=== PATIENT | female | born 1945 | race Caucasian/White ===

== ENCOUNTER → 2022-10-30 08:01 | Outpatient (BNVA) | payer MEDICARE, OTHER, SELFPAY | PROVIDERS: Visit Provider Thoracic Surgery (Cardiothoracic Vascular Surgery) | DX: Z90.2 Acquired absence of lung [part of] (principal) | CPT/HCPCS: 99202 ==

== ENCOUNTER 2022-10-31 05:41 | Day surgery (SDC) | payer MEDICARE, SELFPAY ==
--- NOTE | 2022-10-31 05:54 | XRR_ITS ---
PROCEDURE INFORMATION: Exam: XR Chest Exam date and time: 10/31/2022 6:03 AM Age: 76 years old Clinical indication: Device placement; Chest tube; Additional info: Chest tube removal TECHNIQUE: Imaging protocol: Radiologic exam of the chest. Views: 2 views. COMPARISON: No relevant prior studies available. FINDINGS: Lungs: Emphysematous change and interstitial prominence. Pleural spaces: Right thoracostomy tube with small right apical pneumothorax. Heart/Mediastinum: No cardiomegaly. Bones/joints: Osteopenia and degenerative change. XR/XR chest 2V insp/exp [id number] IMPRESSION: Right thoracostomy tube with small right apical pneumothorax.
[2022-10-31 06:15] VITALS: BP 152/60; PULSE 84; RESP 18; TEMP 36.3; O2SAT 98
--- NOTE | 2022-10-31 06:30 | XRR_ITS ---
PROCEDURE INFORMATION: Exam: XR Chest Exam date and time: 10/31/2022 6:36 AM Age: 76 years old Clinical indication: Device placement; Other: RT. Chest tube removal TECHNIQUE: Imaging protocol: Radiologic exam of the chest. Views: 1 view. COMPARISON: CR XR chest 2V insp/exp [id number] 10/31/2022 6:03 AM FINDINGS: Lungs: Emphysematous change and interstitial prominence. Pleural spaces: Interval removal of right thoracostomy tube without significant pneumothorax. Heart/Mediastinum: No cardiomegaly. Diaphragm: Asymmetric elevation of the right hemidiaphragm. Bones/joints: Osteopenia and degenerative change. XR/XR chest 1V portable [id number] IMPRESSION: Interval removal of right thoracostomy tube without significant pneumothorax.
--- NOTE | 2022-10-31 06:32 | SUR.PREOP ---
dr oglesby removed right chest tube in prep room 2. patient sitting up in [facility] awake and alert on room air. chest tube removed by dr oglesby with removal of sutures and tube pulled, Vaseline gauze and 4x4 applied then gauze bandage applied. patient tolerated well, she is comfortable. portable cxr ordered and xray called. plan to xray and monitor for need for thoracic vent per dr oglesby.
[2022-10-31 06:35] VITALS: PULSE 80; RESP 18; O2SAT 96
--- NOTE | 2022-10-31 06:52 | SUR.PREOP ---
second cxr done, read by dr oglesby. dr oglesby informs family of results and says they can go home. requests for his office phone number to be given to patient. patient and family in agreement. patient awake and alert on room air with sat at 98%.
[2022-10-31 07:00] VITALS: BP 150/64; PULSE 83; RESP 18; O2SAT 96
== END 2022-10-31 07:00 | disposition home or self-care (01) ==
PROVIDERS: Visit Provider Thoracic Surgery (Cardiothoracic Vascular Surgery)
PROC: (CPT 32552; principal; 2022-10-31 07:00)
PROC: 0B9P30Z Drainage of Left Pleura with Drainage Device, Percutaneous Approach (ICD-10-PCS; CPT 32551; 2022-10-31 07:00)
DX: Z90.2 Acquired absence of lung [part of] (principal)
CPT/HCPCS: 71045; 71046

== ENCOUNTER → 2022-11-06 08:55 | Outpatient (BNVA) | payer MEDICARE, SELFPAY | PROVIDERS: Visit Provider Thoracic Surgery (Cardiothoracic Vascular Surgery) | DX: Z90.2 Acquired absence of lung [part of] (principal) | CPT/HCPCS: G0463 ==

== ENCOUNTER 2023-01-12 12:11 | Oncology outpatient (recurring) (ONCR) | payer MEDICARE, SELFPAY | END 2023-01-23 23:59 | disposition home or self-care (01) | LOC: ONCMED 12:12 | PROVIDERS: PCP Electrodiagnostic Medicine; Visit Provider Internal Medicine Hematology & Oncology | DX: C34.11 Malignant neoplasm of upper lobe, right bronchus or lung (principal); Z87.891 Personal history of nicotine dependence | CPT/HCPCS: 99204 ==

== ENCOUNTER 2023-02-27 08:57 | Oncology outpatient (recurring) (ONCR) | payer MEDICARE, SELFPAY ==
[2023-02-27 09:27] LABS: Basophils # 0.1 10^3/uL (0.0-0.1); Eosinophils # 0.2 10^3/uL (0.0-0.8); Eosinophils % 3.2 %; Hematocrit 42.4 % (37.0-47.0); Hemoglobin 13.6 g/dL (11.5-15.3); Lymphocytes # 1.6 10^3/uL (0.8-4.8); Lymphocytes % 25.6 %; Mean Corpuscular HGB Conc 32.1 g/dL (30.0-36.0); Mean Corpuscular Hemoglobin 31.9 pg (28.0-34.0); Mean Corpuscular Volume 99.5 fl (81-99); Monocytes # 0.6 10^3/uL (0.2-0.9); Neutrophils # 3.82 10^3/uL (1.8-7.7); Neutrophils % 60.6 %; Nucleated Red Blood Cells % 0 %; Platelet Count 292 10^3/cmm (130-400); Red Blood Count 4.26 10^6/uL (4.1-5.3); White Blood Count 6.3 10^3/uL (4.0-10.0)
[2023-02-27 09:36] LABS: Alanine Aminotransferase 13 U/L (0-33); Alkaline Phosphatase 82 U/L (35-105); Anion Gap 15.4 (5-19); Aspartate Amino Transferase 13 U/L (0-32); Blood Urea Nitrogen 15 mg/dL (8-23); Calcium 9.2 mg/dL (8.5-10.5); Carbon Dioxide 26 mmol/L (22-29); Chloride 105 mmol/L (98-107); Globulin 2.7 g/dL (1.3-4.6); Glucose 97 mg/dL (65-115); Osmolality Calculated 295 mOsm/kg (285-295); Potassium 4.4 mmol/L (3.5-5.1); Sodium 142 mmol/L (136-145); Total Bilirubin 0.4 mg/dL (0.15-1.2); Total Protein 6.7 g/dL (6.6-8.7)
== END 2023-03-25 23:59 | disposition home or self-care (01) ==
LOC: ONCMED 08:57
PROVIDERS: PCP Electrodiagnostic Medicine; Visit Provider Internal Medicine Hematology & Oncology
DX: C34.11 Malignant neoplasm of upper lobe, right bronchus or lung (principal); Z87.891 Personal history of nicotine dependence; Z90.2 Acquired absence of lung [part of]; J43.9 Emphysema, unspecified; E04.2 Nontoxic multinodular goiter
CPT/HCPCS: 36415; 80053; 85025; 99214

== ENCOUNTER → 2023-02-27 08:57 | Outpatient (BNVA) | payer MEDICARE, SELFPAY | PROVIDERS: PCP Electrodiagnostic Medicine; Visit Provider Internal Medicine Hematology & Oncology | DX: Z53.9 Procedure and treatment not carried out, unspecified reason (principal) | CPT/HCPCS: 99214 ==

== ENCOUNTER 2023-03-26 14:49 | Outpatient (CLI) | payer MEDICARE, SELFPAY ==
[2023-03-26] MEDS: iohexol 350 mg/mL 500 mL Btl (per mL) IV (15:20)
--- NOTE | 2023-03-26 15:30 | CT_ITS ---
WS: [id number] CT CHEST AND ABDOMEN TECHNIQUE: Contrast-enhanced CT of the chest and abdomen with coronal and sagittal reformatted images . CLINICAL INFORMATION: follow up COMPARISON: None. DLP: 339.[address] scans at [facility] use at least one of these dose optimization techniques: automated e xposure control; mA and/or kV adjustment per patient size (includes targeted exams where dose is matc hed to clinical indication); or iterative reconstruction. CT CHEST AND ABDOMEN: Lungs are well aerated. Moderate chronic emphysematous changes. No acute pulmonary infiltrates. Subse gmental atelectasis LEFT lower lobe. No suspicious pulmonary parenchymal abnormalities to indicate re current or progressive disease. Small nodules in the thyroid gland. Normal caliber thoracic aorta. Aortic calcification. No mediastin al or hilar lymphadenopathy. No axillary lymphadenopathy. Tiny LEFT hepatic cyst. Normal portal vein and splenic vein. Normal pancreatic parenchymal enhancemen t. Tiny esophageal hiatal hernia. Normal renal parenchymal enhancement. RIGHT kidney parenchymal scar ring. Small renal cysts largest in the LEFT measuring 1.8 cm. Mild aortic calcification. Normal calib er abdominal aorta. No adenopathy in the upper abdomen. Normal visualized gallbladder. Adrenal glands are normal. Mild thoracic kyphosis. Mild thoracic curve. CT/CT chest abdomen w con* IMPRESSION: 1. No evidence of recurrent or progressive disease. 2. No suspicious pulmonary parenchymal abnormalities. 3. No mediastinal or hilar lymphadenopathy. 4. Multinodular thyroid evaluated on the recent ultrasound. 5. RIGHT renal parenchymal scarring. Incidental LEFT renal cyst measuring 1.8 cm. 6. No adenopathy in the abdomen.
== END 2023-03-26 14:50 | disposition home or self-care (01) ==
PROVIDERS: PCP Electrodiagnostic Medicine; Visit Provider Internal Medicine Hematology & Oncology
DX: C34.90 Malignant neoplasm of unspecified part of unspecified bronchus or lung (principal); E04.2 Nontoxic multinodular goiter
CPT/HCPCS: 71260; 74160; 99214; Q9967

== ENCOUNTER → 2023-03-27 09:45 | Outpatient (BNVA) | payer MEDICARE, SELFPAY | PROVIDERS: PCP Electrodiagnostic Medicine; Visit Provider Internal Medicine Hematology & Oncology | DX: Z53.9 Procedure and treatment not carried out, unspecified reason (principal) | CPT/HCPCS: 99213 ==

== ENCOUNTER 2023-07-02 07:42 | Outpatient (CLI) | payer OTHER, SELFPAY ==
--- NOTE | 2023-07-02 07:50 | MR_ITS ---
WS: [id number] MRI BRAIN WITH AND WITHOUT CONTRAST HISTORY: PRIMARY MALGINANT NEOPLASM OF LUNG, memory changes. COMPARISON: None available. TECHNIQUE: Multiplanar imaging performed through the brain with MultiHance 13 ml's IV. No acute infarcts are seen. Dejesus-white matter differentiation is well preserved. There is mild asymme try of the hippocampal formations. Mild increased amount of CSF surrounding the hippocampal formation s. There is mild bilateral cerebral atrophy. No significant small vessel ischemic disease. No prior i nfarct. No susceptibility artifacts or prior lacunar infarcts. Ventricles and extra-axial spaces are normal. Clivus and pituitary gland are normal. Visualized posterior fossa and brainstem are also normal. Postcontrast images are negative for masses or vascular malformations. Dural venous sinuses are normal. Paranasal sinuses: Well aerated with no significant disease. Mastoid air cells: Normal. Calvarium and scalp: Normal. IMPRESSION: 1. No evidence for metastatic disease to the brain. 2. Very mild symmetric cerebral and cerebellar atrophy. 3. Mild atrophy of the hippocampal formations, symmetric. 4. No significant small vessel ischemic disease.
[2023-07-02] MEDS: gadobenate dimeglumine 20 mL vial IV (09:02)
== END 2023-07-02 07:43 | disposition home or self-care (01) ==
PROVIDERS: PCP Electrodiagnostic Medicine; Visit Provider Electrodiagnostic Medicine
DX: C34.90 Malignant neoplasm of unspecified part of unspecified bronchus or lung (principal); R41.3 Other amnesia
CPT/HCPCS: 70553; A9577

== ENCOUNTER 2023-07-29 13:15 | Outpatient (CLI) | payer MEDICARE, SELFPAY ==
--- NOTE | 2023-07-29 13:30 | CT_ITS ---
WS: [id number] CT CHEST AND ABDOMEN TECHNIQUE: Contrast-enhanced CT of the chest and abdomen with coronal and sagittal reformatted images . CLINICAL INFORMATION: Follow up COMPARISON: CT 03/26/2023 DLP: 392.[address] scans at [facility] use at least one of these dose optimization techniques: automated e xposure control; mA and/or kV adjustment per patient size (includes targeted exams where dose is matc hed to clinical indication); or iterative reconstruction. CT CHEST: Moderate chronic emphysematous changes. Prior postoperative changes RIGHT lung. No acute pulmonary i nfiltrates. Subsegmental atelectasis LEFT lower lobe. No evidence of recurrent or progressive disease . No suspicious pulmonary parenchymal abnormalities. Small nodules in the thyroid gland unchanged. Norm al caliber thoracic aorta. Aortic calcification. No mediastinal or hilar lymphadenopathy. No axillary lymphadenopathy. CT ABDOMEN: Mild diffuse fatty filtration of the liver. Tiny LEFT hepatic cysts. Normal portal vein and splenic v ein. Normal GE junction. Adrenal glands are normal. Normal renal parenchymal enhancement. Cortical scarring RIGHT kidney. Small bilateral renal cysts. No hydronephrosis. Normal caliber abdomi nal aorta. Aortic calcification. No abdominal lymphadenopathy IMPRESSION: 1. No evidence of recurrent or progressive disease. 2. Postoperative changes RIGHT lung. 3. No suspicious pulmonary parenchymal abnormalities. 4. No mediastinal or hilar lymphadenopathy. 5. No adenopathy in the abdomen.
[2023-07-29] MEDS: iohexol 350 mg/mL 500 mL Btl (per mL) PO (14:17)
[2023-07-29] MEDS: iohexol 350 mg/mL 500 mL Btl (per mL) IV (14:17)
== END 2023-07-29 13:16 | disposition home or self-care (01) ==
PROVIDERS: PCP Electrodiagnostic Medicine; Visit Provider Internal Medicine Medical Oncology
DX: C34.90 Malignant neoplasm of unspecified part of unspecified bronchus or lung (principal); Z98.890 Other specified postprocedural states
CPT/HCPCS: 71260; 74160; Q9967

== ENCOUNTER 2023-08-03 13:16 | Oncology outpatient (recurring) (ONCR) | payer MEDICARE, SELFPAY ==
[2023-08-03 13:50] VITALS: BP 134/78; PULSE 87; RESP 16; TEMP 36.9; O2SAT 98
[2023-08-03 14:08] LABS: Basophils % 0.4 %; Eosinophils # 0.1 10^3/uL (0.0-0.8); Eosinophils % 0.4 %; Hematocrit 39.4 % (36-47); Lymphocytes # 1.6 10^3/uL (0.8-4.8); Lymphocytes % 14.3 %; Mean Corpuscular HGB Conc 32.7 g/dL (30-55); Mean Corpuscular Hemoglobin 32.4 pg (27-33); Mean Platelet Volume 8.8 fL (7.4-10.4); Monocytes # 0.7 10^3/uL (0.2-0.9); Monocytes % 6.3 %; Neutrophils # 8.93 10^3/uL (1.8-7.7); Neutrophils % 78.2 %; Nucleated Red Blood Cells % 0 %; Platelet Count 300 10^3/cmm (157-399); Red Blood Count 3.98 10^6/uL (3.85-5.65); Red Cell Distribution Width 13.1 % (12.1-15.1); White Blood Count 11.41 10^3/uL (3.29-11.43)
[2023-08-03 14:30] LABS: Alanine Aminotransferase 9 U/L (0-33); Albumin Level 4.1 g/dL (3.5-5.2); Alkaline Phosphatase 96 U/L (35-105); Anion Gap 11.5 (5-19); Aspartate Amino Transferase 10 U/L (0-32); Blood Urea Nitrogen 19 mg/dL (8-23); Calcium 8.7 mg/dL (8.5-10.5); Carbon Dioxide 25 mmol/L (22-29); Chloride 100 mmol/L (98-107); Globulin 2.5 g/dL (1.3-4.6); Glucose 96 mg/dL (65-115); Osmolality Calculated 276 mOsm/kg (285-295); Potassium 4.5 mmol/L (3.5-5.1); Sodium 132 mmol/L (136-145); Total Bilirubin 0.6 mg/dL (0.15-1.2); Total Protein 6.6 g/dL (6.6-8.7)
[2023-08-03 16:29] LABS: Add Urine Microscopic? YES; Bilirubin Urine Neg (Negative); Blood Urine 3+ (Negative); Glucose Urine UA Norm (Normal); Ketones Urine Negative (Negative); Leukocyte Esterase Urine 2+ (Negative); Nitrate Urine Negative (Negative); Protein Urine 1+ (Negative); Specific Gravity, Urine 1.015 (1.005-1.030); Urine Appearance Turbid (CLEAR); Urine Color Yellow (Yellow); Urobilinogen Urine Norm (Negative); pH Urine 5 (5-7)
[2023-08-03 16:30] LABS: Add Urine Culture? Yes; Bacteria Urine TRACE /hpf; RBC Urine 0-4 /hpf (0-2); Squamous Epithelial Cell Urine 0-4 /hpf (0-5); WBC Urine TOO NUMEROUS TO CNT /hpf (0-5)
== END 2023-08-25 23:59 | disposition home or self-care (01) ==
PROVIDERS: Internal Medicine Hematology & Oncology; Nurse Practitioner Family; PCP Electrodiagnostic Medicine; Visit Provider Internal Medicine Medical Oncology
DX: C34.11 Malignant neoplasm of upper lobe, right bronchus or lung (principal); Z87.891 Personal history of nicotine dependence; Z90.2 Acquired absence of lung [part of]; R30.0 Dysuria; Z79.899 Other long term (current) drug therapy
CPT/HCPCS: 36415; 80053; 81001; 85025; 87077; 87086; 87186; 99214

== ENCOUNTER 2023-08-07 10:26 | Emergency (ER) | payer MEDICARE, SELFPAY ==
[2023-08-07 10:35] VITALS: BP 123/66; PULSE 92; RESP 18; TEMP 36.5; O2SAT 96; BMI 20.9
--- NOTE | 2023-08-07 13:55 | ED_ITS ---
HPI - Female Genitourinary General: Chief complaint: Urogenital-Female Stated complaint: UTI Time Seen by Provider: 08/07/23 11:01 History of Present Illness: 77-year-old female with complex medical history including history of lung cancer with lung resection last year September. Patient presented emergency room with her daughter today with dysuria, mild confusion, nausea and vomiting that started yesterday. Patient still complains of dysuria but denies any hematuria, no flank pain, no fever, chills, back pain or chest pain. Denies any shortness of breath, cough, coughing up blood or vomiting blood. Associated symptoms: Reports nausea; Deny headache(s) Review of Systems General: Reports: 10 or more systems reviewed and unremarkable except in HPI and below Const: Reports: fatigue and malaise; Denies: fever(s), chills, body aches, change in appetite, diaphoresis, change in sleep pattern or daytime sleepiness Eyes: Denies: change in vision or blurry vision GI: Reports: nausea and vomiting; Denies: coffee ground emesis, dysphagia, heartburn, early satiety, diarrhea, constipation, bloating or belching : Reports: dysuria; Denies: flank pain, difficulty voiding, dribbling, oliguria, urinary incontinence, hematuria, genital lesions or genital pruritis Musc: Denies: neck pain, back pain or extremity pain Skin/Breast: Denies: rash, pruritus or erythema Neuro: Denies: headache(s), numbness in extremities, lack of coordination, difficulty walking, frequent falls, dizziness, vertigo, confusion or behavioral changes Psych: Denies: anxiety, depression, mood swings, panic attacks, sleeping less, sleeping more or hopelessness Sohail/Lymph: Denies: easy bruising, easy bleeding, petechiae, enlarged lymph nodes or tender lymph nodes PFSH ED PFSH: Medical History Non-small cell lung cancer Surgical History History of lobectomy of lung Family History Mother Stroke Other Cancer Social History Smoking and tobacco/nicotine status: former use of tobacco/nicotine Quit status (tobacco/nicotine): has quit using Year quit tobacco: 09/08/22 Former quit date comment: 0.5 pack per day x 20 years Alcohol intake: current Alcohol intake frequency: holidays/special occasions only Substance/Drug Use: never Household members: other Details: daughter Housing: House Marital status: / Number of children: 2 Pets and animals: Yes Pets & animals: dog(s) Special dakotah needs: No Agree to transfusion: Yes Physical Exam Const: COMMON NORMALS: no acute distress, average body habitus, patient o riented x3, no limitations, healthy appearing, alert and well nourished HENMT: COMMON NORMALS: normocephalic, atraumatic, hearing grossly normal b ilaterally, external ears normal, EAC's normal, TM's normal bilaterally, Normal external nose present, Normal nasal mucous membranes and turbinates present, moist oral mucous membranes, oropharynx normal, dentition normal and gingiva normal HEAD & SCALP: normocephalic and atraumatic NOSE: Normal external nose present and Normal nasal mucous membranes and turbinates present EXTERNAL EAR: Yes external ears normal EXTERNAL AUDITORY CANAL: EAC's normal TYMPANIC MEMBRANE: TM's normal bilaterally Neck/C-Spine: COMMON NORMALS: full ROM, no lymphadenopathy, supple, no meningeal signs, no JVD, Thyroid normal and No carotid bruits THYROID: Thyroid normal Chest: COMMONS NORMALS: normal inspection of the chest, normal palpation of e ntire chest wall, normal inspection of the breasts and normal palpation of the breasts Breast/axilla inspection: Yes normal inspection of the breasts BREAST/AXILLA PALPATION: Yes normal palpation of the breasts Resp: COMMON NORMALS: normal respiratory effort, No retractions, No use of accessory muscles, clear to auscultation bilaterally and percussion normal AUSCULTATION: clear to auscultation bilaterally PERCUSSION: percussion normal Cardio: COMMON NORMALS: no JVD GI: COMMON NORMALS: Normal to inspection, nondistended, normoactive bowel sounds present, Soft to palpation, non-tender, No hepatosplenomegaly present, no masses and no bruits PALPATION: Yes Soft to palpation and Yes No hepatosplenomegaly present Extremity: COMMON NORMALS: normal to inspection, full ROM, capillary refill normal, no joint enlargement, no clubbing, cyanosis or edema, no calf tenderness and no pedal edema Neuro: COMMON NORMALS: patient oriented x3 SENSORIUM/ORIENTATION: Yes alert MENINGEAL SIGNS: Yes no meningeal signs Skin: COMMON NORMALS: no rashes or lesions noted, no wounds, turgor normal, no jaundice, no petechiae and no mottling GENERAL SKIN EXAM: no rashes or l esions noted and turgor normal Course Vital Signs: Vital signs: Vital Signs Temperature 97.7 F 08/07/23 16:51 Pulse Rate 99 08/07/23 16:51 Respiratory Rate 18 08/07/23 16:51 Blood Pressure 133/92 08/07/23 16:51 Pulse Oximetry 94 08/07/23 16:51 Oxygen Delivery Me thod Room Air 08/07/23 10:35 MDM - Female Medical Decision Making Patient made comfortable emergency room. Patient had extensive work-up with CBC, CMP patient was given IV Rocephin. Differential Diagnosis Likely abdominal pain, acute appendicitis, calculus of kidney, constipation, diverticulitis, endometriosis, gastroenteritis and small bowel obstruction Lab Data 08/07/23 14:01 08/07/23 14:01 Laboratory Results WBC 11.55 10^3/uL (3.29-11.43) H 08/07/23 14:01 RBC 4.32 10^6/uL (3.85-5.65) 08/07/23 14:01 Hgb 13.80 g/dL (11.27-16.99) 08/07/23 14:01 Hct 44.4 % (36-47) 08/07/23 14:01 MCV 102.8 fl (85-98) H 08/07/23 14:01 MCH 31.9 pg (27-33) 08/07/23 14:01 MCHC 31.1 g/dL (30-55) 08/07/23 14:01 RDW 13.2 % (12.1-15.1) 08/07/23 14:01 Plt Count 267 10^3/cmm (157-399) 08/07/23 14:01 MPV 9.4 fL (7.4-10.4) 08/07/23 14:01 Neut % (Auto) 85.3 % 08/07/23 14:01 Lymph % (Auto) 6.5 % 08/07/23 14:01 Eddy % (Auto) 4.7 % 08/07/23 14:01 Eos % (Auto) 2.9 % 08/07/23 14:01 Baso % (Auto) 0.2 % 08/07/23 14:01 Neut # (Auto) 9.85 10^3/uL (1.8-7.7) H 08/07/23 14:01 Lymph # (Auto) 0.8 10^3/uL (0.8-4.8) 08/07/23 14:01 Eddy # (Auto) 0.5 10^3/uL (0.2-0.9) 08/07/23 14:01 Eos # (Auto) 0.3 10^3/uL (0.0-0.8) 08/07/23 14:01 Baso # (Auto) 0.0 10^3/uL (0.0-0.1) 08/07/23 14:01 Nucleated RBC % (auto) 0 % 08/07/23 14:01 Nucleated RBCs # 0.0 /100WBC 08/07/23 14:01 Sodium 136 mmol/L (136-145) 08/07/23 14:01 Potassium 3.9 mmol/L (3.5-5.1) 08/07/23 14:01 Chloride 102 mmol/L (98-107) 08/07/23 14:01 Carbon Dioxide 22 mmol/L (22-29) 08/07/23 14:01 Anion Gap 15.9 (5-19) 08/07/23 14:01 BUN 26 mg/dL (8-23) H 08/07/23 14:01 Creatinine 1.2 mg/dL (0.5-0.9) H 08/07/23 14:01 GFR Calculation Not Reportable 08/07/23 14:01 Glucose 114 mg/dL (65-115) 08/07/23 14:01 Calculated Osmolality 288 mOsm/kg (285-295) 08/07/23 14:01 Calcium 8.4 mg/dL (8.5-10.5) L 08/07/23 14:01 Total Bilirubin 0.4 mg/dL (0.15-1.2) 08/07/23 14:01 AST 9 U/L (0-32) 08/07/23 14:01 ALT 8 U/L (0-33) 08/07/23 14:01 Alkaline Phosphatase 88 U/L (35-105) 08/07/23 14:01 Total Protein 6.7 g/dL (6.6-8.7) 08/07/23 14:01 Albumin 3.7 g/dL (3.5-5.2) 08/07/23 14: Globulin 3.0 g/dL (1.3-4.6) 08/07/23 14:01 Urine Color Yellow (Yellow) 08/07/23 14:26 Urine Appearance Cloudy (CLEAR) A 08/07/23 14:26 Urine pH 5 (5-7) 08/07/23 14:26 Ur Specific [place] 1.020 (1.005-1.030) 08/07/23 14:26 Urine Protein 2+ (Negative) H 08/07/23 14:26 Urine Glucose (UA) Norm (Normal) 08/07/23 14:26 Urine Ketones 1+ (Negative) H 08/07/23 14:26 Urine Blood 2+ (Negative) H 08/07/23 14:26 Urine Nitrate Positive (Negative) H 08/07/23 14:26 Urine Bilirubin Neg (Negative) 08/07/23 14:26 Urine Urobilinogen Norm mg/dL (Negative) 08/07/23 14:26 Ur Leukocyte Esterase 2+ (Negative) H 08/07/23 14:26 Urine RBC 0-4 /hpf (0-2) H 08/07/23 14:26 Urine WBC Too numerous to cnt /hpf (0-5) H 08/07/23 14:26 Ur Squamous Epith Cells 5-10 /hpf (0-5) H 08/07/23 14:26 Amorphous Sediment Not Reportable 08/07/23 14:26 Urine Bacteria 2+ /hpf (NONE) H 08/07/23 14:26 No radiology studies performed this visit Discharge Plan Discharge Patient Disposition: Home Clinical Impression: Urinary tract infection Condition: Stable Prescriptions: New cephalexin 500 mg capsule 500 mg PO TID 10 Days Qty: 30 0RF No Action bupropion HCl [Wellbutrin XL] 300 mg tablet extended release 24 hr 300 mg PO QAM vitamin B complex [B-Complex] Tablet 1 tab PO QAM alendronate [Fosamax] 70 mg tablet 70 mg PO Q7D Rx Instructions: on sat Tylenol 325 mg Tablet 325 mg PO Q6H PRN (Reason: Pain) Vitamin C 500 mg Tablet 500 mg PO QAM ibuprofen 200 mg Tablet 400 mg PO Q6H PRN (Reason: Pain) Vicks NyQuil Severe Cold-Flu 6.25-5-10-325 mg/15 mL Liquid 20 ml PO .ONE TIME DOSE Discharge Orders: Discharge ED (Routine); Ordered 08/07/23 Ordered By: George Jones Referrals: Jcarlos Washington DO [Primary Care Provider] - Discharge Diet: Advance as tolerated Discharge Activity: Resume usual activity Patient Instructions: Opioid Safety, Pain Management Coding Level of Care Code ED 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
[2023-08-07] MEDS: ondansetron 2 mg/ML SDV 2 mL 4 MG IVP (14:13)
[2023-08-07] MEDS: cefTRIAXone 1,000 MG in sodium chloride 0.9% (plus) 50 ML 100 MG IV (14:13)
[2023-08-07 14:15] LABS: Basophils % 0.2 %; Eosinophils # 0.3 10^3/uL (0.0-0.8); Eosinophils % 2.9 %; Hematocrit 44.4 % (36-47); Lymphocytes # 0.8 10^3/uL (0.8-4.8); Lymphocytes % 6.5 %; Mean Corpuscular HGB Conc 31.1 g/dL (30-55); Mean Corpuscular Hemoglobin 31.9 pg (27-33); Mean Corpuscular Volume 102.8 fl (85-98); Mean Platelet Volume 9.4 fL (7.4-10.4); Monocytes # 0.5 10^3/uL (0.2-0.9); Monocytes % 4.7 %; Neutrophils # 9.85 10^3/uL (1.8-7.7); Neutrophils % 85.3 %; Nucleated Red Blood Cells % 0 %; Platelet Count 267 10^3/cmm (157-399); Red Blood Count 4.32 10^6/uL (3.85-5.65); Red Cell Distribution Width 13.2 % (12.1-15.1); White Blood Count 11.55 10^3/uL (3.29-11.43)
[2023-08-07 14:27] VITALS: BP 133/92; PULSE 99; RESP 18; O2SAT 94
[2023-08-07 14:39] LABS: Alanine Aminotransferase 8 U/L (0-33); Albumin Level 3.7 g/dL (3.5-5.2); Alkaline Phosphatase 88 U/L (35-105); Aspartate Amino Transferase 9 U/L (0-32); Blood Urea Nitrogen 26 mg/dL (8-23); Calcium 8.4 mg/dL (8.5-10.5); Carbon Dioxide 22 mmol/L (22-29); Chloride 102 mmol/L (98-107); Glucose 114 mg/dL (65-115); Osmolality Calculated 288 mOsm/kg (285-295); Sodium 136 mmol/L (136-145); Total Bilirubin 0.4 mg/dL (0.15-1.2); Total Protein 6.7 g/dL (6.6-8.7)
[2023-08-07 14:41] LABS: Anion Gap 15.9 (5-19); Potassium 3.9 mmol/L (3.5-5.1)
[2023-08-07 14:57] LABS: Add Urine Culture? Yes; Add Urine Microscopic? YES; Bacteria Urine 2+ /hpf; Bilirubin Urine Neg (Negative); Blood Urine 2+ (Negative); Glucose Urine UA Norm (Normal); Ketones Urine 1+ (Negative); Leukocyte Esterase Urine 2+ (Negative); Nitrate Urine Positive (Negative); Protein Urine 2+ (Negative); RBC Urine 0-4 /hpf (0-2); Urine Appearance Cloudy (CLEAR); Urine Color Yellow (Yellow); Urobilinogen Urine Norm (Negative); WBC Urine TOO NUMEROUS TO CNT /hpf (0-5); pH Urine 5 (5-7)
[2023-08-07 16:51] VITALS: BP 133/92; PULSE 99; RESP 18; TEMP 36.5; O2SAT 94
== END 2023-08-07 16:51 | disposition home or self-care (01) ==
PROVIDERS: Emergency Provider Family Medicine; PCP Electrodiagnostic Medicine
DX: N39.0 Urinary tract infection, site not specified (principal); Z85.118 Personal history of other malignant neoplasm of bronchus and lung; Z90.2 Acquired absence of lung [part of]
CPT/HCPCS: 36415; 80053; 81001; 85025; 87077; 87086; 87186; 96365; 96366; 96375; 99284; J0696; J2405

== ENCOUNTER 2023-12-07 09:19 | Outpatient (CLI) | payer MEDICARE, SELFPAY ==
--- NOTE | 2023-12-07 10:30 | CT_ITS ---
WS: [id number] CT CHEST, ABDOMEN, AND PELVIS TECHNIQUE: Contrast-enhanced CT of the chest, abdomen, and pelvis with coronal and sagittal reformatt ed images. CLINICAL INFORMATION: surveillance COMPARISON: CT 07/29/23 DLP: 562.[address] scans at [facility] use at least one of these dose optimization techniques: automated e xposure control; mA and/or kV adjustment per patient size (includes targeted exams where dose is matc hed to clinical indication); or iterative reconstruction. CT CHEST: Moderate chronic emphysematous changes. Prior postoperative changes RIGHT lung. No acute pulmonary infiltrates. Subsegmental atelectasis in the lung bases. No new suspicious pulmonary parenchymal abn ormalities. No evidence of recurrent or progressive disease. Small nodules in the thyroid gland unchanged. Normal caliber thoracic aorta. Aortic calcification. No mediastinal or hilar lymphadenopathy. No axillary lymphadenopathy. CT ABDOMEN AND PELVIS: Mild diffuse fatty filtration of the liver. Tiny LEFT hepatic cysts. Normal portal vein and splenic vein. Normal GE junction. Adrenal glands are normal. Normal renal parenchymal enhancement. Cortical scarring RIGHT kidney. Normal gallbladder. Stable small bilateral renal cysts. No hydronephrosis in either kidney. Normal caliber abdominal aort a. Aortic calcification. No abdominal lymphadenopathy. No pelvic lymphadenopathy. Mild rectosigmoid f ecal retention. Extensive sigmoid diverticulosis. No evidence of high-grade small or large bowel obst ruction. Transverse colon constipation. Normal appendix in the RIGHT lower quadrant. Urine distended bladder. Tiny fat-containing umbilical hernia. Calcified uterine fibroid. Mild disc bulging L3-L5. IMPRESSION: 1. Overall no significant changes compared to previous. 2. No evidence of recurrent or progressive disease. 3. Stable postoperative changes RIGHT lung. 4. No mediastinal or hilar lymphadenopathy. No adenopathy in the abdomen or pelvis. 5. No new suspicious pulmonary parenchymal abnormalities.
[2023-12-07 11:12] LABS: Blood Urea Nitrogen 12 mg/dL (8-23)
[2023-12-07] MEDS: iohexol 350 mg/mL 500 mL Btl (per mL) PO (11:17)
[2023-12-07] MEDS: iohexol 350 mg/mL 500 mL Btl (per mL) IV (11:19)
== END 2023-12-07 09:20 | disposition home or self-care (01) ==
LOC: RAD 09:20
PROVIDERS: PCP Electrodiagnostic Medicine; Visit Provider Nurse Practitioner Family
DX: C34.90 Malignant neoplasm of unspecified part of unspecified bronchus or lung (principal)
CPT/HCPCS: 71260; 74177; 82565; 84520; Q9967

== ENCOUNTER 2023-12-08 14:03 | Oncology outpatient (recurring) (ONCR) | payer MEDICARE, SELFPAY ==
[2023-12-08 14:26] LABS: Basophils # 0.1 10^3/uL (0.0-0.1); Basophils % 1.2 %; Eosinophils # 0.2 10^3/uL (0.0-0.8); Eosinophils % 2.1 %; Hematocrit 43.7 % (36-47); Lymphocytes # 1.7 10^3/uL (0.8-4.8); Lymphocytes % 24.1 %; Mean Corpuscular HGB Conc 32.5 g/dL (30-55); Mean Corpuscular Hemoglobin 32.4 pg (27-33); Mean Corpuscular Volume 99.8 fl (85-98); Mean Platelet Volume 8.8 fL (7.4-10.4); Monocytes # 0.7 10^3/uL (0.2-0.9); Monocytes % 9.2 %; Neutrophils # 4.55 10^3/uL (1.8-7.7); Neutrophils % 63.1 %; Nucleated Red Blood Cells % 0 %; Platelet Count 340 10^3/cmm (157-399); Red Blood Count 4.38 10^6/uL (3.85-5.65); Red Cell Distribution Width 13.1 % (12.1-15.1); White Blood Count 7.21 10^3/uL (3.29-11.43)
[2023-12-08 14:41] LABS: Alanine Aminotransferase 11 U/L (0-33); Albumin Level 4.5 g/dL (3.5-5.2); Alkaline Phosphatase 97 U/L (35-105); Anion Gap 15.5 (5-19); Aspartate Amino Transferase 10 U/L (0-32); Blood Urea Nitrogen 26 mg/dL (8-23); Calcium 9.4 mg/dL (8.5-10.5); Carbon Dioxide 27 mmol/L (22-29); Chloride 100 mmol/L (98-107); Globulin 2.8 g/dL (1.3-4.6); Glucose 104 mg/dL (65-115); Osmolality Calculated 291 mOsm/kg (285-295); Potassium 4.5 mmol/L (3.5-5.1); Sodium 138 mmol/L (136-145); Total Bilirubin 0.2 mg/dL (0.15-1.2); Total Protein 7.3 g/dL (6.6-8.7)
== END 2023-12-24 23:59 | disposition home or self-care (01) ==
PROVIDERS: Nurse Practitioner Family; PCP Electrodiagnostic Medicine; Visit Provider Internal Medicine Medical Oncology
DX: Z87.891 Personal history of nicotine dependence; Z90.2 Acquired absence of lung [part of]; R30.0 Dysuria; Z79.899 Other long term (current) drug therapy; Z08 Encounter for follow-up examination after completed treatment for malignant neoplasm; Z85.118 Personal history of other malignant neoplasm of bronchus and lung
CPT/HCPCS: 36415; 80053; 85025; 99214

== ENCOUNTER → 2024-01-18 15:17 | Outpatient (BNVA) | payer MEDICARE, SELFPAY | PROVIDERS: PCP Electrodiagnostic Medicine; Visit Provider Nurse Practitioner Family | DX: D48.5 Neoplasm of uncertain behavior of skin (principal); L57.0 Actinic keratosis; L57.8 Other skin changes due to chronic exposure to nonionizing radiation; L81.4 Other melanin hyperpigmentation; D22.39 Melanocytic nevi of other parts of face | CPT/HCPCS: 11102; 17000; 99203 ==

== ENCOUNTER → 2024-02-15 09:46 | Outpatient (BNVA) | payer MEDICARE, SELFPAY | PROVIDERS: PCP Electrodiagnostic Medicine; Visit Provider Dermatology | DX: C44.622 Squamous cell carcinoma of skin of right upper limb, including shoulder (principal) | CPT/HCPCS: 13132; 17311 ==

== ENCOUNTER → 2024-02-29 15:35 | Outpatient (BNVA) | payer MEDICARE, SELFPAY | PROVIDERS: PCP Electrodiagnostic Medicine; Visit Provider Dermatology | DX: Z85.828 Personal history of other malignant neoplasm of skin (principal); Z48.02 Encounter for removal of sutures | CPT/HCPCS: 99212 ==

== ENCOUNTER 2024-05-20 10:00 | Oncology outpatient (recurring) (ONCR) | payer MEDICARE, SELFPAY ==
[2024-05-11 14:33] LABS: Basophils # 0.1 10^3/uL (0.0-0.1); Basophils % 1.2 %; Eosinophils # 0.2 10^3/uL (0.0-0.8); Eosinophils % 2.2 %; Hematocrit 40.9 % (36-47); Lymphocytes # 1.9 10^3/uL (0.8-4.8); Lymphocytes % 28.4 %; Mean Corpuscular HGB Conc 32.5 g/dL (30-55); Mean Corpuscular Hemoglobin 32.5 pg (27-33); Mean Platelet Volume 9.1 fL (7.4-10.4); Monocytes # 0.6 10^3/uL (0.2-0.9); Monocytes % 8.4 %; Neutrophils # 4.01 10^3/uL (1.8-7.7); Neutrophils % 59.5 %; Nucleated Red Blood Cells % 0 %; Platelet Count 295 10^3/cmm (157-399); Red Blood Count 4.09 10^6/uL (3.85-5.65); Red Cell Distribution Width 13.6 % (12.1-15.1); White Blood Count 6.75 10^3/uL (3.29-11.43)
[2024-05-11 15:01] LABS: Alanine Aminotransferase 13 U/L (0-33); Albumin Level 4.2 g/dL (3.5-5.2); Alkaline Phosphatase 117 U/L (35-105); Anion Gap 18.6 (5-19); Aspartate Amino Transferase 12 U/L (0-32); Blood Urea Nitrogen 24 mg/dL (8-23); Calcium 8.9 mg/dL (8.5-10.5); Carbon Dioxide 23 mmol/L (22-29); Chloride 105 mmol/L (98-107); Creatinine Clr Calc Pharmacy 55.8144; Globulin 2.6 g/dL (1.3-4.6); Glucose 101 mg/dL (65-115); Osmolality Calculated 298 mOsm/kg (285-295); Potassium 4.6 mmol/L (3.5-5.1); Sodium 142 mmol/L (136-145); Total Bilirubin 0.2 mg/dL (0.15-1.2); Total Protein 6.8 g/dL (6.6-8.7)
--- NOTE | 2024-05-20 10:00 | CT_ITS ---
WS: [id number] CT CHEST TECHNIQUE: Contrast enhanced CT of the chest with coronal and sagittal reformatted images. CLINICAL INFORMATION: lung cancer COMPARISON: CT 1224 DLP: 236.[address] scans at [facility] use at least one of these dose optimization techniques: automated e xposure control; mA and/or kV adjustment per patient size (includes targeted exams where dose is matc hed to clinical indication); or iterative reconstruction. FINDINGS: Moderate chronic emphysematous changes. Prior postoperative changes RIGHT lung. No acute pulmonary in filtrates. Subsegmental atelectasis in the lung bases. Slight hazy groundglass opacities in the lingu la and LEFT lower lobe likely inflammatory. Small nodules in the thyroid gland unchanged. Normal caliber thoracic aorta. Aortic calcification. No mediastinal or hilar lymphadenopathy. No axillary lymphadenopathy. 2.1 cm LEFT renal cyst. Adrenal glands are normal. 7 mm enhancing vascular anomaly RIGHT hepatic lobe unchanged since 03/26/2023. Few incidental hepatic cysts. CT/CT chest w con* [id number] IMPRESSION: 1. No evidence of recurrent or progressive disease. 2. Postoperative changes RIGHT lung. 3. Slight hazy groundglass opacities in the lingula and LEFT lower lobe likely inflammatory. 4. Subsegmental atelectasis in the lung bases.
[2024-05-20] MEDS: iohexol 350 mg/mL 500 mL Btl (per mL) IV (10:24)
== END 2024-05-25 23:59 | disposition home or self-care (01) ==
LOC: ONCMED 05-23 11:28
PROVIDERS: Internal Medicine Medical Oncology; PCP Electrodiagnostic Medicine; Visit Provider Internal Medicine Medical Oncology
DX: Z53.9 Procedure and treatment not carried out, unspecified reason; D48.5 Neoplasm of uncertain behavior of skin; L57.0 Actinic keratosis; S80.922A Unspecified superficial injury of left lower leg, initial encounter; L82.1 Other seborrheic keratosis; L73.8 Other specified follicular disorders; D18.01 Hemangioma of skin and subcutaneous tissue; R22.0 Localized swelling, mass and lump, head; Z85.828 Personal history of other malignant neoplasm of skin; X58.XXXA Exposure to other specified factors, initial encounter; C34.11 Malignant neoplasm of upper lobe, right bronchus or lung; Z90.2 Acquired absence of lung [part of]; R91.8 Other nonspecific abnormal finding of lung field
CPT/HCPCS: 11102; 17000; 36415; 71260; 80053; 85025; 99213; 99214; Q9967

== ENCOUNTER 2024-06-17 07:20 | Outpatient (CLI) | payer MEDICARE, SELFPAY ==
--- NOTE | 2024-06-17 07:26 | US_ITS ---
WS: [id number] ULTRASOUND SOFT TISSUES RIGHT wrist HISTORY: R FOREARM SUBCUTANEOUS MASS COMPARISON: None available. TECHNIQUE: 2-D and color Doppler imaging is submitted. Ultrasound was performed over the dorsal surface of the wrist at the area of the palpable mass. There is a hypoechoic mass which is nonvascular and noncystic measuring 1.4 x 0.9 x 0.7 cm. This is along the dorsal surface of the wrist and closely associated with the osseous structures. Due to the positi on and location this is probably a complex ganglion. US/US soft tissue/extremity [id number] IMPRESSION: Complex solid-appearing nonvascular mass along the dorsal wrist. Due to the loc ation and appearance this is probably a ganglion. This can be further evaluated by MRI RIGHT wrist if clinically thought relevant.
--- NOTE | 2024-06-17 12:29 | XR_ITS ---
WS: [id number] DEXA (DUAL ENERGY X-RAY ABSORPTIOMETRY) Bone mineral density was performed using a [employer] machine. HISTORY: OSTEOPOROSIS COMPARISON: None available. Lumbar spine BMD (L1-L4): 1.056 g/cm2 T score: -1.0 Z score: 0.8 Total hip BMD: Left: 0.660 g/cm2. T score: -2.8 Z score: -0.8 Right: 0.704 g/cm2. T score: -2.4 Z score: -0.5 10 year probability of a major osteoporotic fracture is 34.8%. XR/XR DEXA axial skeleton* [id number] IMPRESSION: OSTEOPOROSIS based upon the WHO classification for females.
== END 2024-06-17 07:21 | disposition home or self-care (01) ==
PROVIDERS: PCP Electrodiagnostic Medicine; Visit Provider Nurse Practitioner Family
DX: M81.0 Age-related osteoporosis without current pathological fracture (principal); R22.0 Localized swelling, mass and lump, head; R22.31 Localized swelling, mass and lump, right upper limb
CPT/HCPCS: 76882; 77080

== ENCOUNTER → 2024-07-05 07:53 | Outpatient (BNVA) | payer MEDICARE, SELFPAY | PROVIDERS: PCP Electrodiagnostic Medicine; Visit Provider Dermatology | DX: C44.622 Squamous cell carcinoma of skin of right upper limb, including shoulder (principal); D48.5 Neoplasm of uncertain behavior of skin | CPT/HCPCS: 13132; 17000; 17311 ==

== ENCOUNTER 2024-10-09 16:40 | Emergency (ER) | payer MEDICARE, SELFPAY ==
[2024-10-09 16:51] VITALS: BP 128/80; PULSE 76; RESP 18; TEMP 36.3; O2SAT 96
[2024-10-09 17:38] LABS: Basophils % 0.3 %; Eosinophils % 0.6 %; Hematocrit 46.5 % (36-47); Lymphocytes # 0.2 10^3/uL (0.8-4.8); Lymphocytes % 3.2 %; Mean Corpuscular HGB Conc 31.4 g/dL (30-55); Mean Corpuscular Hemoglobin 30.9 pg (27-33); Mean Corpuscular Volume 98.5 fl (85-98); Mean Platelet Volume 8.9 fL (7.4-10.4); Monocytes # 0.4 10^3/uL (0.2-0.9); Monocytes % 5.9 %; Neutrophils % 89.7 %; Nucleated Red Blood Cells % 0 %; Platelet Count 279 10^3/cmm (157-399); Red Blood Count 4.72 10^6/uL (3.85-5.65); Red Cell Distribution Width 13.2 % (12.1-15.1); White Blood Count 6.91 10^3/uL (3.29-11.43)
[2024-10-09 17:55] LABS: Alanine Aminotransferase 7 U/L (0-33); Albumin Level 4.1 g/dL (3.5-5.2); Alkaline Phosphatase 86 U/L (35-105); Anion Gap 19.4 (5-19); Aspartate Amino Transferase 9 U/L (0-32); Blood Urea Nitrogen 22 mg/dL (8-23); Calcium 8.7 mg/dL (8.5-10.5); Carbon Dioxide 22 mmol/L (22-29); Chloride 107 mmol/L (98-107); Creatinine Clr Calc Pharmacy 43.9708; Globulin 2.6 g/dL (1.3-4.6); Glucose 157 mg/dL (65-115); Lipase 17 U/L (13-60); Osmolality Calculated 305 mOsm/kg (285-295); Potassium 4.4 mmol/L (3.5-5.1); Sodium 144 mmol/L (136-145); Total Bilirubin 0.4 mg/dL (0.15-1.2); Total Protein 6.7 g/dL (6.6-8.7)
--- NOTE | 2024-10-09 18:31 | XRR_ITS ---
PROCEDURE INFORMATION: Exam: XR Chest Exam date and time: 10/09/2024 6:43 PM Age: 78 years old Clinical indication: Shortness of breath; Prior surgery; Surgery date: 6+ months; Surgery type: RT partial lobectomy; Lung CA; Patient HX: Increased weakness; SOB; Lung CA; HX RT partial lobectomy TECHNIQUE: Imaging protocol: Radiologic exam of the chest. Views: 1 view. COMPARISON: CT chest w con* [id number] 05/20/2024 10:20 AM FINDINGS: Lungs: Surgical changes in the right mediastinum consistent with provided history of partial lobectomy. No pulmonary consolidation. Pleural spaces: No pneumothorax or pleural effusion. Heart/Mediastinum: Normal size of the cardiac silhouette. Bones/joints: Regional osseous structures appear unremarkable. XR/XR chest 1V portable [id number] IMPRESSION: No radiographically apparent acute cardiopulmonary disease.
[2024-10-09] MEDS: ondansetron 2 mg/ML SDV 2 mL 4 MG IVP ×2 (19:04→22:02)
[2024-10-09 19:32] VITALS: BP 139/94; PULSE 80; O2SAT 97
[2024-10-09 19:39] LABS: Covid PCR NEGATIVE (Negative); Influenza A NEGATIVE (Negative); Influenza B NEGATIVE (Negative); Respiratory Syncytial Virus Ce NEGATIVE (Negative)
[2024-10-09 20:58] LABS: Bilirubin Urine Negative (Negative); Blood Urine 2+ (Negative); Glucose Urine UA Negative (Normal); Ketones Urine Trace (Negative); Leukocyte Esterase Urine 1+ (Negative); Nitrate Urine Positive (Negative); Protein Urine 1+ (Negative); Urine Appearance Clear (CLEAR); Urine Color Dark Yellow (Yellow)
[2024-10-09 20:59] VITALS: BP 151/68; PULSE 83; O2SAT 97
[2024-10-09 21:03] LABS: Add Urine Microscopic? YES; Bacteria Urine 3+ /hpf; Hyaline Casts Urine 12.41 /lpf; RBC Urine 0-2 /hpf (0-2); Universal Test for UA Present (0); WBC Urine 21-50 /hpf (0-5)
[2024-10-09 21:16] LABS: Specific Gravity, Urine 1.032 (1.005-1.030)
[2024-10-09 21:17] LABS: Add Urine Culture? Yes
[2024-10-09 21:29] VITALS: BP 143/66; PULSE 85; O2SAT 96
--- NOTE | 2024-10-09 21:43 | ED_ITS ---
HPI - Nausea/Vomiting/Diarrhea 2 General: Chief complaint: Nausea/Vomiting/Diarrhea Stated complaint: ams, n/v/d Time Seen by Provider: 10/09/24 18:22 History of Present Illness: Patient presents with 3-day history of nausea vomiting diarrhea and mild abdominal discomfort. Denies fever, chills, chest pain,. Patient does report shortness of breath but this is unchanged from her baseline. Patient does have altered mentation but this is unchanged from her baseline. She has dementia. Patient's been taking her medications and has been eating and drinking but today lost her appetite. Associated nausea: Yes Associated symtoms: Reports dysuria, fatigue, malaise and nausea; Denies anxiety, bloating, change in vision, diaphoresis, dizziness or headache(s) Related Data Home Medications Medication Instructions Recorded Confirmed bupropion HCl 300 mg 24 hr tablet, 300 mg PO QAM 10/30/22 05/11/24 extended release (Wellbutrin XL) vitamin B complex (B-Complex 1 tab PO QAM 10/30/22 05/11/24 tablet) alendronate 70 mg tablet (Fosamax) 70 mg PO Q7D 01/12/23 05/11/24 acetaminophen 325 mg tablet 325 mg PO Q6H PRN Pain 08/07/23 05/11/24 (Tylenol) ascorbic acid (vitamin C) 500 mg 500 mg PO QAM 08/07/23 05/11/24 tablet (Vitamin C) doxylamine 6.25 mg-PE 5 mg-DM 10 20 ml PO .ONE TIME DOSE 08/07/23 05/11/24 mg-acetaminophen 325mg/15mL oral liqd (Vicks NyQuil Severe Cold-Flu) ibuprofen 200 mg tablet 400 mg PO Q6H PRN Pain 08/07/23 05/11/24 galantamine 16 mg 24 hr mg PO 12/08/23 05/11/24 capsule,extended release Previous Rx's Medication Instructions Recorded cephalexin 500 mg capsule 500 mg PO BID 7 days #14 caps 10/09/24 ondansetron 4 mg disintegrating 4 mg PO Q8H 5 days #15 tabs 10/09/24 tablet Allergies Allergy/AdvReac Type Severity Reaction Status Date / Time azithromycin [From Zithromax] Allergy Intermediate ADR-Itching Verified 10/09/24 16:55 levofloxacin [From Levaquin] Allergy Intermediate ADR-Itching Verified 10/09/24 16:55 methylprednisolone Allergy Mild ADR-Itching Verified 10/09/24 16:55 ciprofloxacin [From Cipro] Allergy Unknown Verified 10/09/24 16:55 nitrofurantoin Allergy Unknown Verified 10/09/24 16:55 [From Macrobid] methyprednosolone Allergy Mild ADR-Itching Uncoded 10/09/24 16:55 Review of Systems 2 General: Reports: 10 or more systems reviewed and unremarkable except in HPI and below Const: Reports: fatigue and malaise; Denies: fever(s), chills, body aches, change in appetite, diaphoresis, change in sleep pattern or daytime sleepiness Eyes: Denies: change in vision or blurry vision GI: Reports: nausea, vomiting and diarrhea; Denies: coffee ground emesis, dysphagia, heartburn, early satiety, constipation, bloating or belching : Reports: dysuria; Denies: flank pain, difficulty voiding, dribbling, oliguria, urinary incontinence, hematuria, genital lesions or genital pruritis Musc: Denies: neck pain, back pain or extremity pain Skin/Breast: Denies: rash, pruritus or erythema Neuro: Denies: headache(s), numbness in extremities, lack of coordination, difficulty walking, frequent falls, dizziness, vertigo, confusion or behavioral changes Psych: Denies: anxiety, depression, mood swings, panic attacks, sleeping less, sleeping more or hopelessness Sohail/Lymph: Denies: easy bruising, easy bleeding, petechiae, enlarged lymph nodes or tender lymph nodes PFSH ED 2 PFSH: Medical History (Updated 10/09/24 @ 21:49 by RADHA Weaver) COPD (chronic obstructive pulmonary disease) Non-small cell lung cancer Surgical History (Updated 05/15/24 @ 09:07 by Daryn Peterson MD) History of tubal ligation History of lobectomy of lung (10/13/22) Right upper lobectomy by [facility]ATS Family History Mother Stroke Other Cancer Social History Smoking and tobacco/nicotine status: former use of tobacco/nicotine Quit status (tobacco/nicotine): has quit using Year quit tobacco: 09/08/22 Former quit date comment: 0.5 pack per day x 20 years Alcohol intake: current Alcohol intake frequency: holidays/special occasions only Substance/Drug Use: never Household members: other Details: daughter Housing: House Marital status: / Number of children: 2 Pets and animals: Yes Pets & animals: dog(s) Special dakotah needs: No Agree to transfusion: Yes Physical Exam 2 Const: COMMON NORMALS: no acute distress and alert GENERAL APPEARANCE: c ooperative ORIENTATION/CONSCIOUSNESS: Yes awake and Yes oriented to person HENMT: COMMON NORMALS: normocephalic and atraumatic HEAD & SCALP: n ormocephalic and atraumatic FACE & SINUS: normal facial exam MOUTH: Normal oral and palatal mucosa present THROAT: posterior oropharynx normal Eye: COMMON NORMALS: Equal, round and reactive pupils present, EOMs intact bilaterally, conjunctivae normal and no scleral icterus GENERAL EYE: a ppearance normal, both eyes and all related structures ALIGNMENT: Yes alignment normal PERIORBITAL: periorbital findings normal CONJUNCTIVA: Yes conjunctivae normal PUPIL: Yes Equal, round and reactive pupils present Neck/C-Spine: COMMON NORMALS: full ROM GENERAL: Yes normal visual inspection Lymph: LYMPHATIC: no lymphadenopathy noted Chest: COMMONS NORMALS: normal inspection of the chest Breast/axilla inspection: Yes no chest deformity, asymmetry, normal contours, no nodules, masses, tenderness Resp: COMMON NORMALS: normal respiratory effort, No retractions, No use of accessory muscles and clear to auscultation bilaterally EFFORT & INSPECTION: Yes able to speak in complete sentences and Yes symmetric chest movement A USCULTATION: clear to auscultation bilaterally Cardio: COMMON NORMALS: regular rate, regular rhythm and Peripheral pulses 2+ throughout RATE: regular rate RHYTHM: regular rhythm PERIPHERAL PULSES: Peripheral pulses 2+ throughout GI: COMMON NORMALS: Normal to inspection, nondistended, normoactive bowel sounds present, Soft to palpation, non-tender and No hepatosplenomegaly present INSPECTION: Yes normal to inspection AUSCULTATION: Yes normoactive bowel sounds PALPATION: Yes Soft to palpation and Yes No hepatosplenomegaly present RECTAL EXAM: deferred Extremity: COMMON NORMALS: normal to inspection GENERAL: Yes normal exam except as noted Neuro: SENSORIUM/ORIENTATION: Yes alert and Yes oriented to person CRANIAL NERVES: Yes CN normal except as noted Psych: COMMON NORMALS: mental status grossly normal, Normal thought process present, cooperative, activity/motor behavior normal, denies homicidal ideation and denies suicidal ideation THOUGHT PROCESS: Normal thought process present Skin: COMMON NORMALS: no rashes or lesions noted, no wounds and turgor normal GENERAL SKIN EXAM: no rashes or lesions noted and turgor normal Course 2 Vital Signs: Vital signs: Vital Signs Temperature 97.3 F L 10/09/24 16:51 Pulse Rate 85 10/09/24 21:29 Respiratory Rate 18 10/09/24 16:51 Blood Pressure 143/66 10/09/24 21:29 Pulse Oximetry 96 10/09/24 21:29 Oxygen Delivery Me thod Room Air 10/09/24 21:29 MDM - Nausea/Vomiting/Diarrhea Medical Decision Making Patient evaluated in the emergency department today for complaints of abdominal discomfort nausea vomiting and diarrhea. Onset of symptoms 3 days ago. Here in the emergency department she underwent evaluation for gastroenteritis, urinary tract infection, pneumonia, viral illness. Laboratory studies revealed no leukocytosis, anemias, thrombocytopenia. Electrolyte abnormalities. Urinalysis completed reveals 4+ bacteria 2+ leukoesterase, nitrate and white blood cells. I treated her here in the emergency department with cephalexin and discharge her home with Zofran and cephalexin. Patient needs to follow-up with primary care and return to the emergency department as needed for new, concerning, worsening Lab Data 10/09/24 17:27 10/09/24 17:27 Radiology Impressions Chest X-Ray 10/09/24 18:31 IMPRESSION: No radiographically apparent acute cardiopulmonary disease. Laboratory Results WBC 6.91 10^3/uL (3.29-11.43) 10/09/24 17: RBC 4.72 10^6/uL (3.85-5.65) 10/09/24 17: Hgb 14.60 g/dL (11.27-16.99) 10/09/24 17: Hct 46.5 % (36-47) 10/09/24 17: MCV 98.5 fl (85-98) H 10/09/24 17: MCH 30.9 pg (27-33) 10/09/24 17: MCHC 31.4 g/dL (30-55) 10/09/24 17: RDW 13.2 % (12.1-15.1) 10/09/24 17: Plt Count 279 10^3/cmm (157-399) 10/09/24 17: MPV 8.9 fL (7.4-10.4) 10/09/24 17: Neut % (Auto) 89.7 % 10/09/24 17: Lymph % (Auto) 3.2 % 10/09/24 17:27 Laurel % (Auto) 5.9 % 10/09/24 17: Eos % (Auto) 0.6 % 10/09/24 17: Baso % (Auto) 0.3 % 10/09/24: Neut # (Auto) 6.20 10^3/uL (1.8-7.7) 10/09/24 17: Lymph # (Auto) 0.2 10^3/uL (0.8-4.8) L 10/09/24 17: Laurel # (Auto) 0.4 10^3/uL (0.2-0.9) 10/09/24 17: Eos # (Auto) 0.0 10^3/uL (0.0-0.8) 10/09/24 17: Baso # (Auto) 0.0 10^3/uL (0.0-0.1) 10/09/24 17: Nucleated RBC % (auto) 0 % 10/09/24 17: Nucleated RBCs # 0.0 /100WBC 10/09/24 17: Sodium 144 mmol/L (136-145) 10/09/24 17: Potassium 4.4 mmol/L (3.5-5.1) 10/09/24 17: Chloride 107 mmol/L (98-107) 10/09/24 17: Carbon Dioxide 22 mmol/L (22-29) 10/09/24 17:27 Anion Gap 19.4 (5-19) H 10/09/24 17:27 BUN 22 mg/dL (8-23) 10/09/24 17: Creatinine 1.0 mg/dL (0.5-0.9) H 10/09/24 17:27 GFR Calculation Not Reportable 10/09/24 17: Glucose 157 mg/dL (65-115) H 10/09/24 17: Calculated Osmolality 305 mOsm/kg (285-295) H 10/09/24 17: Calcium 8.7 mg/dL (8.5-10.5) 10/09/24 17: Total Bilirubin 0.4 mg/dL (0.15-1.2) 10/09/24 17: AST 9 U/L (0-32) 10/09/24 17: ALT 7 U/L (0-33) 10/09/24 17: Alkaline Phosphatase 86 U/L (35-105) 10/09/24 17: Total Protein 6.7 g/dL (6.6-8.7) 10/09/24: Albumin 4.1 g/dL (3.5-5.2) 10/09/24: Globulin 2.6 g/dL (1.3-4.6) 10/09/24 17: Lipase 17 U/L (13-60) 10/09/24 17: Urine Color Dark yellow (Yellow) A 10/09/24 20: Urine Appearance Clear (CLEAR) 10/09/24 20: Urine pH 5.0 (5-7) 10/09/24: Ur Specific Ethel 1.032 (1.005-1.030) H 10/09/24 20: Urine Protein 1+ (Negative) A 10/09/24: Urine Glucose (UA) Negative (Normal) 10/09/24: Urine Ketones Trace (Negative) 10/09/24 20: Urine Blood 2+ (Negative) A 10/09/24 20: Urine Nitrate Positive (Negative) A 10/09/24 20: Urine Bilirubin Negative (Negative) 10/09/24: Urine Urobilinogen 1.0 mg/dL (Negative) 10/09/24 20: Ur Leukocyte Esterase 1+ (Negative) A 10/09/24 20: Urine RBC 0-2 /hpf (0-2) 10/09/24 20: Urine WBC 21-50 /hpf (0-5) H 10/09/24 20: Ur Squamous Epith Cells 6-10 /hpf (0-5) 10/09/24 20:23 Amorphous Sediment Not Reportable 10/09/24 20:23 Urine Bacteria 3+ /hpf (NONE) H 10/09/24 20:23 Hyaline Casts 12.41 /lpf 10/09/24 20:23 Coronavirus (PCR) Negative (Negative) 10/09/24 18:54 Influenza A (PCR) Negative (Negative) 10/09/24 18:54 Influenza Type B (PCR) Negative (Negative) 10/09/24 18:54 RSV (PCR) Negative (Negative) 10/09/24 18:54 No radiology studies performed this visit Discharge Plan Discharge Patient Disposition: Home Clinical Impression: Acute UTI Condition: Stable Prescriptions: New ondansetron 4 mg tablet,disintegrating 4 mg PO Q8H 5 Days Qty: 15 0RF cephalexin 500 mg capsule 500 mg PO BID 7 Days Qty: 14 0RF No Action bupropion HCl [Wellbutrin XL] 300 mg tablet extended release 24 hr 300 mg PO QAM vitamin B complex [B-Complex] Tablet 1 tab PO QAM alendronate [Fosamax] 70 mg tablet 70 mg PO Q7D Rx Instructions: on sat galantamine 16 mg capsule,ext rel. pellets 24 hr PO Tylenol 325 mg Tablet 325 mg PO Q6H PRN (Reason: Pain) Vitamin C 500 mg Tablet 500 mg PO QAM ibuprofen 200 mg Tablet 400 mg PO Q6H PRN (Reason: Pain) Vicks NyQuil Severe Cold-Flu 6.25-5-10-325 mg/15 mL Liquid 20 ml PO .ONE TIME DOSE Discharge Orders: Discharge ED (Routine); Ordered 10/09/24 Ordered By: Eugenia Goodson Referrals: Jcarlos Washington DO [Primary Care Provider] - Discharge Diet: Advance as tolerated Discharge Activity: Resume usual activity Patient Instructions: Urinary Tract Infection in Older Adults (ED), Pain Management Coding Level of Care Code ED Targeting Acquisition Officer for Janie Davalos
[2024-10-09] MEDS: cephALEXin 500 mg Capsule PO (22:02)
[2024-10-09 22:03] VITALS: BP 129/59; PULSE 93; O2SAT 97
== END 2024-10-09 22:08 | disposition home or self-care (01) ==
PROVIDERS: Emergency Medicine; Emergency Provider Nurse Practitioner; PCP Electrodiagnostic Medicine
DX: N39.0 Urinary tract infection, site not specified (principal); Z11.52 Encounter for screening for COVID-19; Z87.891 Personal history of nicotine dependence; J44.9 Chronic obstructive pulmonary disease, unspecified
CPT/HCPCS: 0241U; 71045; 80053; 81001; 83690; 85025; 87077; 87086; 87186; 96374; 96376; 99284; J2405

== ENCOUNTER → 2024-11-22 15:35 | Outpatient (BNVA) | payer MEDICARE, SELFPAY | PROVIDERS: PCP Electrodiagnostic Medicine; Visit Provider Nurse Practitioner Family | DX: L82.1 Other seborrheic keratosis (principal); L85.3 Xerosis cutis; M67.431 Ganglion, right wrist; Z08 Encounter for follow-up examination after completed treatment for malignant neoplasm; Z85.828 Personal history of other malignant neoplasm of skin; L57.0 Actinic keratosis | CPT/HCPCS: 17000; 99213 ==

== ENCOUNTER 2024-12-12 13:30 | Oncology outpatient (recurring) (ONCR) | payer MEDICARE, SELFPAY ==
--- NOTE | 2024-11-29 08:00 | CTR_ITS ---
PROCEDURE INFORMATION: Exam: CT Chest With Contrast; Diagnostic Exam date and time: 11/29/2024 9:37 AM Age: 79 years old Clinical indication: Condition or disease; Lung condition and disease; Cancer of the lung; Bilateral; Unspecified; Primary cancer: Lung cancer TECHNIQUE: Imaging protocol: Diagnostic computed tomography of the chest with contrast. Radiation optimization: All CT scans at this facility use at least one of these dose optimization techniques: automated exposure control; mA and/or kV adjustment per patient size (includes targeted exams where dose is matched to clinical indication); or iterative reconstruction. Contrast material: OMNI 350; Contrast volume: 100 ml; Contrast route: INTRAVENOUS (IV); COMPARISON: CT chest w con* [id number] 05/20/2024 10:20 AM RADIATION DOSE METRICS: Total DLP (mGy-cm): 545.28 FINDINGS: Thyroid: Small stable nodules in the thyroid gland. Trachea: Unremarkable. Lungs: There are moderate emphysematous changes throughout the lungs. There are postoperative changes involving the right lung, stable in appearance. No focal consolidation is seen. Previously seen ground-glass opacities in the lingula are no longer appreciated. No suspicious pulmonary nodules seen. Pleural spaces: No significant pleural effusion. No pneumothorax. Heart: Normal in size. No significant pericardial effusion. Mediastinal space: No pathologically enlarged lymph nodes. Lymph nodes: Unremarkable. No enlarged lymph nodes. Vasculature: Unremarkable. No aortic aneurysm. Bones/joints: Intact. No acute fracture. Soft tissues: Unremarkable. Other findings: Visualized upper abdominal structures are unremarkable. PROCEDURE INFORMATION: Exam: CT Abdomen And Pelvis With Contrast Exam date and time: 11/29/2024 9:37 AM Age: 79 years old Clinical indication: Condition or disease; Lung condition and disease; Cancer of the lung; Bilateral; Unspecified; Primary cancer: Lung cancer TECHNIQUE: Imaging protocol: Computed tomography of the abdomen and pelvis with contrast. Radiation optimization: All CT scans at this facility use at least one of these dose optimization techniques: automated exposure control; mA and/or kV adjustment per patient size (includes targeted exams where dose is matched to clinical indication); or iterative reconstruction. Contrast material: OMNI 350; Contrast volume: 100 ml; Contrast route: INTRAVENOUS (IV); COMPARISON: CT chest abdpel w/*[id number] 12/07/2023 11:15 AM RADIATION DOSE METRICS: Total DLP (mGy-cm): 545.28 FINDINGS: Lungs: Visualized lung bases are clear. Liver: Tiny stable hepatic cysts. Gallbladder and biliary ducts: No radiopaque stones. No significant ductal dilation. Pancreas: Unremarkable. Spleen: Unremarkable. Adrenal glands: Unremarkable. Kidneys and ureters: Stable parenchymal scarring of the right kidney. Tiny 2 mm nonobstructing stone in the lower pole. Small stable bilateral renal cysts. No significant hydronephrosis. Stomach and bowel: Multiple diverticula involving the sigmoid and descending colon. No significant surrounding inflammation to suggest acute diverticulitis. There is a moderate amount of fecal material throughout the colon.There is no significant bowel dilatation or evidence for obstruction. Moderate amount of fecal material throughout the colon. No significant bowel dilatation or evidence for obstruction. Appendix: Normal in caliber without evidence of appendicitis. Intraperitoneal space: Unremarkable. No free air. No significant fluid collection. Vasculature: The abdominal aorta is normal in caliber. No abdominal aortic aneurysm. Lymph nodes: Unremarkable. No enlarged lymph nodes. Urinary bladder: Unremarkable as visualized. Reproductive: Stable calcified uterine fibroid. Bones/joints: Degenerative changes involving the lumbar spine with posterior disc bulges at L4-L5 and to a lesser extent L3-L4 and L5-S1. There appears to be mild central canal stenosis at L3-L4 and moderate central canal stenosis at L4-L5. There is neural foraminal stenosis from L3-L4 through L5-S1. Soft tissues: Tiny fat containing umbilical hernia. CT/CT chest abdpel w/*[id number] IMPRESSION: 1. Moderate emphysema. 2. Postoperative changes involving the right lung. 3. No evidence for acute pathology. IMPRESSION: 1. Extensive diverticulosis involving the sigmoid and descending colon without compelling evidence for acute diverticulitis. 2. Stable right renal cortical scarring with tiny nonobstructing calcification and small bilateral renal cysts. 3. No evidence for metastatic disease. COMMENTS: Consistent with the [employer]'s Incidental Findings Committee white paper (J Am Roc Radiol 2018): Any incidental renal lesion less than 1 cm or classified as too small to characterize, or any incidental cystic renal lesion characterized as simple-appearing, is likely benign. No follow-up imaging is recommended for these lesions per consensus recommendations based on imaging criteria.
[2024-11-29] MEDS: iohexol 350 mg/mL 500 mL Btl (per mL) PO (08:52)
[2024-11-29] MEDS: iohexol 350 mg/mL 500 mL Btl (per mL) IV (09:46)
== END 2024-12-23 23:59 | disposition home or self-care (01) ==
PROVIDERS: PCP Electrodiagnostic Medicine; Visit Provider Internal Medicine Medical Oncology
DX: Z53.9 Procedure and treatment not carried out, unspecified reason (principal)
CPT/HCPCS: 71260; 74177

== ENCOUNTER 2025-01-16 04:32 | Inpatient (IN) | payer MEDICARE, SELFPAY ==
[2025-01-16] VITALS (13 sets, daily range): BP systolic 111–159; BP diastolic 55–86; PULSE 60–103; RESP 17–24; TEMP 36.6–37.8; O2SAT 91–98; BMI 20.9
[2025-01-16] MEDS: sodium chloride 0.9% 1,000 ML 999 ML IV ×2 (05:12→06:19)
--- NOTE | 2025-01-16 05:12 | CTR_ITS ---
PROCEDURE INFORMATION: Exam: CT Abdomen And Pelvis With Contrast Exam date and time: 01/16/2025 5:31 AM Age: 79 years old Clinical indication: Injury or trauma; Fall; Vomiting and other: Diarrhea; Blunt; Generalized; Prior surgery; Surgery date: 6+ months; Surgery type: Tubal ligation; Patient found on the floor by daughter. Patient endorses low back and bilateral hip pain. Daughter states patient has been having vomiting and diarrhea over the last 24 hours. History of lung cancer. ; Additional info: Abd pain, bilat hip pain after fall TECHNIQUE: Imaging protocol: Computed tomography of the abdomen and pelvis with contrast. Radiation optimization: All CT scans at this facility use at least one of these dose optimization techniques: automated exposure control; mA and/or kV adjustment per patient size (includes targeted exams where dose is matched to clinical indication); or iterative reconstruction. Contrast material: OMNI 350; Contrast volume: 80 ml; Contrast route: INTRAVENOUS (IV); COMPARISON: CT chest abdpel w/*[id number] 11/29/2024 9:37 AM RADIATION DOSE METRICS: Total DLP (mGy-cm): 1803.3 FINDINGS: Limitations: Examination is motion limited. Liver: Nonspecific low-density foci of the liver statistically favor benign processes, no further follow-up needed, measuring as large as 7 mm. Gallbladder and biliary ducts: Normal. No calcified stones. No ductal dilation. Pancreas: Normal. No ductal dilation. Spleen: Normal. No splenomegaly. Adrenal glands: Normal. No mass. Kidneys and ureters: Nonspecific low-density foci of the left kidney statistically favor benign cysts, no follow-up imaging is recommended, as large as 6 mm. 2.3 cm left renal cyst. Multifocal chronic right renal cortical scarring. Stomach and bowel: Colonic diverticulosis is present without diverticulitis. Several prominent loops of proximal and mid small bowel are noted without discrete transition point. Appendix: No evidence of appendicitis. Intraperitoneal space: Unremarkable. No free air. No significant fluid collection. Vasculature: Aortoiliac atherosclerotic disease is seen without evidence of aneurysm. 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 Lymph nodes: Unremarkable. No enlarged lymph nodes. Urinary bladder: Unremarkable as visualized. Reproductive: Calcified uterine fibroid. Bones/joints: Unremarkable. No acute fracture. Soft tissues: Unremarkable. CT/CT abdomen pelvis w con* [id number] IMPRESSION: 1. 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 2. Possible ileus versus early or partial small bowel obstruction. No significant gastric distension. Correlate clinically. COMMENTS: Consistent with the [employer]'s Incidental Findings Committee white paper (J Am Roc Radiol 2018): Any incidental renal lesion less than 1 cm or classified as too small to characterize, or any incidental cystic renal lesion characterized as simple-appearing, is likely benign. No follow-up imaging is recommended for these lesions per consensus recommendations based on imaging criteria.
--- NOTE | 2025-01-16 05:12 | CTR_ITS ---
PROCEDURE INFORMATION: Exam: CT Head Without Contrast Exam date and time: 01/16/2025 5:26 AM Age: 79 years old Clinical indication: Injury or trauma; Blunt trauma (contusions or hematomas); Unwitnessed fall. Patient found on the floor by daughter. ; Additional info: Fall unknown if head inj TECHNIQUE: Imaging protocol: Computed tomography of the head without contrast. Radiation optimization: All CT scans at this facility use at least one of these dose optimization techniques: automated exposure control; mA and/or kV adjustment per patient size (includes targeted exams where dose is matched to clinical indication); or iterative reconstruction. COMPARISON: MR head wo/w con [id number] 07/02/2023 8:20 AM RADIATION DOSE METRICS: Total DLP (mGy-cm): 1803.3 FINDINGS: Brain: There is generalized brain atrophy. Dejesus-white differentiation is preserved. Amorphous lucency is present in the supratentorial white matter bilaterally. No evidence of intracranial hemorrhage or mass effect. Cerebral ventricles: No ventriculomegaly. Paranasal sinuses: Visualized sinuses are unremarkable. No fluid levels. Mastoid air cells: Visualized mastoid air cells are well aerated. Bones: Unremarkable. No acute fracture. Soft tissues: Unremarkable. CT/CT head wo con* [id number] IMPRESSION: 1. Cerebral atrophy and chronic cerebral microvascular disease. 2. No evidence of acute intracranial process.
--- NOTE | 2025-01-16 05:13 | W.ED.FALL ---
Documented by User: Tyler Arreola, DO 01/21/25 18:06 HPI - Fall General: Chief Complaint: Fall Stated Complaint: Fell Time Seen by Provider: 01/16/25 04:54 History of Present Illness: 79-year-old female who lives at home, with her daughter. She presents after a fall at home this morning. She was found around 330 by her daughter in the doorway of a closet. For the last 24 hours, she has had vomiting and diarrhea with chills. Minimal belly pain. She presented to the ER last night with those symptoms, but left without being seen after an hour waiting. Daughter states she checked on her through the night, but found her on the floor early this morning. She has a headache. She does not know if she hit her head. She complains mainly of bilateral hip pain at this point. Related Data Home Medications ?Medication ?Instructions ?Recorded ?Confirmed vitamin B complex (B-Complex 1 tab PO QAM 10/30/22 01/16/25 tablet) alendronate 70 mg tablet (Fosamax) 70 mg PO Q7D 01/12/23 01/16/25 acetaminophen 325 mg tablet 325 mg PO Q6H PRN Pain 08/07/23 01/16/25 (Tylenol) ascorbic acid (vitamin C) 500 mg 500 mg PO QAM 08/07/23 01/16/25 tablet (Vitamin C) cholecalciferol (vitamin D3) 50 50 mcg PO DAILY 01/16/25 01/16/25 mcg (2,000 unit) tablet (Vitamin D3) pantoprazole 40 mg tablet,delayed 40 mg PO DAILY 01/16/25 01/16/25 release vitamin A 2,400 mcg capsule 2,400 mcg PO DAILY 01/16/25 01/16/25 Previous Rx's ?Medication ?Instructions ?Recorded galantamine 8 mg 24 hr 16 mg (2 x 8 mg) PO QAM #10 caps 01/19/25 capsule,extended release bupropion HCl 150 mg 24 hr tablet, 150 mg PO DAILY #30 tabs 01/20/25 extended release cefdinir 300 mg capsule 300 mg PO BID 5 days #10 caps 01/20/25 ondansetron 4 mg disintegrating 4 mg PO Q8H 5 days #15 tabs 01/20/25 tablet Allergies Allergy/AdvReac Type Severity Reaction Status Date / Time azithromycin (From Zithromax) Allergy Intermediate ADR-Itching Verified 10/09/24 16:55 levofloxacin (From Levaquin) Allergy Intermediate ADR-Itching Verified 10/09/24 16:55 methylprednisolone Allergy Mild ADR-Itching Verified 10/09/24 16:55 ciprofloxacin (From Cipro) Allergy Unknown Verified 10/09/24 16:55 nitrofurantoin (From Allergy Unknown Verified 10/09/24 16:55 Macrobid) methyprednosolone Allergy Mild ADR-Itching Uncoded 10/09/24 16:55 PFSH ED PFSH: Medical History COPD (chronic obstructive pulmonary disease) Non-small cell lung cancer Surgical History History of tubal ligation History of lobectomy of lung (10/13/22) Right upper lobectomy by VATS Family History Mother Stroke Other Cancer Social History Smoking and tobacco/nicotine status: former use of tobacco/nicotine Quit status (tobacco/nicotine): has quit using Year quit tobacco: 09/08/22 Former quit date comment: 0.5 pack per day x 20 years Alcohol intake: current Alcohol intake frequency: holidays/special occasions only Substance/Drug Use: never Household members: other Details: daughter Housing: House Marital status: / Number of children: 2 Pets and animals: Yes Pets & animals: dog(s) Special dakotah needs: No Agree to transfusion: Yes Physical Exam Const: GENERAL APPEARANCE: cooperative, ill appearing (Mildly) and frail appearing NUTRITIONAL APPEARANCE: thin ORIENTATION/CONSCIOUSNESS: Yes awake, Yes oriented to person, Yes oriented to place and Yes confused (Mildly) HENMT: COMMON NORMALS: normocephalic and Normal external nose present HEAD & SCALP: normocephalic FACE & SINUS: normal facial exam and face symmetric NOSE: Normal external nose present MOUTH: moist mucous membranes abnormal Details: parched Eye: COMMON NORMALS: Equal, round and reactive pupils present and EOMs intact bilaterally PUPIL: Yes Equal, round and reactive pupils present Neck/C-Spine: GENERAL: Yes trachea midline Resp: COMMON NORMALS: normal respiratory effort, No use of accessory muscles and clear to auscultation bilaterally AUSCULTATION: clear to auscultation bilaterally Cardio: COMMON NORMALS: regular rhythm RATE: tachycardic RHYTHM: regular rhythm GI: COMMON NORMALS: Soft to palpation PALPATION: Yes Soft to palpation, Yes Tenderness to palpation present (GI) (Diffuse) and No Guarding due to palpation present (GI) Back/Pelvis: OTHER: Pain on pelvic compression. Bilateral anterior hip and lateral hip pain on palpation. No deformities. Pulses are intact. Extremity: NARRATIVE EXTREMITY EXAM: See above Neuro: SENSORIUM/ORIENTATION: Yes oriented to person and Yes oriented to place Course Vital Signs: Vital signs: Vital Signs Temperature 98.2 F 01/20/25 15:25 Pulse Rate 81 01/20/25 15:25 Respiratory Rate 16 01/20/25 15:25 Blood Pressure 165/88 01/20/25 15:25 Pulse Oximetry 93 01/20/25 15:25 Oxygen Delivery Me thod Room Air 01/20/25 15:25 MDM - Fall Medical Decision Making Clinically the patient is dry. She does have a slightly hypertensive blood pressure. Other vitals seem stable. CT of the abdomen pelvis will be completed. Laboratories pending. BUN and creatinine are elevated. Other laboratory findings not remarkable, save a CRP of 95. Urinalysis is pending. CT of the head and CT of the abdomen pelvis are pending as well. She will be checked out at shift change. Lab Data 01/20/25 05:52 01/20/25 05:52 Radiology Impressions Abdomen/Pelvis CT 01/16/25 05:12 IMPRESSION: 1. 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 2. Possible ileus versus early or partial small bowel obstruction. No significant gastric distension. Correlate clinically. COMMENTS: Consistent with the [employer]'s Incidental Findings Committee white paper (J Am Roc Radiol 2018): Any incidental renal lesion less than 1 cm or classified as too small to characterize, or any incidental cystic renal lesion characterized as simple-appearing, is likely benign. No follow-up imaging is recommended for these lesions per consensus recommendations based on imaging criteria. Head CT 01/16/25 05:12 IMPRESSION: 1. Cerebral atrophy and chronic cerebral microvascular disease. 2. No evidence of acute intracranial process. Chest/Abdomen X-ray 01/18/25 15:21 IMPRESSION: 1. No acute cardiopulmonary finding. Flat and erect abdomen. Scattered gas throughout both large and small bowel loops suggesting mild ileus. No sign of acute bowel obstruction or pneumoperitoneum. No sign of organ enlargement. Probable calcified uterine fibroid in the central pelvis. Bony structures are intact. IMPRESSION: 1. Mild ileus. No acute process noted at this time. Laboratory Results WBC 8.83 10^3/uL (3.29-11.43) 01/18/25 04:48 RBC 3.53 10^6/uL (3.85-5.65) L 01/18/25 04:48 Hgb 11.10 g/dL (11.27-16.99) L 01/18/25 04:48 Hct 35.1 % (36-47) L 01/18/25 04:48 MCV 99.4 fl (85-98) H 01/18/25 04:48 MCH 31.4 pg (27-33) 01/18/25 04:48 MCHC 31.6 g/dL (30-55) 01/18/25 04:48 RDW 13.0 % (12.1-15.1) 01/18/25 04:48 Plt Count 243 10^3/cmm (157-399) 01/18/25 04:48 MPV 9.6 fL (7.4-10.4) 01/18/25 04:48 Neut % (Auto) 76.5 % 01/18/25 04:48 Lymph % (Auto) 12.5 % 01/18/25 04:48 [place] % (Auto) 10.1 % 01/18/25 04:48 Eos % (Auto) 0.1 % 01/18/25 04:48 Baso % (Auto) 0.3 % 01/18/25 04:48 Neut # (Auto) 6.76 10^3/uL (1.8-7.7) 01/18/25 04:48 Lymph # (Auto) 1.1 10^3/uL (0.8-4.8) 01/18/25 04:48 [place] # (Auto) 0.9 10^3/uL (0.2-0.9) 01/18/25 04:48 Eos # (Auto) 0.0 10^3/uL (0.0-0.8) 01/18/25 04:48 Baso # (Auto) 0.0 10^3/uL (0.0-0.1) 01/18/25 04:48 Nucleated RBC % (auto) 0 % 01/18/25 04:48 Nucleated RBCs # 0.0 /100WBC 01/18/25 04:48 Sodium 137 mmol/L (136-145) 01/18/25 04:48 Potassium 3.5 mmol/L (3.5-5.1) 01/18/25 04:48 Chloride 102 mmol/L (98-107) 01/18/25 04:48 Carbon Dioxide 21 mmol/L (22-29) L 01/18/25 04:48 Anion Gap 17.5 (5-19) 01/18/25 04:48 BUN 17 mg/dL (8-23) 01/18/25 04:48 Creatinine 0.8 mg/dL (0.5-0.9) 01/18/25 04:48 GFR Calculation Not Reportable 01/18/25 04:48 Glucose 104 mg/dL (65-115) 01/18/25 04:48 Calculated Osmolality 286 mOsm/kg (285-295) 01/18/25 04:48 Lactic Acid 2.1 mmol/L (0.5-2.2) 01/16/25 05:00 Lactic Acid (Sepsis) 0.9 mmol/L (0.5-2.2) 01/16/25 08:16 Calcium 7.9 mg/dL (8.5-10.5) L 01/18/25 04:48 Iron 39 ug/dL (37-145) 01/17/25 05:13 TIBC 157 mcg/dl 01/17/25 05:13 % Saturation 24.8 % (20-50) 01/17/25 05:13 Unsat Iron Binding 118 ug/dL (112-347) 01/17/25 05:13 Ferritin 239 ng/mL (15-150) H 01/17/25 05:13 Total Bilirubin 0.5 mg/dL (0.15-1.2) 01/18/25 04:48 AST 49 U/L (0-32) H 01/18/25 04:48 ALT 27 U/L (0-33) 01/18/25 04:48 Alkaline Phosphatase 73 U/L (35-105) 01/18/25 04:48 Creatine Kinase 2497 U/L (26-192) H* 01/18/25 04:48 C-Reactive Protein 94.9 mg/L (0.0-4.9) H 01/16/25 05:00 Total Protein 5.6 g/dL (6.6-8.7) L 01/18/25 04:48 Albumin 3.7 g/dL (3.5-5.2) 01/18/25 04:48 Globulin 1.9 g/dL (1.3-4.6) 01/18/25 04:48 Lipase 9 U/L (13-60) L 01/16/25 05:00 Vitamin B12 176 pg/mL (232-1245) L 01/17/25 05:13 Folate 7.2 ng/mL (4.8-37.3) 01/17/25 05:13 TSH 2.72 uIU/mL (0.27-4.20) 01/17/25 05:13 Urine Color Yellow (Yellow) 01/16/25 06:05 Urine Appearance Clear (CLEAR) 01/16/25 06:05 Urine pH 5.5 (5-7) 01/16/25 06:05 Ur Specific [place] 1.054 (1.005-1.030) H 01/16/25 06:05 Urine Protein 1+ (Negative) A 01/16/25 06:05 Urine Glucose (UA) Negative (Normal) 01/16/25 06:05 Urine Ketones Trace (Negative) 01/16/25 06:05 Urine Blood 1+ (Negative) A 01/16/25 06:05 Urine Nitrate Negative (Negative) 01/16/25 06:05 Urine Bilirubin Negative (Negative) 01/16/25 06:05 Urine Urobilinogen 1.0 mg/dL (Negative) 01/16/25 06:05 Ur Leukocyte Esterase Negative (Negative) 01/16/25 06:05 Urine RBC 0-2 /hpf (0-2) 01/16/25 06:05 Urine WBC 0-5 /hpf (0-5) 01/16/25 06:05 Ur Squamous Epith Cells 11-20 /hpf (0-5) H 01/16/25 06:05 Ur Transition Epith Cell 5-10 /hpf 01/16/25 06:05 Amorphous Sediment Not Reportable 01/16/25 06:05 Urine Bacteria None seen /hpf (NONE) 01/16/25 06:05 Hyaline Casts 14.06 /lpf 01/16/25 06:05 Urine Mucus Trace /hpf 01/16/25 06:05 Adenovirus (PCR) Not detected (NOT DETECT) 01/17/25 17:20 C. pneumoniae DNA (PCR) Not detected (NOT DETECT) 01/17/25 17:20 Coronavirus 229E (PCR) Not detected (NOT DETECT) 01/17/25 17:20 Human Metapneumovir PCR Not detected (NOT DETECT) 01/17/25 17:20 Influenza A (H1) PCR Not detected (NOT DETECT) 01/17/25 17:20 Influenza A (PCR) Negative (Negative) 01/16/25 07:39 Influ A (H1/09) PCR Not detected (NOT DETECT) 01/17/25 17:20 Influenza A (H3) PCR Not detected (NOT DETECT) 01/17/25 17:20 Influenza Type A (PCR) Not detected (NOT DETECT) 01/17/25 17:20 Influenza Type B (PCR) Not detected (NOT DETECT) 01/17/25 17:20 M. pneumoniae (PCR) Not detected (NOT DETECT) 01/17/25 17:20 Parainfluenza 1 (PCR) Not detected (NOT DETECT) 01/17/25 17:20 Parainfluenza 2 (PCR) Not detected (NOT DETECT) 01/17/25 17:20 Parainfluenza 3 (PCR) Not detected (NOT DETECT) 01/17/25 17:20 Parainfluenza 4 (PCR) Not detected (NOT DETECT) 01/17/25 17:20 RSV (PCR) Negative (Negative) 01/16/25 07:39 RSV Type A (PCR) Not detected (NOT DETECT) 01/17/25 17:20 RSV Type B (PCR) Not detected (NOT DETECT) 01/17/25 17:20 Entero/Rhino (PCR) Not detected (NOT DETECT) 01/17/25 17:20 SARS-CoV-2 (PCR) Not detected (NOT DETECT) 01/17/25 17:20 Discharge Plan Discharge Patient Disposition: Placed in Observation Admit Provider: Lester Farmer Clinical Impression: Intractable nausea and vomiting, History of lobectomy of lung, Non-small cell lung cancer, Weakness, Rhabdomyolysis, Diarrhea Discharge Diet: Advance as tolerated and Full LIquid Discharge Activity: Increase activity as tolerated Sign Out Sign Out Data: Patient Sign Out occurred on 01/16/25 at 07:28. Patient's care was discussed, and care was transferred from Tyler Arreola DO to Octavio Melara DO. 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 Fwd Documented by User: Octavio Melara DO 01/16/25 07:49 HPI - Fall General: Chief Complaint: Fall Stated Complaint: Fell Time Seen by Provider: 01/16/25 04:54 Related Data Home Medications ?Medication ?Instructions ?Recorded ?Confirmed vitamin B complex (B-Complex 1 tab PO QAM 10/30/22 01/16/25 tablet) alendronate 70 mg tablet (Fosamax) 70 mg PO Q7D 01/12/23 01/16/25 acetaminophen 325 mg tablet 325 mg PO Q6H PRN Pain 08/07/23 01/16/25 (Tylenol) ascorbic acid (vitamin C) 500 mg 500 mg PO QAM 08/07/23 01/16/25 tablet (Vitamin C) cholecalciferol (vitamin D3) 50 50 mcg PO DAILY 01/16/25 01/16/25 mcg (2,000 unit) tablet (Vitamin D3) pantoprazole 40 mg tablet,delayed 40 mg PO DAILY 01/16/25 01/16/25 release vitamin A 2,400 mcg capsule 2,400 mcg PO DAILY 01/16/25 01/16/25 Previous Rx's ?Medication ?Instructions ?Recorded galantamine 8 mg 24 hr 16 mg (2 x 8 mg) PO QAM #10 caps 01/19/25 capsule,extended release bupropion HCl 150 mg 24 hr tablet, 150 mg PO DAILY #30 tabs 01/20/25 extended release cefdinir 300 mg capsule 300 mg PO BID 5 days #10 caps 01/20/25 ondansetron 4 mg disintegrating 4 mg PO Q8H 5 days #15 tabs 01/20/25 tablet Allergies Allergy/AdvReac Type Severity Reaction Status Date / Time azithromycin (From Zithromax) Allergy Intermediate ADR-Itching Verified 10/09/24 16:55 levofloxacin (From Levaquin) Allergy Intermediate ADR-Itching Verified 10/09/24 16:55 methylprednisolone Allergy Mild ADR-Itching Verified 10/09/24 16:55 ciprofloxacin (From Cipro) Allergy Unknown Verified 10/09/24 16:55 nitrofurantoin (From Allergy Unknown Verified 10/09/24 16:55 Macrobid) methyprednosolone Allergy Mild ADR-Itching Uncoded 10/09/24 16:55 PFSH ED PFSH: Medical History COPD (chronic obstructive pulmonary disease) Non-small cell lung cancer Surgical History History of tubal ligation History of lobectomy of lung (10/13/22) Right upper lobectomy by VATS Family History Mother Stroke Other Cancer Social History Smoking and tobacco/nicotine status: former use of tobacco/nicotine Quit status (tobacco/nicotine): has quit using Year quit tobacco: 09/08/22 Former quit date comment: 0.5 pack per day x 20 years Alcohol intake: current Alcohol intake frequency: holidays/special occasions only Substance/Drug Use: never Household members: other Details: daughter Housing: House Marital status: / Number of children: 2 Pets and animals: Yes Pets & animals: dog(s) Special dakotah needs: No Agree to transfusion: Yes Course Vital Signs: Vital signs: Vital Signs Temperature 98.2 F 01/20/25 15:25 Pulse Rate 81 03/28/25 15:25 Respiratory Rate 16 01/20/25 15:25 Blood Pressure 165/88 01/20/25 15:25 Pulse Oximetry 93 01/20/25 15:25 Oxygen Delivery Me thod Room Air 01/20/25 15:25 MDM - Fall Medical Decision Making Clinically the patient is dry. She does have a slightly hypertensive blood pressure. Other vitals seem stable. CT of the abdomen pelvis will be completed. Laboratories pending. BUN and creatinine are elevated. Other laboratory findings not remarkable, save a CRP of 95. Urinalysis is pending. CT of the head and CT of the abdomen pelvis are pending as well. She will be checked out at shift change. Care assumed at change of shift from Dr. Arreola. Reviewing medications patient was on Augmentin earlier this month. She has not developed severe diarrhea she has had nausea vomiting diarrhea for the last several hours. We are getting a C. difficile. CT showed some enteritis. Patient has a history of lung CA review of oncology note from April 2024 she has had regular monitoring and there has been no finding of recurrence. She previously had a lobectomy on her right lung. After 2 L of fluid patient still unable to stand and ambulate at her baseline she normally can. Despite fluids patient is tachycardic. CT did not show any other acute pathology. Sed rate and CPK and BUN are slightly elevated very slight bump in creatinine as well. Will place on observation continue IV fluids. Also added flu COVID RSV swab. Discussed with hospitallist, place on observation. Medical Records I reviewed the patient's medical records. Lab Data I reviewed the patient's lab results. 01/20/25 05:52 01/20/25 05:52 Radiology Impressions Abdomen/Pelvis CT 01/16/25 05:12 IMPRESSION: 1. 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 2. Possible ileus versus early or partial small bowel obstruction. No significant gastric distension. Correlate clinically. COMMENTS: Consistent with the [employer]'s Incidental Findings Committee white paper (J Am Roc Radiol 2018): Any incidental renal lesion less than 1 cm or classified as too small to characterize, or any incidental cystic renal lesion characterized as simple-appearing, is likely benign. No follow-up imaging is recommended for these lesions per consensus recommendations based on imaging criteria. Head CT 01/16/25 05:12 IMPRESSION: 1. Cerebral atrophy and chronic cerebral microvascular disease. 2. No evidence of acute intracranial process. Chest/Abdomen X-ray 01/18/25 15:21 IMPRESSION: 1. No acute cardiopulmonary finding. Flat and erect abdomen. Scattered gas throughout both large and small bowel loops suggesting mild ileus. No sign of acute bowel obstruction or pneumoperitoneum. No sign of organ enlargement. Probable calcified uterine fibroid in the central pelvis. Bony structures are intact. IMPRESSION: 1. Mild ileus. No acute process noted at this time. Laboratory Results WBC 8.83 10^3/uL (3.29-11.43) 01/18/25 04:48 RBC 3.53 10^6/uL (3.85-5.65) L 01/18/25 04:48 Hgb 11.10 g/dL (11.27-16.99) L 01/18/25 04:48 Hct 35.1 % (36-47) L 01/18/25 04:48 MCV 99.4 fl (85-98) H 01/18/25 04:48 MCH 31.4 pg (27-33) 01/18/25 04:48 MCHC 31.6 g/dL (30-55) 01/18/25 04:48 RDW 13.0 % (12.1-15.1) 01/18/25 04:48 Plt Count 243 10^3/cmm (157-399) 01/18/25 04:48 MPV 9.6 fL (7.4-10.4) 01/18/25 04:48 Neut % (Auto) 76.5 % 01/18/25 04:48 Lymph % (Auto) 12.5 % 01/18/25 04:48 [place] % (Auto) 10.1 % 01/18/25 04:48 Eos % (Auto) 0.1 % 01/18/25 04:48 Baso % (Auto) 0.3 % 01/18/25 04:48 Neut # (Auto) 6.76 10^3/uL (1.8-7.7) 01/18/25 04:48 Lymph # (Auto) 1.1 10^3/uL (0.8-4.8) 01/18/25 04:48 [place] # (Auto) 0.9 10^3/uL (0.2-0.9) 01/18/25 04:48 Eos # (Auto) 0.0 10^3/uL (0.0-0.8) 01/18/25 04:48 Baso # (Auto) 0.0 10^3/uL (0.0-0.1) 01/18/25 04:48 Nucleated RBC % (auto) 0 % 01/18/25 04:48 Nucleated RBCs # 0.0 /100WBC 01/18/25 04:48 Sodium 137 mmol/L (136-145) 01/18/25 04:48 Potassium 3.5 mmol/L (3.5-5.1) 01/18/25 04:48 Chloride 102 mmol/L (98-107) 01/18/25 04:48 Carbon Dioxide 21 mmol/L (22-29) L 01/18/25 04:48 Anion Gap 17.5 (5-19) 01/18/25 04:48 BUN 17 mg/dL (8-23) 01/18/25 04:48 Creatinine 0.8 mg/dL (0.5-0.9) 01/18/25 04:48 GFR Calculation Not Reportable 01/18/25 04:48 Glucose 104 mg/dL (65-115) 01/18/25 04:48 Calculated Osmolality 286 mOsm/kg (285-295) 01/18/25 04:48 Lactic Acid 2.1 mmol/L (0.5-2.2) 01/16/25 05:00 Lactic Acid (Sepsis) 0.9 mmol/L (0.5-2.2) 01/16/25 08:16 Calcium 7.9 mg/dL (8.5-10.5) L 01/18/25 04:48 Iron 39 ug/dL (37-145) 01/17/25 05:13 TIBC 157 mcg/dl 01/17/25 05:13 % Saturation 24.8 % (20-50) 01/17/25 05:13 Unsat Iron Binding 118 ug/dL (112-347) 01/17/25 05:13 Ferritin 239 ng/mL (15-150) H 01/17/25 05:13 Total Bilirubin 0.5 mg/dL (0.15-1.2) 01/18/25 04:48 AST 49 U/L (0-32) H 01/18/25 04:48 ALT 27 U/L (0-33) 01/18/25 04:48 Alkaline Phosphatase 73 U/L (35-105) 01/18/25 04:48 Creatine Kinase 2497 U/L (26-192) H* 01/18/25 04:48 C-Reactive Protein 94.9 mg/L (0.0-4.9) H 01/16/25 05:00 Total Protein 5.6 g/dL (6.6-8.7) L 01/18/25 04:48 Albumin 3.7 g/dL (3.5-5.2) 01/18/25 04:48 Globulin 1.9 g/dL (1.3-4.6) 01/18/25 04:48 Lipase 9 U/L (13-60) L 01/16/25 05:00 Vitamin B12 176 pg/mL (232-1245) L 01/17/25 05:13 Folate 7.2 ng/mL (4.8-37.3) 01/17/25 05:13 TSH 2.72 uIU/mL (0.27-4.20) 01/17/25 05:13 Urine Color Yellow (Yellow) 01/16/25 06:05 Urine Appearance Clear (CLEAR) 01/16/25 06:05 Urine pH 5.5 (5-7) 01/16/25 06:05 Ur Specific [place] 1.054 (1.005-1.030) H 01/16/25 06:05 Urine Protein 1+ (Negative) A 01/16/25 06:05 Urine Glucose (UA) Negative (Normal) 01/16/25 06:05 Urine Ketones Trace (Negative) 01/16/25 06:05 Urine Blood 1+ (Negative) A 01/16/25 06:05 Urine Nitrate Negative (Negative) 01/16/25 06:05 Urine Bilirubin Negative (Negative) 01/16/25 06:05 Urine Urobilinogen 1.0 mg/dL (Negative) 01/16/25 06:05 Ur Leukocyte Esterase Negative (Negative) 01/16/25 06:05 Urine RBC 0-2 /hpf (0-2) 01/16/25 06:05 Urine WBC 0-5 /hpf (0-5) 01/16/25 06:05 Ur Squamous Epith Cells 11-20 /hpf (0-5) H 01/16/25 06:05 Ur Transition Epith Cell 5-10 /hpf 01/16/25 06:05 Amorphous Sediment Not Reportable 01/16/25 06:05 Urine Bacteria None seen /hpf (NONE) 01/16/25 06:05 Hyaline Casts 14.06 /lpf 01/16/25 06:05 Urine Mucus Trace /hpf 01/16/25 06:05 Adenovirus (PCR) Not detected (NOT DETECT) 01/17/25 17:20 C. pneumoniae DNA (PCR) Not detected (NOT DETECT) 01/17/25 17:20 Coronavirus 229E (PCR) Not detected (NOT DETECT) 01/17/25 17:20 Human Metapneumovir PCR Not detected (NOT DETECT) 01/17/25 17:20 Influenza A (H1) PCR Not detected (NOT DETECT) 01/17/25 17:20 Influenza A (PCR) Negative (Negative) 01/16/25 07:39 Influ A (H1/09) PCR Not detected (NOT DETECT) 01/17/25 17:20 Influenza A (H3) PCR Not detected (NOT DETECT) 01/17/25 17:20 Influenza Type A (PCR) Not detected (NOT DETECT) 01/17/25 17:20 Influenza Type B (PCR) Not detected (NOT DETECT) 01/17/25 17:20 M. pneumoniae (PCR) Not detected (NOT DETECT) 01/17/25 17:20 Parainfluenza 1 (PCR) Not detected (NOT DETECT) 01/17/25 17:20 Parainfluenza 2 (PCR) Not detected (NOT DETECT) 01/17/25 17:20 Parainfluenza 3 (PCR) Not detected (NOT DETECT) 01/17/25 17:20 Parainfluenza 4 (PCR) Not detected (NOT DETECT) 01/17/25 17:20 RSV (PCR) Negative (Negative) 01/16/25 07:39 RSV Type A (PCR) Not detected (NOT DETECT) 01/17/25 17:20 RSV Type B (PCR) Not detected (NOT DETECT) 01/17/25 17:20 Entero/Rhino (PCR) Not detected (NOT DETECT) 01/17/25 17:20 SARS-CoV-2 (PCR) Not detected (NOT DETECT) 01/17/25 17:20 All radiology interpretation(s) finalized by discharge Discharge Plan Discharge Patient Disposition: Placed in Observation Admit Provider: Lester Farmer Clinical Impression: Intractable nausea and vomiting, History of lobectomy of lung, Non-small cell lung cancer, Weakness, Rhabdomyolysis, Diarrhea Discharge Diet: Advance as tolerated and Full LIquid Discharge Activity: Increase activity as tolerated Sign Out Sign Out Data: Patient Sign Out occurred on 01/16/25 at 07:28. Patient's care was discussed, and care was transferred from Tyler Arreola DO to Octavio Melara DO. 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
[2025-01-16 05:16] LABS: Basophils % 0.5 %; Eosinophils % 0.5 %; Lymphocytes # 0.4 10^3/uL (0.8-4.8); Lymphocytes % 5.7 %; Mean Corpuscular HGB Conc 31.3 g/dL (30-55); Mean Corpuscular Hemoglobin 31.3 pg (27-33); Mean Platelet Volume 9.1 fL (7.4-10.4); Monocytes # 0.7 10^3/uL (0.2-0.9); Monocytes % 8.9 %; Neutrophils # 6.37 10^3/uL (1.8-7.7); Neutrophils % 84.3 %; Nucleated Red Blood Cells % 0 %; Platelet Count 327 10^3/cmm (157-399); Red Cell Distribution Width 13.7 % (12.1-15.1); White Blood Count 7.56 10^3/uL (3.29-11.43)
[2025-01-16 05:40] LABS: Alanine Aminotransferase 21 U/L (0-33); Albumin Level 4.3 g/dL (3.5-5.2); Alkaline Phosphatase 101 U/L (35-105); Aspartate Amino Transferase 19 U/L (0-32); Blood Urea Nitrogen 36 mg/dL (8-23); C Reactive Protein 94.9 mg/L (0.0-4.9); Calcium 8.8 mg/dL (8.5-10.5); Carbon Dioxide 27 mmol/L (22-29); Chloride 103 mmol/L (98-107); Glucose 152 mg/dL (65-115); Lipase 9 U/L (13-60); Osmolality Calculated 307 mOsm/kg (285-295); Sodium 143 mmol/L (136-145); Total Bilirubin 0.8 mg/dL (0.15-1.2); Total Protein 7.3 g/dL (6.6-8.7)
[2025-01-16 05:41] LABS: Lactic Sepsis W/Reflex 2.1 mmol/L (0.5-2.2)
[2025-01-16] MEDS: morphine 4 mg/mL SDV 1 mL 2 MG IVP (05:42)
[2025-01-16] MEDS: iohexol 350 mg/mL 500 mL Btl (per mL) IV (05:45)
[2025-01-16] MEDS: ondansetron 2 mg/ML SDV 2 mL 4 MG IVP (05:48)
[2025-01-16 05:52] LABS: Creatine Phosphokinase 228 U/L (26-192)
[2025-01-16 06:13] LABS: Bilirubin Urine Negative (Negative); Blood Urine 1+ (Negative); Glucose Urine UA Negative (Normal); Ketones Urine Trace (Negative); Leukocyte Esterase Urine Negative (Negative); Nitrate Urine Negative (Negative); Protein Urine 1+ (Negative); Urine Appearance Clear (CLEAR); Urine Color Yellow (Yellow); pH Urine 5.5 (5-7)
[2025-01-16 06:19] LABS: Add Urine Microscopic? YES; Bacteria Urine None Seen /hpf; Hyaline Casts Urine 14.06 /lpf; RBC Urine 0-2 /hpf (0-2); WBC Urine 0-5 /hpf (0-5)
[2025-01-16 06:38] LABS: Specific Gravity, Urine 1.054 (1.005-1.030); UA Slide Review UA Slide Review Perf
[2025-01-16 06:39] LABS: Add Urine Culture? No; Mucus Urine TRACE /hpf
[2025-01-16 06:54] LABS: Reflex Lactate Order REFLEX LACTIC ORDERD
--- NOTE | 2025-01-16 07:19 | PC.NURSE ---
pt was unable to ambulate; denies specific hip pain, states she is tired and unable to stand. pt was unable to bear any weight
--- NOTE | 2025-01-16 08:20 | PM.HP ---
Providers/Chief Complaint Primary Care Provider: Jcarlos Washington DO Chief Complaint: Fell History of Present Illness Very pleasant 79-year-old lady with history of moderate dementia, COPD, history of non-small cell lung cancer, former smoker, living at home with her daughter, recently completed course of antibiotics over the last several months for a urinary tract infection, last one earlier this month when she had a 10-day course of amoxicillin. She was reportedly fine on Thursday but began vomiting Thursday night, which continued into Thursday. The caregiver found her on the bedroom floor early this morning, confused and unable to keep anything down. Soiled with diarrhea. She also complained of hip pain, but a CT scan showed no significant findings. The patient has been living with her caregiver for about two years and has a moderate memory problem at baseline. She has been coughing, which is consistent with her history as an ex-smoker with a history of lung cancer. There is no fever, but she reported feeling cold yesterday. She did not feel like eating or drinking anything. A UA showed some red cells and squamous cells but did not suggest a major UTI. The patient has not had a C. diff infection before, and there is no blood in the stool. She is currently being tested for flu, COVID, and C. diff. Review of Systems Const: Reports: chills, change in appetite and malaise Card: Denies: chest pain Resp: Denies: dyspnea, productive cough or wheezing GI: Reports: nausea, vomiting and diarrhea; Denies: hematochezia or melena : Denies: flank pain Musc: Reports: other (Hip pain) Skin/Breast: Denies: rash or erythema Neuro: Reports: confusion Medications/Allergies Home Medications ?Medication ?Instructions ?Recorded ?Confirmed ?Last Taken ?Type bupropion HCl 300 mg 24 hr tablet, 300 mg PO QAM 10/30/22 01/16/25 01/15/25 History extended release (Wellbutrin XL) vitamin B complex (B-Complex 1 tab PO QAM 10/30/22 01/16/25 01/15/25 History tablet) alendronate 70 mg tablet (Fosamax) 70 mg PO Q7D 01/12/23 01/16/25 01/14/25 History acetaminophen 325 mg tablet 325 mg PO Q6H PRN Pain 08/07/23 01/16/25 Unknown History (Tylenol) ascorbic acid (vitamin C) 500 mg 500 mg PO QAM 08/07/23 01/16/25 01/15/25 History tablet (Vitamin C) ibuprofen 200 mg tablet 400 mg PO Q6H PRN Pain 08/07/23 01/16/25 Unknown History cholecalciferol (vitamin D3) 50 50 mcg PO DAILY 01/16/25 01/16/25 01/15/25 History mcg (2,000 unit) tablet (Vitamin D3) galantamine 24 mg 24 hr 24 mg PO DAILY 01/16/25 01/16/25 01/15/25 History capsule,extended release pantoprazole 40 mg tablet,delayed 40 mg PO DAILY 01/16/25 01/16/25 01/15/25 History release vitamin A 2,400 mcg capsule 2,400 mcg PO DAILY 01/16/25 01/16/25 01/15/25 History Allergies Allergy/AdvReac Type Severity Reaction Status Date / Time azithromycin (From Zithromax) Allergy Intermediate ADR-Itching Verified 10/09/24 16:55 levofloxacin (From Levaquin) Allergy Intermediate ADR-Itching Verified 10/09/24 16:55 methylprednisolone Allergy Mild ADR-Itching Verified 10/09/24 16:55 ciprofloxacin (From Cipro) Allergy Unknown Verified 10/09/24 16:55 nitrofurantoin (From Allergy Unknown Verified 10/09/24 16:55 Macrobid) methyprednosolone Allergy Mild ADR-Itching Uncoded 10/09/24 16:55 PFSH Acute PFSH: Medical History COPD (chronic obstructive pulmonary disease) Non-small cell lung cancer Surgical History History of tubal ligation History of lobectomy of lung (10/13/22) Right upper lobectomy by VATS Family History Mother Stroke Other Cancer Social History Smoking and tobacco/nicotine status: former use of tobacco/nicotine Quit status (tobacco/nicotine): has quit using Year quit tobacco: 09/08/22 Former quit date comment: 0.5 pack per day x 20 years Alcohol intake: current Alcohol intake frequency: holidays/special occasions only Substance/Drug Use: never Household members: other Details: daughter Housing: House Marital status: / Number of children: 2 Pets and animals: Yes Pets & animals: dog(s) Special dakotah needs: No Agree to transfusion: Yes Vitals/I&O/Wt Last Vital Signs Temp 98.4 F 01/16/25 04:32 Pulse 95 01/16/25 07:18 Resp 18 01/16/25 07:00 BP 135/60 01/16/25 07:18 Pulse Ox 94 01/16/25 07:00 O2 Del Method Room Air 01/16/25 06:00 Weight last 48 hrs Weight 58.967 kg Physical Exam Narrative: Accompanied by her daughter. Const: GENERAL APPEARANCE: cooperative OTHER: Wakes up to voice. HENMT: COMMON NORMALS: oropharynx normal Neck/C-Spine: COMMON NORMALS: no JVD Resp: COMMON NORMALS: normal respiratory effort and clear to auscultation bilaterally AUSCULTATION: clear to auscultation bilaterally Cardio: COMMON NORMALS: no JVD, regular rhythm, S1 normal heart sound present, S2 normal heart sound present and No murmurs present (Cardio) RHYTHM: regular rhythm HEART SOUNDS: S1 normal heart sound present and S2 normal heart sound present GI: COMMON NORMALS: Normal to inspection, nondistended, normoactive bowel sounds present, Soft to palpation and non-tender PALPATION: Yes Soft to palpation Extremity: COMMON NORMALS: no joint enlargement and no pedal edema Neuro: COMMON NORMALS: moves all extremities SENSORIUM/ORIENTATION: Yes alert Skin: COMMON NORMALS: no rashes or lesions noted GENERAL SKIN EXAM: no rashes or lesions noted Data 01/16/25 05:00 01/16/25 05:00 A&P Assessment and plan (1) Intractable nausea and vomiting: The patient presents with nausea, vomiting, and diarrhea following a recent course of antibiotics for a UTI. History obtained from her daughter due to patient's moderate dementia. As well as her condition be complicated by acute metabolic encephalopathy. Patient has been confused compared to her baseline. She is unable to keep anything down and is confused. Possible C. diff infection due to recent antibiotic use. Testing for flu, COVID, and C. diff is underway. The UA did not suggest a UTI. C. difficile testing has been requested. Reviewed CT abdomen pelvis. Without sign of ischemic bowel at this time as per discussion with ER provider. Family. Reassess for change in symptoms. Follow-up influenza, COVID, RSV PCR. Reviewed vitals, CBC, CMP, UA, influenza, RSV, COVID PCR, head CT, CT abdomen pelvis, ER provider note, discussed with ER provider. Gastroenteritis versus possible C. difficile colitis, complicated by ABRAHAM, creatinine up to 1.2, BUN 36. Baseline 0.8. Complicated by mild rhabdomyolysis, CK 228. Has been unable to tolerate any oral intake even some liquids. Received fluid hydration. Will give antiemetic as needed. Continue gentle IV hydration, trial of clear liquids. Monitor for risk of fluid overload with IV fluids. (2) Diarrhea: Test for C. difficile. Follow-up influenza, C, COVID PCR. (3) Rhabdomyolysis: Mild rhabdomyolysis, likely secondary to dehydration, possibly staying on the floor. CK2 128. Follow-up CK level. (4) ABRAHAM (acute kidney injury): Reviewed BUN, creatinine, BUN 36, creatinine 1.2. Received fluid challenge. Monitor intake and output. Reassess renal function. Ibuprofen still in her medications. Stop NSAID, avoid. Hold alendronate for now. Plan Hip Pain: The patient complained of hip pain, but a CT scan showed no significant findings. It may be due to soreness. - Monitor for any changes or worsening of symptoms Moderate dementia at baseline COPD: Without exacerbation History of lung cancer PDMP PDMP Reviewed: Not Reviewed Attestations Medical Necessity Statement*: Place in observation for additional assessment and management of gastroenteritis with intractable nausea vomiting, possible C. difficile, lack of oral intake complicated by acute metabolic encephalopathy, ABRAHAM, rhabdomyolysis and LAD of advanced age with underlying dementia. and High MDM includes amount and/or complexity of data reviewed/ordered [ resulted lab(s)/test(s), ordered lab(s)/test(s) and other healthcare professional discussion] and described risk of complication, morbidity or mortality of management as documented Diagnoses Intractable nausea and vomiting R11.2 Diarrhea R19.7 Rhabdomyolysis M62.82 ABRAHAM (acute kidney injury) N17.9
[2025-01-16 08:28] LABS: Influenza A NEGATIVE (Negative); Influenza B NEGATIVE (Negative); Respiratory Syncytial Virus Ce NEGATIVE (Negative); SARS-CoV-2 PCR NEGATIVE (Negative)
[2025-01-16 08:42] LABS: Lactic Acid level (Lactate) 0.9 mmol/L (0.5-2.2)
[2025-01-16] MEDS: enoxaparin 40 mg/0.4 mL Syringe SUBCUT (11:15)
[2025-01-16] MEDS: pantoprazole DR 40 mg Tablet PO (11:17)
[2025-01-16] MEDS: acetaminophen 325 mg Tablet PO (11:18)
[2025-01-16] MEDS: D5-NS 0.45% + KCL 20 mEq 20 MEQ/1,000 ML BAG 100 MEQ IV (11:18)
--- NOTE | 2025-01-16 11:38 | PC.NURSE ---
pillow placed under pts R hip. c/o buttock pain.
[2025-01-16] MEDS: sodium chloride 0.9% 1,000 ML 75 ML IV (12:27)
--- NOTE | 2025-01-16 12:28 | PC.NURSE ---
pt felt warm to touch, cheeks appear evangelina. oral temp 100.0; PRN tylenol administered.
[2025-01-16] MEDS: zolpidem 5 mg Tablet PO (21:54)
--- NOTE | 2025-01-17 01:25 | PC.NURSE ---
Patients family was requesting something for sleep. Doctor Luis prescribed one time Ambien 5mg PO.
[2025-01-17] MEDS: sodium chloride 0.9% 1,000 ML 75 ML IV (01:43)
[2025-01-17 04:39] VITALS: PULSE 82; RESP 18; TEMP 37.1
[2025-01-17 05:58] LABS: Basophils % 0.6 %; Eosinophils # 0.1 10^3/uL (0.0-0.8); Eosinophils % 1.1 %; Lymphocytes % 15.6 %; Mean Corpuscular HGB Conc 31.7 g/dL (30-55); Mean Corpuscular Hemoglobin 31.9 pg (27-33); Mean Corpuscular Volume 100.6 fl (85-98); Mean Platelet Volume 9.3 fL (7.4-10.4); Monocytes # 0.7 10^3/uL (0.2-0.9); Monocytes % 10.5 %; Neutrophils # 4.65 10^3/uL (1.8-7.7); Neutrophils % 71.9 %; Nucleated Red Blood Cells % 0 %; Platelet Count 236 10^3/cmm (157-399); Red Blood Count 3.48 10^6/uL (3.85-5.65); Red Cell Distribution Width 13.7 % (12.1-15.1); White Blood Count 6.47 10^3/uL (3.29-11.43)
[2025-01-17 06:13] LABS: Alanine Aminotransferase 23 U/L (0-33); Albumin Level 3.3 g/dL (3.5-5.2); Alkaline Phosphatase 71 U/L (35-105); Anion Gap 10.5 (5-19); Aspartate Amino Transferase 55 U/L (0-32); Blood Urea Nitrogen 21 mg/dL (8-23); Calcium 7.3 mg/dL (8.5-10.5); Carbon Dioxide 24 mmol/L (22-29); Chloride 111 mmol/L (98-107); Creatinine Clr Calc Pharmacy 53.2604; Globulin 2.2 g/dL (1.3-4.6); Glucose 102 mg/dL (65-115); Osmolality Calculated 297 mOsm/kg (285-295); Potassium 3.5 mmol/L (3.5-5.1); Sodium 142 mmol/L (136-145); Total Bilirubin 0.4 mg/dL (0.15-1.2); Total Protein 5.5 g/dL (6.6-8.7)
[2025-01-17 06:31] LABS: Creatine Phosphokinase 3228 U/L (26-192)
[2025-01-17] MEDS: ondansetron 2 mg/ML SDV 2 mL 4 MG IVP ×3 (07:28→20:31)
[2025-01-17] MEDS: acetaminophen 325 mg Tablet PO (07:28)
[2025-01-17 07:54] VITALS: BP 172/70; PULSE 69; RESP 16; TEMP 36.8; O2SAT 94
[2025-01-17 08:57] LABS: Ferritin 239 ng/mL (15-150); Iron 39 ug/dL (37-145); Percent Saturation 24.8 % (20-50); Total Iron Binding Capacity 157 mcg/dl; Unsaturated Iron Binding 118 ug/dL (112-347)
[2025-01-17] MEDS: pantoprazole DR 40 mg Tablet PO (09:21)
[2025-01-17] MEDS: buPROPion XL (24 HR) 300 mg Tablet PO (09:21)
--- NOTE | 2025-01-17 09:36 | PC.CHAP ---
Pastoral Care Encounter/Spiritual Assessment Type of Contact [] Declined radio station operator visit [] Patient/Family/Request visit [] Outpatient visit [] Follow-up visit [] Physician referral [] Code/Alert [x] Routine visit [] Staff referral [] Actively dying [] Patient sleeping [x] Family support [] [] Out of room [] Palliative care [] [] Receiving care in room [] Pre-surgical visit [] Trauma [] Long length of stay [] ICU visit [] Other: Relational/Emotional Strength [x] Patient feels connected with others/family/visitors/staff [] Distress [] Loneliness/isolation [] Abandonment Spirituality of Patient [x] Person of Alecia [] Attends Advent of their [place] [x] Believes in Prayer [] Reads Bible or Orthodox materials [] There are Spiritual issues to be addressed Display Director Interventions [x] Prayer [x] Active listening [] Non-anxious presence [x] Spiritual/emotional support [] Crisis/trauma care [] Spiritual counseling [] Bereavement support [] Provided bereavement packet [] Provided Bible/devotional materials [] Provided toy/stuffed animal, coloring book to patient or family member [] Provided Communion [] Anointing/[place] [] Salvation [x] Completed spiritual assessment [] Other: Impact on Illness or Injury [] Angry [] Fearful [] Anxious [] Often cries [] Exhaustion [] Unable to work [] Unable to attend yarsani [] Unable to walk/stand [] Unable to read [] Unable to drive [] Unable to eat/drink [] Unable to sleep [] Unable to be with family [] Patient intubated [] Other: Summary Time spent with patient 5 min
[2025-01-17 11:47] VITALS: BP 167/69; PULSE 67; RESP 17; TEMP 36.8; O2SAT 94
--- NOTE | 2025-01-17 12:57 | P.PN_ITS ---
Subjective 2 Subjective: She is not feeling better today. Still having nausea, dry heaves, poor oral intake, did not feel like eating breakfast this morning. No abdominal pain. Denies flatus. No diarrhea. Vitals/I&O/Wt Last Vital Signs Temp 98.2 F 01/17/25 11:47 Pulse 67 01/17/25 11:47 Resp 17 01/17/25 11:47 BP 167/69 01/17/25 11:47 Pulse Ox 94 01/17/25 11:47 O2 Del Method Room Air 01/17/25 11:47 01/16/25 01/17/25 01/17/25 22:59 06:59 14:59 Intake Total 120 / 2235 995 / 3230 571.25 / 571.25 Balance 120 / 2235 995 / 3230 571.25 / 571.25 Weight last 48 hrs Weight 58.967 kg Weight 58.967 kg Weight 58.967 kg Physical Exam 2 Narrative: Accompanied by a male family member. Const: COMMON NORMALS: alert GENERAL APPEARANCE: cooperative OTHER: Awake and alert, sitting up in bed. HENMT: COMMON NORMALS: oropharynx normal Neck/C-Spine: COMMON NORMALS: no JVD Resp: COMMON NORMALS: normal respiratory effort and clear to auscultation bilaterally AUSCULTATION: clear to auscultation bilaterally Cardio: COMMON NORMALS: no JVD, regular rhythm, S1 normal heart sound present, S2 normal heart sound present and No murmurs present (Cardio) RHYTHM: regular rhythm HEART SOUNDS: S1 normal heart sound present and S2 normal heart sound present GI: COMMON NORMALS: Normal to inspection, nondistended, normoactive bowel sounds present, Soft to palpation and non-tender AUSCULTATION: Yes normoactive bowel sounds PALPATION: Yes Soft to palpation Extremity: COMMON NORMALS: no joint enlargement and no pedal edema Neuro: COMMON NORMALS: moves all extremities SENSORIUM/ORIENTATION: Yes alert Skin: COMMON NORMALS: no rashes or lesions noted GENERAL SKIN EXAM: no rashes or lesions noted Data 01/17/25 05:13 01/17/25 05:13 A&P Assessment and plan (1) Intractable nausea and vomiting: Still with nausea, poor oral intake, dry heaves. She did not feel like having breakfast this morning. Still with lack of oral intake, at risk of dehydration, nutrition. Trial of clear liquid diet. Antiemetic as needed. Will continue with IV hydration currently. Decrease IV fluid rate somewhat to 30 mL/h. With worsening rhabdomyolysis, CK up to 3228. Reviewed CBC, BMP. So far without further diarrhea. No bowel movement, denies passing flatus. Requesting to ambulate around the room. At home normally walks without assistive devices. Acute encephalopathy so far with improvement. Reviewed influenza, COVID, RSV PCR results. Noted negative. However, as she is still symptomatic, will obtain broader respiratory panel. From history obtained from her family, she seems to have also had similar symptoms in the past when she had inadvertently overdosed on galantamine. Her family had got her set up with a pillbox, and even an electronic pillbox which controls when the pills get really so she may only take the pills for that they, but it does seem that she is found the pill bottle. They are not sure whether she may have taken some extras from the bottle. Will hold galantamine for now C. difficile testing has been requested. Reviewed CT abdomen pelvis. Without sign of ischemic bowel at this time as per discussion with ER provider. Family. Reassess for change in symptoms. Gastroenteritis versus possible C. difficile colitis, complicated by ABRAHAM ABRAHAM so far resolved, reviewed BUN, creatinine, reassess chemistry. Discussed with nursing, case briefer (2) Acute anemia: Reviewed hemoglobin, platelets, hemoglobin down to 11.1. Platelets are normal. No outward bleeding. Requested to hold Lovenox for now. Discussed with her family. Will obtain iron studies. Hemoccult. It is macrocytic, will check TSH, B12, folic acid. (3) Diarrhea: Test for C. difficile. Reviewed influenza, rsv, COVID PCR. Obtain broader respiratory panel to assess for enterovirus, etc. (4) Rhabdomyolysis: Worsening rhabdomyolysis, CK up to 3228. Follow-up CK level. (5) ABRAHAM (acute kidney injury): Reviewed BUN, creatinine, ABRAHAM resolved. Received fluid challenge. Ibuprofen still in her medications. Stop NSAID, avoid. Hold alendronate for now. Plan Hip Pain: The patient complained of hip pain, but a CT scan showed no significant findings. It may be due to soreness. - Monitor for any changes or worsening of symptoms Moderate dementia at baseline COPD: Without exacerbation History of lung cancer PDMP PDMP Reviewed: Not Reviewed Attestations 2 Medical Necessity Statement*: Continue hospitalization for assessment management of intractable nausea and vomiting with gastroenteritis, unable to tolerate any oral intake, at risk of dehydration, other complications, with worsening rhabdomyolysis, as well as acute anemia in an elderly lady with underlying dementia. and High MDM includes amount and/or complexity of data reviewed/ordered [ resulted lab(s)/test(s), ordered lab(s)/test(s), independent historian and other healthcare professional discussion] and described risk of complication, morbidity or mortality of management as documented Diagnoses Intractable nausea and vomiting R11.2 Acute anemia D64.9 Diarrhea R19.7 Rhabdomyolysis M62.82 ABRAHAM (acute kidney injury) N17.9
[2025-01-17 13:43] LABS: Creatine Phosphokinase 3158 U/L (26-192)
[2025-01-17 13:52] LABS: Thyroid Stimulating Hormone 2.72 uIU/mL (0.27-4.20); Vitamin B12 176 pg/mL (232-1245)
[2025-01-17 14:05] LABS: Folate Level 7.2 ng/mL (4.8-37.3)
[2025-01-17] MEDS: sodium chloride 0.9% 1,000 ML 30 ML IV (14:25)
[2025-01-17 15:33] VITALS: BP 160/67; PULSE 75; RESP 17; O2SAT 95
[2025-01-17] MEDS: acetaminophen 325 mg Tablet 650 MG PO (17:20)
[2025-01-17 19:21] LABS: Adenovirus Not Detected (NOT DETECT); Chlamydia Pneumoniae Not Detected (NOT DETECT); Coronavirus 229E,HKU1,NL63,OC4 Not Detected (NOT DETECT); Human Metapneumovirus Not Detected (NOT DETECT); Human Rhinovirus/Enterovirus Not Detected (NOT DETECT); Influenza A Not Detected (NOT DETECT); Influenza A H1 Not Detected (NOT DETECT); Influenza A H1-2009 Not Detected (NOT DETECT); Influenza A H3 Not Detected (NOT DETECT); Influenza B Not Detected (NOT DETECT); Mycoplasma Pneumoniae Not Detected (NOT DETECT); Parainfluenza Virus Type 1 Not Detected (NOT DETECT); Parainfluenza Virus Type 2 Not Detected (NOT DETECT); Parainfluenza Virus Type 3 Not Detected (NOT DETECT); Parainfluenza Virus Type 4 Not Detected (NOT DETECT); Respiratory Syncytial Virus A Not Detected (NOT DETECT); Respiratory Syncytial Virus B Not Detected (NOT DETECT); SARS-COV-2 Not Detected (NOT DETECT)
[2025-01-17 19:50] VITALS: BP 181/70; PULSE 75; RESP 18; TEMP 37; O2SAT 93
[2025-01-17] MEDS: zolpidem 5 mg Tablet PO (21:20)
--- NOTE | 2025-01-18 00:12 | PC.NURSE ---
patients daughter had requested Silvana guerra for her mom to sleep. Luis approved.
[2025-01-18 00:25] VITALS: BP 116/65; PULSE 93; RESP 18; TEMP 36.4; O2SAT 90
[2025-01-18] MEDS: sodium chloride 0.9% 1,000 ML 30 ML IV (03:21)
[2025-01-18] MEDS: acetaminophen 325 mg Tablet 650 MG PO ×2 (04:04→21:52)
[2025-01-18 04:42] VITALS: BP 154/83; PULSE 76; RESP 18; TEMP 36.7; O2SAT 96
[2025-01-18 05:42] LABS: Basophils % 0.3 %; Eosinophils % 0.1 %; Hematocrit 35.1 % (36-47); Lymphocytes # 1.1 10^3/uL (0.8-4.8); Lymphocytes % 12.5 %; Mean Corpuscular HGB Conc 31.6 g/dL (30-55); Mean Corpuscular Hemoglobin 31.4 pg (27-33); Mean Corpuscular Volume 99.4 fl (85-98); Mean Platelet Volume 9.6 fL (7.4-10.4); Monocytes # 0.9 10^3/uL (0.2-0.9); Monocytes % 10.1 %; Neutrophils # 6.76 10^3/uL (1.8-7.7); Neutrophils % 76.5 %; Nucleated Red Blood Cells % 0 %; Platelet Count 243 10^3/cmm (157-399); Red Blood Count 3.53 10^6/uL (3.85-5.65); White Blood Count 8.83 10^3/uL (3.29-11.43)
[2025-01-18 06:00] VITALS: PULSE 92
[2025-01-18 06:05] LABS: Alanine Aminotransferase 27 U/L (0-33); Albumin Level 3.7 g/dL (3.5-5.2); Alkaline Phosphatase 73 U/L (35-105); Aspartate Amino Transferase 49 U/L (0-32); Blood Urea Nitrogen 17 mg/dL (8-23); Calcium 7.9 mg/dL (8.5-10.5); Carbon Dioxide 21 mmol/L (22-29); Chloride 102 mmol/L (98-107); Creatinine Clr Calc Pharmacy 53.2604; Globulin 1.9 g/dL (1.3-4.6); Glucose 104 mg/dL (65-115); Osmolality Calculated 286 mOsm/kg (285-295); Sodium 137 mmol/L (136-145); Total Bilirubin 0.5 mg/dL (0.15-1.2); Total Protein 5.6 g/dL (6.6-8.7)
[2025-01-18 06:06] LABS: Anion Gap 17.5 (5-19); Potassium 3.5 mmol/L (3.5-5.1)
[2025-01-18 06:33] LABS: Creatine Phosphokinase 2497 U/L (26-192)
[2025-01-18 07:46] VITALS: BP 152/72; PULSE 71; RESP 18; TEMP 36.8; O2SAT 94
[2025-01-18] MEDS: buPROPion XL (24 HR) 300 mg Tablet PO (10:07)
[2025-01-18] MEDS: pantoprazole DR 40 mg Tablet PO (10:07)
[2025-01-18 11:24] VITALS: BP 157/76; PULSE 71; RESP 16; TEMP 36.8; O2SAT 96
[2025-01-18] MEDS: ondansetron 2 mg/ML SDV 2 mL 4 MG IVP (15:08)
--- NOTE | 2025-01-18 15:18 | P.PN_ITS ---
Subjective 2 Subjective: Very confused overnight, could not sleep at all. Neither get her daughter with stayed with her. Tells me about a copperhead snake coming out of her wrist. Not in pain. Did have some small amounts of clear liquids. No vomiting. No diarrhea, no bowel movement so far. Vitals/I&O/Wt Last Vital Signs Temp 98.3 F 01/18/25 11:24 Pulse 71 01/18/25 11:24 Resp 16 01/18/25 11:24 BP 157/76 01/18/25 11:24 Pulse Ox 96 01/18/25 11:24 O2 Del Method Room Air 01/18/25 11:24 01/18/25 01/18/25 01/18/25 06:59 14:59 22:59 Intake Total 566 / 1137.25 180 / 180 Balance 566 / 1137.25 180 / 180 Weight last 48 hrs Weight 58.513 kg Weight 58.967 kg Weight 58.967 kg Physical Exam 2 Narrative: Accompanied by a male family member. Const: COMMON NORMALS: alert GENERAL APPEARANCE: cooperative O RIENTATION/CONSCIOUSNESS: Yes confused OTHER: Awake and alert, sitting up in bed. HENMT: COMMON NORMALS: oropharynx normal Neck/C-Spine: COMMON NORMALS: no JVD Resp: COMMON NORMALS: normal respiratory effort and clear to auscultation bilaterally AUSCULTATION: clear to auscultation bilaterally Cardio: COMMON NORMALS: no JVD, regular rhythm, S1 normal heart sound present, S2 normal heart sound present and No murmurs present (Cardio) RHYTHM: regular rhythm HEART SOUNDS: S1 normal heart sound present and S2 normal heart sound present GI: COMMON NORMALS: Normal to inspection, nondistended, normoactive bowel sounds present, Soft to palpation and non-tender AUSCULTATION: Yes normoactive bowel sounds PALPATION: Yes Soft to palpation Extremity: COMMON NORMALS: no joint enlargement and no pedal edema Neuro: COMMON NORMALS: moves all extremities SENSORIUM/ORIENTATION: Yes alert Skin: COMMON NORMALS: no rashes or lesions noted GENERAL SKIN EXAM: no rashes or lesions noted Data 01/18/25 04:48 01/18/25 04:48 A&P Assessment and plan (1) Acute encephalopathy: Acute metabolic cephalopathy with delirium superimposed on dementia, very confused overnight, cannot sleep per history obtained from her daughter as well as nursing staff, tells me about a copperhead snake coming out of her wrist. She is redirectable at this time. With increased mortality risk for now hold off on antipsychotic, continue management of underlying condition, continue gentle IV hydration, trial of resumption of oral intake, however, if becoming very restless, or worsening symptoms consider addition of antipsychotic. Fall precautions. Open blinds in the room. Ambulate. Continue to reorient. 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 (2) Intractable nausea and vomiting: Galantamine has been on hold, so far no additional vomiting. Does appear to be tolerating small months of clear liquids, but with worsening acute encephalopathy as above. So far without diarrhea, although has not had a bowel movement. On review of intake and output noted to have an episode of emesis this afternoon. Will obtain abdominal series with possible partial bowel obstruction on presentation. Assess for possible complete obstruction. Trial of clear liquids only for now. Continue with IV hydration. Monitor for risk of fluid overload with IV fluids. Reviewed CBC, CMP, CK. Reviewed respiratory viral panel, negative. 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 From history obtained from her family, she seems to have also had similar symptoms in the past when she had inadvertently overdosed on galantamine. Her family had got her set up with a pillbox, and even an electronic pillbox which controls when the pills get really so she may only take the pills for that they, but it does seem that she is found the pill bottle. They are not sure whether she may have taken some extras from the bottle. Will hold galantamine for now C. difficile testing has been requested. Reviewed CT abdomen pelvis. Without sign of ischemic bowel at this time as per discussion with ER provider. Family. Reassess for change in symptoms. Gastroenteritis versus possible C. difficile colitis, complicated by ABRAHAM ABRAHAM so far resolved, reviewed BUN, creatinine, reassess chemistry. Discussed with nursing, case making machine operator (3) Acute anemia: Reviewed hemoglobin, platelets. Without change. Reassess CBC. Reviewed hemoglobin, platelets, hemoglobin down to 11.1. Platelets are normal. No outward bleeding. Requested to hold Lovenox for now. Discussed with her family. Will obtain iron studies. Hemoccult. It is macrocytic, will check TSH, B12, folic acid. (4) Diarrhea: So far without additional diarrhea, but no bowel movement. Additional vomiting today. Test for C. difficile. Reviewed influenza, rsv, COVID PCR. Obtain broader respiratory panel to assess for enterovirus, etc. (5) Rhabdomyolysis: Reviewed CK, today with some improvement in rhabdomyolysis. But still lack of oral intake. Continue gentle IV hydration. Monitor for risk of fluid overload. Recheck CK. Follow-up CK level. (6) ABRAHAM (acute kidney injury): Resolved Reviewed BUN, creatinine, ABRAHAM resolved. Received fluid challenge. Ibuprofen still in her medications. Stop NSAID, avoid. Hold alendronate for now. Plan Hip Pain: The patient complained of hip pain, but a CT scan showed no significant findings. It may be due to soreness. - Monitor for any changes or worsening of symptoms Moderate dementia at baseline COPD: Without exacerbation History of lung cancer PDMP PDMP Reviewed: Not Reviewed Attestations 2 Medical Necessity Statement*: Requiring admission of over 2 midnights for assessment management of acute encephalopathy with delirium, unable to tolerate any oral intake, at risk of dehydration, other complications, with worsening rhabdomyolysis, as well as acute anemia in an elderly lady with underlying dementia. and High MDM includes amount and/or complexity of data reviewed/ordered [ resulted lab(s)/test(s), ordered lab(s)/test(s), independent historian and other healthcare professional discussion] and described risk of complication, morbidity or mortality of management as documented Diagnoses Acute encephalopathy G93.40 Intractable nausea and vomiting R11.2 Acute anemia D64.9 Diarrhea R19.7 Rhabdomyolysis M62.82 ABRAHAM (acute kidney injury) N17.9
[2025-01-18 15:20] LABS: Bilirubin Urine Negative (Negative); Blood Urine 2+ (Negative); Glucose Urine UA Negative (Normal); Ketones Urine 1+ (Negative); Leukocyte Esterase Urine 3+ (Negative); Nitrate Urine Positive (Negative); Protein Urine 1+ (Negative); Specific Gravity, Urine 1.013 (1.005-1.030); Urine Appearance Turbid (CLEAR); Urine Color Yellow (Yellow); pH Urine 7.5 (5-7)
--- NOTE | 2025-01-18 15:21 | XR_ITS ---
WS: [id number] Exam: XR acute abdomen series [id number] Date/Time of Exam: 01/18/2025 3:25 PM Reason For Exam: Vomiting AP chest compared to prior study 10/09/2024. The lungs are fully expanded and clear. Normal cardiomediastinal silhouette. Postoperative change at the RIGHT hilum. Slight plaque atelectasis in the LEFT base. Bony structures are intact. Mild levoscoliosis of the upper T-spine. XR/XR acute abdomen series [id number] IMPRESSION: 1. No acute cardiopulmonary finding. Flat and erect abdomen. Scattered gas throughout both large and small bowel loo ps suggesting mild ileus. No sign of acute bowel obstruction or pneumoperitoneu m. No sign of organ enlargement. Probable calcified uterine fibroid in the cent ral pelvis. Bony structures are intact. IMPRESSION: 1. Mild ileus. No acute process noted at this time.
[2025-01-18 15:24] LABS: Add Urine Microscopic? YES; Bacteria Urine EXCEEDS /hpf; Hyaline Casts Urine 4.95 /lpf; Squamous Epithelial Cell Urine 0-5 /hpf (0-5); WBC Urine >100 /hpf (0-5)
[2025-01-18 16:18] LABS: Add Urine Culture? Yes; UA Slide Review UA Slide Review Perf
[2025-01-18] MEDS: cefTRIAXone 1,000 mg SDV 1000 MG IVP (18:22)
[2025-01-18 19:55] VITALS: BP 187/82; PULSE 79; RESP 19; TEMP 36.8; O2SAT 95
[2025-01-18] MEDS: zolpidem 5 mg Tablet PO (21:51)
[2025-01-19] VITALS (8 sets, daily range): BP systolic 157–190; BP diastolic 71–82; PULSE 71–83; RESP 16–18; TEMP 36.2–36.9; O2SAT 93–97
[2025-01-19 05:36] LABS: Basophils % 0.3 %; Eosinophils % 0.3 %; Hematocrit 40.2 % (36-47); Lymphocytes # 1.5 10^3/uL (0.8-4.8); Lymphocytes % 16.9 %; Mean Corpuscular HGB Conc 33.3 g/dL (30-55); Mean Corpuscular Hemoglobin 31.8 pg (27-33); Mean Corpuscular Volume 95.3 fl (85-98); Mean Platelet Volume 9.5 fL (7.4-10.4); Monocytes % 10.6 %; Neutrophils # 6.44 10^3/uL (1.8-7.7); Neutrophils % 71.6 %; Nucleated Red Blood Cells % 0 %; Platelet Count 306 10^3/cmm (157-399); Red Blood Count 4.22 10^6/uL (3.85-5.65); Red Cell Distribution Width 12.4 % (12.1-15.1)
[2025-01-19 05:52] LABS: Alanine Aminotransferase 31 U/L (0-33); Alkaline Phosphatase 85 U/L (35-105); Anion Gap 17.3 (5-19); Aspartate Amino Transferase 39 U/L (0-32); Blood Urea Nitrogen 9 mg/dL (8-23); Calcium 8.3 mg/dL (8.5-10.5); Carbon Dioxide 24 mmol/L (22-29); Chloride 98 mmol/L (98-107); Globulin 2.8 g/dL (1.3-4.6); Glucose 124 mg/dL (65-115); Osmolality Calculated 282 mOsm/kg (285-295); Potassium 3.3 mmol/L (3.5-5.1); Sodium 136 mmol/L (136-145); Total Bilirubin 0.5 mg/dL (0.15-1.2); Total Protein 6.8 g/dL (6.6-8.7)
--- NOTE | 2025-01-19 06:04 | PC.NURSE ---
this HEALTH ADMINISTRATOR removed the pt's top dentures this morning and cleaned them. Dentures were placed in a labeled cup and kept at bedside.
[2025-01-19 06:19] LABS: Creatine Phosphokinase 1458 U/L (26-192)
[2025-01-19] MEDS: buPROPion XL (24 HR) 300 mg Tablet PO (08:08)
[2025-01-19] MEDS: pantoprazole DR 40 mg Tablet PO (08:08)
[2025-01-19] MEDS: ondansetron 2 mg/ML SDV 2 mL 4 MG IVP ×3 (08:12→20:42)
--- NOTE | 2025-01-19 08:58 | PM.PN ---
Subjective Subjective: She had a restless night again, requiring a one-to-one sitter. Could not sleep despite having received Ambien. Now she had just finally falling asleep and getting some rest. Vitals/I&O/Wt Last Vital Signs Temp 97.9 F 01/19/25 07:38 Pulse 76 01/19/25 07:38 Resp 17 01/19/25 07:38 BP 190/79 01/19/25 07:38 Pulse Ox 96 01/19/25 07:38 O2 Del Method Room Air 01/19/25 07:38 01/18/25 01/19/25 01/19/25 22:59 06:59 14:59 Intake Total 0 / 180 0 / 180 Output Total 0 / 0 400 / 400 Balance 0 / 180 0 / 180 -400 / -400 Weight last 48 hrs Weight 59.965 kg Weight 60.373 kg Weight 58.513 kg Physical Exam Narrative: Accompanied by her daughter. Resp: COMMON NORMALS: normal respiratory effort Neuro: COMMON NORMALS: moves all extremities Data 01/19/25 04:55 01/19/25 04:55 A&P Assessment and plan (1) Acute encephalopathy: Very restless night, one-to-one sitter had to be requested. Could not sleep despite receiving Ambien. Risk of worsening encephalopathy with Ambien. Will discontinue. Family asking about melatonin, it does appear that melatonin is not available on formulary. Requested. This morning finally fell asleep. Will reassess mental status after she wakes up. Noted hypertensive 190/79, will stop IV fluid currently. Reassess blood pressure, treat in case persistently hypertensive. History of also found to have urinary tract infection complicated by acute encephalopathy. Reviewed UA. Treat with ceftriaxone. Follow-up urine culture. With increased mortality risk for now hold off on antipsychotic, continue management of underlying condition, continue gentle IV hydration, trial of resumption of oral intake, however, if becoming very restless, or worsening symptoms consider addition of antipsychotic. Fall precautions. Once awake open blinds in the room. Ambulate. Continue to reorient. Discussed with nursing, human services case manager. (2) Intractable nausea and vomiting: Still poor oral intake, be related to can Eliquis. Discussed additionally possible titration of bupropion with nausea and constipation being known adverse effects. Discussed for now decreasing the dose temporarily by cutting it in half. Galantamine has been on hold, so far no additional vomiting. Does appear to be tolerating small months of clear liquids, but with worsening acute encephalopathy as above. So far without diarrhea, although has not had a bowel movement. Reviewed abdominal series x-ray, with noted mild ileus. Discussed with her family. As above we will reduce bupropion dose. Hold galantamine. Once she is awake, ambulate On review of intake and output noted to have an episode of emesis this afternoon. Will obtain abdominal series with possible partial bowel obstruction on presentation. Assess for possible complete obstruction. Trial of clear liquids only for now. Continue with IV hydration. Monitor for risk of fluid overload with IV fluids. Reviewed CBC, CMP, CK. Reviewed respiratory viral panel, negative. Discussed with nursing, human services case manager. From history obtained from her family, she seems to have also had similar symptoms in the past when she had inadvertently overdosed on galantamine. Her family had got her set up with a pillbox, and even an electronic pillbox which controls when the pills get really so she may only take the pills for that they, but it does seem that she is found the pill bottle. They are not sure whether she may have taken some extras from the bottle. Will hold galantamine for now C. difficile testing has been requested. Reviewed CT abdomen pelvis. Without sign of ischemic bowel at this time as per discussion with ER provider. Family. Reassess for change in symptoms. Gastroenteritis versus possible C. difficile colitis, complicated by ABRAHAM ABRAHAM so far resolved, reviewed BUN, creatinine, reassess chemistry. Discussed with nursing, human services case manager (3) HTN (hypertension): Blood pressure elevated up to 190/79. Will stop IV fluid. She had a very restless night, now finally getting some rest. Discussed with nursing staff will reassess blood pressure, in case it is still elevated we will give her amlodipine. (4) Acute anemia: With noted improvement. Reviewed blood counts. Reviewed hemoglobin, platelets. Without change. Reassess CBC. Reviewed hemoglobin, platelets, hemoglobin down to 11.1. Platelets are normal. No outward bleeding. Requested to hold Lovenox for now. Discussed with her family. Will obtain iron studies. Hemoccult. It is macrocytic, will check TSH, B12, folic acid. (5) Diarrhea: So far without additional diarrhea, but no bowel movement. Additional vomiting today. Test for C. difficile. Reviewed influenza, rsv, COVID PCR. Obtain broader respiratory panel to assess for enterovirus, etc. (6) Rhabdomyolysis: Reviewed CK, rhabdomyolysis continue to improve. Down to 1458. Will not repeat. (7) ABRAHAM (acute kidney injury): Resolved Reviewed BUN, creatinine, ABRAHAM resolved. Received fluid challenge. Ibuprofen still in her medications. Stop NSAID, avoid. Hold alendronate for now. Plan Hypokalemia: Requested replacement. Hip Pain: The patient complained of hip pain, but a CT scan showed no significant findings. It may be due to soreness. - Monitor for any changes or worsening of symptoms Moderate dementia at baseline COPD: Without exacerbation History of lung cancer PDMP PDMP Reviewed: Not Reviewed Attestations Medical Necessity Statement*: Continue admission for assessment management of acute encephalopathy, complicated UTI, ileus with poor oral intake in an elderly lady with underlying dementia. and High MDM includes amount and/or complexity of data reviewed/ordered [ resulted lab(s)/test(s), independent historian and other healthcare professional discussion] and described risk of complication, morbidity or mortality of management as documented Diagnoses Acute encephalopathy G93.40 Intractable nausea and vomiting R11.2 HTN (hypertension) I10 Acute anemia D64.9 Diarrhea R19.7 Rhabdomyolysis M62.82 ABRAHAM (acute kidney injury) N17.9
[2025-01-19] MEDS: amlodipine 5 mg Tablet PO (09:19)
[2025-01-19] MEDS: lidocaine 1% 5 ML in potassium chloride premix 100 ML 52.5 ML IV (09:19)
[2025-01-19] MEDS: acetaminophen 325 mg Tablet 650 MG PO (14:54)
[2025-01-19] MEDS: cefTRIAXone 1,000 mg SDV 1000 MG IVP (16:57)
[2025-01-19] MEDS: MELATONIN 3 MG TABLET PO (20:42)
[2025-01-20 04:00] VITALS: BP 149/77; PULSE 81; RESP 16; TEMP 36.8; O2SAT 96
[2025-01-20 04:29] VITALS: PULSE 75
[2025-01-20 06:49] LABS: Alanine Aminotransferase 29 U/L (0-33); Albumin Level 3.6 g/dL (3.5-5.2); Alkaline Phosphatase 93 U/L (35-105); Anion Gap 19.1 (5-19); Aspartate Amino Transferase 22 U/L (0-32); Blood Urea Nitrogen 15 mg/dL (8-23); Calcium 8.6 mg/dL (8.5-10.5); Carbon Dioxide 23 mmol/L (22-29); Chloride 97 mmol/L (98-107); Glucose 124 mg/dL (65-115); Osmolality Calculated 284 mOsm/kg (285-295); Potassium 3.1 mmol/L (3.5-5.1); Sodium 136 mmol/L (136-145); Total Bilirubin 0.4 mg/dL (0.15-1.2); Total Protein 6.6 g/dL (6.6-8.7)
[2025-01-20 06:50] LABS: Basophils % 0.3 %; Eosinophils # 0.1 10^3/uL (0.0-0.8); Eosinophils % 0.7 %; Hematocrit 45.3 % (36-47); Lymphocytes # 1.6 10^3/uL (0.8-4.8); Lymphocytes % 16.4 %; Mean Corpuscular HGB Conc 33.1 g/dL (30-55); Mean Corpuscular Hemoglobin 31.3 pg (27-33); Mean Corpuscular Volume 94.4 fl (85-98); Mean Platelet Volume 9.4 fL (7.4-10.4); Monocytes % 10.9 %; Neutrophils % 71.2 %; Nucleated Red Blood Cells % 0 %; Platelet Count 358 10^3/cmm (157-399); Red Cell Distribution Width 12.5 % (12.1-15.1); White Blood Count 9.43 10^3/uL (3.29-11.43)
[2025-01-20 08:00] VITALS: BP 164/68; PULSE 77; RESP 16; TEMP 36.8; O2SAT 96
[2025-01-20] MEDS: ondansetron 2 mg/ML SDV 2 mL 4 MG IVP (09:39)
[2025-01-20] MEDS: potassium chloride ER 20 mEq Tablet 40 MEQ PO (09:40)
[2025-01-20] MEDS: pantoprazole DR 40 mg Tablet PO (09:40)
[2025-01-20] MEDS: buPROPion XL (24 HR) 150 mg Tablet PO (09:40)
--- NOTE | 2025-01-20 11:07 | PC.SOCIAL ---
IMM Update pg 2 of IMM updated and reviewed w/ patient. Copy provided and copy dated, initialed and placed in chart.
[2025-01-20 12:00] VITALS: BP 142/73; PULSE 85; RESP 15; TEMP 36.6; O2SAT 98
[2025-01-20] MEDS: acetaminophen 325 mg Tablet 650 MG PO (13:15)
[2025-01-20 15:13] VITALS: BP 142/73; PULSE 85; RESP 15; TEMP 36.6; O2SAT 98
--- NOTE | 2025-01-20 15:14 | PC.NURSE ---
Discharge Note Patient discharged to home via private vehicle accompanied by daughter. Discharge instructions reviewed with patient and/or account maintenance representative. Mobile pharmacy medications and/or prescriptions provided. Belongings/home medications returned.
[2025-01-20 15:25] VITALS: BP 165/88; PULSE 81; RESP 16; TEMP 36.8; O2SAT 93
--- NOTE | 2025-01-20 20:24 | P.DS_ITS ---
Discharge Providers Date of Admission: 01/18/25 11:07 Date of Discharge: January 20, 2025 Attending Provider at Admission: Lester Farmer Attending Provider at Discharge: Lester Farmer Primary Care Provider: Jcarlos Washington DO Diagnoses at Discharge Discharge Diagnosis (1) Acute encephalopathy: Status: Acute (2) Intractable nausea and vomiting: Status: Acute (3) HTN (hypertension): Status: Acute (4) Acute anemia: Status: Acute (5) Diarrhea: Status: Acute (6) Rhabdomyolysis: Status: Acute (7) ABRAHAM (acute kidney injury): Status: Acute Reason for Visit Reason for Visit: Fell Brief History: Very pleasant 79-year-old lady with history of moderate dementia, COPD, history of non-small cell lung cancer, former smoker, living at home with her daughter, recently completed course of antibiotics over the last several months for a urinary tract infection, last one earlier this month when she had a 10-day course of amoxicillin. She was reportedly fine on Thursday but began vomiting Thursday night, which continued into Thursday. The caregiver found her on the bedroom floor early this morning, confused and unable to keep anything down. Soiled with diarrhea. She also complained of hip pain, but a CT scan showed no significant findings. The patient has been living with her caregiver for about two years and has a moderate memory problem at baseline. She has been coughing, which is consistent with her history as an ex-smoker with a history of lung cancer. There is no fever, but she reported feeling cold yesterday. She did not feel like eating or drinking anything. A UA showed some red cells and squamous cells but did not suggest a major UTI. The patient has not had a C. diff infection before, and there is no blood in the stool. She is currently being tested for flu, COVID, and C. diff. Hospital Course Hospital Course She was placed on bowel rest, received IV hydration, viral panel was tested and returned negative. C. difficile was requested but she had no recurrence of diarrhea. Subsequently with mild ileus, ambulation was encouraged. Galantamine was held due to possible contributor of symptoms as noticed by the family in the past. Bupropion dose was decreased for the same reason as both can contribute to nausea, constipation. On presentation with noted mild rhabdomyolysis which showed continued improvement. ABRAHAM resolved. Her hospitalization was complicated by acute metabolic encephalopathy with delirium superimposed on chronic dementia, with confusion, disrupted sleep-wake cycle, hypertension. She was found to have urinary tract infection which was treated with ceftriaxone, eventually growing E. coli resistant to ampicillin, with improving symptoms. She has been tolerating small amounts of clear liquids, ambulating, responding appropriately. Appetite still is not the best, but she is passing gas. Received replacement of hypokalemia. Overall with improvement is discharging home with decreased doses of galantamine and bupropion in case they are contributing to GI symptoms and is asked to discontinue ibuprofen and avoid NSAIDs. Discharged with follow-up with primary care provider in office for reassessment. Physical Exam Narrative: Accompanied by her daughter. Const: COMMON NORMALS: alert GENERAL APPEARANCE: cooperative ORIENTATION/CONSCIOUSNESS: Yes confused OTHER: Awake and alert, sitting up in bed. HENMT: COMMON NORMALS: oropharynx normal Neck/C-Spine: COMMON NORMALS: no JVD Resp: COMMON NORMALS: normal respiratory effort and clear to auscultation bilaterally AUSCULTATION: clear to auscultation bilaterally Cardio: COMMON NORMALS: no JVD, regular rhythm, S1 normal heart sound present, S2 normal heart sound present and No murmurs present (Cardio) RHYTHM: regular rhythm HEART SOUNDS: S1 normal heart sound present and S2 normal heart sound present GI: COMMON NORMALS: Normal to inspection, nondistended, normoactive bowel sounds present, Soft to palpation and non-tender AUSCULTATION: Yes normoactive bowel sounds PALPATION: Yes Soft to palpation Extremity: COMMON NORMALS: no joint enlargement and no pedal edema Neuro: COMMON NORMALS: moves all extremities SENSORIUM/ORIENTATION: Yes alert Skin: COMMON NORMALS: no rashes or lesions noted GENERAL SKIN EXAM: no rashes or lesions noted Discharge Data Studies Completed and Pending Completed Studies During Hospitalization Category Date Time Status CT abdomen pelvis w con* [id number] Urgent Cat Scan 01/16/25 05:[address] head wo con* [id number] Stat Cat Scan 01/16/25 05:12 Completed XR acute abdomen series [id number] Routine Exams 01/18/25 15:21 Completed Radiology Impressions Abdomen/Pelvis CT 01/16/25 05:12 IMPRESSION: 1. 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 2. Possible ileus versus early or partial small bowel obstruction. No significant gastric distension. Correlate clinically. COMMENTS: Consistent with the [place] [employer]'s Incidental Findings Committee white paper (J Am Roc Radiol 2018): Any incidental renal lesion less than 1 cm or classified as too small to characterize, or any incidental cystic renal lesion characterized as simple-appearing, is likely benign. No follow-up imaging is recommended for these lesions per consensus recommendations based on imaging criteria. Head CT 01/16/25 05:12 IMPRESSION: 1. Cerebral atrophy and chronic cerebral microvascular disease. 2. No evidence of acute intracranial process. Chest/Abdomen X-ray 01/18/25 15:21 IMPRESSION: 1. No acute cardiopulmonary finding. Flat and erect abdomen. Scattered gas throughout both large and small bowel loops suggesting mild ileus. No sign of acute bowel obstruction or pneumoperitoneum. No sign of organ enlargement. Probable calcified uterine fibroid in the central pelvis. Bony structures are intact. IMPRESSION: 1. Mild ileus. No acute process noted at this time. Laboratory Results WBC 9.43 10^3/uL (3.29-11.43) 01/20/25 05:52 RBC 4.80 10^6/uL (3.85-5.65) 01/20/25 05:52 Hgb 15.00 g/dL (11.27-16.99) 01/20/25 05:52 Hct 45.3 % (36-47) 01/20/25 05:52 MCV 94.4 fl (85-98) 01/20/25 05:52 MCH 31.3 pg (27-33) 01/20/25 05:52 MCHC 33.1 g/dL (30-55) 01/20/25 05:52 RDW 12.5 % (12.1-15.1) 01/20/25 05:52 Plt Count 358 10^3/cmm (157-399) 01/20/25 05:52 MPV 9.4 fL (7.4-10.4) 01/20/25 05:52 Neut % (Auto) 71.2 % 01/20/25 05:52 Lymph % (Auto) 16.4 % 01/20/25 05:52 Harrison % (Auto) 10.9 % 01/20/25 05:52 Eos % (Auto) 0.7 % 01/20/25 05:52 Baso % (Auto) 0.3 % 01/20/25 05:52 Neut # (Auto) 6.70 10^3/uL (1.8-7.7) 01/20/25 05:52 Lymph # (Auto) 1.6 10^3/uL (0.8-4.8) 01/20/25 05:52 Harrison # (Auto) 1.0 10^3/uL (0.2-0.9) H 01/20/25 05:52 Eos # (Auto) 0.1 10^3/uL (0.0-0.8) 01/20/25 05:52 Baso # (Auto) 0.0 10^3/uL (0.0-0.1) 01/20/25 05:52 Nucleated RBC % (auto) 0 % 01/20/25 05:52 Nucleated RBCs # 0.0 /100WBC 01/20/25 05:52 Sodium 136 mmol/L (136-145) 01/20/25 05:52 Potassium 3.1 mmol/L (3.5-5.1) L 01/20/25 05:52 Chloride 97 mmol/L (98-107) L 01/20/25 05:52 Carbon Dioxide 23 mmol/L (22-29) 01/20/25 05:52 Anion Gap 19.1 (5-19) H 01/20/25 05:52 BUN 15 mg/dL (8-23) 01/20/25 05:52 Creatinine 0.5 mg/dL (0.5-0.9) 01/20/25 05:52 GFR Calculation Not Reportable 01/20/25 05:52 Glucose 124 mg/dL (65-115) H 01/20/25 05:52 Calculated Osmolality 284 mOsm/kg (285-295) L 01/20/25 05:52 Lactic Acid 2.1 mmol/L (0.5-2.2) 01/16/25 05:00 Lactic Acid (Sepsis) 0.9 mmol/L (0.5-2.2) 01/16/25 08:16 Calcium 8.6 mg/dL (8.5-10.5) 01/20/25 05:52 Iron 39 ug/dL (37-145) 01/17/25 05:13 TIBC 157 mcg/dl 01/17/25 05:13 % Saturation 24.8 % (20-50) 01/17/25 05:13 Unsat Iron Binding 118 ug/dL (112-347) 01/17/25 05:13 Ferritin 239 ng/mL (15-150) H 01/17/25 05:13 Total Bilirubin 0.4 mg/dL (0.15-1.2) 01/20/25 05:52 AST 22 U/L (0-32) 01/20/25 05:52 ALT 29 U/L (0-33) 01/20/25 05:52 Alkaline Phosphatase 93 U/L (35-105) 01/20/25 05:52 Creatine Kinase 1458 U/L (26-192) H* 01/19/25 04:55 C-Reactive Protein 94.9 mg/L (0.0-4.9) H 01/16/25 05:00 Total Protein 6.6 g/dL (6.6-8.7) 01/20/25 05:52 Albumin 3.6 g/dL (3.5-5.2) 01/20/25 05:52 Globulin 3.0 g/dL (1.3-4.6) 01/20/25 05:52 Lipase 9 U/L (13-60) L 01/16/25 05:00 Vitamin B12 176 pg/mL (232-1245) L 01/17/25 05:13 Folate 7.2 ng/mL (4.8-37.3) 01/17/25 05:13 TSH 2.72 uIU/mL (0.27-4.20) 01/17/25 05:13 Urine Color Yellow (Yellow) 01/18/25 15:04 Urine Appearance Turbid (CLEAR) A 01/18/25 15:04 Urine pH 7.5 (5-7) 01/18/25 15:04 Ur Specific [place] 1.013 (1.005-1.030) 01/18/25 15:04 Urine Protein 1+ (Negative) A 01/18/25 15:04 Urine Glucose (UA) Negative (Normal) 01/18/25 15:04 Urine Ketones 1+ (Negative) H 01/18/25 15:04 Urine Blood 2+ (Negative) A 01/18/25 15:04 Urine Nitrate Positive (Negative) A 01/18/25 15:04 Urine Bilirubin Negative (Negative) 01/18/25 15:04 Urine Urobilinogen 1.0 mg/dL (Negative) 01/18/25 15:04 Ur Leukocyte Esterase 3+ (Negative) A 01/18/25 15:04 Urine RBC 6-10 /hpf (0-2) 01/18/25 15:04 Urine WBC >100 /hpf (0-5) H 01/18/25 15:04 Ur Squamous Epith Cells 0-5 /hpf (0-5) 01/18/25 15:04 Ur Transition Epith Cell 5-10 /hpf 01/16/25 06:05 Amorphous Sediment Not Reportable 01/18/25 15:04 Urine Bacteria Exceeds /hpf (NONE) 01/18/25 15:04 Hyaline Casts 4.95 /lpf 01/18/25 15:04 Urine Mucus Trace /hpf 01/16/25 06:05 Adenovirus (PCR) Not detected (NOT DETECT) 01/17/25 17:20 C. pneumoniae DNA (PCR) Not detected (NOT DETECT) 01/17/25 17:20 Coronavirus 229E (PCR) Not detected (NOT DETECT) 01/17/25 17:20 Human Metapneumovir PCR Not detected (NOT DETECT) 01/17/25 17:20 Influenza A (H1) PCR Not detected (NOT DETECT) 01/17/25 17:20 Influenza A (PCR) Negative (Negative) 01/16/25 07:39 Influ A (H1/09) PCR Not detected (NOT DETECT) 01/17/25 17:20 Influenza A (H3) PCR Not detected (NOT DETECT) 01/17/25 17:20 Influenza Type A (PCR) Not detected (NOT DETECT) 01/17/25 17:20 Influenza Type B (PCR) Not detected (NOT DETECT) 01/17/25 17:20 M. pneumoniae (PCR) Not detected (NOT DETECT) 01/17/25 17:20 Parainfluenza 1 (PCR) Not detected (NOT DETECT) 01/17/25 17:20 Parainfluenza 2 (PCR) Not detected (NOT DETECT) 01/17/25 17:20 Parainfluenza 3 (PCR) Not detected (NOT DETECT) 01/17/25 17:20 Parainfluenza 4 (PCR) Not detected (NOT DETECT) 01/17/25 17:20 RSV (PCR) Negative (Negative) 01/16/25 07:39 RSV Type A (PCR) Not detected (NOT DETECT) 01/17/25 17:20 RSV Type B (PCR) Not detected (NOT DETECT) 01/17/25 17:20 Entero/Rhino (PCR) Not detected (NOT DETECT) 01/17/25 17:20 SARS-CoV-2 (PCR) Not detected (NOT DETECT) 01/17/25 17:20 Vitals Last Vital Signs Temp 98.2 F 01/20/25 15:25 Pulse 81 01/20/25 15:25 Resp 16 01/20/25 15:25 BP 165/88 01/20/25 15:25 Pulse Ox 93 01/20/25 15:25 O2 Del Method Room Air 01/20/25 15:25 Discharge Plan Discharge Patient Disposition: Home Condition: Stable Prescriptions: New galantamine 8 mg capsule,ext rel. pellets 24 hr 16 mg PO QAM Qty: 10 0RF Rx Instructions: administer with breakfast bupropion HCl 150 mg Tablet Extended Release 24 Hr 150 mg PO DAILY Qty: 30 0RF cefdinir 300 mg capsule 300 mg PO BID 5 Days Qty: 10 0RF ondansetron 4 mg tablet,disintegrating 4 mg PO Q8H 5 Days Qty: 15 0RF Continued vitamin B complex [B-Complex] Tablet 1 tab PO QAM alendronate [Fosamax] 70 mg tablet 70 mg PO Q7D Rx Instructions: Thursday vitamin A 2,400 mcg Capsule 2,400 mcg PO DAILY pantoprazole 40 mg tablet,delayed release (DR/EC) 40 mg PO DAILY cholecalciferol (vitamin D3) [Vitamin D3] 50 mcg (2,000 unit) Tablet 50 mcg PO DAILY acetaminophen [Tylenol] 325 mg Tablet 325 mg PO Q6H PRN (Reason: Pain) ascorbic acid (vitamin C) [Vitamin C] 500 mg Tablet 500 mg PO QAM Discontinued bupropion HCl [Wellbutrin XL] 300 mg tablet extended release 24 hr 300 mg PO QAM galantamine 24 mg capsule,ext rel. pellets 24 hr 24 mg PO DAILY ibuprofen 200 mg Tablet 400 mg PO Q6H PRN (Reason: Pain) Discharge Orders: Discharge Order (Routine); Ordered 01/20/25 Ordered By: Lester Farmer Referrals: Jcarlos Washington DO [Primary Care Provider] - 01/25/25 2:40 pm Discharge Diet: Advance as tolerated and Full LIquid Discharge Activity: Increase activity as tolerated Patient Instructions: Bupropion (By mouth), Ondansetron (By mouth), Cefdinir (By mouth), Galantamine (By mouth), Rhabdomyolysis (DC), Chronic Hypertension (DC) Activity Restrictions/Additional Instructions: Continue ambulation, walking at least twice a day, this helps relieve abdominal bloating and gas. Continue at decreased doses of galantamine and bupropion which may contribute to nausea, constipation and other gastrointestinal symptoms. Please follow-up with your primary doctor for reassessment after mild ileus, gastroenteritis. Add nutritional shakes to your meals. Please stop taking ibuprofen and avoid any NSAIDs. Include foods rich in potassium due to mildly low potassium. Please have your primary doctor reassess your potassium level. Complete antibiotic course for urinary tract infection. The final urine culture is growing E. coli resistant to ampicillin. Seek medical attention in case of any worsening or new concerning symptoms. Discharge Attestations Time Spent in Discharge Care*: greater than 30 min Quality Metrics Clinical Quality Measures [ No reported AMI, CVA or VTE this stay] Coding Level of Care Code 60311 Total time (in minutes) for Discharge: 45 Diagnoses Acute encephalopathy G93.40 Intractable nausea and vomiting R11.2 HTN (hypertension) I10 Acute anemia D64.9 Diarrhea R19.7 Rhabdomyolysis M62.82 ABRAHAM (acute kidney injury) N17.9
== END 2025-01-20 16:55 | disposition home or self-care (01) | DRG 557 ==
LOC: ER 07:49 → MEDSURG 13:21
PROVIDERS: Emergency Medicine; Admitting Provider Internal Medicine; Emergency Provider Family Medicine; PCP Electrodiagnostic Medicine; Visit Provider Internal Medicine
DX: M62.82 Rhabdomyolysis (principal); G93.41 Metabolic encephalopathy; N17.9 Acute kidney failure, unspecified; K56.7 Ileus, unspecified; N39.0 Urinary tract infection, site not specified; R11.2 Nausea with vomiting, unspecified; I10 Essential (primary) hypertension; D64.9 Anemia, unspecified; R19.7 Diarrhea, unspecified; F03.B0 Unspecified dementia, moderate, without behavioral disturbance, psychotic disturbance, mood disturbance, and anxiety; J44.9 Chronic obstructive pulmonary disease, unspecified; B96.20 Unspecified Escherichia coli [E. coli] as the cause of diseases classified elsewhere; E87.6 Hypokalemia; M25.559 Pain in unspecified hip; Z85.118 Personal history of other malignant neoplasm of bronchus and lung; Z87.891 Personal history of nicotine dependence; Z87.440 Personal history of urinary (tract) infections
CPT/HCPCS: 36415; 70450; 74022; 74177; 80053; 81001; 82550; 82607; 82728; 82746; 83540; 83550; 83605; 83690; 84443; 85025; 86140; 87077; 87086; 87186; 87486; 87581; 87633; 87637; 96361; 96372; 96374; 96375; 99285; G0378; J0696; J1650; J2270; J2405; J3480; J7030; J9999

== ENCOUNTER 2025-04-20 13:28 | Inpatient (IN) | payer MEDICARE, SELFPAY ==
[2025-04-20 13:33] VITALS: BP 122/66; PULSE 115; RESP 20; TEMP 39.3; O2SAT 93
--- NOTE | 2025-04-20 13:38 | ECG_ITS ---
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 Measurements Intervals [place] Rate: 86 P: 0 CT: 0 QRS: 64 QRSD: 93 T: 74 QT: 382 QTc: 457 Interpretive Statements ATRIAL FIBRILLATION NONSPECIFIC T-WAVE ABNORMALITY No previous ECG available for comparison Electronically Signed On 04-27-2025 09:24:07 CDT by Iglesia Bishop M.D. [email or web address]
--- NOTE | 2025-04-20 13:39 | XR_ITS ---
WS: [id number] Exam: XR chest 1V portable [id number] Date/Time of Exam: 04/20/2025 1:39 PM Reason For Exam: Weakness Comparison 01/18/2025. There are mild patchy infiltrates in the mid and lower RIGHT lung and also of the LEFT basilar area suspicious for pneumonia. Heart size is normal. No pleural effusions or pneumothorax. The mediastinum is normal in contour. Bony structures are intact. XR/XR chest 1V portable [id number] IMPRESSION: 1. Mild bilateral infiltrates suspicious for pneumonia.
--- NOTE | 2025-04-20 13:44 | W.ED.AMS ---
HPI - Altered Mental Status General: Chief Complaint: Altered Mental Status Stated Complaint: AMS, SOB, fever Time Seen by Provider: 04/20/25 13:35 History of Present Illness: 79-year-old female with a history of COPD who presents to the emergency room with fever and altered mental status. She comes by ambulance. She has been increasingly weak, somnolent and confused over the last 4 to 5 days. She was seen by her PCP about 4 days ago and started on cefdinir for a UTI. She has taken a total of 6 doses of this now. Today she became much more confused and was shallow breathing and had a fever so an ambulance was called and she was brought to the emergency room. On presentation she is tachycardic and febrile. She is unable to give me much more history at this time. Related Data Home Medications ?Medication ?Instructions ?Recorded ?Confirmed vitamin B complex (B-Complex 1 tab PO QAM 10/30/22 04/20/25 tablet) alendronate 70 mg tablet (Fosamax) 70 mg PO Q7D 01/12/23 04/20/25 acetaminophen 325 mg tablet 325 mg PO Q6H PRN Pain 08/07/23 04/20/25 (Tylenol) ascorbic acid (vitamin C) 500 mg 500 mg PO QAM 08/07/23 04/20/25 tablet (Vitamin C) cholecalciferol (vitamin D3) 50 50 mcg PO DAILY 01/16/25 04/20/25 mcg (2,000 unit) tablet (Vitamin D3) pantoprazole 40 mg tablet,delayed 40 mg PO DAILY 01/16/25 04/20/25 release vitamin A 2,400 mcg capsule 2,400 mcg PO DAILY 01/16/25 04/20/25 albuterol sulfate 90 mcg/actuation 2 puff inhalation Q4H PRN copd 04/20/25 04/20/25 aerosol inhaler cefdinir 300 mg capsule 300 mg PO BID 04/20/25 04/20/25 galantamine 16 mg 24 hr 16 mg PO DAILY 04/20/25 04/20/25 capsule,extended release meloxicam 7.5 mg tablet 7.5 mg PO DAILY 04/20/25 04/20/25 Previous Rx's ?Medication ?Instructions ?Recorded bupropion HCl 150 mg 24 hr tablet, 150 mg PO DAILY #30 tabs 01/20/25 extended release Allergies Allergy/AdvReac Type Severity Reaction Status Date / Time azithromycin (From Zithromax) Allergy Intermediate ADR-Itching Verified 10/09/24 16:55 levofloxacin (From Levaquin) Allergy Intermediate ADR-Itching Verified 10/09/24 16:55 methylprednisolone Allergy Mild ADR-Itching Verified 10/09/24 16:55 ciprofloxacin (From Cipro) Allergy Unknown Verified 10/09/24 16:55 nitrofurantoin (From Allergy Unknown Verified 10/09/24 16:55 Macrobid) methyprednosolone Allergy Mild ADR-Itching Uncoded 10/09/24 16:55 Review of Systems Narrative: Constitutional symptoms: Negative except as documented in HPI. Skin symptoms: Negative except as documented in HPI. Eye symptoms: Negative except as documented in HPI. ENMT symptoms: Negative except as documented in HPI. Respiratory symptoms: Negative except as documented in HPI. Cardiovascular symptoms: Negative except as documented in HPI. Gastrointestinal symptoms: Negative except as documented in HPI. Genitourinary symptoms: Negative except as documented in HPI. Musculoskeletal symptoms: Negative except as documented in HPI. Neurologic symptoms: Negative except as documented in HPI. Psychiatric symptoms: Negative except as documented in HPI. Endocrine symptoms: Negative except as documented in HPI. PFSH ED PFSH: Medical History COPD (chronic obstructive pulmonary disease) Non-small cell lung cancer Surgical History History of tubal ligation History of lobectomy of lung (10/13/22) Right upper lobectomy by VATS Family History Mother Stroke Other Cancer Social History Smoking and tobacco/nicotine status: former use of tobacco/nicotine Quit status (tobacco/nicotine): has quit using Year quit tobacco: 09/08/22 Former quit date comment: 0.5 pack per day x 20 years Alcohol intake: current Alcohol intake frequency: holidays/special occasions only Substance/Drug Use: never Household members: other Details: daughter Housing: House Marital status: / Number of children: 2 Pets and animals: Yes Pets & animals: dog(s) Special dakotah needs: No Agree to transfusion: Yes Physical Exam Narrative: General: Alert, no acute distress. Skin: Warm, dry. Head: Normocephalic, atraumatic. Neck: Supple, trachea midline. Eye: Extraocular movements are intact. Ears, nose, mouth and throat: Tacky oral mucosa. Cardiovascular: Regular, tachycardic, normal peripheral perfusion. Respiratory: Lungs are clear to auscultation, respirations are non-labored, breath sounds are equal, Symmetrical chest wall expansion. Gastrointestinal: Soft, Nontender, Non distended Musculoskeletal: Normal ROM, no deformity. Neurological: Alert and oriented to person. No focal neurological deficit observed. Psychiatric: Cooperative, seems confused at times Course Vital Signs: Vital signs: Vital Signs Temperature 98.6 F 04/20/25 16:19 Pulse Rate 88 04/20/25 17:15 Respiratory Rate 18 04/20/25 15:56 Blood Pressure 124/70 04/20/25 17:15 Pulse Oximetry 98 04/20/25 17:15 Oxygen Delivery Me thod Nasal Cannula 04/20/25 17:15 MDM - Altered Mental Status Medical Decision Making Medical decision making: Differential diagnosis including but not limited to and based on the above HPI, review of systems and physical exam: In this patient with altered mental status: Stroke. Hypoglycemia. Metabolic encephalopathy. Infections such as pneumonia, urinary tract infection, Covid-19, Influenza. Electrolyte abnormalities such as hypernatremia. Renal failure / uremia. Hepatic encephalopathy. Hypoxemia. Hypercapnic respiratory failure. Psychosis. Drug or alcohol intoxication. Medication overdose. Orders placed to evaluate differential diagnosis based on the above differential, HPI and physical exam Chest x-ray: Mild bilateral infiltrates that are suspicious for pneumonia. This was reviewed and interpreted by myself the emergency room physician. I also reviewed the radiology report. Lab Review: Laboratory results were reviewed and interpreted by myself the emergency room physician. No leukocytosis. No anemia. Platelets are low at 110. Sodium is low at 127. Bicarb is low at 18. BUN and creatinine are elevated at 48 and 1.4. This is well above her baseline. Urinalysis shows 6-10 whites 11-20 reds. No bacteria. Nitrate negative. Initial troponin is 32. I have concern for tick illness. Her lab pattern is consistent with this. Low sodium. Low platelets. Low white count. And much more concerning if she has renal failure. I reviewed the patient's medical record. Reexamination: I spoke at length with family once they arrive. He told me she had had a tick bite on her neck a few days ago at the nursing located check on her buttock here. Consultation: I spoke with Dr. Brandt who is on-call for the hospital service who agrees to admission Assessment and plan: Metabolic encephalopathy Fever Possible tickborne illness Possible pneumonia Urinary tract infection Acute renal insufficiency Dehydration Possible sepsis -Fever, encephalopathy, tachycardia. Recent UTI that has been being treated. Minimal signs of infection in the urine. Possible mild infiltrates on chest x-ray and she has had some respiratory symptoms. Also covering for tick illness with doxycycline as she has had multiple tick bites and her lab pattern is consistent with this. -2.5 L normal saline bolus. Fluid volumes based on ideal body weight. - Cefepime and doxycycline have been given. -Sepsis quality measures. -Lactic acid with a reflex was ordered. -Blood cultures were ordered. -I discussed the patient with the hospitalist on-call who is admitting the patient. - Discussed findings and plan with patient and her family. Answered any questions. - All laboratory values were reviewed and interpreted personally by myself, the ER physician - All imaging was reviewed and interpreted personally by myself, the ER physician. - Evaluation and treatment of this problem were appropriate in the emergency setting Critical care -I spent a total of >35 minutes of critical care time managing the patient, independent of any other practitioner. -The time involved in the performance of separately reportable procedures was not counted towards critical care time. Lab Data 04/20/25 13:54 04/20/25 13:54 Radiology Impressions Chest X-Ray 04/20/25 13:39 IMPRESSION: 1. Mild bilateral infiltrates suspicious for pneumonia. Laboratory Results WBC 6.23 10^3/uL (3.29-11.43) 04/20/25 13:54 RBC 4.83 10^6/uL (3.85-5.65) 04/20/25 13:54 Hgb 15.00 g/dL (11.27-16.99) 04/20/25 13:54 Hct 44.3 % (36-47) 04/20/25 13:54 MCV 91.7 fl (85-98) 04/20/25 13:54 MCH 31.1 pg (27-33) 04/20/25 13:54 MCHC 33.9 g/dL (30-55) 04/20/25 13:54 RDW 13.5 % (12.1-15.1) 04/20/25 13:54 Plt Count 110 10^3/cmm (157-399) L 04/20/25 13:54 MPV 12.3 fL (7.4-10.4) H 04/20/25 13:54 Lymph % (Auto) Not Reportable 04/20/25 13:54 Bacon % (Auto) Not Reportable 04/20/25 13:54 Lymph # (Auto) Not Reportable 04/20/25 13:54 Bacon # (Auto) Not Reportable 04/20/25 13:54 Total Counted 100 (0-100) 04/20/25 13:54 Atypical Lymphs % 10.0 % (0-5) H 04/20/25 13:54 Absolute Neutrophils 4.9 10^3/cmm (1.4-6.5) 04/20/25 13:54 Segmented Neutrophils 74 % 04/20/25 13:54 Band Neutrophils 5.0 % 04/20/25 13:54 Absolute Lymphocytes 1.1 10^3/cmm (1.2-3.4) L 04/20/25 13:54 Lymphocytes (Manual) 7 % 04/20/25 13:54 Monocytes (Manual) 4.0 % 04/20/25 13:54 Absolute Monocytes 0.2 10^3/cmm (0.1-0.6) 04/20/25 13:54 Eosinophils (Manual) 0 % 04/20/25 13:54 Absolute Eosinophils 0.0 10^3/cmm (0.0-0.7) 04/20/25 13:54 Basophils (Manual) 0.0 % 04/20/25 13:54 Absolute Basophils 0.0 10^3/cmm (0.0-0.2) 04/20/25 13:54 Platelet Estimate Decreased (Normal) L 04/20/25 13:54 Specimen Type Arterial 04/20/25 16:21 Sample Site Brachial, right 04/20/25 16:21 ABG pH 7.44 (7.35-7.45) 04/20/25 16:21 ABG pCO2 30.4 mmHg (35-45) L 04/20/25 16:21 ABG pO2 99.3 mmHg (80.0-100.0) 04/20/25 16:21 ABG PO2/FiO2 Ratio 354 04/20/25 16:21 ABG HCO3 20.7 mmol/L (22-26) L 04/20/25 16:21 ABG O2 Saturation 98.3 04/20/25 16:21 ABG Base Excess -2.5 mmol/L (-2.0-2.0) L 04/20/25 16:21 Angel Luis Test N/a 04/20/25 16:21 A-a O2 Gradient 7.9 mmHg (5-10) 04/20/25 16:21 Hematocrit 38.7 % (37-47) 04/20/25 16:21 Hgb O2 Saturation 96.9 % (95-100) 04/20/25 16:21 Carboxyhemoglobin 0.9 %THgb (0.4-20.1) 04/20/25 16:21 Methemoglobin 0.5 % (0.4-1.5) 04/20/25 16:21 Total Hemoglobin 12.6 g/dL (12-16) 04/20/25 16:21 Sodium 131.0 mmol/L (131-143) 04/20/25 16:21 Potassium 3.0 mmol/L (3.5-5.0) L 04/20/25 16:21 Glucose 154.0 mg/dL (70-115) H 04/20/25 16:21 Ionized Calcium 0.9 mmol/L (1.1-1.4) L 04/20/25 16:21 O2 Delivery Device Nc 04/20/25 16:21 O2 Liters/Min 2.0 % 04/20/25 16:21 FiO2 28.0 % 04/20/25 16:21 Deskidding Machine Operator ID glc 04/20/25 16:21 Sodium 127 mmol/L (136-145) L 04/20/25 13:54 Potassium 3.9 mmol/L (3.5-5.1) 04/20/25 13:54 Chloride 89 mmol/L (98-107) L 04/20/25 13:54 Carbon Dioxide 18 mmol/L (22-29) L 04/20/25 13:54 Anion Gap 23.9 (5-19) H 04/20/25 13:54 BUN 48 mg/dL (8-23) H 04/20/25 13:54 Creatinine 1.4 mg/dL (0.5-0.9) H 04/20/25 13:54 GFR Calculation Not Reportable 04/20/25 13:54 Glucose 166 mg/dL (65-115) H 04/20/25 13:54 Calculated Osmolality 280 mOsm/kg (285-295) L 04/20/25 13:54 Lactic Acid 3.0 mmol/L (0.5-2.2) H 04/20/25 13:54 Lactic Acid (Sepsis) 1.3 mmol/L (0.5-2.2) 04/20/25 16:40 Calcium 7.9 mg/dL (8.5-10.5) L 04/20/25 13:54 Total Bilirubin 0.7 mg/dL (0.15-1.2) 04/20/25 13:54 AST 36 U/L (0-32) H 04/20/25 13:54 ALT 25 U/L (0-33) 04/20/25 13:54 Alkaline Phosphatase 99 U/L (35-105) 04/20/25 13:54 Troponin T Baseline 32 ng/L (0-10) H 04/20/25 13:54 Troponin T 120 Minute 26.49 ng/L (0-10) H 04/20/25 16:40 Delta Troponin T -5.51 ABS# (0-10) L 04/20/25 16:40 C-Reactive Protein 168.3 mg/L (0.0-4.9) H 04/20/25 13:54 Total Protein 6.4 g/dL (6.6-8.7) L 04/20/25 13:54 Albumin 3.5 g/dL (3.5-5.2) 04/20/25 13:54 Globulin 2.9 g/dL (1.3-4.6) 04/20/25 13:54 Procalcitonin 4.78 ng/mL (0-0.5) H 04/20/25 13:54 Urine Color Yellow (Yellow) 04/20/25 14:36 Urine Appearance Cloudy (CLEAR) A 04/20/25 14:36 Urine pH 5.5 (5-7) 04/20/25 14:36 Ur Specific [place] 1.021 (1.005-1.030) 04/20/25 14:36 Urine Protein 2+ (Negative) A 04/20/25 14:36 Urine Glucose (UA) Negative (Normal) 04/20/25 14:36 Urine Ketones Trace (Negative) 04/20/25 14:36 Urine Blood Negative (Negative) 04/20/25 14:36 Urine Nitrate Negative (Negative) 04/20/25 14:36 Urine Bilirubin Negative (Negative) 04/20/25 14:36 Urine Urobilinogen 1.0 mg/dL (Negative) 04/20/25 14:36 Ur Leukocyte Esterase Trace (Negative) A 04/20/25 14:36 Urine RBC 11-20 /hpf (0-2) H 04/20/25 14:36 Urine WBC 6-10 /hpf (0-5) 04/20/25 14:36 Ur Squamous Epith Cells 11-20 /hpf (0-5) H 04/20/25 14:36 Amorphous Sediment Not Reportable 04/20/25 14:36 Urine Bacteria None seen /hpf (NONE) 04/20/25 14:36 Hyaline Casts 10.32 /lpf 04/20/25 14:36 Urine Yeast 1+ /hpf H 04/20/25 14:36 All radiology interpretation(s) finalized by discharge Discharge Plan Discharge Patient Disposition: Admitted As Inpatient Admit Provider: Viry Brandt Clinical Impression: Sepsis, Acute metabolic encephalopathy, Fever, Tick bite, Acute renal failure, Dehydration Condition: Stable Coding Level of Care 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
--- NOTE | 2025-04-20 13:52 | PC.NURSE ---
EMS UNABLE TO GET IV. ATTEMPTING IV NOW
--- NOTE | 2025-04-20 14:07 | PC.PHAR ---
Pt is unable to verify home medications-SRIRAM Finn is faxing a current med list 04/20/25 2:08pm
[2025-04-20 14:11] LABS: Hematocrit 44.3 % (36-47); Hemoglobin 15.00 g/dL (11.27-16.99); Mean Corpuscular HGB Conc 33.9 g/dL (30-55); Mean Corpuscular Hemoglobin 31.1 pg (27-33); Mean Corpuscular Volume 91.7 fl (85-98); Platelet Count 110 10^3/cmm (157-399); Red Blood Count 4.83 10^6/uL (3.85-5.65); White Blood Count 6.23 10^3/uL (3.29-11.43)
[2025-04-20 14:26] LABS: Lactic Sepsis W/Reflex 3.0 mmol/L (0.5-2.2)
[2025-04-20 14:27] LABS: Troponin(5th) Baseline 32 ng/L (0-10)
[2025-04-20] MEDS: cefepime 2,000 mg SDV 2000 MG IVP (14:28)
[2025-04-20] MEDS: acetaminophen 1,000 MG/100 ML PIGGYBACK 400 MG IV (14:28)
--- NOTE | 2025-04-20 14:28 | PC.NURSE ---
KASHIF CHAVARRIA ATTEMPTING ULTRASOUND IV AT THIS TIME.
[2025-04-20] MEDS: linezolid premix 600 MG/300 ML PREMIX 300 MG IV (14:30)
[2025-04-20 14:32] LABS: Alanine Aminotransferase 25 U/L (0-33); Albumin Level 3.5 g/dL (3.5-5.2); Alkaline Phosphatase 99 U/L (35-105); Anion Gap 23.9 (5-19); Aspartate Amino Transferase 36 U/L (0-32); Blood Urea Nitrogen 48 mg/dL (8-23); Calcium 7.9 mg/dL (8.5-10.5); Carbon Dioxide 18 mmol/L (22-29); Chloride 89 mmol/L (98-107); Globulin 2.9 g/dL (1.3-4.6); Glucose 166 mg/dL (65-115); Osmolality Calculated 280 mOsm/kg (285-295); Potassium 3.9 mmol/L (3.5-5.1); Sodium 127 mmol/L (136-145); Total Protein 6.4 g/dL (6.6-8.7)
[2025-04-20 14:39] LABS: Procalcitonin 4.78 ng/mL (0-0.5)
[2025-04-20 14:51] LABS: Glucose Urine UA Negative (Normal); Nitrate Urine Negative (Negative); Specific Gravity, Urine 1.021 (1.005-1.030)
[2025-04-20 14:59] LABS: Slide Review Slide Review Perform
[2025-04-20 15:00] LABS: Absolute Segmented Neutrophil 4.6 10/cmm (1.6-7.1); Band Neutrophils Absolute 0.3 10^3/cmm (0.0-1.2); Total Cells Counted 100 (0-100)
[2025-04-20 15:01] LABS: Atypical Lymphs 10.0 % (0-5)
[2025-04-20 15:38] LABS: UA Slide Review UA Slide Review Perf
--- NOTE | 2025-04-20 15:38 | ECG_ITS ---
[employer] Test Date: 2025-04-20 Pat Name: Aelxa Bravo Department: Room: [facility] Gender: Female Male Impersonator: : 1945 Requested By: Marline Chakraborty Order Number: [id number] Tabitha MD: Iglesia Bishop M.D. Measurements Intervals [place] Rate: 83 P: 63 NH: 130 QRS: 62 QRSD: 85 T: 71 QT: 403 QTc: 476 Interpretive Statements SINUS RHYTHM WITH OCCASIONAL SUPRAVENTRICULAR PREMATURE COMPLEXES NONSPECIFIC ST & T-WAVE ABNORMALITY Compared to ECG 04/20/2025 16:13:54 Atrial fibrillation no longer present T-wave abnormality still present Electronically Signed On 04-27-2025 09:43:18 CDT by Iglesia Bishop M.D. [email or web address]
[2025-04-20 15:46] LABS: Reflex Lactate Order REFLEX LACTIC ORDERD
[2025-04-20] MEDS: doxycycline 100 MG in sodium chloride 0.9% (plus) 100 ML IV (15:55)
[2025-04-20 15:56] VITALS: BP 116/54; PULSE 82; RESP 18; O2SAT 96
[2025-04-20 16:19] VITALS: TEMP 37
[2025-04-20 16:32] LABS: ABG PCO2 30.4 mmHg (35-45); ABG PH Result 7.44 (7.35-7.45); Alveolar-Arterial Oxygen Gradi 7.9 mmHg (5-10); Arterial Blood Gas Hematocrit 38.7 % (37-47); Blood Gas LPM 2.0 %; Blood Gas Operator Identificat glc; Blood Gas Sample Site Brachial, right; Blood Gas Sample Type Arterial; Carboxyhemoglobin 0.9 %THgb (0.4-20.1); Glucose Level-ABG 154.0 mg/dL (70-115); HCO3 ABG 20.7 mmol/L (22-26); Ionized Calcium Level - ABG 0.9 mmol/L (1.1-1.4); Methemoglobin 0.5 % (0.4-1.5); Oxygen Saturation ABG 98.3; PO2 ABG 99.3 mmHg (80.0-100.0); PO2 FiO2 Ratio Arterial Blood 354; Potassium Level - ABG 3.0 mmol/L (3.5-5.0); Sodium Level - ABG 131.0 mmol/L (131-143)
--- NOTE | 2025-04-20 16:50 | PM.HP ---
Providers/Chief Complaint Admitting Physician: Viry Brandt MD Primary Care Provider: Jcarlos Washington DO Chief Complaint: AMS, SOB, fever History of Present Illness Alexa Bravo is a 79 year old female who si brought by family with c/o being sick since thursday (today is ). Patient was noted to be confused by family on Thursday. This was attributed to possible UTI after visit with their PCP and she was started on cefdinir. There was no significant improvement after starting starting the abx. Patient continued to worsen with generalized weakness. She developed emesis today, bilious vomiting and was brought to the ER. 2 ticks have been pulled off the patient in the past week. no dyspnea, of chest pain. Review of Systems General: Reports: ROS unobtainable due to mental status Medications/Allergies Home Medications ?Medication ?Instructions ?Recorded ?Confirmed ?Last Taken ?Type vitamin B complex (B-Complex 1 tab PO QAM 10/30/22 04/20/25 01/15/25 History tablet) alendronate 70 mg tablet (Fosamax) 70 mg PO Q7D 01/12/23 04/20/25 01/14/25 History acetaminophen 325 mg tablet 325 mg PO Q6H PRN Pain 08/07/23 04/20/25 Unknown History (Tylenol) ascorbic acid (vitamin C) 500 mg 500 mg PO QAM 08/07/23 04/20/25 01/15/25 History tablet (Vitamin C) cholecalciferol (vitamin D3) 50 50 mcg PO DAILY 01/16/25 04/20/25 01/15/25 History mcg (2,000 unit) tablet (Vitamin D3) pantoprazole 40 mg tablet,delayed 40 mg PO DAILY 01/16/25 04/20/25 01/15/25 History release vitamin A 2,400 mcg capsule 2,400 mcg PO DAILY 01/16/25 04/20/25 01/15/25 History bupropion HCl 150 mg 24 hr tablet, 150 mg PO DAILY #30 tabs 01/20/25 04/20/25 Unknown Rx extended release albuterol sulfate 90 mcg/actuation 2 puff inhalation Q4H PRN copd 04/20/25 04/20/25 Unknown History aerosol inhaler cefdinir 300 mg capsule 300 mg PO BID 04/20/25 04/20/25 Unknown History galantamine 16 mg 24 hr 16 mg PO DAILY 04/20/25 04/20/25 Unknown History capsule,extended release meloxicam 7.5 mg tablet 7.5 mg PO DAILY 04/20/25 04/20/25 Unknown History Allergies Allergy/AdvReac Type Severity Reaction Status Date / Time azithromycin (From Zithromax) Allergy Intermediate ADR-Itching Verified 10/09/24 16:55 levofloxacin (From Levaquin) Allergy Intermediate ADR-Itching Verified 10/09/24 16:55 methylprednisolone Allergy Mild ADR-Itching Verified 10/09/24 16:55 ciprofloxacin (From Cipro) Allergy Unknown Verified 10/09/24 16:55 nitrofurantoin (From Allergy Unknown Verified 10/09/24 16:55 Macrobid) methyprednosolone Allergy Mild ADR-Itching Uncoded 10/09/24 16:55 PFSH Acute PFSH: Medical History COPD (chronic obstructive pulmonary disease) Non-small cell lung cancer Surgical History History of tubal ligation History of lobectomy of lung (10/13/22) Right upper lobectomy by VATS Family History Mother Stroke Other Cancer Social History Smoking and tobacco/nicotine status: former use of tobacco/nicotine Quit status (tobacco/nicotine): has quit using Year quit tobacco: 09/08/22 Former quit date comment: 0.5 pack per day x 20 years Alcohol intake: current Alcohol intake frequency: holidays/special occasions only Substance/Drug Use: never Household members: other Details: daughter Housing: House Marital status: / Number of children: 2 Pets and animals: Yes Pets & animals: dog(s) Special dakotah needs: No Agree to transfusion: Yes Vitals/I&O/Wt Last Vital Signs Temp 98.6 F 04/20/25 16:19 Pulse 82 04/20/25 15:56 Resp 18 04/20/25 15:56 BP 116/54 04/20/25 15:56 Pulse Ox 96 04/20/25 15:56 O2 Del Method Room Air 04/20/25 13:33 04/20/25 04/20/25 04/20/25 06:59 14:59 22:59 Intake Total 1399 / 1399 Balance 1399 Physical Exam Narrative: General: ill appearing, generalized weakness HEENT: PERRLA, pupils bilaterally equal and reactive, pallors not present Chest: Normal vesicular breath sounds, no added sounds, equal good air entry bilaterally CVS: S1-S2 regular, no murmurs, no tachycardia, no gallops, no rubs Abdomen: Soft, nontender, no organomegaly, bowel sounds present Neuro: No focal deficits, no facial deformity, AO x3, power 5/5 in all limbs Data 04/21/25 04:03 04/21/25 04:03 Micro: Microbiology 04/20/25 13:54 Blood Culture - Preliminary Blood SPECIMEN COLLECTED 04/20/25 13:56 Blood Culture - Preliminary Blood SPECIMEN COLLECTED Other data: Radiology Impressions Chest X-Ray 04/20/25 13:39 IMPRESSION: 1. Mild bilateral infiltrates suspicious for pneumonia. Laboratory Results WBC 6.23 10^3/uL (3.29-11.43) 04/20/25 13:54 RBC 4.83 10^6/uL (3.85-5.65) 04/20/25 13:54 Hgb 15.00 g/dL (11.27-16.99) 04/20/25 13:54 Hct 44.3 % (36-47) 04/20/25 13:54 MCV 91.7 fl (85-98) 04/20/25 13:54 MCH 31.1 pg (27-33) 04/20/25 13:54 MCHC 33.9 g/dL (30-55) 04/20/25 13:54 RDW 13.5 % (12.1-15.1) 04/20/25 13:54 Plt Count 110 10^3/cmm (157-399) L 04/20/25 13:54 MPV 12.3 fL (7.4-10.4) H 04/20/25 13:54 Lymph % (Auto) Not Reportable 04/20/25 13:54 Burnett % (Auto) Not Reportable 04/20/25 13:54 Lymph # (Auto) Not Reportable 04/20/25 13:54 Burnett # (Auto) Not Reportable 04/20/25 13:54 Total Counted 100 (0-100) 04/20/25 13:54 Atypical Lymphs % 10.0 % (0-5) H 04/20/25 13:54 Absolute Neutrophils 4.9 10^3/cmm (1.4-6.5) 04/20/25 13:54 Segmented Neutrophils 74 % 04/20/25 13:54 Band Neutrophils 5.0 % 04/20/25 13:54 Absolute Lymphocytes 1.1 10^3/cmm (1.2-3.4) L 04/20/25 13:54 Lymphocytes (Manual) 7 % 04/20/25 13:54 Monocytes (Manual) 4.0 % 04/20/25 13:54 Absolute Monocytes 0.2 10^3/cmm (0.1-0.6) 04/20/25 13:54 Eosinophils (Manual) 0 % 04/20/25 13:54 Absolute Eosinophils 0.0 10^3/cmm (0.0-0.7) 04/20/25 13:54 Basophils (Manual) 0.0 % 04/20/25 13:54 Absolute Basophils 0.0 10^3/cmm (0.0-0.2) 04/20/25 13:54 Platelet Estimate Decreased (Normal) L 04/20/25 13:54 Specimen Type Arterial 04/20/25 16:21 Sample Site Brachial, right 04/20/25 16:21 ABG pH 7.44 (7.35-7.45) 04/20/25 16:21 ABG pCO2 30.4 mmHg (35-45) L 04/20/25 16:21 ABG pO2 99.3 mmHg (80.0-100.0) 04/20/25 16:21 ABG PO2/FiO2 Ratio 354 04/20/25 16:21 ABG HCO3 20.7 mmol/L (22-26) L 04/20/25 16:21 ABG O2 Saturation 98.3 04/20/25 16:21 ABG Base Excess -2.5 mmol/L (-2.0-2.0) L 04/20/25 16:21 Angel Luis Test N/a 04/20/25 16:21 A-a O2 Gradient 7.9 mmHg (5-10) 04/20/25 16:21 Hematocrit 38.7 % (37-47) 04/20/25 16:21 Hgb O2 Saturation 96.9 % (95-100) 04/20/25 16:21 Carboxyhemoglobin 0.9 %THgb (0.4-20.1) 04/20/25 16:21 Methemoglobin 0.5 % (0.4-1.5) 04/20/25 16:21 Total Hemoglobin 12.6 g/dL (12-16) 04/20/25 16:21 Sodium 131.0 mmol/L (131-143) 04/20/25 16:21 Potassium 3.0 mmol/L (3.5-5.0) L 04/20/25 16:21 Glucose 154.0 mg/dL (70-115) H 04/20/25 16:21 Ionized Calcium 0.9 mmol/L (1.1-1.4) L 04/20/25 16:21 O2 Delivery Device Nc 04/20/25 16:21 O2 Liters/Min 2.0 % 04/20/25 16:21 FiO2 28.0 % 04/20/25 16:21 Woods Boss ID glc 04/20/25 16:21 Sodium 127 mmol/L (136-145) L 04/20/25 13:54 Potassium 3.9 mmol/L (3.5-5.1) 04/20/25 13:54 Chloride 89 mmol/L (98-107) L 04/20/25 13:54 Carbon Dioxide 18 mmol/L (22-29) L 04/20/25 13:54 Anion Gap 23.9 (5-19) H 04/20/25 13:54 BUN 48 mg/dL (8-23) H 04/20/25 13:54 Creatinine 1.4 mg/dL (0.5-0.9) H 04/20/25 13:54 GFR Calculation Not Reportable 04/20/25 13:54 Glucose 166 mg/dL (65-115) H 04/20/25 13:54 Calculated Osmolality 280 mOsm/kg (285-295) L 04/20/25 13:54 Lactic Acid 3.0 mmol/L (0.5-2.2) H 04/20/25 13:54 Lactic Acid (Sepsis) 1.3 mmol/L (0.5-2.2) 04/20/25 16:40 Calcium 7.9 mg/dL (8.5-10.5) L 04/20/25 13:54 Total Bilirubin 0.7 mg/dL (0.15-1.2) 04/20/25 13:54 AST 36 U/L (0-32) H 04/20/25 13:54 ALT 25 U/L (0-33) 04/20/25 13:54 Alkaline Phosphatase 99 U/L (35-105) 04/20/25 13:54 Troponin T Baseline 32 ng/L (0-10) H 04/20/25 13:54 Troponin T 120 Minute 26.49 ng/L (0-10) H 04/20/25 16:40 Delta Troponin T -5.51 ABS# (0-10) L 04/20/25 16:40 C-Reactive Protein 168.3 mg/L (0.0-4.9) H 04/20/25 13:54 Total Protein 6.4 g/dL (6.6-8.7) L 04/20/25 13:54 Albumin 3.5 g/dL (3.5-5.2) 04/20/25 13:54 Globulin 2.9 g/dL (1.3-4.6) 04/20/25 13:54 Procalcitonin 4.78 ng/mL (0-0.5) H 04/20/25 13:54 Urine Color Yellow (Yellow) 04/20/25 14:36 Urine Appearance Cloudy (CLEAR) A 04/20/25 14:36 Urine pH 5.5 (5-7) 04/20/25 14:36 Ur Specific [place] 1.021 (1.005-1.030) 04/20/25 14:36 Urine Protein 2+ (Negative) A 04/20/25 14:36 Urine Glucose (UA) Negative (Normal) 04/20/25 14:36 Urine Ketones Trace (Negative) 04/20/25 14:36 Urine Blood Negative (Negative) 04/20/25 14:36 Urine Nitrate Negative (Negative) 04/20/25 14:36 Urine Bilirubin Negative (Negative) 04/20/25 14:36 Urine Urobilinogen 1.0 mg/dL (Negative) 04/20/25 14:36 Ur Leukocyte Esterase Trace (Negative) A 04/20/25 14:36 Urine RBC 11-20 /hpf (0-2) H 04/20/25 14:36 Urine WBC 6-10 /hpf (0-5) 04/20/25 14:36 Ur Squamous Epith Cells 11-20 /hpf (0-5) H 04/20/25 14:36 Amorphous Sediment Not Reportable 04/20/25 14:36 Urine Bacteria None seen /hpf (NONE) 04/20/25 14:36 Hyaline Casts 10.32 /lpf 04/20/25 14:36 Urine Yeast 1+ /hpf H 04/20/25 14:36 Adenovirus (PCR) Not detected (NOT DETECT) 04/20/25 17:37 C. pneumoniae DNA (PCR) Not detected (NOT DETECT) 04/20/25 17:37 Coronavirus 229E (PCR) Not detected (NOT DETECT) 04/20/25 17:37 Human Metapneumovir PCR Not detected (NOT DETECT) 04/20/25 17:37 Influenza A (H1) PCR Not detected (NOT DETECT) 04/20/25 17:37 Influ A (H1/09) PCR Not detected (NOT DETECT) 04/20/25 17:37 Influenza A (H3) PCR Not detected (NOT DETECT) 04/20/25 17:37 Influenza Type A (PCR) Not detected (NOT DETECT) 04/20/25 17:37 Influenza Type B (PCR) Not detected (NOT DETECT) 04/20/25 17:37 M. pneumoniae (PCR) Not detected (NOT DETECT) 04/20/25 17:37 Parainfluenza 1 (PCR) Not detected (NOT DETECT) 04/20/25 17:37 Parainfluenza 2 (PCR) Not detected (NOT DETECT) 04/20/25 17:37 Parainfluenza 3 (PCR) Not detected (NOT DETECT) 04/20/25 17:37 Parainfluenza 4 (PCR) Not detected (NOT DETECT) 04/20/25 17:37 RSV Type A (PCR) Not detected (NOT DETECT) 04/20/25 17:37 RSV Type B (PCR) Not detected (NOT DETECT) 04/20/25 17:37 Entero/Rhino (PCR) Not detected (NOT DETECT) 04/20/25 17:37 SARS-CoV-2 (PCR) Not detected (NOT DETECT) 04/20/25 17:37 A&P Assessment and plan (1) Tick bite: (2) Fever: (3) Altered mental status: (4) Pneumonia: Plan Patient is a 79-year-old lady who was brought to the emergency room today with chief complaints of fever, generalized weakness and vomiting starting 3 to 4 days ago. Also developed altered mental status. To 102 Today she is noted to be febrile with temperature of 102 Fahrenheit. She was recently started on treatment for UTI with cefdinir however did not have any significant improvement Will start IV ceftriaxone 1 g every 24 hours UA today is not a clean-catch, 11-20 squamous epithelial cells are noted, this will be repeated as well as urine culture. Alternate possibilities include tickborne illness as 2 ticks have recently been pulled off of the patient, there is also noted thrombocytopenia mild derangement of LFTs.. Start doxycycline 100 mg p.o. twice daily empirically as well. Chest x-ray notes bilateral scattered infiltrates which may be concerning for atypical pneumonia. Ceftriaxone and doxycycline to provide coverage for pneumonia for now. Check sputum culture if patient able to expectorate. Check tick panel Altered mental status most likely related to metabolic encephalopathy from acute infection. She is noted to be clinically dehydrated, start normal saline at 75 cc an hour. Will admit to [facility] and monitor closely. PDMP PDMP Reviewed: Not Reviewed Attestations Medical Necessity Statement*: Greater than 2 midnight admission is anticipated Coding Level of Care Code Acute Code for [facility] Diagnoses Tick bite W57.XXXA Fever R50.9 Altered mental status R41.82 Pneumonia J18.9
[2025-04-20 17:13] LABS: Lactic Acid level (Lactate) 1.3 mmol/L (0.5-2.2)
[2025-04-20 17:15] VITALS: BP 124/70; PULSE 88; O2SAT 98
[2025-04-20 17:17] LABS: Troponin 5 2HR 26.49 ng/L (0-10)
[2025-04-20 17:20] LABS: Troponin 5 2HR Delta -5.51 ABS# (0-10)
[2025-04-20] MEDS: cefTRIAXone 1,000 mg SDV 1000 MG IVP (18:43)
--- NOTE | 2025-04-20 18:50 | PC.NURSE ---
AT APPROX 1428 this nurse went into assess patient. patient rolled and had a tick on her left gluteal area. patients daughter reports she found a tick on her last week as well. reported to doctor and removed tick.
[2025-04-20 18:52] VITALS: BP 119/77; PULSE 83; O2SAT 96
--- NOTE | 2025-04-20 19:38 | ECG_ITS ---
[employer] Test Date: 2025-04-20 Pat Name: Alexa Bravo Department: Room: EDIP Gender: Female Leadership Coach: : 1945 Requested By: Marline Chakraborty Order Number: [id number] Tabitha MD: Iglesia Bishop M.D. Measurements Intervals [place] Rate: 85 P: 68 ME: 124 QRS: 57 QRSD: 88 T: 62 QT: 380 QTc: 452 Interpretive Statements SINUS RHYTHM WITH OCCASIONAL ECTOPIC PREMATURE COMPLEXES NONSPECIFIC ST & T-WAVE ABNORMALITY Compared to ECG 04/20/2025 19:07:56 No significant changes Electronically Signed On 04-27-2025 09:43:15 CDT by Iglesia Bishop M.D. [email or web address]
[2025-04-20 19:53] LABS: Coronavirus 229E,HKU1,NL63,OC4 Not Detected (NOT DETECT); Parainfluenza Virus Type 1 Not Detected (NOT DETECT); Parainfluenza Virus Type 2 Not Detected (NOT DETECT); Parainfluenza Virus Type 3 Not Detected (NOT DETECT); Parainfluenza Virus Type 4 Not Detected (NOT DETECT); SARS-COV-2 Not Detected (NOT DETECT)
[2025-04-20 20:41] LABS: Troponin 5 6HR 22.88 ng/L (0-10)
[2025-04-20 20:44] LABS: Troponin 5 6HR Delta -9.12 ng/L (0-12)
[2025-04-20 21:02] VITALS: BP 121/73; PULSE 82; O2SAT 97
[2025-04-21] VITALS (9 sets, daily range): BP systolic 131–169; BP diastolic 64–88; PULSE 81–92; RESP 18–28; TEMP 36.6–36.9; O2SAT 91–97; BMI 22.7
[2025-04-21 04:36] LABS: Hematocrit 39.6 % (36-47); Hemoglobin 12.50 g/dL (11.27-16.99); Mean Corpuscular HGB Conc 31.6 g/dL (30-55); Mean Corpuscular Hemoglobin 30.9 pg (27-33); Mean Corpuscular Volume 97.8 fl (85-98); Nucleated Red Blood Cells % 0 %; Platelet Count 99 10^3/cmm (157-399); Red Blood Count 4.05 10^6/uL (3.85-5.65); White Blood Count 10.26 10^3/uL (3.29-11.43)
[2025-04-21 05:08] LABS: Alanine Aminotransferase 21 U/L (0-33); Albumin Level 2.8 g/dL (3.5-5.2); Alkaline Phosphatase 75 U/L (35-105); Anion Gap 16.4 (5-19); Aspartate Amino Transferase 39 U/L (0-32); Blood Urea Nitrogen 36 mg/dL (8-23); Calcium 6.9 mg/dL (8.5-10.5); Carbon Dioxide 20 mmol/L (22-29); Chloride 103 mmol/L (98-107); Globulin 2.5 g/dL (1.3-4.6); Glucose 94 mg/dL (65-115); Osmolality Calculated 290 mOsm/kg (285-295); Potassium 3.4 mmol/L (3.5-5.1); Sodium 136 mmol/L (136-145); Total Protein 5.3 g/dL (6.6-8.7)
[2025-04-21 05:42] LABS: Slide Review Slide Review Perform
[2025-04-21] MEDS: ondansetron 2 mg/ML SDV 2 mL 8 MG IVP (07:46)
--- NOTE | 2025-04-21 09:25 | CT_ITS ---
WS: [id number] CT ABDOMEN AND PELVIS WITH CONTRAST HISTORY: persistent vomiting TECHNIQUE: Imaging performed of the abdomen and pelvis with IV contrast. Single phase imaging of the abdomen. Coronal and sagittal reformats are submitted. All CT scans at [facility] use at least one of these dose optimization techniques: automated exposure control; mA and/or kV adjustment per patient size (includes targeted exams where dose is matched to clinical indication); or iterative reconstruction. IV CONTRAST: Omnipaque 350; 100 mL IV. Oral contrast: No DLP: 434.63 mGy.cm COMPARISON: 01/16/2025 Lower thorax: Patchy opacifications in the RIGHT middle lobe and at the lung bases. Mild bilateral pleural thickening. Heart is normal size. Small hiatal hernia. Liver/biliary system: Normal size liver with periportal fluid. Similar to the prior study. Scattered low-attenuation liver lesions are stable. Probably representing cyst but too small to characterize. Common bile duct normal at 5.7 mm. Gallbladder: Mild gallbladder hydrops with no wall thickening. Pancreas: Atrophied pancreas. Spleen: Normal size spleen. Focal central hypodensity is new since the prior study. This may represent a tiny splenic infarct. Adrenal glands: Normal. Right kidney: Multifocal areas of cortical thinning and atrophy. No obstruction. Left kidney: Normal size with no obstruction. 2.0 cm cortical cyst upper pole. Additional too small to characterize hypodensities. Aorta: Advanced atherosclerosis aorta. Mild atherosclerosis mesenteric arteries. Lymphadenopathy: None. Free fluid: None. GI tract: Stomach is markedly distended with fluid and air. High-grade small bowel obstruction with loops measuring up to 4.0 cm. Mid to distal obstruction. There is a loop of small bowel extending into a LEFT inguinal hernia. Not sure this is a site of the obstruction. There is increased fluid within the hernia sac. No ischemic changes identified. Distal colon is collapsed. Diverticular disease without acute diverticulitis. Normal appendix. Abdominal wall: Few foci of air within the soft tissue structures probably from injection sites. Pelvis: Atrophic uterus with a large calcified fibroid on the RIGHT measuring 2.5 cm. Burns catheter in the urinary bladder. Bones: Unremarkable. CT/CT abdomen pelvis w con* [id number] IMPRESSION: 1. High-grade small bowel obstruction. Transition point is mid to distal small bowel. 2. There is a loop of small bowel extending into a patent LEFT inguinal hernia . This is not definitely the site of obstruction. Distal small bowel from the h ernia sac is dilated but the proximal loop leading into the hernia sac does not appear dilated. 3. No free air and no ascites. 4. Marked distention of the stomach due to the small bowel obstruction. 5. Bilateral lower lobe pulmonary opacifications consistent with pneumonia. Ma y be aspiration pneumonia. 6. Mild gallbladder hydrops with no wall thickening. 7. Multifocal areas of cortical thinning and atrophy RIGHT kidney. 8. Advanced atherosclerosis aorta. 9. Calcified RIGHT fibroid.
[2025-04-21] MEDS: metoclopramide 5 mg/mL SDV 2 mL IVP ×2 (09:42→13:45)
[2025-04-21] MEDS: doxycycline 100 MG in sodium chloride 0.9% (plus) 100 ML IV ×2 (09:47→21:39)
[2025-04-21] MEDS: iohexol 350 mg/mL 500 mL Btl (per mL) IV (09:57)
--- NOTE | 2025-04-21 10:18 | P.PN_ITS ---
Subjective 2 Subjective: Patient has continued to have significant nausea and vomiting during course of the night and this morning. On exam today her abdomen is noted to be mildly distended with hypoactive bowel sounds. Medications: Reviewed: Yes Vitals/I&O/Wt Last Vital Signs Temp 98.1 F 04/21/25 16:06 Pulse 90 04/21/25 16:06 Resp 19 H 04/21/25 16:06 BP 131/64 04/21/25 16:06 Pulse Ox 93 04/21/25 16:06 O2 Del Method Room Air 04/21/25 13:00 O2 Flow Rate 2 04/20/25 21:02 04/21/25 04/21/25 04/21/25 06:59 14:59 22:59 Intake Total 1077.5 / 1077.5 Balance 1077.5 / 1077.5 Weight last 48 hrs Weight 63.957 kg Physical Exam 2 Narrative: General: ill appearing, generalized weakness HEENT: PERRLA, pupils bilaterally equal and reactive, pallors not present Chest: Normal vesicular breath sounds, no added sounds, equal good air entry bilaterally CVS: S1-S2 regular, no murmurs, no tachycardia, no gallops, no rubs Abdomen: Soft, mildly distended with hypoactive bowel sounds. Neuro: No focal deficits, no facial deformity, AO x3, power 5/5 in all limbs Data 04/21/25 04:03 04/21/25 04:03 Micro: Microbiology 04/20/25 13:56 Blood Culture - Preliminary Blood NEGATIVE TO DATE 04/20/25 13:54 Blood Culture - Preliminary Blood NEGATIVE TO DATE 04/20/25 14:36 Urine Culture - Preliminary Urine,Clean Catch Other data: Date of Service: 04/21/25 Procedure(s): CT abdomen pelvis w con* [id number] CT/CT abdomen pelvis w con* [id number] IMPRESSION: 1. High-grade small bowel obstruction. Transition point is mid to distal small bowel. 2. There is a loop of small bowel extending into a patent LEFT inguinal hernia. This is not definitely the site of obstruction. Distal small bowel from the hernia sac is dilated but the proximal loop leading into the hernia sac does not appear dilated. 3. No free air and no ascites. 4. Marked distention of the stomach due to the small bowel obstruction. 5. Bilateral lower lobe pulmonary opacifications consistent with pneumonia. May be aspiration pneumonia. 6. Mild gallbladder hydrops with no wall thickening. 7. Multifocal areas of cortical thinning and atrophy RIGHT kidney. 8. Advanced atherosclerosis aorta. 9. Calcified RIGHT fibroid. A&P Assessment and plan (1) Tick bite: (2) Fever: (3) Altered mental status: (4) Pneumonia: Plan Patient is a 79-year-old lady who was brought to the emergency room today with chief complaints of fever, generalized weakness and vomiting starting 3 to 4 days ago. Also developed altered mental status. To 102 Today she is noted to be febrile with temperature of 102 Fahrenheit. She was recently started on treatment for UTI with cefdinir however did not have any significant improvement Will start IV ceftriaxone 1 g every 24 hours UA today is not a clean-catch, 11-20 squamous epithelial cells are noted, this will be repeated as well as urine culture. Alternate possibilities include tickborne illness as 2 ticks have recently been pulled off of the patient, there is also noted thrombocytopenia mild derangement of LFTs.. Start doxycycline 100 mg p.o. twice daily empirically as well. Chest x-ray notes bilateral scattered infiltrates which may be concerning for atypical pneumonia. Ceftriaxone and doxycycline to provide coverage for pneumonia for now. Check sputum culture if patient able to expectorate. Check tick panel Altered mental status most likely related to metabolic encephalopathy from acute infection. She is noted to be clinically dehydrated, start normal saline at 75 cc an hour. Will admit to [facility] and monitor closely. April 21, 2025 Patient continued to have several episodes of nausea and vomiting this morning. Interval exam today was with abdominal distention and hypoactive bowel sounds. CT of the abdomen and pelvis was obtained which showed a high-grade bowel obstruction with transition point in the mid to distal small bowel. There was a loop of small bowel extending into the patent left inguinal hernia. With these findings on CAT scan, general surgery service was consulted. NGT has been inserted and now to low intermittent suction. IV antibiotics changed from ceftriaxone to piperacillin/tazobactam as potentially pneumonia may be related to aspiration and would likely benefit from additional gram-negative and anaerobic coverage. Continue doxycycline, platelets at 99,000 today. PDMP PDMP Reviewed: Not Reviewed Attestations 2 Medical Necessity Statement*: Small bowel obstruction, placement of NGT, pending urine and blood cultures, thrombocytopenia with following platelets Coding Level of Care Code Acute Code for Chg Fwd High MDM includes number and complexity of problems actively addressed during encounter, amount and/or complexity of data reviewed/ordered and described risk of complication, morbidity or mortality of management as documented Diagnoses Tick bite W57.XXXA Fever R50.9 Altered mental status R41.82 Pneumonia J18.9
--- NOTE | 2025-04-21 10:33 | PM.CONSULT ---
Providers/Reason For Consult Consulting Physician/Specialty*: Dr. Hdez general surgery Reason for Consult*: SBO Attending Physician: Viry Brandt MD Primary Care Provider: Jcarlos Washington DO History of Present Illness History of Present Illness Alexa Bravo is a 79 year old female who was admitted with an SBO. No evidence of threatened bowel. Patient reports abdominal pain for about a day. Not passing gas. Nauseated. Abdomen distended diffusely tender. Not peritonitic. Medications/Allergies Home Medications ?Medication ?Instructions ?Recorded ?Confirmed ?Last Taken ?Type vitamin B complex (B-Complex 1 tab PO QAM 10/30/22 04/20/25 01/15/25 History tablet) alendronate 70 mg tablet (Fosamax) 70 mg PO Q7D 01/12/23 04/20/25 01/14/25 History acetaminophen 325 mg tablet 325 mg PO Q6H PRN Pain 08/07/23 04/20/25 Unknown History (Tylenol) ascorbic acid (vitamin C) 500 mg 500 mg PO QAM 08/07/23 04/20/25 01/15/25 History tablet (Vitamin C) cholecalciferol (vitamin D3) 50 50 mcg PO DAILY 01/16/25 04/20/25 01/15/25 History mcg (2,000 unit) tablet (Vitamin D3) pantoprazole 40 mg tablet,delayed 40 mg PO DAILY 01/16/25 04/20/25 01/15/25 History release vitamin A 2,400 mcg capsule 2,400 mcg PO DAILY 01/16/25 04/20/25 01/15/25 History bupropion HCl 150 mg 24 hr tablet, 150 mg PO DAILY #30 tabs 01/20/25 04/20/25 Unknown Rx extended release albuterol sulfate 90 mcg/actuation 2 puff inhalation Q4H PRN copd 04/20/25 04/20/25 Unknown History aerosol inhaler cefdinir 300 mg capsule 300 mg PO BID 04/20/25 04/20/25 Unknown History galantamine 16 mg 24 hr 16 mg PO DAILY 04/20/25 04/20/25 Unknown History capsule,extended release meloxicam 7.5 mg tablet 7.5 mg PO DAILY 04/20/25 04/20/25 Unknown History Allergies Allergy/AdvReac Type Severity Reaction Status Date / Time azithromycin (From Zithromax) Allergy Intermediate ADR-Itching Verified 10/09/24 16:55 levofloxacin (From Levaquin) Allergy Intermediate ADR-Itching Verified 10/09/24 16:55 methylprednisolone Allergy Mild ADR-Itching Verified 10/09/24 16:55 ciprofloxacin (From Cipro) Allergy Unknown Verified 10/09/24 16:55 nitrofurantoin (From Allergy Unknown Verified 10/09/24 16:55 Macrobid) methyprednosolone Allergy Mild ADR-Itching Uncoded 10/09/24 16:55 Current Medications Generic Name Dose Route Start Last Admin Trade Name Freq PRN Reason Stop Dose Admin Enoxaparin Sodium 40 mg 04/20/25 17:00 04/20/25 18:42 Enoxaparin 40 Mg/0.4 Ml Syringe SUBCUT 40 mg Q24H MANJIT Administration Sodium Chloride 1,000 mls @ 75 mls/hr 04/20/25 17:00 04/21/25 07:45 Sodium Chloride 0.9% IV 75 mls/hr .[id number] MANJIT Administration Doxycycline Hyclate 100 mg/ 100 mls @ 100 mls/hr 04/21/25 09:30 04/21/25 09:47 Sodium Chloride IV 100 mls/hr Q12H MANJIT Administration Protocol Metoclopramide HCl 5 mg 04/21/25 09:24 04/21/25 09:42 Metoclopramide 5 Mg/Ml Sdv 2 Ml IVP 5 mg Q6H PRN Administration NAUSEA AND VOMITING Scopolamine 1 patch 04/21/25 09:30 04/21/25 09:46 Scopolamine 1 Mg Patch TRANSDERMA 1 patch Q3D MANJIT Administration PFSH Acute PFSH: Medical History COPD (chronic obstructive pulmonary disease) Non-small cell lung cancer Surgical History History of tubal ligation History of lobectomy of lung (10/13/22) Right upper lobectomy by VATS Family History Mother Stroke Other Cancer Social History Smoking and tobacco/nicotine status: former use of tobacco/nicotine Quit status (tobacco/nicotine): has quit using Year quit tobacco: 09/08/22 Former quit date comment: 0.5 pack per day x 20 years Alcohol intake: current Alcohol intake frequency: holidays/special occasions only Substance/Drug Use: never Household members: other Details: daughter Housing: House Marital status: / Number of children: 2 Pets and animals: Yes Pets & animals: dog(s) Special dakotah needs: No Agree to transfusion: Yes Vitals/I&O/Wt Last Vital Signs Temp 98.6 F 04/20/25 16:19 Pulse 84 04/21/25 09:46 Resp 28 H 04/21/25 01:17 BP 169/81 04/21/25 09:46 Pulse Ox 96 04/21/25 06:09 O2 Del Method Room Air 04/21/25 06:09 O2 Flow Rate 2 04/20/25 21:02 04/20/25 04/21/25 04/21/25 22:59 06:59 14:59 Intake Total 3000 / 3000 977.5 / 977.5 Balance 3000 / 3000 977.5 / 977.5 Physical Exam Narrative: Chest: Unlabored breathing room air. No lymphadenopathy. Heart: Regular rate and rhythm. Abdomen: Soft, diffusely tender, distended. No masses or lymphadenopathy. Data 04/22/25 05:49 04/22/25 05:49 Micro: Microbiology 04/20/25 14:36 Urine Culture - Preliminary Urine,Clean Catch 04/20/25 13:54 Blood Culture - Preliminary Blood SPECIMEN COLLECTED 04/20/25 13:56 Blood Culture - Preliminary Blood SPECIMEN COLLECTED A&P Assessment and plan (1) SBO (small bowel obstruction): Plan 79-year-old female admitted with SBO. No evidence of threatened bowel. Agreed with nonoperative management. NG tube to low continuous suction, IV fluids, correct electrolytes. Encourage ambulation. Rest of care per hospitalist. PDMP PDMP Reviewed: Not Reviewed Coding Level of Care Code 10820 Diagnoses SBO (small bowel obstruction) K56.609
--- NOTE | 2025-04-21 10:33 | PM.MISC ---
Miscellaneous Note Note: Full consult note to follow. No evidence of threatened bowel. Agree with non operative management. Will follow.
--- NOTE | 2025-04-21 11:50 | XR_ITS ---
WS: [email or web address] Exam: XR chest 1V portable [id number] Date/Time of Exam: 04/21/2025 11:50 AM Reason For Exam: post ng placement Comparison 04/20/2025. An enteric tube is noted in the midline. The tube is kinked in the lower esophagus with the tip extending back cephalad. Again noted are mild bibasal infiltrates showing little change. Normal heart size. The mediastinum is normal in contour. Bony structures are intact. IMPRESSION1. Enteric tube looped in the esophagus with the tip directed back cephalad ending in the upper chest region. 2. Mild bibasal infiltrates unchanged.
--- NOTE | 2025-04-21 12:15 | XR_ITS ---
WS: [email or web address] Exam: XR chest 1V [id number] Date/Time of Exam: 04/21/2025 12:16 PM Reason For Exam: post ng Comparison with the previous study performed on the same day at 1152 hours. This study is obtained at 1219 hours. Enteric tube remains looped in the lower esophagus. Mild bibasal infiltrates unchanged. Heart size is normal. No other change in the appearance of the chest. XR/XR chest 1V [id number] IMPRESSION: 1. Enteric tube is still looped in the inferior aspect of the esophagus. The ch est is otherwise unchanged.
[2025-04-21] MEDS: piperacillin-tazobactam 3.375 GM in sodium chloride 0.9% (plus) 50 ML IV ×2 (12:19→17:40)
--- NOTE | 2025-04-21 13:38 | XR_ITS ---
WS: [email or web address] Exam: XR chest 1V portable [id number] Date/Time of Exam: 04/21/2025 1:49 PM Reason For Exam: NG tube placement Comparison with the last exam performed at 12:19 p.m. on the same day. NG tube now ends in the fundus of the stomach. Again noted are infiltrates in the bilateral lung bases which are unchanged. Heart size is stable. Moderately dilated bowel loops in the upper abdomen. XR/XR chest 1V portable [id number] IMPRESSION: 1. NG tube in place in the stomach as noted. The remaining aspects of the chest are unchanged. 2. Dilated small bowel loops in the upper abdomen.
--- NOTE | 2025-04-21 19:44 | PC.NURSE ---
Patient pulled NG tube out. Will request a sitter for her to keep lines in and NG tube in place.
--- NOTE | 2025-04-21 20:51 | XRR_ITS ---
PROCEDURE INFORMATION: Exam: XR Chest Exam date and time: 04/21/2025 8:59 PM Age: 79 years old Clinical indication: Device placement; Ng tube; Check S/P ng placement; Additional info: Ng tube placement TECHNIQUE: Imaging protocol: Radiologic exam of the chest. Views: 1 view. COMPARISON: CR XR chest 1V portable [id number] 04/21/2025 1:59 PM FINDINGS: Tubes, catheters and devices: NG tube has been retracted with the tip near the level of the gastroesophageal junction. Lungs: No new airspace disease. Pleural spaces: Unchanged. Heart/Mediastinum: Stable. Bones/joints: Unremarkable. XR/XR chest 1V portable [id number] IMPRESSION: NG tube tip at the level of the GE junction. Consider advancing 8-10 cm for optimal positioning.
--- NOTE | 2025-04-21 21:09 | PC.NURSE ---
2030 Assumed care of pt. Nurse and [employer] ASSOCIATE to bedside to place NG tube after patient removed previous NG tube. Pt is confused and restless at this time. ALLEN palomino 2.
--- NOTE | 2025-04-21 22:37 | PC.NURSE ---
5543 Pt continues to be restless. Pt needs frequent reminding to not pull NG tube. SR up x 3.
[2025-04-22] VITALS (8 sets, daily range): BP systolic 131–164; BP diastolic 61–89; PULSE 82–94; RESP 18–20; TEMP 36.7–37.4; O2SAT 90–95
--- NOTE | 2025-04-22 00:40 | XRR_ITS ---
PROCEDURE INFORMATION: Exam: XR Chest Exam date and time: 04/22/2025 12:52 AM Age: 79 years old Clinical indication: Device placement; Check S/P advancement of ng tube. ; Additional info: Repeat ng placement TECHNIQUE: Imaging protocol: Radiologic exam of the chest. Views: 1 view. COMPARISON: CR (CHEST, ) 04/21/2025 8:59 PM FINDINGS: Tubes, catheters and devices: The enteric tube is been advanced, the tip is now in the fundus of the stomach. Lungs: Stable patchy alveolar airspace disease in the right and left lower lobes and left lingula. Findings are suspicious for pneumonia. Pleural spaces: No pleural effusion. No pneumothorax. Heart/Mediastinum: Stable mild enlargement of the cardiac silhouette. Mediastinal contours are unremarkable. Bones/joints: Unremarkable for age. XR/XR chest 1V portable [id number] IMPRESSION: 1. Stable patchy alveolar airspace disease in the right and left lower lobes and left lingula. Findings are suspicious for pneumonia. Recommend followup chest imaging to insure resolution of these findings. 2. The enteric tube is been advanced, the tip is now in the fundus of the stomach. 3. Incidental/nonacute findings are listed in the report.
[2025-04-22] MEDS: piperacillin-tazobactam 3.375 GM in sodium chloride 0.9% (plus) 50 ML IV ×3 (03:09→17:59)
--- NOTE | 2025-04-22 05:49 | PC.NURSE ---
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
[2025-04-22 06:33] LABS: Hematocrit 35.3 % (36-47); Hemoglobin 11.60 g/dL (11.27-16.99); Mean Corpuscular HGB Conc 32.9 g/dL (30-55); Mean Corpuscular Hemoglobin 31.7 pg (27-33); Mean Corpuscular Volume 96.4 fl (85-98); Nucleated Red Blood Cells % 0 %; Platelet Count 157 10^3/cmm (157-399); Red Blood Count 3.66 10^6/uL (3.85-5.65); White Blood Count 10.20 10^3/uL (3.29-11.43)
[2025-04-22 06:57] LABS: Slide Review Slide Review Perform
[2025-04-22 07:05] LABS: Alanine Aminotransferase 21 U/L (0-33); Albumin Level 2.8 g/dL (3.5-5.2); Alkaline Phosphatase 66 U/L (35-105); Anion Gap 19.6 (5-19); Aspartate Amino Transferase 33 U/L (0-32); Blood Urea Nitrogen 23 mg/dL (8-23); Calcium 6.9 mg/dL (8.5-10.5); Carbon Dioxide 20 mmol/L (22-29); Chloride 106 mmol/L (98-107); Creatinine Clr Calc Pharmacy 54.5872; Globulin 2.4 g/dL (1.3-4.6); Glucose 77 mg/dL (65-115); Osmolality Calculated 296 mOsm/kg (285-295); Potassium 3.6 mmol/L (3.5-5.1); Sodium 142 mmol/L (136-145); Total Protein 5.2 g/dL (6.6-8.7)
--- NOTE | 2025-04-22 09:33 | P.PN_ITS ---
Subjective 2 Subjective: NG tube greater than 1000cc output Less distended. No abdominal pain. Benign Not passing gas. No bowel movements. No leukocytosis. Vitals/I&O/Wt Last Vital Signs Temp 98.2 F 04/22/25 07:57 Pulse 86 04/22/25 07:57 Resp 19 H 04/22/25 07:57 BP 161/61 04/22/25 07:57 Pulse Ox 94 04/22/25 07:57 O2 Del Method Room Air 04/22/25 03:46 O2 Flow Rate 2 04/20/25 21:02 04/21/25 04/22/25 04/22/25 22:59 06:59 14:59 Intake Total 2200 / 3277.5 578 / 3855.5 Output Total 500 / 500 1400 / 1900 Balance 1700 / 2777.5 -822 / 1955.5 Weight last 48 hrs Weight 138 lb 2 oz Weight 141 lb Physical Exam 2 Narrative: Chest: Unlabored breathing room air. No lymphadenopathy. Heart: Regular rate and rhythm. Abdomen: Soft, nontender, mildly distended. No masses or lymphadenopathy. Data 04/22/25 05:49 04/22/25 05:49 Micro: Microbiology 04/20/25 13:56 Blood Culture - Preliminary Blood NEGATIVE TO DATE 04/20/25 13:54 Blood Culture - Preliminary Blood NEGATIVE TO DATE 04/20/25 14:36 Urine Culture - Preliminary Urine,Clean Catch A&P Assessment and plan (1) SBO (small bowel obstruction): Plan 79-year-old female admitted with an SBO. Abdomen remains benign. High NG tube output. Continue NG tube to low continuous suction, IV fluids, correct electrolytes. Encourage ambulation. Rest of care per hospitalist. PDMP PDMP Reviewed: Not Reviewed Attestations 2 Medical Necessity Statement*: N/A Coding Level of Care Code 15687 Diagnoses SBO (small bowel obstruction) K56.609
[2025-04-22] MEDS: doxycycline 100 MG in sodium chloride 0.9% (plus) 100 ML IV ×2 (09:46→20:31)
--- NOTE | 2025-04-22 11:58 | XRR_ITS ---
PROCEDURE INFORMATION: Exam: XR Chest Exam date and time: 04/22/2025 12:15 PM Age: 79 years old Clinical indication: Other: Edema; Prior surgery; Surgery date: 6+ months; Surgery type: RT upper lobectomy; Additional info: Pulmonary edema; Cough. TECHNIQUE: Imaging protocol: Radiologic exam of the chest. Views: 1 view. COMPARISON: CR (CHEST, ) 04/22/2025 12:52 AM FINDINGS: Tubes, catheters and devices: The nasogastric tube is appropriately positioned with the tip in the stomach, well beyond the diaphragmatic hiatus. Lungs: There is mild ill-defined reticular and ground-glass opacity in the lung bases. There is no consolidation. Pleural spaces: There is no pleural effusion or pneumothorax. Heart/Mediastinum: Cardiomediastinal contours are unremarkable. Bones/joints: Bones are unremarkable. Gastrointestinal tract: There is gas distension of the stomach. XR/XR chest 1V portable [id number] IMPRESSION: 1. No change since 04/21/2025. 2. Satisfactory NG tube position. 3. Gas distended stomach. 4. Mild bilateral lower lung opacity is nonspecific but consistent with pulmonary edema.
--- NOTE | 2025-04-22 18:09 | PM.PN ---
Subjective Subjective: patient had a rough night with hallucinations and confusion Medications: Reviewed: Yes Vitals/I&O/Wt Last Vital Signs Temp 99 F 04/22/25 16:21 Pulse 82 04/22/25 16:21 Resp 18 04/22/25 16:21 BP 164/74 04/22/25 16:21 Pulse Ox 92 04/22/25 16:21 O2 Del Method Room Air 04/22/25 13:34 O2 Flow Rate 2 04/20/25 21:02 04/22/25 04/22/25 04/22/25 06:59 14:59 22:59 Intake Total 628 / 3905.5 1057.5 / 1057.5 Output Total 1400 / 1900 700 / 700 Balance -772 / 2005.5 357.5 / 357.5 Weight last 48 hrs Weight 62.652 kg Weight 63.957 kg Physical Exam Narrative: General: ill appearing, generalized weakness HEENT: PERRLA, pupils bilaterally equal and reactive, pallors not present Chest: Normal vesicular breath sounds, no added sounds, equal good air entry bilaterally CVS: S1-S2 regular, no murmurs, no tachycardia, no gallops, no rubs Abdomen: Soft, mildly distended with hypoactive bowel sounds. Neuro: No focal deficits, no facial deformity, AO x3, power 5/5 in all limbs Data 04/22/25 05:49 04/22/25 05:49 Micro: Microbiology 04/20/25 14:36 Urine Culture - Preliminary Urine,Clean Catch Yeast species 04/20/25 13:56 Blood Culture - Preliminary Blood NEGATIVE TO DATE 04/20/25 13:54 Blood Culture - Preliminary Blood NEGATIVE TO DATE A&P Assessment and plan (1) Tick bite: (2) Fever: (3) Altered mental status: (4) Pneumonia: Plan Patient is a 79-year-old lady who was brought to the emergency room today with chief complaints of fever, generalized weakness and vomiting starting 3 to 4 days ago. Also developed altered mental status. To 102 Today she is noted to be febrile with temperature of 102 Fahrenheit. She was recently started on treatment for UTI with cefdinir however did not have any significant improvement Will start IV ceftriaxone 1 g every 24 hours UA today is not a clean-catch, 11-20 squamous epithelial cells are noted, this will be repeated as well as urine culture. Alternate possibilities include tickborne illness as 2 ticks have recently been pulled off of the patient, there is also noted thrombocytopenia mild derangement of LFTs.. Start doxycycline 100 mg p.o. twice daily empirically as well. Chest x-ray notes bilateral scattered infiltrates which may be concerning for atypical pneumonia. Ceftriaxone and doxycycline to provide coverage for pneumonia for now. Check sputum culture if patient able to expectorate. Check tick panel Altered mental status most likely related to metabolic encephalopathy from acute infection. She is noted to be clinically dehydrated, start normal saline at 75 cc an hour. Will admit to [facility] and monitor closely. April 21, 2025 Patient continued to have several episodes of nausea and vomiting this morning. Interval exam today was with abdominal distention and hypoactive bowel sounds. CT of the abdomen and pelvis was obtained which showed a high-grade bowel obstruction with transition point in the mid to distal small bowel. There was a loop of small bowel extending into the patent left inguinal hernia. With these findings on CAT scan, general surgery service was consulted. NGT has been inserted and now to low intermittent suction. IV antibiotics changed from ceftriaxone to piperacillin/tazobactam as potentially pneumonia may be related to aspiration and would likely benefit from additional gram-negative and anaerobic coverage. Continue doxycycline, platelets at 99,000 today. April 22, 2025 Overnight she was hallucinating and agitated. Platelet count at 157 todaya, improving, fever curve improving. urine cx with yeast species. NGT maintained, not yet passing flatus or feces, abdomen appears less distended, gastric drainage at 400 cc today. continue Zosyn and Doxycycline iv. Add Zyprexa zydis ODT at night. PDMP PDMP Reviewed: Not Reviewed Attestations Medical Necessity Statement*: maintain NGT to suction, add zyprexa for agitation, contiue iv abx Coding Level of Care Code Acute Code for Chg Fwd Diagnoses Tick bite W57.XXXA Fever R50.9 Altered mental status R41.82 Pneumonia J18.9
[2025-04-23] VITALS (11 sets, daily range): BP systolic 135–169; BP diastolic 66–80; PULSE 82–91; RESP 17–20; TEMP 36.9–38.3; O2SAT 90–94
[2025-04-23] MEDS: piperacillin-tazobactam 3.375 GM in sodium chloride 0.9% (plus) 50 ML IV ×3 (02:00→18:01)
[2025-04-23 06:09] LABS: Hematocrit 35.6 % (36-47); Hemoglobin 11.70 g/dL (11.27-16.99); Mean Corpuscular HGB Conc 32.9 g/dL (30-55); Mean Corpuscular Hemoglobin 31.0 pg (27-33); Mean Corpuscular Volume 94.2 fl (85-98); Nucleated Red Blood Cells % 0 %; Platelet Count 238 10^3/cmm (157-399); Red Blood Count 3.78 10^6/uL (3.85-5.65); White Blood Count 9.71 10^3/uL (3.29-11.43)
[2025-04-23 06:27] LABS: Alanine Aminotransferase 19 U/L (0-33); Albumin Level 3.0 g/dL (3.5-5.2); Alkaline Phosphatase 67 U/L (35-105); Anion Gap 19.0 (5-19); Aspartate Amino Transferase 27 U/L (0-32); Blood Urea Nitrogen 21 mg/dL (8-23); Calcium 7.0 mg/dL (8.5-10.5); Carbon Dioxide 19 mmol/L (22-29); Chloride 111 mmol/L (98-107); Creatinine Clr Calc Pharmacy 54.1750; Globulin 2.4 g/dL (1.3-4.6); Glucose 86 mg/dL (65-115); Osmolality Calculated 304 mOsm/kg (285-295); Potassium 3.0 mmol/L (3.5-5.1); Sodium 146 mmol/L (136-145); Total Protein 5.4 g/dL (6.6-8.7)
[2025-04-23] MEDS: doxycycline 100 MG in sodium chloride 0.9% (plus) 100 ML IV ×2 (09:50→21:43)
--- NOTE | 2025-04-23 10:26 | P.PN_ITS ---
Subjective 2 Subjective: Minimal NGT output Abdomen less distended Patient reports passing some gas No leukocytosis Vitals/I&O/Wt Last Vital Signs Temp 98.5 F 04/23/25 08:13 Pulse 84 04/23/25 08:13 Resp 19 H 04/23/25 08:13 BP 160/69 04/23/25 08:13 Pulse Ox 92 04/23/25 08:13 O2 Del Method Room Air 04/23/25 07:43 O2 Flow Rate 2 04/20/25 21:02 04/22/25 04/23/25 04/23/25 22:59 06:59 14:59 Intake Total 150 / 1207.5 50 / 1257.5 Output Total 500 / 1200 200 / 1400 Balance -350 / 7.5 -150 / -142.5 Weight last 48 hrs Weight 135 lb 9.6 oz Weight 138 lb 2 oz Weight 141 lb Physical Exam 2 Narrative: rrr unlabored breathing ra abdomen soft, nt, mildly distended Data 04/23/25 05:40 04/23/25 16:19 Micro: Microbiology 04/20/25 14:36 Urine Culture - Preliminary Urine,Clean Catch Yeast species A&P Assessment and plan (1) SBO (small bowel obstruction): Plan 79 yo female admitted with SBO. Ok to remove NGT and start clears. Rest of care per medicine. PDMP PDMP Reviewed: Not Reviewed Attestations 2 Medical Necessity Statement*: NA Coding Level of Care Code 23400 Diagnoses SBO (small bowel obstruction) K56.609
[2025-04-23] MEDS: lidocaine 1% 5 ML in potassium chloride premix 100 ML 52.5 ML IV (11:56)
--- NOTE | 2025-04-23 12:26 | P.PN_ITS ---
Subjective 2 Subjective: Patient's nasogastric tube is being removed today. She had a small bowel movement last evening. Chest is clear to auscultation today. Patient remained confused overnight. Medications: Reviewed: Yes Vitals/I&O/Wt Last Vital Signs Temp 98.5 F 04/23/25 11:39 Pulse 87 04/23/25 11:39 Resp 19 H 04/23/25 11:39 BP 169/80 04/23/25 11:39 Pulse Ox 91 04/23/25 11:39 O2 Del Method Room Air 04/23/25 11:39 O2 Flow Rate 2 04/20/25 21:02 04/22/25 04/23/25 04/23/25 22:59 06:59 14:59 Intake Total 150 / 1207.5 50 / 1257.5 1100 / 1100 Output Total 500 / 1200 200 / 1400 Balance -350 / 7.5 -150 / -142.5 1100 / 1100 Weight last 48 hrs Weight 61.507 kg Weight 62.652 kg Weight 63.957 kg Physical Exam 2 Narrative: General: ill appearing, generalized weakness HEENT: PERRLA, pupils bilaterally equal and reactive, pallors not present Chest: Normal vesicular breath sounds, no added sounds, equal good air entry bilaterally CVS: S1-S2 regular, no murmurs, no tachycardia, no gallops, no rubs Abdomen: Soft, mildly distended with hypoactive bowel sounds. Neuro: No focal deficits, no facial deformity, AO x3, power 5/5 in all limbs Data 04/23/25 05:40 04/23/25 05:40 Micro: Microbiology 04/20/25 14:36 Urine Culture - Preliminary Urine,Clean Catch Yeast species A&P Assessment and plan (1) Tick bite: (2) Fever: (3) Altered mental status: (4) Pneumonia: (5) Hypokalemia: (6) Hypernatremia: Plan Patient is a 79-year-old lady who was brought to the emergency room today with chief complaints of fever, generalized weakness and vomiting starting 3 to 4 days ago. Also developed altered mental status. To 102 Today she is noted to be febrile with temperature of 102 Fahrenheit. She was recently started on treatment for UTI with cefdinir however did not have any significant improvement Will start IV ceftriaxone 1 g every 24 hours UA today is not a clean-catch, 11-20 squamous epithelial cells are noted, this will be repeated as well as urine culture. Alternate possibilities include tickborne illness as 2 ticks have recently been pulled off of the patient, there is also noted thrombocytopenia mild derangement of LFTs.. Start doxycycline 100 mg p.o. twice daily empirically as well. Chest x-ray notes bilateral scattered infiltrates which may be concerning for atypical pneumonia. Ceftriaxone and doxycycline to provide coverage for pneumonia for now. Check sputum culture if patient able to expectorate. Check tick panel Altered mental status most likely related to metabolic encephalopathy from acute infection. She is noted to be clinically dehydrated, start normal saline at 75 cc an hour. Will admit to [facility] and monitor closely. April 21, 2025 Patient continued to have several episodes of nausea and vomiting this morning. Interval exam today was with abdominal distention and hypoactive bowel sounds. CT of the abdomen and pelvis was obtained which showed a high-grade bowel obstruction with transition point in the mid to distal small bowel. There was a loop of small bowel extending into the patent left inguinal hernia. With these findings on CAT scan, general surgery service was consulted. NGT has been inserted and now to low intermittent suction. IV antibiotics changed from ceftriaxone to piperacillin/tazobactam as potentially pneumonia may be related to aspiration and would likely benefit from additional gram-negative and anaerobic coverage. Continue doxycycline, platelets at 99,000 today. April 22, 2025 Overnight she was hallucinating and agitated. Platelet count at 157 todaya, improving, fever curve improving. urine cx with yeast species. NGT maintained, not yet passing flatus or feces, abdomen appears less distended, gastric drainage at 400 cc today. continue Zosyn and Doxycycline iv. Add Zyprexa zydis ODT at night. April 23, 2025 Patient's mental status continues to be with confusion and intermittent hallucination. She did receive Zyprexa last night and was able to sleep however this morning she is agitated, pulling at lines etc. She did have a bowel movement last evening. NGT to be removed today and patient to be started on clear liquid diet. Abdomen appears to be less distended. Tmax 99.7. No leukocytosis. Continue doxycycline for possible tick mediated illness and piperacillin/tazobactam for aspiration pneumonia. Noted to be hyponatremic today with sodium at 146. This is likely related to dehydration and discontinuation of IV fluids yesterday. Will start her on PPN today and I anticipate even with her clear liquid diet she may not be able to meet her caloric requirements. Maximum TPN will be titrated up to 42 mL/h. Will add additional D5 at 30 cc an hour for hypernatremia. Check CMP every 12 hours. Hypokalemia with potassium at 3.0 today, replete with 40 mEq of IV KCl. Metabolic encephalopathy from acute infection is persisting. Patient does have a history of baseline dementia which is likely precipitating the encephalopathy in the setting of acute illness. Resume home dose of galantamine and Wellbutrin now that patient will be allowed to take oral intake. Add oral fluconazole for yeast noted on urine culture PDMP PDMP Reviewed: Not Reviewed Attestations 2 Medical Necessity Statement*: Needs close monitoring of electrolytes, starting TPN today, NGT to be removed, continued need for IV antibiotics. Coding Level of Care Code Acute Code for Chg Fwd High MDM includes number and complexity of problems actively addressed during encounter, amount and/or complexity of data reviewed/ordered and described risk of complication, morbidity or mortality of management as documented Diagnoses Tick bite W57.XXXA Fever R50.9 Altered mental status R41.82 Pneumonia J18.9 Hypokalemia E87.6 Hypernatremia E87.0
[2025-04-23] MEDS: [UNRECOGNIZED DRUG - REMARK] 20 ML IV (13:51)
[2025-04-23] MEDS: lidocaine 1% 5 ML in potassium chloride premix 100 ML 25 ML IV (16:06)
[2025-04-23 17:25] LABS: Alanine Aminotransferase 21 U/L (0-33); Albumin Level 2.9 g/dL (3.5-5.2); Alkaline Phosphatase 69 U/L (35-105); Anion Gap 18.3 (5-19); Aspartate Amino Transferase 28 U/L (0-32); Blood Urea Nitrogen 20 mg/dL (8-23); Calcium 7.1 mg/dL (8.5-10.5); Carbon Dioxide 20 mmol/L (22-29); Chloride 109 mmol/L (98-107); Creatinine Clr Calc Pharmacy 54.1750; Globulin 2.6 g/dL (1.3-4.6); Glucose 140 mg/dL (65-115); Osmolality Calculated 303 mOsm/kg (285-295); Potassium 3.3 mmol/L (3.5-5.1); Sodium 144 mmol/L (136-145); Total Protein 5.5 g/dL (6.6-8.7)
[2025-04-23] MEDS: GALANTAMINE 16 MG 16 EACH PO (20:19)
[2025-04-24] VITALS (12 sets, daily range): BP systolic 134–181; BP diastolic 53–80; PULSE 79–91; RESP 16–20; TEMP 36.4–37.4; O2SAT 91–95
[2025-04-24] MEDS: piperacillin-tazobactam 3.375 GM in sodium chloride 0.9% (plus) 50 ML IV ×3 (01:53→20:20)
[2025-04-24 06:17] LABS: Hematocrit 34.2 % (36-47); Hemoglobin 11.20 g/dL (11.27-16.99); Mean Corpuscular HGB Conc 32.7 g/dL (30-55); Mean Corpuscular Hemoglobin 31.3 pg (27-33); Mean Corpuscular Volume 95.5 fl (85-98); Nucleated Red Blood Cells % 0 %; Platelet Count 279 10^3/cmm (157-399); Red Blood Count 3.58 10^6/uL (3.85-5.65); White Blood Count 9.05 10^3/uL (3.29-11.43)
[2025-04-24 06:38] LABS: Alanine Aminotransferase 20 U/L (0-33); Albumin Level 2.9 g/dL (3.5-5.2); Alkaline Phosphatase 63 U/L (35-105); Anion Gap 19.0 (5-19); Aspartate Amino Transferase 26 U/L (0-32); Blood Urea Nitrogen 23 mg/dL (8-23); Calcium 6.9 mg/dL (8.5-10.5); Carbon Dioxide 20 mmol/L (22-29); Chloride 107 mmol/L (98-107); Creatinine Clr Calc Pharmacy 53.0969; Globulin 2.4 g/dL (1.3-4.6); Glucose 330 mg/dL (65-115); Osmolality Calculated 313 mOsm/kg (285-295); Potassium 3.0 mmol/L (3.5-5.1); Sodium 143 mmol/L (136-145); Total Protein 5.3 g/dL (6.6-8.7)
[2025-04-24 07:38] LABS: Slide Review Slide Review Perform
[2025-04-24] MEDS: GALANTAMINE 16 MG 16 EACH PO (08:01)
[2025-04-24] MEDS: doxycycline 100 MG in sodium chloride 0.9% (plus) 100 ML IV ×2 (08:03→22:36)
--- NOTE | 2025-04-24 08:08 | PC.SOCIAL ---
IMM Update Pg. 2 of IMM Updated. Copy provided at bedside.
--- NOTE | 2025-04-24 09:40 | XR_ITS ---
WS: [email or web address] XR KUB portable [id number] REASON FOR EXAM: hypoactive bowel sounds. R/O bowel obstruction FINDINGS: No free air or retroperitoneal air. Significant gaseous gastric distention. There are significantly dilated loops of small bowel in the lower abdomen. Small amount of gas in the right colon, sigmoid colon and rectum. XR/XR KUB portable [id number] IMPRESSION: Findings indicative of distal small bowel obstruction. Findings relatively unchanged compared to CT scan of 04/16/2025.
[2025-04-24] MEDS: metoclopramide 5 mg/mL SDV 2 mL IVP (13:20)
--- NOTE | 2025-04-24 14:14 | P.PN_ITS ---
Subjective 2 Subjective: Seen this morning. Patient is confused. Daughter present at bedside Does not grimace when examined. Has not had a bowel movement this morning. Did have a small smear yesterday. Patient's daughter states that patient did drink Sprite however thereafter started spitting up into a bag. Vitals/I&O/Wt Last Vital Signs Temp 98.9 F 04/24/25 11:41 Pulse 80 04/24/25 11:41 Resp 16 04/24/25 08:22 BP 158/76 04/24/25 11:41 Pulse Ox 94 04/24/25 11:41 O2 Del Method Room Air 04/24/25 08:22 O2 Flow Rate 2 04/20/25 21:02 FiO2 21 04/24/25 08:22 04/23/25 04/24/25 04/24/25 22:59 06:59 14:59 Intake Total 423.667 / 1573.667 390.5 / 6275.726 8899 / 1100 Output Total 600 / 1100 300 / 1400 Balance -176.333 / 473.667 90.5 / 054.489 1519 / 1100 Weight last 48 hrs Weight 58.513 kg Weight 61.507 kg Physical Exam 2 Narrative: General: ill appearing, generalized weakness HEENT: PERRLA, pupils bilaterally equal and reactive, pallors not present Chest: Normal vesicular breath sounds, no added sounds, equal good air entry bilaterally CVS: S1-S2 regular, no murmurs, no tachycardia, no gallops, no rubs Abdomen: Soft, mildly distended with hypoactive bowel sounds. Neuro: No focal deficits, no facial deformity, Data 04/24/25 05:26 04/24/25 05:26 A&P Assessment and plan (1) Tick bite: (2) Fever: (3) Altered mental status: (4) Pneumonia: (5) Hypokalemia: (6) Hypernatremia: Plan Patient is a 79-year-old lady who was brought to the emergency room today with chief complaints of fever, generalized weakness and vomiting starting 3 to 4 days ago. Also developed altered mental status. To 102 Today she is noted to be febrile with temperature of 102 Fahrenheit. She was recently started on treatment for UTI with cefdinir however did not have any significant improvement Will start IV ceftriaxone 1 g every 24 hours UA today is not a clean-catch, 11-20 squamous epithelial cells are noted, this will be repeated as well as urine culture. Alternate possibilities include tickborne illness as 2 ticks have recently been pulled off of the patient, there is also noted thrombocytopenia mild derangement of LFTs.. Start doxycycline 100 mg p.o. twice daily empirically as well. Chest x-ray notes bilateral scattered infiltrates which may be concerning for atypical pneumonia. Ceftriaxone and doxycycline to provide coverage for pneumonia for now. Check sputum culture if patient able to expectorate. Check tick panel Altered mental status most likely related to metabolic encephalopathy from acute infection. She is noted to be clinically dehydrated, start normal saline at 75 cc an hour. Will admit to [facility] and monitor closely. April 21, 2025 Patient continued to have several episodes of nausea and vomiting this morning. Interval exam today was with abdominal distention and hypoactive bowel sounds. CT of the abdomen and pelvis was obtained which showed a high-grade bowel obstruction with transition point in the mid to distal small bowel. There was a loop of small bowel extending into the patent left inguinal hernia. With these findings on CAT scan, general surgery service was consulted. NGT has been inserted and now to low intermittent suction. IV antibiotics changed from ceftriaxone to piperacillin/tazobactam as potentially pneumonia may be related to aspiration and would likely benefit from additional gram-negative and anaerobic coverage. Continue doxycycline, platelets at 99,000 today. April 22, 2025 Overnight she was hallucinating and agitated. Platelet count at 157 todaya, improving, fever curve improving. urine cx with yeast species. NGT maintained, not yet passing flatus or feces, abdomen appears less distended, gastric drainage at 400 cc today. continue Zosyn and Doxycycline iv. Add Zyprexa zydis ODT at night. April 23, 2025 Patient's mental status continues to be with confusion and intermittent hallucination. She did receive Zyprexa last night and was able to sleep however this morning she is agitated, pulling at lines etc. She did have a bowel movement last evening. NGT to be removed today and patient to be started on clear liquid diet. Abdomen appears to be less distended. Tmax 99.7. No leukocytosis. Continue doxycycline for possible tick mediated illness and piperacillin/tazobactam for aspiration pneumonia. Noted to be hyponatremic today with sodium at 146. This is likely related to dehydration and discontinuation of IV fluids yesterday. Will start her on PPN today and I anticipate even with her clear liquid diet she may not be able to meet her caloric requirements. Maximum TPN will be titrated up to 42 mL/h. Will add additional D5 at 30 cc an hour for hypernatremia. Check CMP every 12 hours. Hypokalemia with potassium at 3.0 today, replete with 40 mEq of IV KCl. Metabolic encephalopathy from acute infection is persisting. Patient does have a history of baseline dementia which is likely precipitating the encephalopathy in the setting of acute illness. Resume home dose of galantamine and Wellbutrin now that patient will be allowed to take oral intake. Add oral fluconazole for yeast noted on urine culture 04/24/2025 Patient is currently on TPN. Clear liquids were allowed since yesterday. She is spitting up after drinking Sprite. Did have a very small smear of a bowel movement yesterday. Patient appears agitated and is trying to take her blanket off. Not really attempting to get out of bed yet. Discussed with daughter regarding trying Zyprexa on scheduled twice daily dosing. At this time patient is on once daily at bedtime. Hypokalemia again this morning. Potassium 3.0 today. Will order K rider 40 x 1 today. Patient does have CMP ordered every 12 hours. Continue to follow Will discuss with general surgery Check KUB today. Discussed with daughter regarding goals of care going forward. She states if patient ends up needing surgery for bowel obstruction she would most likely opt for comfort measures at that point. She would like to continue DNR/DNI status. PDMP PDMP Reviewed: Not Reviewed Attestations 2 Medical Necessity Statement*: Small bowel obstruction Diagnoses Tick bite W57.XXXA Fever R50.9 Altered mental status R41.82 Pneumonia J18.9 Hypokalemia E87.6 Hypernatremia E87.0
--- NOTE | 2025-04-24 15:12 | P.PN_ITS ---
Subjective 2 Subjective: Initially did well on clears but then drank about 1L in total and now spitting up No BMs Abdomen benign, mildly distended Vitals/I&O/Wt Last Vital Signs Temp 98.9 F 04/24/25 11:41 Pulse 84 04/24/25 14:33 Resp 16 04/24/25 14:33 BP 158/76 04/24/25 11:41 Pulse Ox 92 04/24/25 14:33 O2 Del Method Room Air 04/24/25 14:33 O2 Flow Rate 2 04/20/25 21:02 FiO2 21 04/24/25 08:22 04/24/25 04/24/25 04/24/25 06:59 14:59 22:59 Intake Total 390.5 / 7000.418 7596 / 1100 Output Total 300 / 1400 Balance 90.5 / 675.715 6476 / 1100 Weight last 48 hrs Weight 129 lb Weight 135 lb 9.6 oz Physical Exam 2 Narrative: Chest: Unlabored breathing room air. No lymphadenopathy. Heart: Regular rate and rhythm. Abdomen: Soft, nontender, mildly distended. No masses or lymphadenopathy. Data 04/24/25 05:26 04/24/25 05:26 Micro: Microbiology 04/20/25 14:36 Urine Culture - Final Urine,Clean Catch Nakaseomyces glabrata A&P Assessment and plan (1) SBO (small bowel obstruction): Plan 79-year-old female admitted with SBO. Started drinking too quickly. Keep on clears. Will reassess in the morning. PDMP PDMP Reviewed: Not Reviewed Attestations 2 Medical Necessity Statement*: N/A Coding Level of Care Code 14230 Diagnoses SBO (small bowel obstruction) K56.609
[2025-04-24] MEDS: fluconazole premix 100 MG in empty flexible container 1 EACH 50 MG IV (15:59)
[2025-04-24 16:24] LABS: Alanine Aminotransferase 24 U/L (0-33); Albumin Level 3.2 g/dL (3.5-5.2); Alkaline Phosphatase 71 U/L (35-105); Anion Gap 14.1 (5-19); Aspartate Amino Transferase 24 U/L (0-32); Blood Urea Nitrogen 22 mg/dL (8-23); Calcium 7.5 mg/dL (8.5-10.5); Carbon Dioxide 26 mmol/L (22-29); Chloride 103 mmol/L (98-107); Creatinine Clr Calc Pharmacy 53.0969; Globulin 2.7 g/dL (1.3-4.6); Glucose 156 mg/dL (65-115); Osmolality Calculated 297 mOsm/kg (285-295); Potassium 3.1 mmol/L (3.5-5.1); Sodium 140 mmol/L (136-145); Total Protein 5.9 g/dL (6.6-8.7)
[2025-04-24] MEDS: potassium chloride premix 100 ML 25 MEQ IV (16:43)
[2025-04-24] MEDS: [UNRECOGNIZED DRUG - REMARK] 42 ML IV (17:39)
[2025-04-24] MEDS: haloperidol inj 5 mg/mL INJ 1 mL 2 MG IM (21:03)
[2025-04-25] VITALS (10 sets, daily range): BP systolic 123–146; BP diastolic 61–91; PULSE 73–90; RESP 16–17; TEMP 36.3–37.6; O2SAT 92–96
[2025-04-25] MEDS: piperacillin-tazobactam 3.375 GM in sodium chloride 0.9% (plus) 50 ML IV ×2 (04:01→11:33)
[2025-04-25 05:43] LABS: Hematocrit 33.9 % (36-47); Hemoglobin 11.10 g/dL (11.27-16.99); Mean Corpuscular HGB Conc 32.7 g/dL (30-55); Mean Corpuscular Hemoglobin 31.2 pg (27-33); Mean Corpuscular Volume 95.2 fl (85-98); Nucleated Red Blood Cells % 0 %; Platelet Count 302 10^3/cmm (157-399); Red Blood Count 3.56 10^6/uL (3.85-5.65); White Blood Count 9.09 10^3/uL (3.29-11.43)
[2025-04-25 06:08] LABS: Alanine Aminotransferase 19 U/L (0-33); Albumin Level 2.8 g/dL (3.5-5.2); Alkaline Phosphatase 58 U/L (35-105); Anion Gap 14.2 (5-19); Aspartate Amino Transferase 22 U/L (0-32); Blood Urea Nitrogen 19 mg/dL (8-23); Calcium 7.0 mg/dL (8.5-10.5); Carbon Dioxide 24 mmol/L (22-29); Chloride 108 mmol/L (98-107); Creatinine Clr Calc Pharmacy 54.7468; Globulin 2.3 g/dL (1.3-4.6); Glucose 129 mg/dL (65-115); Magnesium 2.2 mg/dL (1.7-2.3); Osmolality Calculated 300 mOsm/kg (285-295); Potassium 3.2 mmol/L (3.5-5.1); Sodium 143 mmol/L (136-145); Total Protein 5.1 g/dL (6.6-8.7)
[2025-04-25 06:16] LABS: Slide Review Slide Review Perform
[2025-04-25] MEDS: doxycycline 100 MG in sodium chloride 0.9% (plus) 100 ML IV ×2 (08:21→20:31)
[2025-04-25] MEDS: lidocaine 1% 5 ML in potassium chloride premix 100 ML 25 ML IV (09:00)
--- NOTE | 2025-04-25 11:17 | P.PN_ITS ---
Subjective 2 Subjective: Delirious Tolerating clears No emesis Abdomen non tender, non distended Vitals/I&O/Wt Last Vital Signs Temp 99.7 F H 04/25/25 07:57 Pulse 79 04/25/25 08:39 Resp 16 04/25/25 08:39 BP 128/63 04/25/25 07:57 Pulse Ox 92 04/25/25 08:39 O2 Del Method Room Air 04/25/25 08:39 O2 Flow Rate 2 04/20/25 21:02 FiO2 21 04/24/25 08:22 04/24/25 04/25/25 04/25/25 22:59 06:59 14:59 Intake Total 1547.700 / 2647.700 200 / 2847.700 150 / 150 Output Total 400 / 400 Balance 1547.700 / 2647.700 -200 / 2447.700 150 / 150 Weight last 48 hrs Weight 139 lb 1.6 oz Weight 129 lb Physical Exam 2 Narrative: rrr unlabored breathing ra abdomen soft, nt, nd Data 04/25/25 05:10 04/25/25 05:10 Micro: Microbiology 04/20/25 14:36 Urine Culture - Final Urine,Clean Catch Nakaseomyces glabrata A&P Assessment and plan (1) SBO (small bowel obstruction): Plan 79yo female admitted with SBO. Now delirious. Tolerating clears. OK to advance diet as tolerated once mental status improves. Rest of care per medicine. PDMP PDMP Reviewed: Not Reviewed Attestations 2 Medical Necessity Statement*: NA Coding Level of Care Code 53909 Diagnoses SBO (small bowel obstruction) K56.609
[2025-04-25] MEDS: meropenem 1,000 mg SDV 1000 MG IVP ×2 (14:29→22:30)
[2025-04-25] MEDS: [UNRECOGNIZED DRUG - REMARK] 42 ML IV (16:18)
[2025-04-25] MEDS: fluconazole premix 100 MG in empty flexible container 1 EACH 50 MG IV (16:18)
[2025-04-25 17:07] LABS: Anion Gap 14.2 (5-19); Blood Urea Nitrogen 17 mg/dL (8-23); Carbon Dioxide 22 mmol/L (22-29); Chloride 106 mmol/L (98-107); Creatinine Clr Calc Pharmacy 54.7468; Glucose 121 mg/dL (65-115); Potassium 4.2 mmol/L (3.5-5.1); Sodium 138 mmol/L (136-145)
[2025-04-25 17:08] LABS: Alanine Aminotransferase 20 U/L (0-33); Albumin Level 3.0 g/dL (3.5-5.2); Alkaline Phosphatase 63 U/L (35-105); Aspartate Amino Transferase 27 U/L (0-32); Calcium 6.9 mg/dL (8.5-10.5); Globulin 2.4 g/dL (1.3-4.6); Osmolality Calculated 289 mOsm/kg (285-295); Total Protein 5.4 g/dL (6.6-8.7)
--- NOTE | 2025-04-25 17:21 | P.PN_ITS ---
Subjective 2 Subjective: Seen this morning. Patient had a rough night. She was quite agitated. Received Haldol overnight. Received Zyprexa as well. She is currently asleep. Has not had any further vomiting or another bowel movement. Vitals/I&O/Wt Last Vital Signs Temp 98.6 F 04/25/25 15:42 Pulse 81 04/25/25 15:42 Resp 17 04/25/25 15:42 BP 123/61 04/25/25 15:42 Pulse Ox 92 04/25/25 15:42 O2 Del Method Room Air 04/25/25 15:42 O2 Flow Rate 2 04/20/25 21:02 FiO2 21 04/24/25 08:22 04/25/25 04/25/25 04/25/25 06:59 14:59 22:59 Intake Total 200 / 2847.700 292.916 / 292.916 963.384 / 1256.300 Output Total 400 / 400 Balance -200 / 2447.700 292.916 / 292.916 963.384 / 1256.300 Weight last 48 hrs Weight 63.095 kg Weight 58.513 kg Physical Exam 2 Narrative: General: ill appearing, generalized weakness HEENT: PERRLA, pupils bilaterally equal and reactive, pallors not present Chest: Normal vesicular breath sounds, no added sounds, equal good air entry bilaterally CVS: S1-S2 regular, no murmurs, no tachycardia, no gallops, no rubs Abdomen: Soft, mildly distended with hypoactive bowel sounds. Bowel sounds are present. Neuro: No focal deficits, no facial deformity, Data 04/25/25 05:10 04/25/25 16:39 Micro: Microbiology 04/20/25 13:56 Blood Culture - Final Blood NO GROWTH AFTER 5 DAYS 04/20/25 13:54 Blood Culture - Final Blood NO GROWTH AFTER 5 DAYS 04/20/25 14:36 Urine Culture - Final Urine,Clean Catch Nakaseomyces glabrata A&P Assessment and plan (1) Tick bite: (2) Fever: (3) Altered mental status: (4) Pneumonia: (5) Hypokalemia: (6) Hypernatremia: Plan Patient is a 79-year-old lady who was brought to the emergency room today with chief complaints of fever, generalized weakness and vomiting starting 3 to 4 days ago. Also developed altered mental status. To 102 Today she is noted to be febrile with temperature of 102 Fahrenheit. She was recently started on treatment for UTI with cefdinir however did not have any significant improvement Will start IV ceftriaxone 1 g every 24 hours UA today is not a clean-catch, 11-20 squamous epithelial cells are noted, this will be repeated as well as urine culture. Alternate possibilities include tickborne illness as 2 ticks have recently been pulled off of the patient, there is also noted thrombocytopenia mild derangement of LFTs.. Start doxycycline 100 mg p.o. twice daily empirically as well. Chest x-ray notes bilateral scattered infiltrates which may be concerning for atypical pneumonia. Ceftriaxone and doxycycline to provide coverage for pneumonia for now. Check sputum culture if patient able to expectorate. Check tick panel Altered mental status most likely related to metabolic encephalopathy from acute infection. She is noted to be clinically dehydrated, start normal saline at 75 cc an hour. Will admit to [facility] and monitor closely. April 21, 2025 Patient continued to have several episodes of nausea and vomiting this morning. Interval exam today was with abdominal distention and hypoactive bowel sounds. CT of the abdomen and pelvis was obtained which showed a high-grade bowel obstruction with transition point in the mid to distal small bowel. There was a loop of small bowel extending into the patent left inguinal hernia. With these findings on CAT scan, general surgery service was consulted. NGT has been inserted and now to low intermittent suction. IV antibiotics changed from ceftriaxone to piperacillin/tazobactam as potentially pneumonia may be related to aspiration and would likely benefit from additional gram-negative and anaerobic coverage. Continue doxycycline, platelets at 99,000 today. April 22, 2025 Overnight she was hallucinating and agitated. Platelet count at 157 todaya, improving, fever curve improving. urine cx with yeast species. NGT maintained, not yet passing flatus or feces, abdomen appears less distended, gastric drainage at 400 cc today. continue Zosyn and Doxycycline iv. Add Zyprexa zydis ODT at night. April 23, 2025 Patient's mental status continues to be with confusion and intermittent hallucination. She did receive Zyprexa last night and was able to sleep however this morning she is agitated, pulling at lines etc. She did have a bowel movement last evening. NGT to be removed today and patient to be started on clear liquid diet. Abdomen appears to be less distended. Tmax 99.7. No leukocytosis. Continue doxycycline for possible tick mediated illness and piperacillin/tazobactam for aspiration pneumonia. Noted to be hyponatremic today with sodium at 146. This is likely related to dehydration and discontinuation of IV fluids yesterday. Will start her on PPN today and I anticipate even with her clear liquid diet she may not be able to meet her caloric requirements. Maximum TPN will be titrated up to 42 mL/h. Will add additional D5 at 30 cc an hour for hypernatremia. Check CMP every 12 hours. Hypokalemia with potassium at 3.0 today, replete with 40 mEq of IV KCl. Metabolic encephalopathy from acute infection is persisting. Patient does have a history of baseline dementia which is likely precipitating the encephalopathy in the setting of acute illness. Resume home dose of galantamine and Wellbutrin now that patient will be allowed to take oral intake. Add oral fluconazole for yeast noted on urine culture 04/24/2025 Patient is currently on TPN. Clear liquids were allowed since yesterday. She is spitting up after drinking Sprite. Did have a very small smear of a bowel movement yesterday. Patient appears agitated and is trying to take her blanket off. Not really attempting to get out of bed yet. Discussed with daughter regarding trying Zyprexa on scheduled twice daily dosing. At this time patient is on once daily at bedtime. Hypokalemia again this morning. Potassium 3.0 today. Will order K rider 40 x 1 today. Patient does have CMP ordered every 12 hours. Continue to follow Will discuss with general surgery Check KUB today. Discussed with daughter regarding goals of care going forward. She states if patient ends up needing surgery for bowel obstruction she would most likely opt for comfort measures at that point. She would like to continue DNR/DNI status. 04/25/2025 Continue TPN at this time. Continue clear liquids. TPN ordered to meet caloric demands. Once patient is able to increase oral intake we will wean off on the TPN. No bowel movement overnight. Discussed with general surgery. It seems a small bowel obstruction may be resolving after surgical assessment. Once she is able to increase oral intake we will assess clinically and if needed may use Gastrografin oral contrast and repeat another CT abdomen. I will hold off on that for now. Continue Haldol and Zyprexa in case of agitation going forward Switch to meropenem. IV fluconazole to be ordered. Stop oral. Unsure an absorption on oral secondary to bowel obstruction. Continue current inpatient management at this time. PDMP PDMP Reviewed: Not Reviewed Attestations 2 Medical Necessity Statement*: Small bowel obstruction Diagnoses Tick bite W57.XXXA Fever R50.9 Altered mental status R41.82 Pneumonia J18.9 Hypokalemia E87.6 Hypernatremia E87.0
[2025-04-25 18:05] LABS: RMSF IGG NOT DETECTED; RMSF IGM NOT DETECTED
[2025-04-25] MEDS: metoclopramide 5 mg/mL SDV 2 mL IVP (18:52)
[2025-04-26] VITALS (7 sets, daily range): BP systolic 124–147; BP diastolic 69–80; PULSE 85–103; RESP 16–17; TEMP 36.4–37.1; O2SAT 91–95
[2025-04-26] MEDS: metoclopramide 5 mg/mL SDV 2 mL IVP ×4 (03:15→19:19)
[2025-04-26] MEDS: meropenem 1,000 mg SDV 1000 MG IVP ×3 (05:04→20:45)
[2025-04-26] MEDS: GALANTAMINE 16 MG 16 EACH PO (08:10)
[2025-04-26] MEDS: doxycycline 100 MG in sodium chloride 0.9% (plus) 100 ML IV ×2 (08:12→20:45)
--- NOTE | 2025-04-26 10:55 | PM.PN ---
Subjective Subjective: Seen this morning. Patient was sitting up in the chair earlier. She was able to take Jell-O last night and this morning and have some coffee. Mentation is slightly improved however she still seems somewhat confused. Daughter at bedside. She has not had a bowel movement yet. She is no longer vomiting. She did have 1 spit up episode last night with a small episode of vomiting however it may have been attributed to her laying flat and she may have choked on the food. Discussed with nursing staff. However other than that she has been eating Jell-O and drink coffee this morning as well and has not had any further vomiting episodes. He was able to answer questions appropriately this morning. Vitals/I&O/Wt Last Vital Signs Temp 97.8 F 04/26/25 07:45 Pulse 103 H 04/26/25 07:45 Resp 17 04/26/25 07:45 BP 124/69 04/26/25 07:45 Pulse Ox 94 04/26/25 07:45 O2 Del Method Room Air 04/26/25 07:45 O2 Flow Rate 2 04/20/25 21:02 FiO2 21 04/24/25 08:22 04/25/25 04/26/25 04/26/25 22:59 06:59 14:59 Intake Total 1113.384 / 7956.532 6493 / 2406.300 1056.8 / 1056.8 Output Total 875 / 875 500 / 500 Balance 238.384 / 297.482 8174 / 1531.300 556.8 / 556.8 Weight last 48 hrs Weight 62.284 kg Weight 63.095 kg Physical Exam Narrative: General: ill appearing, generalized weakness, able to answer questions and follow commands this morning. HEENT: PERRLA, pupils bilaterally equal and reactive, pallors not present Chest: Normal vesicular breath sounds, no added sounds, equal good air entry bilaterally CVS: S1-S2 regular, no murmurs, no tachycardia, no gallops, no rubs Abdomen: Soft, mildly distended with hypoactive bowel sounds. Bowel sounds are present. Neuro: No focal deficits, no facial deformity, Data 04/25/25 05:10 04/25/25 16:39 Micro: Microbiology 04/20/25 13:56 Blood Culture - Final Blood NO GROWTH AFTER 5 DAYS 04/20/25 13:54 Blood Culture - Final Blood NO GROWTH AFTER 5 DAYS A&P Assessment and plan (1) Tick bite: (2) Fever: (3) Altered mental status: (4) Pneumonia: (5) Hypokalemia: (6) Hypernatremia: Plan Patient is a 79-year-old lady who was brought to the emergency room today with chief complaints of fever, generalized weakness and vomiting starting 3 to 4 days ago. Also developed altered mental status. To 102 Today she is noted to be febrile with temperature of 102 Fahrenheit. She was recently started on treatment for UTI with cefdinir however did not have any significant improvement Will start IV ceftriaxone 1 g every 24 hours UA today is not a clean-catch, 11-20 squamous epithelial cells are noted, this will be repeated as well as urine culture. Alternate possibilities include tickborne illness as 2 ticks have recently been pulled off of the patient, there is also noted thrombocytopenia mild derangement of LFTs.. Start doxycycline 100 mg p.o. twice daily empirically as well. Chest x-ray notes bilateral scattered infiltrates which may be concerning for atypical pneumonia. Ceftriaxone and doxycycline to provide coverage for pneumonia for now. Check sputum culture if patient able to expectorate. Check tick panel Altered mental status most likely related to metabolic encephalopathy from acute infection. She is noted to be clinically dehydrated, start normal saline at 75 cc an hour. Will admit to [facility] and monitor closely. April 21, 2025 Patient continued to have several episodes of nausea and vomiting this morning. Interval exam today was with abdominal distention and hypoactive bowel sounds. CT of the abdomen and pelvis was obtained which showed a high-grade bowel obstruction with transition point in the mid to distal small bowel. There was a loop of small bowel extending into the patent left inguinal hernia. With these findings on CAT scan, general surgery service was consulted. NGT has been inserted and now to low intermittent suction. IV antibiotics changed from ceftriaxone to piperacillin/tazobactam as potentially pneumonia may be related to aspiration and would likely benefit from additional gram-negative and anaerobic coverage. Continue doxycycline, platelets at 99,000 today. April 22, 2025 Overnight she was hallucinating and agitated. Platelet count at 157 todaya, improving, fever curve improving. urine cx with yeast species. NGT maintained, not yet passing flatus or feces, abdomen appears less distended, gastric drainage at 400 cc today. continue Zosyn and Doxycycline iv. Add Zyprexa zydis ODT at night. April 23, 2025 Patient's mental status continues to be with confusion and intermittent hallucination. She did receive Zyprexa last night and was able to sleep however this morning she is agitated, pulling at lines etc. She did have a bowel movement last evening. NGT to be removed today and patient to be started on clear liquid diet. Abdomen appears to be less distended. Tmax 99.7. No leukocytosis. Continue doxycycline for possible tick mediated illness and piperacillin/tazobactam for aspiration pneumonia. Noted to be hyponatremic today with sodium at 146. This is likely related to dehydration and discontinuation of IV fluids yesterday. Will start her on PPN today and I anticipate even with her clear liquid diet she may not be able to meet her caloric requirements. Maximum TPN will be titrated up to 42 mL/h. Will add additional D5 at 30 cc an hour for hypernatremia. Check CMP every 12 hours. Hypokalemia with potassium at 3.0 today, replete with 40 mEq of IV KCl. Metabolic encephalopathy from acute infection is persisting. Patient does have a history of baseline dementia which is likely precipitating the encephalopathy in the setting of acute illness. Resume home dose of galantamine and Wellbutrin now that patient will be allowed to take oral intake. Add oral fluconazole for yeast noted on urine culture 04/24/2025 Patient is currently on TPN. Clear liquids were allowed since yesterday. She is spitting up after drinking Sprite. Did have a very small smear of a bowel movement yesterday. Patient appears agitated and is trying to take her blanket off. Not really attempting to get out of bed yet. Discussed with daughter regarding trying Zyprexa on scheduled twice daily dosing. At this time patient is on once daily at bedtime. Hypokalemia again this morning. Potassium 3.0 today. Will order K rider 40 x 1 today. Patient does have CMP ordered every 12 hours. Continue to follow Will discuss with general surgery Check KUB today. Discussed with daughter regarding goals of care going forward. She states if patient ends up needing surgery for bowel obstruction she would most likely opt for comfort measures at that point. She would like to continue DNR/DNI status. 04/25/2025 Continue TPN at this time. Continue clear liquids. TPN ordered to meet caloric demands. Once patient is able to increase oral intake we will wean off on the TPN. No bowel movement overnight. Discussed with general surgery. It seems a small bowel obstruction may be resolving after surgical assessment. Once she is able to increase oral intake we will assess clinically and if needed may use Gastrografin oral contrast and repeat another CT abdomen. I will hold off on that for now. Continue Haldol and Zyprexa in case of agitation going forward Switch to meropenem. IV fluconazole to be ordered. Stop oral. Unsure an absorption on oral secondary to bowel obstruction. Continue current inpatient management at this time. 04/26/2025 Patient provided consent to be seen over audiovisual cart before proceeding with history taking and physical exam in presence of RN. Continue to wean off TPN as oral intake improves. Continue Zyprexa at bedtime Continue meropenem IV fluconazole. Await bowel movement. Continue to monitor patient in hospital setting. Mentation is improving slowly. General Surgery following PDMP PDMP Reviewed: Not Reviewed Attestations Medical Necessity Statement*: Small bowel obstruction Diagnoses Tick bite W57.XXXA Fever R50.9 Altered mental status R41.82 Pneumonia J18.9 Hypokalemia E87.6 Hypernatremia E87.0
--- NOTE | 2025-04-26 11:39 | P.PN_ITS ---
Subjective 2 Subjective: Delirious Tolerating liquids No emesis Vitals/I&O/Wt Last Vital Signs Temp 97.8 F 04/26/25 07:45 Pulse 103 H 04/26/25 07:45 Resp 17 04/26/25 07:45 BP 124/69 04/26/25 07:45 Pulse Ox 94 04/26/25 07:45 O2 Del Method Room Air 04/26/25 07:45 O2 Flow Rate 2 04/20/25 21:02 FiO2 21 04/24/25 08:22 04/25/25 04/26/25 04/26/25 22:59 06:59 14:59 Intake Total 1113.384 / 4172.936 3508 / 2406.300 1056.8 / 1056.8 Output Total 875 / 875 500 / 500 Balance 238.384 / 891.465 9254 / 1531.300 556.8 / 556.8 Weight last 48 hrs Weight 137 lb 5 oz Weight 139 lb 1.6 oz Physical Exam 2 Narrative: delirious rrr unlabored breathing abdomen soft, nt, nd Data 04/25/25 05:10 04/25/25 16:39 Micro: Microbiology 04/20/25 13:56 Blood Culture - Final Blood NO GROWTH AFTER 5 DAYS 04/20/25 13:54 Blood Culture - Final Blood NO GROWTH AFTER 5 DAYS A&P Assessment and plan (1) SBO (small bowel obstruction): Plan 79yo female admitted with sbo. Tolerating liquids. No emesis. Medicine managing delirium. Advance diet as tolerated. Rest of care per medicine. PDMP PDMP Reviewed: Not Reviewed Attestations 2 Medical Necessity Statement*: NA Coding Level of Care Code 36838 Diagnoses SBO (small bowel obstruction) K56.609
--- NOTE | 2025-04-26 12:14 | PC.SOCIAL ---
IMM Updated Updated pt's daughter on IMM. No questions voiced. Provided pt a copy. Initialed, dated, & timed copy in chart.
[2025-04-26] MEDS: fluconazole premix 100 MG in empty flexible container 1 EACH 50 MG IV (16:32)
[2025-04-26 16:35] LABS: Hematocrit 38.6 % (36-47); Hemoglobin 12.70 g/dL (11.27-16.99); Mean Corpuscular HGB Conc 32.9 g/dL (30-55); Mean Corpuscular Hemoglobin 31.3 pg (27-33); Mean Corpuscular Volume 95.1 fl (85-98); Nucleated Red Blood Cells % 0 %; Platelet Count 414 10^3/cmm (157-399); Red Blood Count 4.06 10^6/uL (3.85-5.65); White Blood Count 10.64 10^3/uL (3.29-11.43)
[2025-04-26 16:55] LABS: Anion Gap 15.4 (5-19); Blood Urea Nitrogen 11 mg/dL (8-23); Calcium 7.1 mg/dL (8.5-10.5); Carbon Dioxide 22 mmol/L (22-29); Chloride 105 mmol/L (98-107); Creatinine Clr Calc Pharmacy 54.4547; Glucose 122 mg/dL (65-115); Magnesium 2.0 mg/dL (1.7-2.3); Osmolality Calculated 289 mOsm/kg (285-295); Potassium 3.4 mmol/L (3.5-5.1); Sodium 139 mmol/L (136-145)
[2025-04-26] MEDS: potassium chloride oral liq 20 mEq/15 mL UDC 40 MEQ PO (17:32)
[2025-04-26] MEDS: haloperidol inj 5 mg/mL INJ 1 mL 2 MG IM (23:34)
[2025-04-27] VITALS (11 sets, daily range): BP systolic 125–169; BP diastolic 52–75; PULSE 85–98; RESP 16–19; TEMP 36.6–37.3; O2SAT 90–99
[2025-04-27] MEDS: GALANTAMINE 16 MG 16 EACH PO (08:59)
--- NOTE | 2025-04-27 09:10 | PC.NURSE ---
Addendum entered by Agnes Estrada RN 04/27/25 11:30: Provider decided to try and keep the ultrasound. Per provider an ultrasound IV was obtained. Original Note: Provider is updated that she has no IV currently, it infiltrated over night. she is over due for her meropenem and also has doxycycline due. Both IV. I was told in report that it took 5 people to hold her down to get the last IV placed. Is there any way you can change her antibiotics to PO? Provider responded ok. Nursing waiting for new orders.
--- NOTE | 2025-04-27 09:59 | P.PN_ITS ---
Subjective 2 Subjective: Delirious No emesis Tolerating some clears when awake Abdomen soft nondistended nontender Vitals/I&O/Wt Last Vital Signs Temp 98.4 F 04/27/25 07:38 Pulse 89 04/27/25 08:46 Resp 16 04/27/25 08:46 BP 149/69 04/27/25 07:38 Pulse Ox 92 04/27/25 08:46 O2 Del Method Room Air 04/27/25 08:46 O2 Flow Rate 2 04/20/25 21:02 FiO2 21 04/24/25 08:22 04/26/25 04/27/25 04/27/25 22:59 06:59 14:59 Intake Total 150 / 1446.8 770.5 / 2217.3 Output Total 900 / 1400 100 / 1500 Balance -750 / 46.8 670.5 / 717.3 Weight last 48 hrs Weight 134 lb 3 oz Weight 137 lb 5 oz Physical Exam 2 Narrative: Delirious Chest: Unlabored breathing room air. No lymphadenopathy. Heart: Regular rate and rhythm. Abdomen: Soft, nontender, nondistended. No masses or lymphadenopathy. Data 04/26/25 16:18 04/26/25 16:18 A&P Assessment and plan (1) SBO (small bowel obstruction): Plan 79-year-old female admitted with SBO. SBO resolved. Now delirious. Advance diet as tolerated. Rest of care per medicine. Will sign off. PDMP PDMP Reviewed: Not Reviewed Attestations 2 Medical Necessity Statement*: N/A Coding Level of Care Code 05942 Diagnoses SBO (small bowel obstruction) K56.609
--- NOTE | 2025-04-27 10:20 | PC.NURSE ---
Per Dr. Olmstead haldol 2 mg is discontinued.
[2025-04-27] MEDS: doxycycline 100 MG in sodium chloride 0.9% (plus) 100 ML IV (10:57)
[2025-04-27] MEDS: meropenem 1,000 mg SDV 1000 MG IVP ×2 (10:57→20:52)
--- NOTE | 2025-04-27 11:17 | PC.OT ---
OT EVALUATION ATTEMPTED; PATIENT NOT ALERT AND ABLE TO PARTICIPATE IN SKILLED OT EVALUATION AT THIS TIME. TALKED WITH DAUGHTER TO GET PLOF. WILL ATTEMPT AGAIN IN P.M.
--- NOTE | 2025-04-27 11:28 | P.PN_ITS ---
Subjective 2 Subjective: 79-year-old female with multiple medical comorbidities who is being followed by the general surgery service for possible small bowel obstruction. I we will be following up with the patient over the next [address] colleague [address] Hdez will be out of town. I was informed by the medical team that they are concerned for the possibility of recurrent small bowel obstruction as the patient has been complaining of abdominal pain and not taking enough p.o. intake. Per family member report she has seen some spitting of bilious material and she is barely drinking anything. Vitals/I&O/Wt Last Vital Signs Temp 98.3 F 04/27/25 11:13 Pulse 91 04/27/25 11:13 Resp 17 04/27/25 11:13 BP 169/75 04/27/25 11:13 Pulse Ox 93 04/27/25 11:13 O2 Del Method Room Air 04/27/25 11:13 O2 Flow Rate 2 04/20/25 21:02 FiO2 21 04/24/25 08:22 04/26/25 04/27/25 04/27/25 22:59 06:59 14:59 Intake Total 150 / 1446.8 770.5 / 2217.3 240 / 240 Output Total 900 / 1400 100 / 1500 Balance -750 / 46.8 670.5 / 717.3 240 / 240 Weight last 48 hrs Weight 134 lb 3 oz Weight 137 lb 5 oz Physical Exam 2 Narrative: Mental status is altar she is delirious GI: OTHER: Abdominal examination is benign the abdomen is soft, is distended bowel sounds are absent. Data 04/26/25 16:18 04/26/25 16:18 A&P Assessment and plan (1) Intractable nausea and vomiting: (2) SBO (small bowel obstruction): Plan I agree with medical assessment, patient may have either a recurrent SBO or her initial SBO had not resolved yet. At this point it will be important to obtain additional imaging of the abdomen and pelvis for evaluation, we will obtain a CT scan of the abdomen and pelvis with p.o. and IV contrast. I have discussed with the family members if the CT does show a recurrent SBO the first-line of intervention will be to repeat NG tube for decompression, family member is hesitant to proceed to additional therapy and may be deciding on proceeding with comfort care in the case of a recurrent obstruction. In the case of the family member deciding on proceeding with NG tube decompression we will plan to decompress for 2 to 3 days and after that we will do a Gastrografin trial to evaluate for resolution. Additional management per medical team. PDMP PDMP Reviewed: Not Reviewed Attestations 2 Medical Necessity Statement*: Per medical team Coding Level of Care Code Acute Code for Chg Fwd Diagnoses Intractable nausea and vomiting R11.2 SBO (small bowel obstruction) K56.609
--- NOTE | 2025-04-27 13:05 | CT_ITS ---
WS: [id number] CT chest abdpel w/*[id number] REASON FOR EXAM: small bowel obstruction IV CONTRAST ADMINISTERED: 100 mL of Omnipaque 350. TECHNIQUE: Following intravenous administration of contrast multiple axial images were obtained with coronal and sagittal reconstructions. COMPARISON examination 04/21/2025. TOTAL EXAM DLP: 688.[address] scans at [facility] use at least one of these dose optimization techniques: automated exposure control; mA and/or kV adjustment per patient size (includes targeted exams where dose is matched to clinical indication); or iterative reconstruction. FINDINGS: Compared to the previous examination, the groundglass densities in the lower lung posadas have resolved. There are now new bilateral pleural effusions, moderate with compressive atelectasis of the adjacent lower lobes. The remainder of the examination is unchanged. The dominant abnormality is severe fluid and gas distention of the stomach and multiple small bowel loops. The patient has to bowel hernias. The first and more superior appears to be an indirect inguinal hernia (lateral to the epigastric vein). More inferiorly there is a larger hernia which lies lateral to the pelvic tubercle and compresses the femoral vein. These findings indicate a femoral hernia. No free air or free fluid is identified within the abdomen or pelvis. There clearly is a transition in the caliber of the small bowel in the region of these hernias. It is difficult to definitively identify which of the hernias as the point of obstruction. The femoral hernia is favored. CT/CT chest abdpel w/*[id number] IMPRESSION: Resolution of groundglass densities in the lower lungs with interval developmen t of bilateral moderate pleural effusion and compressive atelectasis of the low er lobes. Significant distention of stomach and small bowel indicative of mid to distal s mall bowel obstruction. There is some colon gas including some gas within the r ectosigmoid. There is an indirect and a femoral hernia at the point of small bowel caliber t ransition. The femoral hernia is favored as the point of obstruction.
--- NOTE | 2025-04-27 13:06 | P.PN_ITS ---
Subjective 2 Subjective: Seen this morning. Patient received Haldol overnight for agitation and combativeness. She is currently sleeping. Peripheral IV has been attempted several times however there was unable to obtain. ICU nurse here now to place ultrasound-guided IV. Had a discussion with patient's daughter at length. Discussed with her regarding repeating imaging with oral contrast however if patient is unable to drink contrast we may place an NG tube to administer the contrast. Patient's daughter states that she would like to hold off on NG tube placement as patient would not have wanted this level of aggressive care. And she definitely would not want to pursue to surgery if there is a bowel obstruction. However she would like to know how the scan turns out to be as it will help her make further decisions. We will also have general surgery reassessed the patient this morning and will await for recommendations. I discussed with the daughter that going forward we will stop Haldol and order as needed Zyprexa with the hope that patient will not be so sleepy. Patient has been coughing up bilious material. Vitals/I&O/Wt Last Vital Signs Temp 98.3 F 04/27/25 11:13 Pulse 91 04/27/25 11:13 Resp 17 04/27/25 11:13 BP 169/75 04/27/25 11:13 Pulse Ox 93 04/27/25 11:13 O2 Del Method Room Air 04/27/25 11:13 O2 Flow Rate 2 04/20/25 21:02 FiO2 21 04/24/25 08:22 04/26/25 04/27/25 04/27/25 22:59 06:59 14:59 Intake Total 150 / 1446.8 770.5 / 2217.3 340 / 340 Output Total 900 / 1400 100 / 1500 Balance -750 / 46.8 670.5 / 717.3 340 / 340 Weight last 48 hrs Weight 60.866 kg Weight 62.284 kg Physical Exam 2 Narrative: General: ill appearing, generalized weakness, sleeping at this time. Appears agitated when attempt to examine. HEENT: PERRLA, pupils bilaterally equal and reactive, pallors not present Chest: Normal vesicular breath sounds, no added sounds, equal good air entry bilaterally CVS: S1-S2 regular, no murmurs, no tachycardia, no gallops, no rubs Abdomen: Soft, mildly distended with hypoactive bowel sounds. Bowel sounds are present. Neuro: No focal deficits, no facial deformity, Data 04/26/25 16:18 04/26/25 16:18 A&P Assessment and plan (1) Tick bite: (2) Fever: (3) Altered mental status: (4) Pneumonia: (5) Hypokalemia: (6) Hypernatremia: Plan Patient is a 79-year-old lady who was brought to the emergency room today with chief complaints of fever, generalized weakness and vomiting starting 3 to 4 days ago. Also developed altered mental status. To 102 Today she is noted to be febrile with temperature of 102 Fahrenheit. She was recently started on treatment for UTI with cefdinir however did not have any significant improvement Will start IV ceftriaxone 1 g every 24 hours UA today is not a clean-catch, 11-20 squamous epithelial cells are noted, this will be repeated as well as urine culture. Alternate possibilities include tickborne illness as 2 ticks have recently been pulled off of the patient, there is also noted thrombocytopenia mild derangement of LFTs.. Start doxycycline 100 mg p.o. twice daily empirically as well. Chest x-ray notes bilateral scattered infiltrates which may be concerning for atypical pneumonia. Ceftriaxone and doxycycline to provide coverage for pneumonia for now. Check sputum culture if patient able to expectorate. Check tick panel Altered mental status most likely related to metabolic encephalopathy from acute infection. She is noted to be clinically dehydrated, start normal saline at 75 cc an hour. Will admit to [facility] and monitor closely. April 21, 2025 Patient continued to have several episodes of nausea and vomiting this morning. Interval exam today was with abdominal distention and hypoactive bowel sounds. CT of the abdomen and pelvis was obtained which showed a high-grade bowel obstruction with transition point in the mid to distal small bowel. There was a loop of small bowel extending into the patent left inguinal hernia. With these findings on CAT scan, general surgery service was consulted. NGT has been inserted and now to low intermittent suction. IV antibiotics changed from ceftriaxone to piperacillin/tazobactam as potentially pneumonia may be related to aspiration and would likely benefit from additional gram-negative and anaerobic coverage. Continue doxycycline, platelets at 99,000 today. April 22, 2025 Overnight she was hallucinating and agitated. Platelet count at 157 todaya, improving, fever curve improving. urine cx with yeast species. NGT maintained, not yet passing flatus or feces, abdomen appears less distended, gastric drainage at 400 cc today. continue Zosyn and Doxycycline iv. Add Zyprexa zydis ODT at night. April 23, 2025 Patient's mental status continues to be with confusion and intermittent hallucination. She did receive Zyprexa last night and was able to sleep however this morning she is agitated, pulling at lines etc. She did have a bowel movement last evening. NGT to be removed today and patient to be started on clear liquid diet. Abdomen appears to be less distended. Tmax 99.7. No leukocytosis. Continue doxycycline for possible tick mediated illness and piperacillin/tazobactam for aspiration pneumonia. Noted to be hyponatremic today with sodium at 146. This is likely related to dehydration and discontinuation of IV fluids yesterday. Will start her on PPN today and I anticipate even with her clear liquid diet she may not be able to meet her caloric requirements. Maximum TPN will be titrated up to 42 mL/h. Will add additional D5 at 30 cc an hour for hypernatremia. Check CMP every 12 hours. Hypokalemia with potassium at 3.0 today, replete with 40 mEq of IV KCl. Metabolic encephalopathy from acute infection is persisting. Patient does have a history of baseline dementia which is likely precipitating the encephalopathy in the setting of acute illness. Resume home dose of galantamine and Wellbutrin now that patient will be allowed to take oral intake. Add oral fluconazole for yeast noted on urine culture 04/24/2025 Patient is currently on TPN. Clear liquids were allowed since yesterday. She is spitting up after drinking Sprite. Did have a very small smear of a bowel movement yesterday. Patient appears agitated and is trying to take her blanket off. Not really attempting to get out of bed yet. Discussed with daughter regarding trying Zyprexa on scheduled twice daily dosing. At this time patient is on once daily at bedtime. Hypokalemia again this morning. Potassium 3.0 today. Will order K rider 40 x 1 today. Patient does have CMP ordered every 12 hours. Continue to follow Will discuss with general surgery Check KUB today. Discussed with daughter regarding goals of care going forward. She states if patient ends up needing surgery for bowel obstruction she would most likely opt for comfort measures at that point. She would like to continue DNR/DNI status. 04/25/2025 Continue TPN at this time. Continue clear liquids. TPN ordered to meet caloric demands. Once patient is able to increase oral intake we will wean off on the TPN. No bowel movement overnight. Discussed with general surgery. It seems a small bowel obstruction may be resolving after surgical assessment. Once she is able to increase oral intake we will assess clinically and if needed may use Gastrografin oral contrast and repeat another CT abdomen. I will hold off on that for now. Continue Haldol and Zyprexa in case of agitation going forward Switch to meropenem. IV fluconazole to be ordered. Stop oral. Unsure an absorption on oral secondary to bowel obstruction. Continue current inpatient management at this time. 04/26/2025 Continue to wean off TPN as oral intake improves. Continue Zyprexa at bedtime Continue meropenem IV fluconazole. Await bowel movement. Continue to monitor patient in hospital setting. Mentation is improving slowly. General Surgery following 04/27/2025 Correction to note from yesterday. Patient was not seen using audiovisual cart she was seen in person. Continue Zyprexa at bedtime. Add Zyprexa 2.5 mg daily in AM. Overnight he was as needed Zyprexa 2.5 every 6 hours. Hold off on using Haldol as it makes patient too sleepy. Appreciate recommendations from general surgery. Will repeat CT abdomen pelvis with IV and oral contrast. In case of NG tube placement that is needed we will hold off on that as per patient's daughter's wishes. Patient lost IV access this morning. Ultrasound-guided IV has been placed by ICU nurse We will continue antibiotics and complete 7-day course total. Further recommendations to follow pending scan from today. PDMP PDMP Reviewed: Not Reviewed Attestations 2 Medical Necessity Statement*: Small bowel obstruction Diagnoses Tick bite W57.XXXA Fever R50.9 Altered mental status R41.82 Pneumonia J18.9 Hypokalemia E87.6 Hypernatremia E87.0
[2025-04-27] MEDS: iohexol 350 mg/mL 500 mL Btl (per mL) PO (14:41)
[2025-04-27 15:07] LABS: Hematocrit 39.6 % (36-47); Hemoglobin 12.70 g/dL (11.27-16.99); Mean Corpuscular HGB Conc 32.1 g/dL (30-55); Mean Corpuscular Hemoglobin 31.4 pg (27-33); Mean Corpuscular Volume 97.8 fl (85-98); Nucleated Red Blood Cells % 0 %; Platelet Count 404 10^3/cmm (157-399); Red Blood Count 4.05 10^6/uL (3.85-5.65); White Blood Count 11.63 10^3/uL (3.29-11.43)
[2025-04-27 15:24] LABS: Anion Gap 16.9 (5-19); Blood Urea Nitrogen 14 mg/dL (8-23); Calcium 7.2 mg/dL (8.5-10.5); Carbon Dioxide 24 mmol/L (22-29); Chloride 105 mmol/L (98-107); Creatinine Clr Calc Pharmacy 53.9442; Glucose 110 mg/dL (65-115); Osmolality Calculated 295 mOsm/kg (285-295); Potassium 3.9 mmol/L (3.5-5.1); Sodium 142 mmol/L (136-145)
[2025-04-27] MEDS: iohexol 350 mg/mL 500 mL Btl (per mL) IV (15:46)
[2025-04-27] MEDS: fluconazole premix 100 MG in empty flexible container 1 EACH 50 MG IV (16:48)
--- NOTE | 2025-04-27 17:10 | XRR_ITS ---
PROCEDURE INFORMATION: Exam: XR Chest Exam date and time: 04/27/2025 6:35 PM Age: 79 years old Clinical indication: Device placement; Ng tube; Additional info: Ng placement TECHNIQUE: Imaging protocol: Radiologic exam of the chest. Views: 1 view. COMPARISON: CT chest abdpel w/*[id number] 04/27/2025 3:45 PM FINDINGS: Tubes, catheters and devices: The NG tube tracks into the distal stomach. Lungs: Unremarkable. No consolidation. Pleural spaces: Small bilateral pleural effusions. Heart/Mediastinum: Unremarkable. No cardiomegaly. Bones/joints: Unremarkable. XR/XR chest 1V portable [id number] IMPRESSION: The NG tube tracks into the distal stomach.
--- NOTE | 2025-04-27 17:10 | PM.MISC ---
Miscellaneous Note Purpose of Documentation: Update on patient care Note: I have evaluated Ms. Bravo this morning as my colleague Dr. Hdez is out of town for the weekend. She appears to have symptoms concerning for persistent small bowel obstruction. We obtain a CT scan of the chest abdomen pelvis, radiology report is not ready but my personal interpretation shows evidence of persistent small bowel obstruction with a distal transition point. The stomach is severely dilated as well as the proximal small bowel. With this findings I had extensive discussion with the family, they have agreed to replacement of NG tube and decompression to allow patient to be comfortable. I replaced 18-gauge NG tube and had immediate return of almost 1 L of bilious material. I have extensive discussion with the family, patient clinical status and prognosis is guarded, she is delirious, has very poor physical endurance and is likely to be very poor surgical candidate. While the family members are getting inclined to transition the patient to comfort care they have agreed to proceed with decompression for the next 48 to 72 hours before making a final decision. I have explained to the patient and family members that my plan at this point will be to decompress the stomach and the small bowel for 2 full days as I anticipate that probably initial decompression was not completely successful and therefore patient had persistent symptoms. After 2 days of decompression I will plan to proceed with a Gastrografin challenge. In the case of a failed Gastrografin challenge the only available option will be surgery and at the time an informed decision can be made by the family members.
--- NOTE | 2025-04-27 18:58 | PM.MISC ---
Miscellaneous Note Purpose of Documentation: Update on patient care Note: We have received the final report from radiology showing that the patient has a femoral hernia on the left side that appears to be the point of obstruction. On retrospective review of imaging this transition point was already visualized during the first CT scan but was not identified as the point of obstruction. At this point patient has been more than 7 days with an incarcerated femoral hernia which greatly increases the chances of bowel ischemia and necrosis. I have explained to the patient and family members that with this findings the only option we have is either to proceed to the OR for left groin exploration possible hernia repair and also evaluation of the bowel or decide on nonsurgical measures for comfort care. I had extensive discussion with the family I explained all risks and benefits of the proposed intervention, I have explained that we will have to do an open exploration of the left groin that can lead to risk of injury to adjacent structures including the femoral vein and artery, can have a hernia recurrence, mesh infection, need for additional interventions, related complications, small bowel injury, enterotomy, injury to the urinary bladder. I have also Explained that we will have to do a laparoscopy and possible laparotomy with bowel resection lysis of additions and related procedures I have explained the risks of needing an ostomy creation, I have also Explained there is risk of poor wound healing hernia injury to the adjacent structures catastrophic bleeding and even , patient mental status is poor and she appear malnourished we will Explained an important role in her ability to tolerate surgery. After extensive discussion which also family members have decided to proceed with proposed surgical intervention to give the patient a chance. We will be taking the patient to the OR tonight as the longer we with the higher the chance of bowel necrosis.
--- NOTE | 2025-04-27 20:04 | ANES.PREANE2 ---
Pre-Anesthetic Assessment Height/Weight: Height 5 ft 6 in Weight 134 lb 3 oz Temp Pulse Resp BP Pulse Ox O2 Del Method O2 Flow Rate 99.1 F 94 18 135/55 93 Room Air 2 04/27/25 19:20 04/27/25 19:20 04/27/25 19:20 04/27/25 19:20 04/27/25 19:20 04/27/25 19:20 04/20/25 21:02 FiO2 21 04/24/25 08:22 Preop Diagnosis: Femoral hernia possible bowel obstruction Operation Date: 04/27/25 19:10 Proposed Procedures p Femoral Hernia Repair Open Femoral Hernia Repair(Left) - Frank Nieves MD s Laparoscopy Diagnostic(Not Applicable) - Frank Nieves MD Was Beta Ninoska taken within 24 hours: N/A Was Clonidine taken within 24 hours: N/A Last intake: Intake Last Liquid Date 04/27/25 Last Liquid Time 12:00 Last Solid Date 04/19/25 Last Solid Time 08:00 Social No alcohol and No tobacco Exam alert Oriented to person only Airway Submandibular: within normal limits Cervical ROM: within normal limits Mallampati: Class III Comments: Comments: Edentulous, NG in place Anesthetic Plan ASA status: 4E Anesthesia: General Other: Patient initially admitted 04/20/2025 with acute metabolic encephalopathy and possible bowel obstruction. During hospitalization, thought obstruction was relieved however now patient's condition has worsened. No prior issues with anesthesia Patient's daughter is at bedside currently, patient has dementia History of GERD on Protonix S/p lobectomy in 2021. No home O2 Vitals are currently stable Labs reviewed from today, hemoglobin 12.7. Electrolytes stable EKG showing sinus rhythm with PACs Plan for GETA with possible A-line. Medications/Allergies Home Medications ?Medication ?Instructions ?Recorded ?Confirmed ?Last Taken ?Type vitamin B complex (B-Complex 1 tab PO QAM 10/30/22 04/20/25 01/15/25 History tablet) alendronate 70 mg tablet (Fosamax) 70 mg PO Q7D 01/12/23 04/20/25 01/14/25 History acetaminophen 325 mg tablet 325 mg PO Q6H PRN Pain 08/07/23 04/20/25 Unknown History (Tylenol) ascorbic acid (vitamin C) 500 mg 500 mg PO QAM 08/07/23 04/20/25 01/15/25 History tablet (Vitamin C) cholecalciferol (vitamin D3) 50 50 mcg PO DAILY 01/16/25 04/20/25 01/15/25 History mcg (2,000 unit) tablet (Vitamin D3) pantoprazole 40 mg tablet,delayed 40 mg PO DAILY 01/16/25 04/20/25 01/15/25 History release vitamin A 2,400 mcg capsule 2,400 mcg PO DAILY 01/16/25 04/20/25 01/15/25 History bupropion HCl 150 mg 24 hr tablet, 150 mg PO DAILY #30 tabs 01/20/25 04/20/25 Unknown Rx extended release albuterol sulfate 90 mcg/actuation 2 puff inhalation Q4H PRN copd 04/20/25 04/20/25 Unknown History aerosol inhaler cefdinir 300 mg capsule 300 mg PO BID 04/20/25 04/20/25 Unknown History galantamine 16 mg 24 hr 16 mg PO DAILY 04/20/25 04/20/25 Unknown History capsule,extended release meloxicam 7.5 mg tablet 7.5 mg PO DAILY 04/20/25 04/20/25 Unknown History Allergies Allergy/AdvReac Type Severity Reaction Status Date / Time azithromycin (From Zithromax) Allergy Intermediate ADR-Itching Verified 10/09/24 16:55 levofloxacin (From Levaquin) Allergy Intermediate ADR-Itching Verified 10/09/24 16:55 methylprednisolone Allergy Mild ADR-Itching Verified 10/09/24 16:55 ciprofloxacin (From Cipro) Allergy Unknown Verified 10/09/24 16:55 nitrofurantoin (From Allergy Unknown Verified 10/09/24 16:55 Macrobid) methyprednosolone Allergy Mild ADR-Itching Uncoded 10/09/24 16:55 Current Medications Generic Name Dose Route Start Last Admin Trade Name Freq PRN Reason Stop Dose Admin Bupropion HCl 150 mg 04/23/25 11:25 04/27/25 08:59 Bupropion Xl (24 Hr) 150 Mg Tablet PO 150 mg DAILY MANJIT Administration Enoxaparin Sodium 40 mg 04/20/25 17:00 04/27/25 16:49 Enoxaparin 40 Mg/0.4 Ml Syringe SUBCUT 40 mg Q24H MANJIT Administration Fluconazole 100 mg 04/23/25 12:30 04/24/25 08:01 Fluconazole 100 Mg Tablet PO 100 mg DAILY MANJIT Administration Doxycycline Hyclate 100 mg/ 100 mls @ 100 mls/hr 04/21/25 09:30 04/27/25 12:12 Sodium Chloride IV Infused Q12H MANJIT Infusion Protocol Dextrose 1,000 mls @ 30 mls/hr 04/23/25 11:30 04/27/25 09:22 D5w IV Not Given .Q24H MANJIT Amino Acids 1,000 mls @ 42 mls/hr 04/23/25 13:00 04/27/25 16:55 Clinimix 4.25%-5% (No Lytes) IV Not Given .[id number] MANJIT Fluconazole 100 mg/ N/A 50 mls @ 50 mls/hr 04/24/25 15:30 04/27/25 17:27 IV Infused Q24H MANJIT Infusion Meropenem 1,000 mg 04/25/25 13:30 04/27/25 10:57 Meropenem 1,000 Mg Sdv IVP 1,000 mg Q8H MANJIT Administration Protocol Metoclopramide HCl 5 mg 04/21/25 09:24 04/26/25 19:19 Metoclopramide 5 Mg/Ml Sdv 2 Ml IVP 5 mg Q6H PRN Administration NAUSEA AND VOMITING Non-Formulary Medication 16 mg 04/23/25 15:30 04/27/25 08:59 Galantamine PO 16 mg DAILY MANJIT Administration Olanzapine 5 mg 04/22/25 21:00 04/26/25 20:46 Olanzapine 5 Mg Odt PO 5 mg BEDTIME MANJIT Administration Pantoprazole Sodium 40 mg 04/24/25 09:00 04/27/25 08:[address] 40 Mg Tablet PO 40 mg DAILY MANJIT Administration [facility] Anesthesia Medical History COPD (chronic obstructive pulmonary disease) Non-small cell lung cancer Surgical History History of tubal ligation History of lobectomy of lung (10/13/22) Right upper lobectomy by VATS Family History Mother Stroke Other Cancer Social History Smoking and tobacco/nicotine status: former use of tobacco/nicotine Quit status (tobacco/nicotine): has quit using Year quit tobacco: 09/08/22 Former quit date comment: 0.5 pack per day x 20 years Alcohol intake: current Alcohol intake frequency: holidays/special occasions only Substance/Drug Use: never Household members: other Details: daughter Housing: House Marital status: / Number of children: 2 Pets and animals: Yes Pets & animals: dog(s) Special dakotah needs: No Agree to transfusion: Yes Data Anesthesia 04/27/25 14:43 04/27/25 14:43 Short CBC 04/26/25 04/27/25 Range/Units 16:18 14:43 WBC 10.64 11.63 H (3.29-11.43) 10^3/uL Hgb 12.70 12.70 (11.27-16.99) g/dL Hct 38.6 39.6 (36-47) % MCV 95.1 97.8 (85-98) fl Plt Count 414 H 404 H (157-399) 10^3/cmm Neut % (Auto) 58.3 66.9 % Neut # (Auto) 6.21 7.77 H (1.8-7.7) 10^3/uL BMP 04/26/25 04/27/25 16:18 14:43 Sodium 139 142 Potassium 3.4 L 3.9 Chloride 105 105 Carbon Dioxide 22 24 BUN 11 14 Creatinine 0.5 0.5 Glucose 122 H 110 Calcium 7.1 L 7.2 L
[2025-04-27] MEDS: lidocaine-epi 1% 20 mL INJ 10 ML INJECTION (23:19)
[2025-04-27] MEDS: BUPivacaine 0.25% INJ 10 mL INJECTION (23:20)
--- NOTE | 2025-04-27 23:27 | P.OP_ITS ---
Operative Report Date of procedure: April 27, 2025 Pre-op diagnosis: Small bowel obstruction due to strangulated femoral hernia Post-op diagnosis: Same Post-op findings: There was a strangulated left femoral hernia, all the small bowel was viable except for the portion that was inside his hernia that had a 1.5 cm patch of ischemia, small bowel resection was required Procedure done: Open repair of strangulated left femoral hernia with mesh, diagnostic laparoscopy, laparotomy and small bowel resection. Implants: Bard polypropylene mesh with large plug Surgeon: Frank Nieves MD Logistics Center Manager: SRIRAM OR STaff Estimated blood loss: 10 Complications: none apparent Brief History: This is a 79-year-old female who presented last week with abdominal pain and a small bowel obstruction. She has failed to progress and repeat imaging today show evidence of a femoral hernia as a transition point. After discussion of risk benefits with the family we decided to proceed to the OR Procedure: Patient was brought into the OR she was placed in the supine position general anesthesia was given the abdomen was prepped and draped in the usual sterile fashion and a timeout was conducted. I proceeded to gibran the anatomic landmarks of the left groin. I then made a 6 cm incision overlying the inguinal ligament on the left side. The incision was deepened until the fascia of the external oblique was identified, the fascia of the external oblique was opened from the external ring to the area of the internal ring. The ilioinguinal nerve was identified, due to the positioning and the feel of dissection I decided to transect the nerve to prevent entrapment. The round ligament was encircled and transected after being ligated. No evidence of an active indirect inguinal hernia was noted at this point. I then proceeded to open the floor of the inguinal canal exposing the preperitoneal space. The femoral hernia was completely incarcerated and I was unable to reduce it despite several maneuvers. I therefore had to transect the inguinal ligament at the level of the femoral canal to allow reduction of the hernia. Once the hernia was reduced it was pushed into the preperitoneal space without opening the peritoneum. I then placed a large plug into the preperitoneal space and fixated to the pubic tubercle and Josue's ligament in the inferior direction and to the muscles of the abdominal wall and the conjoined tendon in the superior direction, overlying the block I placed a patch of mesh covering the whole floor of the inguinal canal this was fixed with #0 Prolene to the pubic tubercle in the medial direction, to the inguinal ligament in the inferior direction, to the conjoined tendon in the superior direction and the tails of the mesh were fixed together on the lateral direction. Hemostasis was verified and no evidence of additional hernias was noted. The fascia of the external oblique was closed with #2 Vicryl, the subcutaneous tissue was closed with #3-0 Vicryl for the Zak's fascia and superficial subcutaneous tissue. The skin was closed with #4-0 Monocryl and Dermabond was applied. I then placed my attention to the umbilicus, a 1 cm vertical incision was made and deepened to the fascia. With an open technique I proceeded to place a 5 mm trocar to allow visualization of the abdomen, pneumoperitoneum was obtained and no evidence of visceral injury during entry was noted. Additional 5 mm trocars were placed in the left lower quadrant and left upper quadrant to allow for manipulation of the small bowel. Laparoscopy was done and intact repair of the left femoral hernia was noted no evidence of peritoneal violation. No evidence of left inguinal hernia, there was a pinpoint right inguinal hernia that did not contain any intestine. I then proceeded to run the small bowel from the terminal ileum to the ligament of Treitz, there was a 1 to 2 cm area of devitalized bowel corresponding to the bowel that had been incarcerated inside of the femoral hernia, this was also a transition point as small bowel was dilated proximal to this area and decompressed distal to it. I waited about 10 minutes to see if the bowel was viable but no evidence of changing in appearance was noted, therefore we decided to convert to mini laparotomy to proceed with bowel resection. Trocars were removed I then proceeded to make a 10 cm infraumbilical laparotomy incision, an Robbie wound protector was placed and the bowel was exteriorized. I then proceeded to resect the affected area, around 10 cm of bowel were resected in a standard fashion, I then created an anastomosis also in standard fashion with glue below the stapler. Anastomosis appeared healthy no evidence of diabetes mellitus edges, I closed the mesenteric defect with #3-0 Vicryl and applied Vistaseal on top as a precaution. Then the small bowel was returned to the abdomen and covered with omentum. The abdomen was closed in layers using #1 PDS for the fascia, #3-0 Monocryl for the subcutaneous tissue and #4 Monocryl for the skin. Dermabond was applied. At the end of the procedure all counts were correct the patient tolerated well the procedure and was transferred to the PACU in stable condition.
--- NOTE | 2025-04-27 23:36 | ANES.PROC ---
Anesthesia Procedures Procedure/Date: 04/27/25 Nerve Block ^: Nerve Block 1: Main Anesthesia: general anesthesia Time Out Performed: Yes Consent: requested by attending/covering physician and from other (daughter) Nerve block location: other (bilateral rectus sheath block) Anesthesia monitors applied: pulse oximetry, EKG, BP cuff and oxygen Nerve block position: supine Anesthetic Used: other (ropivicaine 0.2%) Amount of anesthesia used (mL): 30 Ultrasound used to: recognize landmarks Nerve Stimulator Used?: No Interscalene/Femoral BLK: other needle (pjunk 4inch) Injection: neg aspiration of heme Patient Tolerated Procedure: well Complications: none
--- NOTE | 2025-04-27 23:51 | ANE.PACU2 ---
Inpatient post-anesthesia follow up: Airway intact: Yes Vital signs: Temperature 97.9 F Pulse Rate 86 Respiratory Rate 17 Blood Pressure 131/63 Pulse Oximetry 97 Oxygen Delivery Me thod Simple Mask Oxygen Flow Rate 8 Fraction of Inspir ed Oxygen 21 Hydration adequate: Yes Nausea and vomiting: No Pain level: 2 Mental status: Baseline
[2025-04-28] VITALS (14 sets, daily range): BP systolic 100–147; BP diastolic 52–86; PULSE 80–95; RESP 15–19; TEMP 36.4–36.9; O2SAT 92–97
--- NOTE | 2025-04-28 00:28 | PC.NURSE ---
0015 - Patient transported to room 258 via bed accompanied by signee and daughter, Christal. VS taken - T - 98.2, HR-90, RR-18, BP-144/75, 02 SAT-94% 2LNC. NG hooked to LIS. Nurse, PASTEURIZER HELPER, and sitter at bedside. CLWR.
[2025-04-28] MEDS: acetaminophen 1,000 MG/100 ML PIGGYBACK 400 MG IV ×3 (01:16→15:44)
[2025-04-28] MEDS: doxycycline 100 MG in sodium chloride 0.9% (plus) 100 ML IV ×2 (01:26→13:01)
[2025-04-28] MEDS: meropenem 1,000 mg SDV 1000 MG IVP ×3 (03:55→20:45)
--- NOTE | 2025-04-28 08:25 | PC.SOCIAL ---
IMM Update Pg. 2 of IMM Updated and copy provided at bedside.
[2025-04-28] MEDS: GALANTAMINE 16 MG 16 EACH PO (09:17)
--- NOTE | 2025-04-28 09:17 | P.PN_ITS ---
Subjective 2 Subjective: Postoperative day 1 status post repair of left femoral hernia, laparotomy bowel resection. Patient is in good spirits and doing well. Improved abdominal pain, NG output has decreased. Vitals/I&O/Wt Last Vital Signs Temp 98.3 F 04/28/25 07:25 Pulse 81 04/28/25 07:25 Resp 16 04/28/25 07:25 BP 110/65 04/28/25 07:25 Pulse Ox 96 04/28/25 07:25 O2 Del Method Nasal Cannula 04/28/25 07:25 O2 Flow Rate 2 04/28/25 00:14 FiO2 21 04/24/25 08:22 04/27/25 04/28/25 04/28/25 22:59 06:59 14:59 Intake Total 50 / 510 200 / 710 228.5 / 228.5 Output Total 2900 / 2900 625 / 3525 Balance -2850 / -2390 -425 / -2815 228.5 / 228.5 Weight last 48 hrs Weight 135 lb Weight 134 lb 3 oz Physical Exam 2 GI: OTHER: Abdomen is soft appropriately tender to palpation, nondistended. Data 04/27/25 14:43 04/27/25 14:43 A&P Assessment and plan (1) Intractable nausea and vomiting: (2) SBO (small bowel obstruction): (3) Femoral hernia of left side: Plan Patient showing very good progression in the first 24 hours after surgery. Ambulation is encouraged. We will continue NG tube decompression for over the next 24 to 48 hours and once bowel function returns she will be allowed to have a clear liquid diet. I have discussed the case with medical team and I appreciate continues medical management. PDMP PDMP Reviewed: Not Reviewed Attestations 2 Medical Necessity Statement*: Per medical team Coding Level of Care Code Acute Code for Chg Fwd Diagnoses Intractable nausea and vomiting R11.2 SBO (small bowel obstruction) K56.609 Femoral hernia of left side K41.90
[2025-04-28 09:23] LABS: Hematocrit 38.1 % (36-47); Hemoglobin 11.70 g/dL (11.27-16.99); Mean Corpuscular HGB Conc 30.7 g/dL (30-55); Mean Corpuscular Hemoglobin 31.4 pg (27-33); Mean Corpuscular Volume 102.1 fl (85-98); Nucleated Red Blood Cells % 0 %; Platelet Count 397 10^3/cmm (157-399); Red Blood Count 3.73 10^6/uL (3.85-5.65); White Blood Count 15.31 10^3/uL (3.29-11.43)
[2025-04-28 09:26] LABS: Alanine Aminotransferase 27 U/L (0-33); Albumin Level 2.6 g/dL (3.5-5.2); Alkaline Phosphatase 78 U/L (35-105); Anion Gap 16.2 (5-19); Aspartate Amino Transferase 25 U/L (0-32); Blood Urea Nitrogen 14 mg/dL (8-23); Calcium 6.3 mg/dL (8.5-10.5); Carbon Dioxide 22 mmol/L (22-29); Chloride 109 mmol/L (98-107); Creatinine Clr Calc Pharmacy 54.0770; Globulin 2.6 g/dL (1.3-4.6); Glucose 155 mg/dL (65-115); Magnesium 1.9 mg/dL (1.7-2.3); Osmolality Calculated 300 mOsm/kg (285-295); Potassium 4.2 mmol/L (3.5-5.1); Sodium 143 mmol/L (136-145); Total Protein 5.2 g/dL (6.6-8.7)
--- NOTE | 2025-04-28 09:39 | PC.OT ---
OT attempted this AM, Patient unable to wake at this time.
--- NOTE | 2025-04-28 11:51 | PM.PN ---
Subjective Subjective: seen this morning patient awake and talking she is s/p surgery, post op day 1 Vitals/I&O/Wt Last Vital Signs Temp 98.3 F 04/28/25 07:25 Pulse 83 04/28/25 09:36 Resp 18 04/28/25 09:36 BP 110/65 04/28/25 07:25 Pulse Ox 97 04/28/25 09:36 O2 Del Method Nasal Cannula 04/28/25 09:36 O2 Flow Rate 2 04/28/25 09:36 FiO2 21 04/24/25 08:22 04/27/25 04/28/25 04/28/25 22:59 06:59 14:59 Intake Total 50 / 510 200 / 710 328.5 / 328.5 Output Total 2900 / 2900 625 / 3525 Balance -2850 / -2390 -425 / -2815 328.5 / 328.5 Weight last 48 hrs Weight 61.235 kg Weight 60.866 kg Physical Exam Narrative: General: ill appearing, generalized weakness,awake and talking, pleasantly confused HEENT: PERRLA, pupils bilaterally equal and reactive, pallors not present Chest: Normal vesicular breath sounds, no added sounds, equal good air entry bilaterally CVS: S1-S2 regular, no murmurs, Abdomen: Soft, appropriately tender to palpation s/p surgery. bowel sounds absent Neuro: No focal deficits, no facial deformity, Data 04/28/25 09:00 04/28/25 09:00 A&P Assessment and plan (1) Tick bite: (2) Fever: (3) Altered mental status: (4) Pneumonia: (5) Hypokalemia: (6) Hypernatremia: Plan Patient is a 79-year-old lady who was brought to the emergency room today with chief complaints of fever, generalized weakness and vomiting starting 3 to 4 days ago. Also developed altered mental status. To 102 Today she is noted to be febrile with temperature of 102 Fahrenheit. She was recently started on treatment for UTI with cefdinir however did not have any significant improvement Will start IV ceftriaxone 1 g every 24 hours UA today is not a clean-catch, 11-20 squamous epithelial cells are noted, this will be repeated as well as urine culture. Alternate possibilities include tickborne illness as 2 ticks have recently been pulled off of the patient, there is also noted thrombocytopenia mild derangement of LFTs.. Start doxycycline 100 mg p.o. twice daily empirically as well. Chest x-ray notes bilateral scattered infiltrates which may be concerning for atypical pneumonia. Ceftriaxone and doxycycline to provide coverage for pneumonia for now. Check sputum culture if patient able to expectorate. Check tick panel Altered mental status most likely related to metabolic encephalopathy from acute infection. She is noted to be clinically dehydrated, start normal saline at 75 cc an hour. Will admit to [facility] and monitor closely. April 21, 2025 Patient continued to have several episodes of nausea and vomiting this morning. Interval exam today was with abdominal distention and hypoactive bowel sounds. CT of the abdomen and pelvis was obtained which showed a high-grade bowel obstruction with transition point in the mid to distal small bowel. There was a loop of small bowel extending into the patent left inguinal hernia. With these findings on CAT scan, general surgery service was consulted. NGT has been inserted and now to low intermittent suction. IV antibiotics changed from ceftriaxone to piperacillin/tazobactam as potentially pneumonia may be related to aspiration and would likely benefit from additional gram-negative and anaerobic coverage. Continue doxycycline, platelets at 99,000 today. April 22, 2025 Overnight she was hallucinating and agitated. Platelet count at 157 todaya, improving, fever curve improving. urine cx with yeast species. NGT maintained, not yet passing flatus or feces, abdomen appears less distended, gastric drainage at 400 cc today. continue Zosyn and Doxycycline iv. Add Zyprexa zydis ODT at night. April 23, 2025 Patient's mental status continues to be with confusion and intermittent hallucination. She did receive Zyprexa last night and was able to sleep however this morning she is agitated, pulling at lines etc. She did have a bowel movement last evening. NGT to be removed today and patient to be started on clear liquid diet. Abdomen appears to be less distended. Tmax 99.7. No leukocytosis. Continue doxycycline for possible tick mediated illness and piperacillin/tazobactam for aspiration pneumonia. Noted to be hyponatremic today with sodium at 146. This is likely related to dehydration and discontinuation of IV fluids yesterday. Will start her on PPN today and I anticipate even with her clear liquid diet she may not be able to meet her caloric requirements. Maximum TPN will be titrated up to 42 mL/h. Will add additional D5 at 30 cc an hour for hypernatremia. Check CMP every 12 hours. Hypokalemia with potassium at 3.0 today, replete with 40 mEq of IV KCl. Metabolic encephalopathy from acute infection is persisting. Patient does have a history of baseline dementia which is likely precipitating the encephalopathy in the setting of acute illness. Resume home dose of galantamine and Wellbutrin now that patient will be allowed to take oral intake. Add oral fluconazole for yeast noted on urine culture 04/24/2025 Patient is currently on TPN. Clear liquids were allowed since yesterday. She is spitting up after drinking Sprite. Did have a very small smear of a bowel movement yesterday. Patient appears agitated and is trying to take her blanket off. Not really attempting to get out of bed yet. Discussed with daughter regarding trying Zyprexa on scheduled twice daily dosing. At this time patient is on once daily at bedtime. Hypokalemia again this morning. Potassium 3.0 today. Will order K rider 40 x 1 today. Patient does have CMP ordered every 12 hours. Continue to follow Will discuss with general surgery Check KUB today. Discussed with daughter regarding goals of care going forward. She states if patient ends up needing surgery for bowel obstruction she would most likely opt for comfort measures at that point. She would like to continue DNR/DNI status. 04/25/2025 Continue TPN at this time. Continue clear liquids. TPN ordered to meet caloric demands. Once patient is able to increase oral intake we will wean off on the TPN. No bowel movement overnight. Discussed with general surgery. It seems a small bowel obstruction may be resolving after surgical assessment. Once she is able to increase oral intake we will assess clinically and if needed may use Gastrografin oral contrast and repeat another CT abdomen. I will hold off on that for now. Continue Haldol and Zyprexa in case of agitation going forward Switch to meropenem. IV fluconazole to be ordered. Stop oral. Unsure an absorption on oral secondary to bowel obstruction. Continue current inpatient management at this time. 04/26/2025 Continue to wean off TPN as oral intake improves. Continue Zyprexa at bedtime Continue meropenem IV fluconazole. Await bowel movement. Continue to monitor patient in hospital setting. Mentation is improving slowly. General Surgery following 04/27/2025 Correction to note from yesterday. Patient was not seen using audiovisual cart she was seen in person. Continue Zyprexa at bedtime. Add Zyprexa 2.5 mg daily in AM. Overnight he was as needed Zyprexa 2.5 every 6 hours. Hold off on using Haldol as it makes patient too sleepy. Appreciate recommendations from general surgery. Will repeat CT abdomen pelvis with IV and oral contrast. In case of NG tube placement that is needed we will hold off on that as per patient's daughter's wishes. Patient lost IV access this morning. Ultrasound-guided IV has been placed by ICU nurse We will continue antibiotics and complete 7-day course total. Further recommendations to follow pending scan from today. 04/28/2025 post op day 1 repair of left femoral hernia, laparotomy bowel resection NG output has decreased Pt denies abdominal pain at this time continue NPO status at this time continue meropenem IV continue IV fluconazole Patient does have bilateral pleural effusions. She is at risk of aspiration as well secondary to NG tube in place. Abdomen is less distended today. Appreciate recommendations from general surgery. I will hold off on adding morning time Zyprexa. Continue Zyprexa 5 mg at nighttime. No more Haldol going forward. Mental status is slightly improved. She will require rehab at discharge. PDMP PDMP Reviewed: Not Reviewed Attestations Medical Necessity Statement*: Status post left femoral hernia laparotomy bowel resection postop day 1. Continue postop care. Diagnoses Tick bite W57.XXXA Fever R50.9 Altered mental status R41.82 Pneumonia J18.9 Hypokalemia E87.6 Hypernatremia E87.0
[2025-04-28] MEDS: fluconazole premix 100 MG in empty flexible container 1 EACH 50 MG IV (15:57)
[2025-04-29] VITALS (11 sets, daily range): BP systolic 100–145; BP diastolic 58–72; PULSE 90–105; RESP 14–18; TEMP 36.4–37.2; O2SAT 88–97
[2025-04-29] MEDS: doxycycline 100 MG in sodium chloride 0.9% (plus) 100 ML IV ×2 (00:58→20:18)
[2025-04-29] MEDS: meropenem 1,000 mg SDV 1000 MG IVP ×4 (04:04→22:00)
[2025-04-29 05:27] LABS: Hematocrit 32.2 % (36-47); Hemoglobin 10.50 g/dL (11.27-16.99); Mean Corpuscular HGB Conc 32.6 g/dL (30-55); Mean Corpuscular Hemoglobin 32.0 pg (27-33); Mean Corpuscular Volume 98.2 fl (85-98); Nucleated Red Blood Cells % 0 %; Platelet Count 460 10^3/cmm (157-399); Red Blood Count 3.28 10^6/uL (3.85-5.65); White Blood Count 12.94 10^3/uL (3.29-11.43)
[2025-04-29 05:38] LABS: Alanine Aminotransferase 20 U/L (0-33); Albumin Level 2.4 g/dL (3.5-5.2); Alkaline Phosphatase 74 U/L (35-105); Anion Gap 15.2 (5-19); Aspartate Amino Transferase 15 U/L (0-32); Blood Urea Nitrogen 14 mg/dL (8-23); Carbon Dioxide 21 mmol/L (22-29); Chloride 103 mmol/L (98-107); Creatinine Clr Calc Pharmacy 54.4853; Globulin 2.5 g/dL (1.3-4.6); Glucose 133 mg/dL (65-115); Magnesium 1.9 mg/dL (1.7-2.3); Osmolality Calculated 284 mOsm/kg (285-295); Potassium 3.2 mmol/L (3.5-5.1); Sodium 136 mmol/L (136-145); Total Protein 4.9 g/dL (6.6-8.7)
[2025-04-29 05:44] LABS: Calcium 5.9 mg/dL (8.5-10.5)
--- NOTE | 2025-04-29 09:45 | P.PN_ITS ---
Subjective 2 Subjective: Patient continues to be doing okay. NG tube output is documented above 1000 over the last 24 hours. This morning the effluent appears to be very clear bilious and I did not obtain any residual from the stomach I will continue decompression the stomach until noon if at that time there is minimal output I may remove the tube and allow her to have clears. Continues to be delirious Vitals/I&O/Wt Last Vital Signs Temp 98.1 F 04/29/25 07:01 Pulse 90 04/29/25 08:58 Resp 18 04/29/25 08:58 BP 110/58 04/29/25 07:01 Pulse Ox 92 04/29/25 08:58 O2 Del Method Room Air 04/29/25 08:58 O2 Flow Rate 2 04/28/25 09:36 FiO2 21 04/24/25 08:22 04/28/25 04/29/25 04/29/25 22:59 06:59 14:59 Intake Total 150 / 578.5 100 / 678.5 Output Total 1800 / 2200 Balance 150 / 178.5 -1700 / -1521.5 Weight last 48 hrs Weight 137 lb 8 oz Weight 135 lb Physical Exam 2 GI: OTHER: Abdominal examination is benign the abdomen is soft appropriately tender there is bowel sounds Data 04/29/25 04:40 04/29/25 04:40 A&P Assessment and plan (1) Intractable nausea and vomiting: (2) Femoral hernia of left side: Plan Will plan for possible advancement of diet today depending on NG output over the next 2 to 3 hours. If patient is able to tolerate clear liquid diet will likely advance to full liquid diet by tomorrow and plan to advance to a GI soft before discharge on Thursday. She continues to be delirious with altered mental status but does not complain abdominal pain or any other issues. Appreciate all other management per medical team, we should continue to replace electrolytes as needed and general surgery will continue following up. PDMP PDMP Reviewed: Not Reviewed Attestations 2 Medical Necessity Statement*: Per medical team Coding Level of Care Code Acute Code for Chg Fwd Diagnoses Intractable nausea and vomiting R11.2 Femoral hernia of left side K41.90
[2025-04-29] MEDS: lidocaine 1% 5 ML in potassium chloride premix 100 ML 26.25 ML IV (12:30)
--- NOTE | 2025-04-29 13:40 | PM.PN ---
Subjective Subjective: seen this am patient awake and talking knows she is in hospital Vitals/I&O/Wt Last Vital Signs Temp 98.8 F 04/29/25 11:21 Pulse 93 04/29/25 11:21 Resp 18 04/29/25 11:21 BP 107/62 04/29/25 11:21 Pulse Ox 97 04/29/25 11:21 O2 Del Method Room Air 04/29/25 11:21 O2 Flow Rate 2 04/28/25 09:36 FiO2 21 04/24/25 08:22 04/28/25 04/29/25 04/29/25 22:59 06:59 14:59 Intake Total 150 / 578.5 100 / 678.5 Output Total 1800 / 2200 Balance 150 / 178.5 -1700 / -1521.5 Weight last 48 hrs Weight 62.369 kg Weight 61.235 kg Physical Exam Narrative: General: sitting up in bed HEENT: PERRLA, pupils bilaterally equal and reactive, Chest: cta b/l no wheezes no ronchi CVS: S1-S2 regular, no murmurs, Abdomen: Soft, appropriately tender to palpation s/p surgery. bowel sounds absent unable to tell me if she passed flatus Neuro: No focal deficits, no facial deformity, Data 04/29/25 04:40 04/29/25 04:40 A&P Assessment and plan (1) Tick bite: (2) Fever: (3) Altered mental status: (4) Pneumonia: (5) Hypokalemia: (6) Hypernatremia: Plan Patient is a 79-year-old lady who was brought to the emergency room today with chief complaints of fever, generalized weakness and vomiting starting 3 to 4 days ago. Also developed altered mental status. To 102 Today she is noted to be febrile with temperature of 102 Fahrenheit. She was recently started on treatment for UTI with cefdinir however did not have any significant improvement Will start IV ceftriaxone 1 g every 24 hours UA today is not a clean-catch, 11-20 squamous epithelial cells are noted, this will be repeated as well as urine culture. Alternate possibilities include tickborne illness as 2 ticks have recently been pulled off of the patient, there is also noted thrombocytopenia mild derangement of LFTs.. Start doxycycline 100 mg p.o. twice daily empirically as well. Chest x-ray notes bilateral scattered infiltrates which may be concerning for atypical pneumonia. Ceftriaxone and doxycycline to provide coverage for pneumonia for now. Check sputum culture if patient able to expectorate. Check tick panel Altered mental status most likely related to metabolic encephalopathy from acute infection. She is noted to be clinically dehydrated, start normal saline at 75 cc an hour. Will admit to [facility] and monitor closely. April 21, 2025 Patient continued to have several episodes of nausea and vomiting this morning. Interval exam today was with abdominal distention and hypoactive bowel sounds. CT of the abdomen and pelvis was obtained which showed a high-grade bowel obstruction with transition point in the mid to distal small bowel. There was a loop of small bowel extending into the patent left inguinal hernia. With these findings on CAT scan, general surgery service was consulted. NGT has been inserted and now to low intermittent suction. IV antibiotics changed from ceftriaxone to piperacillin/tazobactam as potentially pneumonia may be related to aspiration and would likely benefit from additional gram-negative and anaerobic coverage. Continue doxycycline, platelets at 99,000 today. April 22, 2025 Overnight she was hallucinating and agitated. Platelet count at 157 todaya, improving, fever curve improving. urine cx with yeast species. NGT maintained, not yet passing flatus or feces, abdomen appears less distended, gastric drainage at 400 cc today. continue Zosyn and Doxycycline iv. Add Zyprexa zydis ODT at night. April 23, 2025 Patient's mental status continues to be with confusion and intermittent hallucination. She did receive Zyprexa last night and was able to sleep however this morning she is agitated, pulling at lines etc. She did have a bowel movement last evening. NGT to be removed today and patient to be started on clear liquid diet. Abdomen appears to be less distended. Tmax 99.7. No leukocytosis. Continue doxycycline for possible tick mediated illness and piperacillin/tazobactam for aspiration pneumonia. Noted to be hyponatremic today with sodium at 146. This is likely related to dehydration and discontinuation of IV fluids yesterday. Will start her on PPN today and I anticipate even with her clear liquid diet she may not be able to meet her caloric requirements. Maximum TPN will be titrated up to 42 mL/h. Will add additional D5 at 30 cc an hour for hypernatremia. Check CMP every 12 hours. Hypokalemia with potassium at 3.0 today, replete with 40 mEq of IV KCl. Metabolic encephalopathy from acute infection is persisting. Patient does have a history of baseline dementia which is likely precipitating the encephalopathy in the setting of acute illness. Resume home dose of galantamine and Wellbutrin now that patient will be allowed to take oral intake. Add oral fluconazole for yeast noted on urine culture 04/24/2025 Patient is currently on TPN. Clear liquids were allowed since yesterday. She is spitting up after drinking Sprite. Did have a very small smear of a bowel movement yesterday. Patient appears agitated and is trying to take her blanket off. Not really attempting to get out of bed yet. Discussed with daughter regarding trying Zyprexa on scheduled twice daily dosing. At this time patient is on once daily at bedtime. Hypokalemia again this morning. Potassium 3.0 today. Will order K rider 40 x 1 today. Patient does have CMP ordered every 12 hours. Continue to follow Will discuss with general surgery Check KUB today. Discussed with daughter regarding goals of care going forward. She states if patient ends up needing surgery for bowel obstruction she would most likely opt for comfort measures at that point. She would like to continue DNR/DNI status. 04/25/2025 Continue TPN at this time. Continue clear liquids. TPN ordered to meet caloric demands. Once patient is able to increase oral intake we will wean off on the TPN. No bowel movement overnight. Discussed with general surgery. It seems a small bowel obstruction may be resolving after surgical assessment. Once she is able to increase oral intake we will assess clinically and if needed may use Gastrografin oral contrast and repeat another CT abdomen. I will hold off on that for now. Continue Haldol and Zyprexa in case of agitation going forward Switch to meropenem. IV fluconazole to be ordered. Stop oral. Unsure an absorption on oral secondary to bowel obstruction. Continue current inpatient management at this time. 04/26/2025 Continue to wean off TPN as oral intake improves. Continue Zyprexa at bedtime Continue meropenem IV fluconazole. Await bowel movement. Continue to monitor patient in hospital setting. Mentation is improving slowly. General Surgery following 04/27/2025 Correction to note from yesterday. Patient was not seen using audiovisual cart she was seen in person. Continue Zyprexa at bedtime. Add Zyprexa 2.5 mg daily in AM. Overnight he was as needed Zyprexa 2.5 every 6 hours. Hold off on using Haldol as it makes patient too sleepy. Appreciate recommendations from general surgery. Will repeat CT abdomen pelvis with IV and oral contrast. In case of NG tube placement that is needed we will hold off on that as per patient's daughter's wishes. Patient lost IV access this morning. Ultrasound-guided IV has been placed by ICU nurse We will continue antibiotics and complete 7-day course total. Further recommendations to follow pending scan from today. 04/28/2025 post op day 1 repair of left femoral hernia, laparotomy bowel resection NG output has decreased Pt denies abdominal pain at this time continue NPO status at this time continue meropenem IV continue IV fluconazole Patient does have bilateral pleural effusions. She is at risk of aspiration as well secondary to NG tube in place. Abdomen is less distended today. Appreciate recommendations from general surgery. I will hold off on adding morning time Zyprexa. Continue Zyprexa 5 mg at nighttime. No more Haldol going forward. Mental status is slightly improved. She will require rehab at discharge. 04/29/2025 seen today continue npo status possibly plan to remove NG later around noon will order prn zyprexa if pt gets agitated continue meropenem and fluconazole will need rehab at [facility] appreciate recommendations from general surgery talked with dr richardson PDMP PDMP Reviewed: Not Reviewed Attestations Medical Necessity Statement*: sbo s/p surgery Diagnoses Tick bite W57.XXXA Fever R50.9 Altered mental status R41.82 Pneumonia J18.9 Hypokalemia E87.6 Hypernatremia E87.0
--- NOTE | 2025-04-29 13:43 | PM.MISC ---
Miscellaneous Note Purpose of Documentation: Update on patient care Note: Angioplasty has been about 250 cc for the morning so continue decompression until tomorrow. Patient has been noted to be more awake but unfortunately she is also living more agitated and does not want to be examined during my evaluation. Will continue to follow-up clinical progression medical team is currently working on management of delirium.
--- NOTE | 2025-04-29 13:48 | PC.NURSE ---
Notified Dr. Olmstead, Patient is kicking, clawing and trying to pull NG, Burns and IV out. Dr. Olmstead gave verbal orders to give Zyprexa 5 mg IM stat
[2025-04-29] MEDS: water for injection-sterile 10 ML 2.1 ML (14:17)
[2025-04-29] MEDS: morphine 4 mg/mL SDV 1 mL 3 MG IVP (15:27)
[2025-04-29] MEDS: fluconazole premix 100 MG in empty flexible container 1 EACH 50 MG IV (18:20)
[2025-04-29] MEDS: [UNRECOGNIZED DRUG - REMARK] 20 ML IV (23:17)
[2025-04-30] VITALS (11 sets, daily range): BP systolic 96–138; BP diastolic 53–68; PULSE 86–94; RESP 16–18; TEMP 36.5–36.9; O2SAT 92–96
[2025-04-30] MEDS: pantoprazole 40 mg SDV 80 MG IVP (00:11)
[2025-04-30 00:24] LABS: Hematocrit 27.1 % (36-47); Hemoglobin 8.60 g/dL (11.27-16.99); Mean Corpuscular HGB Conc 31.7 g/dL (30-55); Mean Corpuscular Hemoglobin 31.0 pg (27-33); Mean Corpuscular Volume 97.8 fl (85-98); Nucleated Red Blood Cells % 0 %; Platelet Count 429 10^3/cmm (157-399); Red Blood Count 2.77 10^6/uL (3.85-5.65); White Blood Count 9.86 10^3/uL (3.29-11.43)
[2025-04-30 00:46] LABS: Alanine Aminotransferase 16 U/L (0-33); Albumin Level 2.5 g/dL (3.5-5.2); Alkaline Phosphatase 66 U/L (35-105); Anion Gap 17.1 (5-19); Aspartate Amino Transferase 12 U/L (0-32); Blood Urea Nitrogen 23 mg/dL (8-23); Carbon Dioxide 20 mmol/L (22-29); Chloride 106 mmol/L (98-107); Creatinine Clr Calc Pharmacy 54.4853; Globulin 2.0 g/dL (1.3-4.6); Glucose 135 mg/dL (65-115); Osmolality Calculated 294 mOsm/kg (285-295); Potassium 4.1 mmol/L (3.5-5.1); Sodium 139 mmol/L (136-145); Total Protein 4.5 g/dL (6.6-8.7)
[2025-04-30 00:51] LABS: Calcium 5.9 mg/dL (8.5-10.5)
[2025-04-30] MEDS: meropenem 1,000 mg SDV 1000 MG IVP ×3 (05:32→20:54)
--- NOTE | 2025-04-30 07:29 | P.PN_ITS ---
Subjective 2 Subjective: 79-year-old female who is postoperative day 3 status post open repair of strangulated left femoral hernia, laparotomy bowel resection and primary anastomosis. Patient is doing okay over the last 24 hours, overnight she had a large bloody bowel movement, vital signs have remained stable but her blood pressure was in the upper 90s and there was a slight downtrend of the hemoglobin to 8.6 and therefore the patient received a blood transfusion as indicated by the medical team. NG tube output was 300 in the last 24 hours all of that volume was before 7 PM yesterday after that no NG output. Continues to be disoriented Vitals/I&O/Wt Last Vital Signs Temp 98.4 F 04/30/25 05:45 Pulse 90 04/30/25 05:45 Resp 16 04/30/25 05:45 BP 96/53 04/30/25 05:45 Pulse Ox 94 04/30/25 05:45 O2 Del Method Room Air 04/29/25 23:51 O2 Flow Rate 2 04/29/25 20:00 FiO2 21 04/24/25 08:22 04/29/25 04/30/25 04/30/25 22:59 06:59 14:59 Intake Total 1265 / 1265 0 / 1265 250 / 250 Output Total 500 / 750 400 / 1150 Balance 765 / 515 -400 / 115 250 / 250 Weight last 48 hrs Weight 137 lb Weight 137 lb 8 oz Physical Exam 2 Narrative: Disoriented GI: OTHER: The abdomen is soft is nontender surgical incisions are covered with a dressing that is clean dry and intact there is good bowel sounds. Data 04/30/25 00:12 04/30/25 00:12 A&P Assessment and plan (1) Intractable nausea and vomiting: Plan Patient showing good progression after recent surgery for strangulated femoral hernia requiring bowel resection. Patient had a bloody bowel movement overnight. I think this can be expected in the setting of fresh intestinal anastomosis. Bleeding from the anastomotic site is often self-limited and does not require any additional interventions. Will continue to monitor and in the case of recurrent bleeding we might decide to proceed with a CTA of the abdomen and pelvis. Since NG output has been low and there is good bowel sounds the NG tube was removed and the patient will be allowed to have clears today. Additional management per medical team is appreciated. PDMP PDMP Reviewed: Not Reviewed Attestations 2 Medical Necessity Statement*: Per medical team Coding Level of Care Code Acute Code for Chg Fwd Diagnoses Intractable nausea and vomiting R11.2
[2025-04-30] MEDS: doxycycline 100 MG in sodium chloride 0.9% (plus) 100 ML IV ×2 (09:31→20:07)
[2025-04-30 09:32] LABS: Hematocrit 27.7 % (36-47); Hemoglobin 8.80 g/dL (11.27-16.99); Mean Corpuscular HGB Conc 31.8 g/dL (30-55); Mean Corpuscular Hemoglobin 30.2 pg (27-33); Mean Corpuscular Volume 95.2 fl (85-98); Nucleated Red Blood Cells % 0 %; Platelet Count 363 10^3/cmm (157-399); Red Blood Count 2.91 10^6/uL (3.85-5.65); White Blood Count 9.05 10^3/uL (3.29-11.43)
[2025-04-30] MEDS: pantoprazole 40 mg SDV IVP (09:41)
[2025-04-30] MEDS: GALANTAMINE 16 MG 16 EACH PO (09:41)
[2025-04-30 09:58] LABS: Anion Gap 13.8 (5-19); Blood Urea Nitrogen 23 mg/dL (8-23); Carbon Dioxide 21 mmol/L (22-29); Chloride 107 mmol/L (98-107); Creatinine Clr Calc Pharmacy 54.4036; Glucose 149 mg/dL (65-115); Magnesium 2.0 mg/dL (1.7-2.3); Osmolality Calculated 292 mOsm/kg (285-295); Potassium 3.8 mmol/L (3.5-5.1); Sodium 138 mmol/L (136-145)
[2025-04-30 10:03] LABS: Calcium 5.8 mg/dL (8.5-10.5)
--- NOTE | 2025-04-30 10:31 | PM.PN ---
Subjective Subjective: seen today had 1 episode of hemtochezia overnight was given 1 unit prbc overnight vitals are stable blood pressure, heart rate are WNL daughter at bedside pt confused Vitals/I&O/Wt Last Vital Signs Temp 98.2 F 04/30/25 07:56 Pulse 93 04/30/25 07:56 Resp 17 04/30/25 07:56 BP 116/65 04/30/25 07:56 Pulse Ox 92 04/30/25 07:56 O2 Del Method Room Air 04/30/25 07:56 O2 Flow Rate 2 04/29/25 20:00 FiO2 21 04/24/25 08:22 04/29/25 04/30/25 04/30/25 22:59 06:59 14:59 Intake Total 1265 / 1265 0 / 1265 610 / 610 Output Total 500 / 750 400 / 1150 Balance 765 / 515 -400 / 115 610 / 610 Weight last 48 hrs Weight 62.142 kg Weight 62.369 kg Physical Exam Narrative: General: sitting up in bed HEENT: PERRLA, pupils bilaterally equal and reactive, Chest: cta b/l no wheezes no ronchi CVS: S1-S2 regular, no murmurs, Abdomen: Soft, nontender, bowel sounds present unable to tell me if she passed flatus Neuro: confused, disoriented, spontaneously moves all 4 extremities Data 04/30/25 09:26 04/30/25 09:26 A&P Assessment and plan (1) Tick bite: (2) Fever: (3) Altered mental status: (4) Pneumonia: (5) Hypokalemia: (6) Hypernatremia: Plan Patient is a 79-year-old lady who was brought to the emergency room today with chief complaints of fever, generalized weakness and vomiting starting 3 to 4 days ago. Also developed altered mental status. To 102 Today she is noted to be febrile with temperature of 102 Fahrenheit. She was recently started on treatment for UTI with cefdinir however did not have any significant improvement Will start IV ceftriaxone 1 g every 24 hours UA today is not a clean-catch, 11-20 squamous epithelial cells are noted, this will be repeated as well as urine culture. Alternate possibilities include tickborne illness as 2 ticks have recently been pulled off of the patient, there is also noted thrombocytopenia mild derangement of LFTs.. Start doxycycline 100 mg p.o. twice daily empirically as well. Chest x-ray notes bilateral scattered infiltrates which may be concerning for atypical pneumonia. Ceftriaxone and doxycycline to provide coverage for pneumonia for now. Check sputum culture if patient able to expectorate. Check tick panel Altered mental status most likely related to metabolic encephalopathy from acute infection. She is noted to be clinically dehydrated, start normal saline at 75 cc an hour. Will admit to [facility] and monitor closely. April 21, 2025 Patient continued to have several episodes of nausea and vomiting this morning. Interval exam today was with abdominal distention and hypoactive bowel sounds. CT of the abdomen and pelvis was obtained which showed a high-grade bowel obstruction with transition point in the mid to distal small bowel. There was a loop of small bowel extending into the patent left inguinal hernia. With these findings on CAT scan, general surgery service was consulted. NGT has been inserted and now to low intermittent suction. IV antibiotics changed from ceftriaxone to piperacillin/tazobactam as potentially pneumonia may be related to aspiration and would likely benefit from additional gram-negative and anaerobic coverage. Continue doxycycline, platelets at 99,000 today. April 22, 2025 Overnight she was hallucinating and agitated. Platelet count at 157 todaya, improving, fever curve improving. urine cx with yeast species. NGT maintained, not yet passing flatus or feces, abdomen appears less distended, gastric drainage at 400 cc today. continue Zosyn and Doxycycline iv. Add Zyprexa zydis ODT at night. April 23, 2025 Patient's mental status continues to be with confusion and intermittent hallucination. She did receive Zyprexa last night and was able to sleep however this morning she is agitated, pulling at lines etc. She did have a bowel movement last evening. NGT to be removed today and patient to be started on clear liquid diet. Abdomen appears to be less distended. Tmax 99.7. No leukocytosis. Continue doxycycline for possible tick mediated illness and piperacillin/tazobactam for aspiration pneumonia. Noted to be hyponatremic today with sodium at 146. This is likely related to dehydration and discontinuation of IV fluids yesterday. Will start her on PPN today and I anticipate even with her clear liquid diet she may not be able to meet her caloric requirements. Maximum TPN will be titrated up to 42 mL/h. Will add additional D5 at 30 cc an hour for hypernatremia. Check CMP every 12 hours. Hypokalemia with potassium at 3.0 today, replete with 40 mEq of IV KCl. Metabolic encephalopathy from acute infection is persisting. Patient does have a history of baseline dementia which is likely precipitating the encephalopathy in the setting of acute illness. Resume home dose of galantamine and Wellbutrin now that patient will be allowed to take oral intake. Add oral fluconazole for yeast noted on urine culture 04/24/2025 Patient is currently on TPN. Clear liquids were allowed since yesterday. She is spitting up after drinking Sprite. Did have a very small smear of a bowel movement yesterday. Patient appears agitated and is trying to take her blanket off. Not really attempting to get out of bed yet. Discussed with daughter regarding trying Zyprexa on scheduled twice daily dosing. At this time patient is on once daily at bedtime. Hypokalemia again this morning. Potassium 3.0 today. Will order K rider 40 x 1 today. Patient does have CMP ordered every 12 hours. Continue to follow Will discuss with general surgery Check KUB today. Discussed with daughter regarding goals of care going forward. She states if patient ends up needing surgery for bowel obstruction she would most likely opt for comfort measures at that point. She would like to continue DNR/DNI status. 04/25/2025 Continue TPN at this time. Continue clear liquids. TPN ordered to meet caloric demands. Once patient is able to increase oral intake we will wean off on the TPN. No bowel movement overnight. Discussed with general surgery. It seems a small bowel obstruction may be resolving after surgical assessment. Once she is able to increase oral intake we will assess clinically and if needed may use Gastrografin oral contrast and repeat another CT abdomen. I will hold off on that for now. Continue Haldol and Zyprexa in case of agitation going forward Switch to meropenem. IV fluconazole to be ordered. Stop oral. Unsure an absorption on oral secondary to bowel obstruction. Continue current inpatient management at this time. 04/26/2025 Continue to wean off TPN as oral intake improves. Continue Zyprexa at bedtime Continue meropenem IV fluconazole. Await bowel movement. Continue to monitor patient in hospital setting. Mentation is improving slowly. General Surgery following 04/27/2025 Correction to note from yesterday. Patient was not seen using audiovisual cart she was seen in person. Continue Zyprexa at bedtime. Add Zyprexa 2.5 mg daily in AM. Overnight he was as needed Zyprexa 2.5 every 6 hours. Hold off on using Haldol as it makes patient too sleepy. Appreciate recommendations from general surgery. Will repeat CT abdomen pelvis with IV and oral contrast. In case of NG tube placement that is needed we will hold off on that as per patient's daughter's wishes. Patient lost IV access this morning. Ultrasound-guided IV has been placed by ICU nurse We will continue antibiotics and complete 7-day course total. Further recommendations to follow pending scan from today. 04/28/2025 post op day 1 repair of left femoral hernia, laparotomy bowel resection NG output has decreased Pt denies abdominal pain at this time continue NPO status at this time continue meropenem IV continue IV fluconazole Patient does have bilateral pleural effusions. She is at risk of aspiration as well secondary to NG tube in place. Abdomen is less distended today. Appreciate recommendations from general surgery. I will hold off on adding morning time Zyprexa. Continue Zyprexa 5 mg at nighttime. No more Haldol going forward. Mental status is slightly improved. She will require rehab at discharge. 04/29/2025 seen today continue npo status possibly plan to remove NG later around noon will order prn zyprexa if pt gets agitated continue meropenem and fluconazole will need rehab at [facility] appreciate recommendations from general surgery talked with dr richardson 04/30/2025 Patient had 1 episode of hematochezia overnight. Was given 1 unit of packed RBC. Discussed with general surgery this morning. Bleeding from anastomotic site is expected at this time which is often self-limited and does not require additional interventions. If there is recurrent bleeding we will obtain CTA abdomen pelvis. NG output was low this morning therefore NG tube was removed. Patient was started on clear liquid diet. Patient still confused delirious disoriented. Continue Zyprexa 5 mg p.o. at bedtime now that she can have clears. Yesterday she did receive 1 dose of Zyprexa 5 AM x 1. will check cbc q8 hours if there is downward trend of Hb, will check CTA sooner. Closely watch patient today Discussed with daughter. I will continue TPN to supplement her caloric intake. Order 1 g calcium gluconate. Calcium 5.8 this morning. Check liver panel. Check CMP at 4 PM. PDMP PDMP Reviewed: Not Reviewed Attestations Medical Necessity Statement*: Requires continued hospitalization for management of postop complications. Diagnoses Tick bite W57.XXXA Fever R50.9 Altered mental status R41.82 Pneumonia J18.9 Hypokalemia E87.6 Hypernatremia E87.0
[2025-04-30 10:54] LABS: Alanine Aminotransferase 14 U/L (0-33); Albumin Level 2.3 g/dL (3.5-5.2); Alkaline Phosphatase 60 U/L (35-105); Aspartate Amino Transferase 11 U/L (0-32); Globulin 2.2 g/dL (1.3-4.6); Total Protein 4.5 g/dL (6.6-8.7)
[2025-04-30] MEDS: calcium gluconate 0.1 gm/mL 10% SDV 10mL 1 GM IVP (11:18)
[2025-04-30 11:29] LABS: Hematocrit 25.4 % (36-47); Hemoglobin 8.20 g/dL (11.27-16.99); Mean Corpuscular HGB Conc 32.3 g/dL (30-55); Mean Corpuscular Hemoglobin 30.6 pg (27-33); Mean Corpuscular Volume 94.8 fl (85-98); Nucleated Red Blood Cells % 0 %; Platelet Count 359 10^3/cmm (157-399); Red Blood Count 2.68 10^6/uL (3.85-5.65); White Blood Count 8.73 10^3/uL (3.29-11.43)
--- NOTE | 2025-04-30 14:23 | PM.MISC ---
Miscellaneous Note Purpose of Documentation: Update on patient care Note: No further episodes of bloody bowel movements, she is doing very well, she is more alert, she knows she is in the hospital and states that she is hungry and has not had food in several days. Tolerating clear liquid diet. The plan will be to advance to a full liquid diet tomorrow and from there if she is tolerating well we can advance as tolerated. All other management per medical team appreciated
[2025-04-30 17:48] LABS: Hematocrit 28.7 % (36-47); Hemoglobin 9.10 g/dL (11.27-16.99); Mean Corpuscular HGB Conc 31.7 g/dL (30-55); Mean Corpuscular Hemoglobin 30.5 pg (27-33); Mean Corpuscular Volume 96.3 fl (85-98); Nucleated Red Blood Cells % 0 %; Platelet Count 415 10^3/cmm (157-399); Red Blood Count 2.98 10^6/uL (3.85-5.65); White Blood Count 9.68 10^3/uL (3.29-11.43)
[2025-04-30] MEDS: fluconazole premix 100 MG in empty flexible container 1 EACH 50 MG IV (18:00)
[2025-04-30 18:09] LABS: Alanine Aminotransferase 15 U/L (0-33); Albumin Level 2.4 g/dL (3.5-5.2); Alkaline Phosphatase 70 U/L (35-105); Anion Gap 16.8 (5-19); Aspartate Amino Transferase 14 U/L (0-32); Blood Urea Nitrogen 23 mg/dL (8-23); Calcium 6.3 mg/dL (8.5-10.5); Carbon Dioxide 18 mmol/L (22-29); Chloride 109 mmol/L (98-107); Creatinine Clr Calc Pharmacy 54.4036; Globulin 2.5 g/dL (1.3-4.6); Glucose 150 mg/dL (65-115); Osmolality Calculated 297 mOsm/kg (285-295); Potassium 3.8 mmol/L (3.5-5.1); Sodium 140 mmol/L (136-145); Total Protein 4.9 g/dL (6.6-8.7)
[2025-04-30] MEDS: [UNRECOGNIZED DRUG - REMARK] 20 ML IV (20:08)
[2025-05-01] VITALS (7 sets, daily range): BP systolic 126–168; BP diastolic 54–77; PULSE 85–94; RESP 16–18; TEMP 36.5–36.9; O2SAT 94–98
[2025-05-01 03:00] LABS: Hematocrit 24.4 % (36-47); Hemoglobin 7.90 g/dL (11.27-16.99); Mean Corpuscular HGB Conc 32.4 g/dL (30-55); Mean Corpuscular Hemoglobin 30.2 pg (27-33); Mean Corpuscular Volume 93.1 fl (85-98); Nucleated Red Blood Cells % 0 %; Platelet Count 370 10^3/cmm (157-399); Red Blood Count 2.62 10^6/uL (3.85-5.65); White Blood Count 7.35 10^3/uL (3.29-11.43)
[2025-05-01] MEDS: meropenem 1,000 mg SDV 1000 MG IVP ×3 (04:55→19:43)
[2025-05-01 06:16] LABS: Hematocrit 26.8 % (36-47); Hemoglobin 8.40 g/dL (11.27-16.99); Mean Corpuscular HGB Conc 31.3 g/dL (30-55); Mean Corpuscular Hemoglobin 30.1 pg (27-33); Mean Corpuscular Volume 96.1 fl (85-98); Nucleated Red Blood Cells % 0 %; Platelet Count 398 10^3/cmm (157-399); Red Blood Count 2.79 10^6/uL (3.85-5.65); White Blood Count 7.08 10^3/uL (3.29-11.43)
[2025-05-01 06:34] LABS: Alanine Aminotransferase 13 U/L (0-33); Albumin Level 2.3 g/dL (3.5-5.2); Alkaline Phosphatase 70 U/L (35-105); Anion Gap 13.4 (5-19); Aspartate Amino Transferase 13 U/L (0-32); Blood Urea Nitrogen 17 mg/dL (8-23); Calcium 6.3 mg/dL (8.5-10.5); Carbon Dioxide 21 mmol/L (22-29); Chloride 109 mmol/L (98-107); Creatinine Clr Calc Pharmacy 54.2607; Globulin 2.3 g/dL (1.3-4.6); Glucose 107 mg/dL (65-115); Magnesium 1.9 mg/dL (1.7-2.3); Osmolality Calculated 292 mOsm/kg (285-295); Potassium 3.4 mmol/L (3.5-5.1); Sodium 140 mmol/L (136-145); Total Protein 4.6 g/dL (6.6-8.7)
--- NOTE | 2025-05-01 06:48 | P.PN_ITS ---
Subjective 2 Subjective: Postoperative day 4 status post open repair of strangulated left femoral hernia, laparotomy with bowel resection primary stenosis. Patient is doing well, has had bowel movements over the last 24 hours both of them were bloody. The hemoglobin has slightly down trended to yesterday is 8.4 this morning. She does not complain of abdominal pain is more active better mentation. Vitals/I&O/Wt Last Vital Signs Temp 97.7 F 05/01/25 04:00 Pulse 85 05/01/25 04:00 Resp 17 05/01/25 04:00 BP 133/73 05/01/25 04:00 Pulse Ox 95 05/01/25 04:00 O2 Del Method Room Air 05/01/25 04:00 O2 Flow Rate 2 04/29/25 20:00 FiO2 21 04/24/25 08:22 04/30/25 04/30/25 05/01/25 14:59 22:59 06:59 Intake Total 1900 / 1900 927 / 2827 Output Total 1250 / 1250 400 / 1650 Balance 1900 / 1900 -323 / 1577 -400 / 1177 Weight last 48 hrs Weight 136 lb 2 oz Weight 137 lb Physical Exam 2 GI: OTHER: Benign abdominal examination the abdomen is soft appropriately tender to palpation nondistended. Data 05/01/25 05:16 05/01/25 05:16 A&P Assessment and plan (1) Intractable nausea and vomiting: (2) Femoral hernia of left side: (3) SBO (small bowel obstruction): Plan Patient showing good progression. She will be started on a full liquid diet today and from there she can be advance as tolerated to a GI soft diet. We will continue to trend hemoglobin due to the concern of possible active GI bleeding from the anastomosis. In the case of continued downtrending I may consider TXA administration and if that is not effective we can consider a CTA of the abdomen and pelvis. At this point she appears to be hemodynamically stable, all her vital signs are within normal limits, I do not think additional intervention will be required as of now. All other management per medical team appreciated PDMP PDMP Reviewed: Not Reviewed Attestations 2 Medical Necessity Statement*: Per medical team Coding Level of Care Code Acute Code for Chg Fwd Diagnoses Intractable nausea and vomiting R11.2 Femoral hernia of left side K41.90 SBO (small bowel obstruction) K56.601
[2025-05-01] MEDS: doxycycline 100 MG in sodium chloride 0.9% (plus) 100 ML IV (08:13)
[2025-05-01] MEDS: pantoprazole 40 mg SDV IVP (08:14)
--- NOTE | 2025-05-01 10:20 | PC.SOCIAL ---
IMM Updated Updated pt's daughter on IMM. No questions voiced. Provided pt a copy. Initialed, dated, & timed copy in chart.
[2025-05-01] MEDS: GALANTAMINE 16 MG 16 EACH PO (10:48)
[2025-05-01 11:41] LABS: Hematocrit 27.7 % (36-47); Hemoglobin 8.30 g/dL (11.27-16.99); Mean Corpuscular HGB Conc 30.0 g/dL (30-55); Mean Corpuscular Hemoglobin 30.5 pg (27-33); Mean Corpuscular Volume 101.8 fl (85-98); Nucleated Red Blood Cells % 0 %; Platelet Count 350 10^3/cmm (157-399); Red Blood Count 2.72 10^6/uL (3.85-5.65); White Blood Count 6.23 10^3/uL (3.29-11.43)
--- NOTE | 2025-05-01 15:05 | P.PN_ITS ---
Subjective 2 Subjective: So far without any additional hematochezia. She did not eat her breakfast although an Ensure had been safe for her to try for later. She denies abdominal pain, was bothered by bandage wrapped around her IV. Vitals/I&O/Wt Last Vital Signs Temp 98.2 F 05/01/25 12:10 Pulse 88 05/01/25 12:10 Resp 18 05/01/25 12:10 BP 147/74 05/01/25 12:10 Pulse Ox 95 05/01/25 12:10 O2 Del Method Room Air 05/01/25 12:10 O2 Flow Rate 2 04/29/25 20:00 FiO2 21 04/24/25 08:22 05/01/25 05/01/25 05/01/25 06:59 14:59 22:59 Intake Total 580 / 580 Output Total 400 / 1650 1000 / 1000 Balance -400 / 1177 -420 / -420 Weight last 48 hrs Weight 61.745 kg Weight 62.142 kg Physical Exam 2 Narrative: Trying to take off the bandage around her IV. Accompanied by male family member. HENMT: COMMON NORMALS: oropharynx normal Neck/C-Spine: COMMON NORMALS: no JVD Resp: COMMON NORMALS: normal respiratory effort and clear to auscultation bilaterally AUSCULTATION: clear to auscultation bilaterally Cardio: COMMON NORMALS: no JVD, regular rhythm, S1 normal heart sound present, S2 normal heart sound present and No murmurs present (Cardio) RHYTHM: regular rhythm HEART SOUNDS: S1 normal heart sound present and S2 normal heart sound present GI: COMMON NORMALS: Normal to inspection, nondistended, normoactive bowel sounds present, Soft to palpation and non-tender PALPATION: Yes Soft to palpation Extremity: COMMON NORMALS: no joint enlargement and no pedal edema N ARRATIVE EXTREMITY EXAM: No erythema or swelling noted around IV site. No drainage or bleeding. Neuro: COMMON NORMALS: moves all extremities Skin: COMMON NORMALS: no rashes or lesions noted GENERAL SKIN EXAM: no rashes or lesions noted Data 05/01/25 11:17 05/01/25 05:16 A&P Assessment and plan (1) SBO (small bowel obstruction): So far without recurrence of hematochezia, thought to be related to possible transient anastomotic bleed. Reviewed vitals, CBC, CMP, magnesium, surgery note, discussed with surgery provider. She is going to have a trial of full liquid diet today. Reassess for any additional bleeding. Repeat blood counts. Noted charted bowel movement. Monitor intake and output. (2) Tick bite: Has been on doxycycline. Reviewed tick panel, noted negative. Will stop doxycycline. (3) Fever: (4) Altered mental status: With gradual improvement. Still with residual confusion but is interacting and redirectable to an extent. (5) Pneumonia: Resolved. Received short course of treatment with ceftriaxone and doxycycline (6) Hypokalemia: Supplement additional potassium (7) Hypernatremia: Resolved Plan Hypocalcemia: Calcium noted 6.3. Corrected calcium still mildly low at 7.7. Will supplement additional calcium IV. Repeat chemistry. Functional decline: With physical deconditioning, consideration of discharge to nursing facility with consideration of rehabilitation. Physical service following. Case management further working with her family on post discharge planning. PDMP PDMP Reviewed: Not Reviewed Attestations 2 Medical Necessity Statement*: Continue admission for assessment management after SBO, release of strangulated femoral hernia, possible anastomotic bleeding, altered mental status. Coding Level of Care Code Acute Code for [facility] Diagnoses SBO (small bowel obstruction) K56.609 Tick bite W57.XXXA Fever R50.9 Altered mental status R41.82 Pneumonia J18.9 Hypokalemia E87.6 Hypernatremia E87.0
[2025-05-01] MEDS: [UNRECOGNIZED DRUG - REMARK] 20 ML IV (16:21)
[2025-05-01] MEDS: fluconazole premix 100 MG in empty flexible container 1 EACH 50 MG IV (16:21)
[2025-05-01] MEDS: calcium gluconate 0.9% NaCL 1 GM/50 ML PREMIX IV (18:26)
[2025-05-01 19:00] LABS: Hematocrit 26.0 % (36-47); Hemoglobin 8.30 g/dL (11.27-16.99); Mean Corpuscular HGB Conc 31.9 g/dL (30-55); Mean Corpuscular Hemoglobin 30.3 pg (27-33); Mean Corpuscular Volume 94.9 fl (85-98); Nucleated Red Blood Cells % 0 %; Platelet Count 436 10^3/cmm (157-399); Red Blood Count 2.74 10^6/uL (3.85-5.65); White Blood Count 6.81 10^3/uL (3.29-11.43)
[2025-05-02] VITALS (7 sets, daily range): BP systolic 117–156; BP diastolic 60–80; PULSE 75–92; RESP 15–17; TEMP 36.3–36.8; O2SAT 94–97
[2025-05-02] MEDS: meropenem 1,000 mg SDV 1000 MG IVP ×2 (05:05→11:57)
[2025-05-02 05:32] LABS: Hematocrit 24.9 % (36-47); Hemoglobin 8.00 g/dL (11.27-16.99); Mean Corpuscular HGB Conc 32.1 g/dL (30-55); Mean Corpuscular Hemoglobin 30.4 pg (27-33); Mean Corpuscular Volume 94.7 fl (85-98); Nucleated Red Blood Cells % 0 %; Platelet Count 347 10^3/cmm (157-399); Red Blood Count 2.63 10^6/uL (3.85-5.65); White Blood Count 5.54 10^3/uL (3.29-11.43)
[2025-05-02 05:47] LABS: Alanine Aminotransferase 15 U/L (0-33); Albumin Level 2.1 g/dL (3.5-5.2); Alkaline Phosphatase 79 U/L (35-105); Aspartate Amino Transferase 18 U/L (0-32); Blood Urea Nitrogen 13 mg/dL (8-23); Calcium 6.9 mg/dL (8.5-10.5); Carbon Dioxide 21 mmol/L (22-29); Chloride 108 mmol/L (98-107); Creatinine Clr Calc Pharmacy 53.3317; Globulin 2.4 g/dL (1.3-4.6); Glucose 109 mg/dL (65-115); Osmolality Calculated 287 mOsm/kg (285-295); Sodium 138 mmol/L (136-145); Total Protein 4.5 g/dL (6.6-8.7)
[2025-05-02 05:48] LABS: Anion Gap 12.4 (5-19); Potassium 3.4 mmol/L (3.5-5.1)
--- NOTE | 2025-05-02 06:51 | P.PN_ITS ---
Subjective 2 Subjective: Postoperative day 5 status post open repair of strangulated left femoral hernia, loop oratory laparotomy bowel resection primary anastomosis. Patient is doing well she has been tolerating diet no significant abdominal pain normal vital signs, has continued to have bloody bowel movements. Vitals/I&O/Wt Last Vital Signs Temp 97.3 F L 05/02/25 04:00 Pulse 80 05/02/25 04:00 Resp 17 05/02/25 04:00 BP 151/80 05/02/25 04:00 Pulse Ox 96 05/02/25 04:00 O2 Del Method Room Air 05/02/25 04:00 O2 Flow Rate 2 04/29/25 20:00 FiO2 21 04/24/25 08:22 05/01/25 05/01/25 05/02/25 14:59 22:59 06:59 Intake Total 580 / 580 504.333 / 1084.333 Output Total 1000 / 1000 850 / 1850 800 / 2650 Balance -420 / -420 -345.667 / -765.667 -800 / -1565.667 Weight last 48 hrs Weight 130 lb 7 oz Weight 136 lb 2 oz Physical Exam 2 GI: OTHER: There is a benign abdominal examination the abdomen is soft appropriately tender and nondistended. Data 05/02/25 05:20 05/02/25 05:20 A&P Assessment and plan (1) SBO (small bowel obstruction): Plan Patient showing very good progression over the last 24 hours. She has been tolerating diet is in good spirits better mental status. She has continued to have bloody bowel movements. In my clinical opinion I think this is residual blood from an initial bleeding from the anastomotic site, this hypothesis supported by patient clinical status her vital signs are completely stable and her hemoglobin has remained stable at 8 over the last 48 hours. I think there was an initial bleeding from the anastomotic site which caused the initial drop in the hemoglobin but at this point bleeding has stopped and what we are seeing in the stool is residual blood retained in the GI tract, this should clear up in the next 24 to 48 hours as we advance the patient diet and she starts having regular bowel movements. In the case and the significant drop of the hemoglobin or changes in hemodynamic parameters we can obtain a CTA of the abdomen and pelvis with a delayed non-contrast fase to evaluate for GI bleeding. We are advancing her to a GI soft diet today. I will continue to monitor her. I appreciate medical management, appreciate electrolyte replacement to an optimal level by medical team. - Continue to monitor hemoglobin every 8-12 hours - Can advance to GI soft diet - Continue physical therapy and early ambulation to speed up recovery - All other management per medical team PDMP PDMP Reviewed: Not Reviewed Attestations 2 Medical Necessity Statement*: Per medical team Coding Level of Care Code Acute Code for Chg Fwd Diagnoses SBO (small bowel obstruction) K56.609
[2025-05-02] MEDS: GALANTAMINE 16 MG 16 EACH PO (08:13)
[2025-05-02] MEDS: pantoprazole 40 mg SDV IVP (08:13)
--- NOTE | 2025-05-02 14:03 | PM.PN ---
Subjective Subjective: She is not having any new discomfort today. Vitals/I&O/Wt Last Vital Signs Temp 98.0 F 05/02/25 12:00 Pulse 86 05/02/25 12:00 Resp 17 05/02/25 12:00 BP 156/68 05/02/25 12:00 Pulse Ox 96 05/02/25 12:00 O2 Del Method Room Air 05/02/25 12:00 O2 Flow Rate 2 04/29/25 20:00 FiO2 21 04/24/25 08:22 05/01/25 05/02/25 05/02/25 22:59 06:59 14:59 Intake Total 504.333 / 1084.333 480 / 480 Output Total 850 / 1850 800 / 2650 Balance -345.667 / -765.667 -800 / -1565.667 480 / 480 Weight last 48 hrs Weight 59.165 kg Weight 61.745 kg Physical Exam Narrative: Trying to take off the bandage around her IV. Accompanied by male family member. HENMT: COMMON NORMALS: oropharynx normal Neck/C-Spine: COMMON NORMALS: no JVD Resp: COMMON NORMALS: normal respiratory effort and clear to auscultation bilaterally AUSCULTATION: clear to auscultation bilaterally Cardio: COMMON NORMALS: no JVD, regular rhythm, S1 normal heart sound present, S2 normal heart sound present and No murmurs present (Cardio) RHYTHM: regular rhythm HEART SOUNDS: S1 normal heart sound present and S2 normal heart sound present GI: COMMON NORMALS: Normal to inspection, nondistended, normoactive bowel sounds present, Soft to palpation and non-tender PALPATION: Yes Soft to palpation Extremity: COMMON NORMALS: no joint enlargement and no pedal edema NARRATIVE EXTREMITY EXAM: No erythema or swelling noted around IV site. No drainage or bleeding. Neuro: COMMON NORMALS: moves all extremities Skin: COMMON NORMALS: no rashes or lesions noted GENERAL SKIN EXAM: no rashes or lesions noted Data 05/02/25 05:20 05/02/25 05:20 A&P Assessment and plan 1. SBO (small bowel obstruction): Reviewed vitals, CBC, hemoglobin 8 noticed with slight decrease from yesterday. Platelets reviewed, normal. WBC normal. Additional loose bowel movement with bloody appearance. Reassessed by surgery, thought likely some older blood, however, Lovenox is stopped for now with SCDs For DVT prophylaxis. Reassess, treat for additional blood in stools. Reassess blood counts. CT angiogram considered, although as it is not guaranteed to show a rate of there is a small bleed, additionally with risk of nephropathy for now it not yet obtained but kept as an option. Reviewed surgery note. Trial of GI soft diet. DC IV fluid. Hold further parenteral nutrition. 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 Completed antibiotic course with meropenem. Will stop antibiotic. 2. Tick bite: Has been on doxycycline. Reviewed tick panel, noted negative. Will stop doxycycline. 3. Fever: Resolved 4. Altered mental status: With gradual improvement. Still with residual confusion but is interacting and redirectable to an extent. 5. Pneumonia: Resolved. Received short course of treatment with ceftriaxone and doxycycline 6. Hypokalemia: Requested potassium replacement. Check magnesium. 7. Hypernatremia: Resolved Plan: Hypocalcemia: Calcium reviewed today, up to 6.9. Corrected calcium now normal at 8.4. Reassess. UTI: Completed course of treatment with fluconazole. Functional decline: With physical deconditioning, consideration of discharge to nursing facility with consideration of rehabilitation. Physical service following. Case management further working with her family on post discharge planning. PDMP PDMP Reviewed: Not Reviewed Attestations Medical Necessity Statement*: Continue admission for assessment management after SBO, release of strangulated femoral hernia, possible anastomotic bleeding, altered mental status. and High MDM includes amount and/or complexity of data reviewed/ordered [ previous or external records, resulted lab(s)/test(s), ordered lab(s)/test(s) and other healthcare professional discussion] as documented Diagnoses SBO (small bowel obstruction) K56.609 Tick bite W57.XXXA Fever R50.9 Altered mental status R41.82 Pneumonia J18.9 Hypokalemia E87.6 Hypernatremia E87.0
[2025-05-03] VITALS: BP 167/67; PULSE 83; RESP 16; TEMP 36.9; O2SAT 94
[2025-05-03 03:47] LABS: Hematocrit 30.5 % (36-47); Hemoglobin 9.50 g/dL (11.27-16.99); Mean Corpuscular HGB Conc 31.1 g/dL (30-55); Mean Corpuscular Hemoglobin 30.9 pg (27-33); Mean Corpuscular Volume 99.3 fl (85-98); Nucleated Red Blood Cells % 0 %; Platelet Count 456 10^3/cmm (157-399); Red Blood Count 3.07 10^6/uL (3.85-5.65); White Blood Count 6.98 10^3/uL (3.29-11.43)
[2025-05-03 04:00] VITALS: BP 164/67; PULSE 95; RESP 16; TEMP 36.6; O2SAT 95
[2025-05-03 04:13] LABS: Anion Gap 15.6 (5-19); Blood Urea Nitrogen 12 mg/dL (8-23); Calcium 7.6 mg/dL (8.5-10.5); Carbon Dioxide 20 mmol/L (22-29); Chloride 108 mmol/L (98-107); Creatinine Clr Calc Pharmacy 53.3317; Glucose 99 mg/dL (65-115); Magnesium 2.0 mg/dL (1.7-2.3); Osmolality Calculated 290 mOsm/kg (285-295); Potassium 3.6 mmol/L (3.5-5.1); Sodium 140 mmol/L (136-145)
[2025-05-03 07:31] VITALS: BP 148/62; PULSE 78; RESP 19; TEMP 36.7; O2SAT 96
[2025-05-03] MEDS: pantoprazole 40 mg SDV IVP (07:57)
[2025-05-03] MEDS: GALANTAMINE 16 MG 16 EACH PO (07:57)
[2025-05-03 08:54] VITALS: PULSE 80; RESP 16; O2SAT 94
--- NOTE | 2025-05-03 09:18 | PM.PN ---
Subjective Subjective: Patient has showed remarkable progression over the last 24 hours, no abdominal pain, tolerating diet, mental status has improved significantly. No further downtrending hemoglobin. Vitals/I&O/Wt Last Vital Signs Temp 98.1 F 05/03/25 07:31 Pulse 80 05/03/25 08:54 Resp 16 05/03/25 08:54 BP 148/62 05/03/25 07:31 Pulse Ox 94 05/03/25 08:54 O2 Del Method Room Air 05/03/25 08:54 O2 Flow Rate 2 04/29/25 20:00 FiO2 21 04/24/25 08:22 05/02/25 05/03/25 05/03/25 22:59 06:59 14:59 Intake Total 360 / 1761 Output Total 1225 / 1225 800 / 2025 600 / 600 Balance -865 / 536 -800 / -264 -600 / -600 Weight last 48 hrs Weight 127 lb 4 oz Weight 130 lb 7 oz Physical Exam GI: OTHER: Abdominal examination is benign abdomen soft nontender nondistended surgical incisions are healing well. Data 05/03/25 03:30 05/03/25 03:30 A&P Assessment and plan 1. SBO (small bowel obstruction): 2. Femoral hernia of left side: Plan: Patient showing excellent progression. Tolerating diet. No further hematochezia. I anticipate that she will still pass blood in the stool for the next 48 to 72 hours until it completely evacuate the retained clots in the small bowel. I will start her on once a day MiraLAX to help with bowel function. She can continue on a GI soft diet until she comes to see me in the office. Follow-up with general surgery will be on 2 weeks. She is cleared from the general surgery standpoint to transition to the outpatient setting. PDMP PDMP Reviewed: Not Reviewed Attestations Medical Necessity Statement*: Per medical team Coding Level of Care Code Acute Code for [facility] Fwd Diagnoses SBO (small bowel obstruction) K56.609 Femoral hernia of left side K41.90
[2025-05-03] MEDS: polyethylene glycol 3350 Pkt 17 gm PO (09:53)
--- NOTE | 2025-05-03 10:23 | P.DS_ITS ---
Discharge Providers Date of Admission: 04/20/25 17:24 Date of Discharge: May 03, 2025 Attending Provider at Admission: Viry Brandt MD Attending Provider at Discharge: Conor Alvarado MD Primary Care Provider: Jcarlos Washington DO Diagnoses at Discharge Discharge Diagnosis 1. SBO (small bowel obstruction): 2. Femoral hernia of left side: Reason for Visit Reason for Visit: AMS, SOB, fever Brief History: History as per HPI: Alexa Bravo is a 79 year old female who si brought by family with c/o being sick since thursday (today is ). Patient was noted to be confused by family on Thursday. This was attributed to possible UTI after visit with their PCP and she was started on cefdinir. There was no significant improvement after starting starting the abx. Patient continued to worsen with generalized weakness. She developed emesis today, bilious vomiting and was brought to the ER. 2 ticks have been pulled off the patient in the past week. no dyspnea, of chest pain. Hospital Course Hospital Course Patient was admitted to the hospital at first for management of acute metabolic encephalopathy with altered mental status in setting of fever with concerns for aspiration pneumonia and possible tick infection. She was started on broad- spectrum antibiotics. She continued to have episode of nausea and vomiting for which CT abdomen pelvis was done and she was found to have small bowel obstruction. Surgery was consulted. At first the patient was treated conservatively with bowel rest and decompression with NG tube. As patient did not improve and continued to have concerns for recurrent bowel obstruction she had repeat CT abdomen pelvis on 04/27 which showed severely dilated stomach as well as proximal small arnie. Further treatment options were discussed between surgical team patient and family members and she underwent open repair of strangulated left femoral hernia with mesh, diagnostic laparoscopy, laparotomy and small bowel resection. Postprocedure patient has been improving gradually. She has been having bowel movements. She has been cleared for discharge from surgical team. During hospitalization patient finished IV antibiotics for UTI, possible tick infection. Her blood cultures remain negative, urine culture was positive for glabrata for which she was treated with antifungal medication and she has finished a course of antimicrobial. Safe discharge plan were discussed in detail with patient's family and they requested her to be transition to SNF. She has been discharged to SNF in hemodynamically stable condition with advised to continue on GI soft diet, daily MiraLAX with advised to follow-up with surgical team as an outpatient. Physical Exam Narrative: Trying to take off the bandage around her IV. Accompanied by male family member. HENMT: COMMON NORMALS: oropharynx normal Neck/C-Spine: COMMON NORMALS: no JVD Resp: COMMON NORMALS: normal respiratory effort and clear to auscultation travis aterally AUSCULTATION: clear to auscultation bilaterally Cardio: COMMON NORMALS: no JVD, regular rhythm, S1 normal heart sound present, S2 normal heart sound present and No murmurs present (Cardio) RHYTHM: regular rhythm HEART SOUNDS: S1 normal heart sound present and S2 normal heart sound present GI: COMMON NORMALS: Normal to inspection, nondistended, normoactive bowel sounds present, Soft to palpation and non-tender PALPATION: Yes Soft to palpation Extremity: COMMON NORMALS: no joint enlargement and no pedal edema NARRATIVE EXTREMITY EXAM: No erythema or swelling noted around IV site. No drainage or bleeding. Neuro: COMMON NORMALS: moves all extremities Skin: COMMON NORMALS: no rashes or lesions noted GENERAL SKIN EXAM: no rash es or lesions noted Discharge Data Studies Completed and Pending Microbiology 04/20/25 13:56 Blood Blood Culture - Final NO GROWTH AFTER 5 DAYS 04/20/25 13:54 Blood Blood Culture - Final NO GROWTH AFTER 5 DAYS 04/20/25 14:36 Urine,Clean Catch Urine Culture - Final Nakaseomyces glabrata Completed Studies During Hospitalization Category Date Time Status CT abdomen pelvis w con* [id number] Routine Cat Scan 04/21/25 09:[address] chest abdomen pelvis [CT chest abdpel w/*[id number] Cat Scan 04/27/25 13:05 Completed ] Stat CXRP [XR chest 1V portable [id number]] Stat Exams 04/22/25 11:58 Completed XR KUB portable [id number] Routine Exams 04/24/25 09:40 Completed XR chest 1V [id number] Routine Exams 04/21/25 12:15 Completed XR chest 1V portable [id number] Routine Exams 04/21/25 11:50 Completed XR chest 1V portable [id number] Routine Exams 04/27/25 17:10 Completed XR chest 1V portable [id number] Stat Exams 04/20/25 13:39 Completed XR chest 1V portable [id number] Stat Exams 04/21/25 13:38 Completed XR chest 1V portable [id number] Stat Exams 04/21/25 20:51 Completed XR chest 1V portable [id number] Stat Exams 04/22/25 00:40 Completed Pending at discharge Category Date Time Status CBC Auto Diff [Complete Blood Count w/Auto] AM LABS Lab 05/04/25 04:00 Ordered MRSA PCR OZH (swab) Routine Lab 04/21/25 04:10 Ordered Sputum Culture and Gram Stain Stat Lab 04/20/25 16:54 Uncollected Pathology: Surgical [PTH] Routine Pth 04/27/25 23:16 Received Radiology Impressions Abdomen/Pelvis CT 04/21/25 09:25 IMPRESSION: 1. High-grade small bowel obstruction. Transition point is mid to distal small bowel. 2. There is a loop of small bowel extending into a patent LEFT inguinal hernia. This is not definitely the site of obstruction. Distal small bowel from the hernia sac is dilated but the proximal loop leading into the hernia sac does not appear dilated. 3. No free air and no ascites. 4. Marked distention of the stomach due to the small bowel obstruction. 5. Bilateral lower lobe pulmonary opacifications consistent with pneumonia. May be aspiration pneumonia. 6. Mild gallbladder hydrops with no wall thickening. 7. Multifocal areas of cortical thinning and atrophy RIGHT kidney. 8. Advanced atherosclerosis aorta. 9. Calcified RIGHT fibroid. KUB X-Ray 04/24/25 09:40 IMPRESSION: Findings indicative of distal small bowel obstruction. Findings relatively unchanged compared to CT scan of 04/16/2025. Chest/Abdomen/Pelvis CT 04/27/25 13:05 IMPRESSION: Resolution of groundglass densities in the lower lungs with interval development of bilateral moderate pleural effusion and compressive atelectasis of the lower lobes. Significant distention of stomach and small bowel indicative of mid to distal small bowel obstruction. There is some colon gas including some gas within the rectosigmoid. There is an indirect and a femoral hernia at the point of small bowel caliber transition. The femoral hernia is favored as the point of obstruction. Chest X-Ray 04/27/25 17:10 IMPRESSION: The NG tube tracks into the distal stomach. Laboratory Results WBC 6.98 10^3/uL (3.29-11.43) 05/03/25 03:30 RBC 3.07 10^6/uL (3.85-5.65) L 05/03/25 03:30 Hgb 9.50 g/dL (11.27-16.99) L 05/03/25 03:30 Hct 30.5 % (36-47) L 05/03/25 03:30 MCV 99.3 fl (85-98) H 05/03/25 03:30 MCH 30.9 pg (27-33) 05/03/25 03:30 MCHC 31.1 g/dL (30-55) 05/03/25 03:30 RDW 16.0 % (12.1-15.1) H 05/03/25 03:30 Plt Count 456 10^3/cmm (157-399) H D 05/03/25 03:30 MPV 9.1 fL (7.4-10.4) 05/03/25 03:30 Neut % (Auto) 39.0 % 05/03/25 03:30 Lymph % (Auto) 47.4 % 05/03/25 03:30 [place] % (Auto) 10.0 % 05/03/25 03:30 Eos % (Auto) 1.4 % 05/03/25 03:30 Baso % (Auto) 0.9 % 05/03/25 03:30 Neut # (Auto) 2.72 10^3/uL (1.8-7.7) 05/03/25 03:30 Lymph # (Auto) 3.3 10^3/uL (0.8-4.8) 05/03/25 03:30 [place] # (Auto) 0.7 10^3/uL (0.2-0.9) 05/03/25 03:30 Eos # (Auto) 0.1 10^3/uL (0.0-0.8) 05/03/25 03:30 Baso # (Auto) 0.1 10^3/uL (0.0-0.1) 05/03/25 03:30 Nucleated RBC % (auto) 0 % 05/03/25 03:30 Total Counted 100 (0-100) 04/20/25 13:54 Atypical Lymphs % 10.0 % (0-5) H 04/20/25 13:54 Absolute Neutrophils 4.9 10^3/cmm (1.4-6.5) 04/20/25 13:54 Segmented Neutrophils 74 % 04/20/25 13:54 Band Neutrophils 5.0 % 04/20/25 13:54 Absolute Lymphocytes 1.1 10^3/cmm (1.2-3.4) L 04/20/25 13:54 Lymphocytes (Manual) 7 % 04/20/25 13:54 Monocytes (Manual) 4.0 % 04/20/25 13:54 Absolute Monocytes 0.2 10^3/cmm (0.1-0.6) 04/20/25 13:54 Eosinophils (Manual) 0 % 04/20/25 13:54 Absolute Eosinophils 0.0 10^3/cmm (0.0-0.7) 04/20/25 13:54 Basophils (Manual) 0.0 % 04/20/25 13:54 Absolute Basophils 0.0 10^3/cmm (0.0-0.2) 04/20/25 13:54 Nucleated RBCs # 0.0 /100WBC 05/03/25 03:30 Platelet Estimate Decreased (Normal) L 04/20/25 13:54 Specimen Type Arterial 04/20/25 16:21 Sample Site Brachial, right 04/20/25 16:21 ABG pH 7.44 (7.35-7.45) 04/20/25 16:21 ABG pCO2 30.4 mmHg (35-45) L 04/20/25 16:21 ABG pO2 99.3 mmHg (80.0-100.0) 04/20/25 16:21 ABG PO2/FiO2 Ratio 354 04/20/25 16:21 ABG HCO3 20.7 mmol/L (22-26) L 04/20/25 16:21 ABG O2 Saturation 98.3 04/20/25 16:21 ABG Base Excess -2.5 mmol/L (-2.0-2.0) L 04/20/25 16:21 Angel Luis Test N/a 04/20/25 16:21 A-a O2 Gradient 7.9 mmHg (5-10) 04/20/25 16:21 Hematocrit 38.7 % (37-47) 04/20/25 16:21 Hgb O2 Saturation 96.9 % (95-100) 04/20/25 16:21 Carboxyhemoglobin 0.9 %THgb (0.4-20.1) 04/20/25 16:21 Methemoglobin 0.5 % (0.4-1.5) 04/20/25 16:21 Total Hemoglobin 12.6 g/dL (12-16) 04/20/25 16:21 Sodium 131.0 mmol/L (131-143) 04/20/25 16:21 Potassium 3.0 mmol/L (3.5-5.0) L 04/20/25 16:21 Glucose 154.0 mg/dL (70-115) H 04/20/25 16:21 Ionized Calcium 0.9 mmol/L (1.1-1.4) L 04/20/25 16:21 O2 Delivery Device Nc 04/20/25 16:21 O2 Liters/Min 2.0 % 04/20/25 16:21 FiO2 28.0 % 04/20/25 16:21 Facilities Maintenance Assistant ID glc 04/20/25 16:21 Sodium 140 mmol/L (136-145) 05/03/25 03:30 Potassium 3.6 mmol/L (3.5-5.1) 05/03/25 03:30 Chloride 108 mmol/L (98-107) H 05/03/25 03:30 Carbon Dioxide 20 mmol/L (22-29) L 05/03/25 03:30 Anion Gap 15.6 (5-19) 05/03/25 03:30 BUN 12 mg/dL (8-23) 05/03/25 03:30 Creatinine 0.5 mg/dL (0.5-0.9) 05/03/25 03:30 GFR Calculation Not Reportable 05/03/25 03:30 Glucose 99 mg/dL (65-115) 05/03/25 03:30 Calculated Osmolality 290 mOsm/kg (285-295) 05/03/25 03:30 Lactic Acid 3.0 mmol/L (0.5-2.2) H 04/20/25 13:54 Lactic Acid (Sepsis) 1.3 mmol/L (0.5-2.2) 04/20/25 16:40 Calcium 7.6 mg/dL (8.5-10.5) L 05/03/25 03:30 Ionized Calcium [place] 1.0 mmol/L (1.1-1.4) L 04/23/25 05:38 Phosphorus 2.4 mg/dL (2.5-4.5) L 04/28/25 09:00 Magnesium 2.0 mg/dL (1.7-2.3) 05/03/25 03:30 Total Bilirubin 0.3 mg/dL (0.15-1.2) 05/02/25 05:20 Direct Bilirubin 0.30 mg/dL (0.00-0.30) 04/30/25 09:26 AST 18 U/L (0-32) 05/02/25 05:20 ALT 15 U/L (0-33) 05/02/25 05:20 Alkaline Phosphatase 79 U/L (35-105) 05/02/25 05:20 Troponin T Baseline 32 ng/L (0-10) H 04/20/25 13:54 Troponin T 120 Minute 26.49 ng/L (0-10) H 04/20/25 16:40 Delta Troponin T -5.51 ABS# (0-10) L 04/20/25 16:40 Troponin T Hi Sens 6Hr 22.88 ng/L (0-10) H 04/20/25 20:00 Troponin T Hi Sens 6Hr Delta -9.12 ng/L (0-12) L 04/20/25 20:00 C-Reactive Protein 168.3 mg/L (0.0-4.9) H 04/20/25 13:54 Total Protein 4.5 g/dL (6.6-8.7) L 05/02/25 05:20 Albumin 2.1 g/dL (3.5-5.2) L 05/02/25 05:20 Globulin 2.4 g/dL (1.3-4.6) 05/02/25 05:20 Procalcitonin 4.78 ng/mL (0-0.5) H 04/20/25 13:54 Urine Color Yellow (Yellow) 04/20/25 14:36 Urine Appearance Cloudy (CLEAR) A 04/20/25 14:36 Urine pH 5.5 (5-7) 04/20/25 14:36 Ur Specific [place] 1.021 (1.005-1.030) 04/20/25 14:36 Urine Protein 2+ (Negative) A 04/20/25 14:36 Urine Glucose (UA) Negative (Normal) 04/20/25 14:36 Urine Ketones Trace (Negative) 04/20/25 14:36 Urine Blood Negative (Negative) 04/20/25 14:36 Urine Nitrate Negative (Negative) 04/20/25 14:36 Urine Bilirubin Negative (Negative) 04/20/25 14:36 Urine Urobilinogen 1.0 mg/dL (Negative) 04/20/25 14:36 Ur Leukocyte Esterase Trace (Negative) A 04/20/25 14:36 Urine RBC 11-20 /hpf (0-2) H 04/20/25 14:36 Urine WBC 6-10 /hpf (0-5) 04/20/25 14:36 Ur Squamous Epith Cells 11-20 /hpf (0-5) H 04/20/25 14:36 Amorphous Sediment Not Reportable 04/20/25 14:36 Urine Bacteria None seen /hpf (NONE) 04/20/25 14:36 Hyaline Casts 10.32 /lpf 04/20/25 14:36 Urine Yeast 1+ /hpf H 04/20/25 14:36 Nasal MRSA (PCR) Cancelled 04/21/25 01:47 Adenovirus (PCR) Not detected (NOT DETECT) 04/20/25 17:37 Lyme Ab (Western Blot) <0.90 index 04/20/25 17:18 C. pneumoniae DNA (PCR) Not detected (NOT DETECT) 04/20/25 17:37 Coronavirus 229E (PCR) Not detected (NOT DETECT) 04/20/25 17:37 E. chaffeensis IgG Ab <1:64 04/20/25 17:18 E. chaffeensis IgM Ab <1:20 04/20/25 17:18 E. chaffeensis Interp See note 04/20/25 17:18 E. chaffeensis Comment Not Reportable 04/20/25 17:18 Human Metapneumovir PCR Not detected (NOT DETECT) 04/20/25 17:37 Influenza A (H1) PCR Not detected (NOT DETECT) 04/20/25 17:37 Influ A (H1/09) PCR Not detected (NOT DETECT) 04/20/25 17:37 Influenza A (H3) PCR Not detected (NOT DETECT) 04/20/25 17:37 Influenza Type A (PCR) Not detected (NOT DETECT) 04/20/25 17:37 Influenza Type B (PCR) Not detected (NOT DETECT) 04/20/25 17:37 M. pneumoniae (PCR) Not detected (NOT DETECT) 04/20/25 17:37 Parainfluenza 1 (PCR) Not detected (NOT DETECT) 04/20/25 17:37 Parainfluenza 2 (PCR) Not detected (NOT DETECT) 04/20/25 17:37 Parainfluenza 3 (PCR) Not detected (NOT DETECT) 04/20/25 17:37 Parainfluenza 4 (PCR) Not detected (NOT DETECT) 04/20/25 17:37 RSV Type A (PCR) Not detected (NOT DETECT) 04/20/25 17:37 RSV Type B (PCR) Not detected (NOT DETECT) 04/20/25 17:37 Entero/Rhino (PCR) Not detected (NOT DETECT) 04/20/25 17:37 Rickettsia IgG Ab Not detected 04/20/25 17:18 Rickettsia IgM Ab Not detected 04/20/25 17:18 SARS-CoV-2 (PCR) Not detected (NOT DETECT) 04/20/25 17:37 Blood Type A Positive 04/30/25 01:13 Rho(D) Type Rh positive 04/30/25 01:13 Antibody Screen Negative 04/30/25 01:13 Crossmatch See Detail 04/30/25 01:13 Vitals Last Vital Signs Temp 98.1 F 05/03/25 07:31 Pulse 80 05/03/25 08:54 Resp 16 05/03/25 08:54 BP 148/62 05/03/25 07:31 Pulse Ox 94 05/03/25 08:54 O2 Del Method Room Air 05/03/25 08:54 O2 Flow Rate 2 04/29/25 20:00 FiO2 21 04/24/25 08:22 Discharge Plan Discharge Patient Disposition: Xfer SNF Condition: Stable Prescriptions: New polyethylene glycol 3350 17 gram Powder In Packet 17 g PO DAILY Qty: 30 0RF olanzapine 5 mg Tablet,Disintegrating 5 mg PO BEDTIME 30 Days Qty: 30 0RF Continued vitamin B complex [B-Complex] Tablet 1 tab PO QAM alendronate [Fosamax] 70 mg tablet 70 mg PO Q7D Rx Instructions: Thursday vitamin A 2,400 mcg Capsule 2,400 mcg PO DAILY pantoprazole 40 mg tablet,delayed release (DR/EC) 40 mg PO DAILY cholecalciferol (vitamin D3) [Vitamin D3] 50 mcg (2,000 unit) Tablet 50 mcg PO DAILY bupropion HCl 150 mg Tablet Extended Release 24 Hr 150 mg PO DAILY Qty: 30 0RF acetaminophen [Tylenol] 325 mg Tablet 325 mg PO Q6H PRN (Reason: Pain) ascorbic acid (vitamin C) [Vitamin C] 500 mg Tablet 500 mg PO QAM albuterol sulfate 90 mcg/actuation HFA aerosol inhaler 2 puff INHALATION Q4H PRN (Reason: copd) galantamine 16 mg capsule,ext rel. pellets 24 hr 16 mg PO DAILY Discontinued meloxicam 7.5 mg tablet 7.5 mg PO DAILY cefdinir 300 mg capsule 300 mg PO BID Discharge Order = DC NOW: Discharge Order (Routine); Ordered 05/03/25 Ordered By: Conor Alvarado Referrals: [facility] [Outside] Frank Nieves MD [Physician, General Surgery] - 05/11/25 8:20 am Jcarlos Washington DO [Primary Care Provider, Family Practice] Discharge Diet: GI Soft Discharge Activity: Limit activity as instructed Patient Instructions: Acute Wound Care (DC), Altered Mental Status (ED), Opioid Safety, Post Anesthesia Care, Patient Portal & [place] Instructions Activity Restrictions/Additional Instructions: General Instructions: Please do not lift anything heavier than 10 pounds, for the next 4 to 6 weeks. You can walk is much as possible, this will help you recover faster. You can shower starting the day after tomorrow, let soap and water run over your wound and then pat dry. Please take your medication as indicated if you are taking opioids please do not forget to take a stool softener Warning signs: Return to the hospital if you have fever, chills, severe abdominal pain that is getting worse over time despite your pain medication or if your Wounds appear purulent Discharge Attestations Time Spent in Discharge Care*: greater than 30 min Specific Discharge Activities: educating patient, educating and/or supporting family/caregiver, discussing with pcp/other providers, discussing with rehabilitation case coordinator/social workers/dc planners, documenting/other paperwork and evaluating patient/reviewing data Quality Metrics Clinical Quality Measures [ No reported AMI, CVA or VTE this stay] Coding Level of Care Code 51604 Total time (in minutes) for Discharge: 65 Diagnoses SBO (small bowel obstruction) K56.609 Femoral hernia of left side K41.73
--- NOTE | 2025-05-03 10:33 | PC.SOCIAL ---
IMM Updated Updated pt's daughter, Christal, on IMM. No questions voiced. Provided pt a copy. Initialed, dated, & timed copy in chart.
--- NOTE | 2025-05-03 11:39 | PC.NURSE ---
This nurse called report to PELON Morocho at 1135am. Patients daughter, Christal, will transport pt to [facility] around 1300.
[2025-05-03 11:52] VITALS: BP 121/70; PULSE 84; RESP 18; TEMP 36.7; O2SAT 97
[2025-05-03 12:07] LABS: MRSA PCR OZH (swab) NOT DETECTED (Not Detecte)
[2025-05-03 13:02] VITALS: BP 121/70; PULSE 84; O2SAT 97
[2025-05-03 13:15] LABS: SARS Covid-2 Antigen Negative (Negative)
== END 2025-05-03 13:02 | disposition skilled nursing facility (03) | DRG 329 ==
LOC: ER 16:04 → ER IP 17:25 → MEDSURG 04-21 12:41
PROVIDERS: Internal Medicine; Surgery; Admitting Provider Student in an Organized Health Care Education/Training Program; Emergency Provider Emergency Medicine; PCP Electrodiagnostic Medicine; Visit Provider Student in an Organized Health Care Education/Training Program
PROC: 0YU80JZ Supplement Left Femoral Region with Synthetic Substitute, Open Approach (ICD-10-PCS; CPT 49550; principal; 2025-04-27 19:00)
PROC: 0YU80JZ Supplement Left Femoral Region with Synthetic Substitute, Open Approach (ICD-10-PCS; CPT 49320; 2025-04-27 19:00)
PROC: 0YU80JZ Supplement Left Femoral Region with Synthetic Substitute, Open Approach (ICD-10-PCS; CPT 49000; 2025-04-27 19:00)
DX: K41.30 Unilateral femoral hernia, with obstruction, without gangrene, not specified as recurrent (principal); G93.41 Metabolic encephalopathy; J18.9 Pneumonia, unspecified organism; N39.0 Urinary tract infection, site not specified; K92.1 Melena; E87.1 Hypo-osmolality and hyponatremia; F03.94 Unspecified dementia, unspecified severity, with anxiety; F05 Delirium due to known physiological condition; K55.8 Other vascular disorders of intestine; T14.8XXA Other injury of unspecified body region, initial encounter; L08.9 Local infection of the skin and subcutaneous tissue, unspecified; W57.XXXA Bitten or stung by nonvenomous insect and other nonvenomous arthropods, initial encounter; E86.0 Dehydration; J44.9 Chronic obstructive pulmonary disease, unspecified; D69.6 Thrombocytopenia, unspecified; E83.51 Hypocalcemia; E87.6 Hypokalemia; Z87.891 Personal history of nicotine dependence
CPT/HCPCS: 36415; 36430; 36600; 71045; 71260; 74018; 74177; 80048; 80051; 80053; 80076; 81001; 82330; 82805; 83605; 83735; 84100; 84145; 84484; 85007; 85025; 86140; 86618; 86666; 86757; 86850; 86900; 86920; 87040; 87086; 87106; 87426; 87486; 87581; 87633; 88307; 93005; 94640; 96365; 96367; 96372; 96375; 97116; 97162; 97167; 97530; 97535; 99285; C1781; C9250; J0131; J0330; J0612; J0692; J0696; J1100; J1450; J1630; J1650; J2020; J2185; J2270; J2371; J2405; J2470; J2543; J2704; J2765; J3010; J3480; J3490; J7030; J7040; J7070; J9999; P9040

== ENCOUNTER → 2025-05-09 14:05 | Outpatient (BNVA) | payer MEDICARE, SELFPAY | PROVIDERS: PCP Electrodiagnostic Medicine; Visit Provider Surgery | DX: Z09 Encounter for follow-up examination after completed treatment for conditions other than malignant neoplasm (principal) | CPT/HCPCS: 99024 ==

== ENCOUNTER → 2025-05-24 13:53 | Outpatient (BNVA) | payer MEDICARE, SELFPAY | PROVIDERS: PCP Electrodiagnostic Medicine; Visit Provider Nurse Practitioner Family | DX: M67.431 Ganglion, right wrist (principal); L82.1 Other seborrheic keratosis; L57.8 Other skin changes due to chronic exposure to nonionizing radiation; Z08 Encounter for follow-up examination after completed treatment for malignant neoplasm; Z85.828 Personal history of other malignant neoplasm of skin | CPT/HCPCS: 99213 ==